=== PATIENT | male | born 1940 | race Caucasian/White ===

== ENCOUNTER 2016-04-13 15:59 | Inpatient (IN) | payer BC, OTHER ==
[~2016-04-13] VITALS: Ht 185.4 cm; Wt 97.6 kg
[2016-04-13] VITALS (15 sets, daily range): BP systolic 121–147; BP diastolic 73–86; PULSE 60–74; TEMP 36.5–36.6; O2SAT 92–97; BMI 29.7
[~2016-04-13 15:59] MED LIST: AMLO-110 PO; AMT50 PO; ASPEC81 PO; ATOR-24 PO; ATV2 PO; CHOL100010 PO; INSDGI SC; LISI40TA PO; METF1TAB85 PO; MULT-618; NAPR1TAB9 PO; NVLGI SC; VITAMIN B12 500 MCG PO
[2016-04-13] MEDS ORDERED: AMIODARONE 360MG / 200ML D5W ONE (16:09)
[2016-04-13] MEDS ORDERED: AMIODARONE 150MG / 100ML D5W ONE (16:09)
[2016-04-13] MEDS ORDERED: AMIODARONE HCL INJ 50 MG/ML 3 ML VIAL ONE (16:10)
[2016-04-13] MEDS ORDERED: AMIODARONE / D5W 100 ML IV STA (16:11)
[2016-04-13] MEDS ORDERED: MAGNESIUM SULFATE 1GM / D5W 1 GM BAG ONE (16:11)
[2016-04-13] MEDS ORDERED: SODIUM CHLORIDE 0.9% 1000ML 1,000 ML IV STA (16:17)
[2016-04-13] MEDS ORDERED: ONDANSETRON INJ 2 MG/ML 2 ML VIAL ONE (16:20)
[2016-04-13] MEDS ORDERED: ONDANSETRON INJ 2 MG/ML 2 ML VIAL IV STA (16:22)
[2016-04-13] MEDS ORDERED: AMIODARONE / D5W 200 ML IV SCH (16:25)
[2016-04-13 16:30] LABS: BASO % 0.5 %; BASO ABS # 0.05 K/uL (0-0.2); COMPLETE YES; EOS % 4.9 %; HEMATOCRIT 44.8 % (42-52); IG% 0.5 %; LYMPH % 38.6 %; LYMPH ABS # 3.94 K/uL (1.2-3.4); MEAN CELL VOLUME 91.2 fL (80-100); MEAN CORPUSCULAR HEMOGLOBIN 31.2 pg (25-34); MEAN CORPUSCULAR HGB CONC 34.2 g/dl (32-36); MEAN PLATELET VOLUME 9.6 fL (7.4-10.4); MONO % 9.9 %; NEUT % 45.6 %; PLATELET COUNT 259 K/uL (130-400); RED BLOOD COUNT 4.91 M/uL (4.7-6.1); WHITE BLOOD COUNT 10.21 K/uL (4.8-10.8)
[2016-04-13] MEDS: MAGNESIUM SULFATE 1GM / D5W 1 GM in PREMIXED IN D5W 100 ML IV SCH ×2 (16:30→17:18)
[2016-04-13 16:38] LABS: ISTAT CREATININE 1.3 mg/dl (0.6-1.3); ISTAT HEMOGLOBIN 15.3 g/dl (14.0-18.0); ISTAT IONIZED CALCIUM 1.04 mmol/l (1.12-1.32)
--- NOTE | 2016-04-13 16:43 | DIAGNOSTIC IMAGING REPORT ---
CHEST ONE VIEW PORTABLE CLINICAL HISTORY: Chest Pain dyspnea COMPARISON STUDY: None FINDINGS: Heart top limits normal terms of size. Diaphragms smooth. Minimal atelectasis left base. Several scattered calcified granulomas. No focal infiltrative process. IMPRESSION: Chronic granulomatous change. Minimal atelectasis left base. Otherwise negative study Electronically signed by: Joseph Kim M.D. 04/13/2016 4:41 PM
[2016-04-13] MEDS ORDERED: HEPARIN SOD (PORCINE) 1000 UNIT/ML 10 ML VIAL ONE (16:47)
[2016-04-13] MEDS ORDERED: NiCARDipine HCL INJ 2.5 MG/ML 10 ML AMP ONE (16:47)
[2016-04-13] MEDS ORDERED: MIDAZOLAM HCL 1 MG/ML 2ML VIAL ONE (16:48)
[2016-04-13] MEDS ORDERED: FENTANYL CITRATE INJ 50 MCG/1 ML 2 ML VIAL ONE (16:48)
[2016-04-13] MEDS ORDERED: NITROGLYCERIN/D5W 100MCG/ML 20ML SYR ONE (16:48)
[2016-04-13 16:52] LABS: BLOOD UREA NITROGEN 12 mg/dl (7-18); CALCIUM 8.7 mg/dl (8.5-10.1); CARBON DIOXIDE 20 mmol/L (21-32); CHLORIDE 98 mmol/L (98-107); GLUCOSE 376 mg/dl (70-99); SODIUM 133 mmol/L (136-145)
[2016-04-13] MEDS ORDERED: ASPEC325 PO (16:53)
[2016-04-13] MEDS ORDERED: FAMO40TA6 PO (16:53)
[2016-04-13] MEDS ORDERED: FLM4 PO (16:53)
[2016-04-13] MEDS ORDERED: INSDGI SQ (16:53)
[2016-04-13] MEDS ORDERED: CYAN500T PO (16:53)
[2016-04-13] MEDS ORDERED: CHOL1TAB42 PO (16:53)
--- NOTE | 2016-04-13 16:58 | History and Physical ---
History & Physical Date & Time of Service: Apr 13, 2016 at 16:52 Chief Complaint: Thinks He's Having A Heart Attack Primary Care Physician: Miguel Mares M.D. History of Present Illness Source: patient This is a 75 yo m that presented to the ED for evaluation. Upon arrival he was sitting in the chair for triage. He stated he has a sense of dizziness/feeling like he would pass out. An EKG was done and he was found to be in VT. Soon after this he had a syncopal episode and a code blue was called. He received 2 shocks and once he started to return to NSR Amiodarone bolus was given and a drip was continued. He was also given 2 G of Mg. He is currently in NSR with tachy. Denies any pain at this time. A heart Code was called and patient was evaluated by Dr Barragan. Plan is for the patient to go to the landscape laborer. The Social Work Specialist is also aware of the patient. After a short discussion after revival he denied ever having any chest pain and was actually coming in because of fast heart rate and general malaise. He has a h/o VT according to the patient's allscripts notes however I am unable to find the original EKG. He also has a h/o Barretts' Esophagus/ GERD, hyperchol, insulin dependent DM, HTN and anxiety which is treated with daily benzo. It was difficult to complete a full ROS during this initial evaluation Past Medical/Surgical History Cardiac arrest Barretts esophagus GERD Hyperchol HTN DM Family History Unable to obtain at this time Social History Smoking Status: Former Smoker Marital Status: Occupational Status: retired Multi-Drug Resistant Organisms History of MDRO: No Allergies Coded Allergies: No Known Allergies (Unverified , 04/13/16) Home Medications Scheduled Amitriptyline Hcl (Elavil), 50 MG PO HS Amlodipine (Norvasc), 5 MG PO HS Aspirin (Aspirin), 650 MG PO DAILY Atorvastatin (Lipitor), 40 MG PO HS Cholecalciferol (Vitamin D), 5,000 UNIT PO DAILY Cyanocobalamin (Vitamin B-12), 500 MCG PO DAILY Famotidine (Pepcid), 40 MG PO DAILY Insulin Aspart (Novolog), UNIT SC UD Insulin Glargine (Lantus), 50 UNITS SQ HS Lisinopril (Zestril), 40 MG PO HS Lorazepam (Ativan *), 2 MG PO UD Metformin Hcl (Metformin Hcl Er), 500 MG PO QPM Tamsulosin HCl (Tamsulosin HCl), 0.4 MG PO HS Miscellaneous Medications Multiple Vitamins W/ Minerals (Centrum Silver Ultra Mens) Physical Exam Vital Signs Date Time Temp Pulse Resp B/P Pulse Ox O2 Delivery O2 Flow Rate FiO2 04/13/16 16:20 104 04/13/16 16:13 108 04/13/16 16:00 Room Air General Appearance: no apparent distress Head: normocephalic, atraumatic Eyes: normal inspection ENT: normal ENT inspection Neck: supple Respiratory/Chest: lungs clear, normal breath sounds, no respiratory distress, no accessory muscle use Cardiovascular: no murmur, + tachycardia Abdomen/GI: normal bowel sounds, non tender Genitourinary - Male: normal male genitalia Back: normal inspection Extremities/Musculoskelatal: normal inspection, no pedal edema Neurologic/Psych: + pertinent finding (responding to questions however requiring some coaxing) Skin: normal color, warm/dry, no rash Lymphatic: no adenopathy Diagnostics Laboratory Results Results Past 24 Hours Test 04/13/16 16:13 04/13/16 16:16 04/13/16 16:18 04/13/16 16:21 Range/Units White Blood Count 10.21 4.8-10.8 K/uL Red Blood Count 4.91 4.7-6.1 M/uL Hemoglobin 15.3 14.0-18.0 g/dL Hematocrit 44.8 42-52 % Mean Corpuscular Volume 91.2 80-100 fL Mean Corpuscular Hemoglobin 31.2 25-34 pg Mean Corpuscular Hemoglobin Concent 34.2 32-36 g/dl Platelet Count 259 130-400 K/uL Mean Platelet Volume 9.6 7.4-10.4 fL Neutrophils (%) (Auto) 45.6 % Lymphocytes (%) (Auto) 38.6 % Monocytes (%) (Auto) 9.9 % Eosinophils (%) (Auto) 4.9 % Basophils (%) (Auto) 0.5 % Neutrophils # (Auto) 4.66 1.4-6.5 K/uL Lymphocytes # (Auto) 3.94 1.2-3.4 K/uL Monocytes # (Auto) 1.01 0.11-0.59 K/uL Eosinophils # (Auto) 0.50 0-0.5 K/uL Basophils # (Auto) 0.05 0-0.2 K/uL RDW Standard Deviation 41.3 36.4-46.3 fL RDW Coefficient of Variation 12.4 11.5-14.5 % Immature Granulocyte % (Auto) 0.5 % Immature Granulocyte # (Auto) 0.05 0.00-0.02 K/uL Sodium Level 133 136-145 mmol/L Potassium Level 3.5-5.1 mmol/L Chloride Level 98 98-107 mmol/L Carbon Dioxide Level 20 21-32 mmol/L Anion Gap 15.0 20.0 16-25 mmol/L Blood Urea Nitrogen 12 7-18 mg/dl Creatinine 1.50 0.60-1.40 mg/dl Estimated GFR () 52.4 Estimated GFR (Non- 45.2 BUN/Creatinine Ratio 8.0 10-20 Random Glucose 376 70-99 mg/dl Calcium Level 8.7 8.5-10.1 mg/dl Total Creatine Kinase 39-308 U/L Creatine Kinase MB Ratio 0-3.0 Bedside Glucose 415 70-99 mg/dl Bedside Hemoglobin 15.3 14.0-18.0 g/dl Bedside Hematocrit 45 42-52 % Bedside Sodium 132 135-144 mEq/L Bedside Potassium 5.5 3.3-5.0 mEq/L Bedside Chloride 97 101-112 mEq/L Bedside Total CO2 21 24-31 mEq/l Bedside Blood Urea Nitrogen 16 7-18 mg/dl Bedside Creatinine 1.3 0.6-1.3 mg/dl Bedside Glucose (other) 393 70-99 mg/dl Bedside Ionized Calcium (Domitila) 1.04 1.12-1.32 mmol/l Diagnostic Radiology CHEST ONE VIEW PORTABLE CLINICAL HISTORY: Chest Pain dyspnea COMPARISON STUDY: None FINDINGS: Heart top limits normal terms of size. Diaphragms smooth. Minimal atelectasis left base. Several scattered calcified granulomas. No focal infiltrative process. IMPRESSION: Chronic granulomatous change. Minimal atelectasis left base. Otherwise negative study EKG Ventricular tachycardia on admission repeat ekg revealed sinus tachy with PVC Impression Assessment and Plan this is a 75 yo m post cardiac arrest r/t ventricular tachycardia of unknown cause- plan is for cardiac cath and transfer to ICU Post cardiac arrest/ VT - ICU admission and consult electrician outside - consult CS- cardiac cath pending - continue amiodarone drip - previous notes from [facility] and previous EKG has been requested through [facility] DM insulin dep - defer DM control until recheck after cardiac cath - anticipate insulin drip Hyperkalemia - recheck in am, most likely secondary to arrest Anxiety - Ativan 0.5 mg prn considering chronic use of his anxiety medication GERD - IV protonix bid - hold famotidine HTN - hold until after cardiac cath - was on ASA, amlodipine, lisinopril Hyperchol - hold lipitor 40 until after cath - most likely will increase to 80 mg DVT Prophylaxis - hold until reevaluation after cath FULL CODE Level of Care Critical Care Resuscitation Status FULL RESUSCITATION VTE Prophylaxis VTE Risk Assessment Done? Y/N: Yes Risk Level: Moderate Social Service Consult None Apply Note Total Time: Critical Care 30 - 74 minutes I evaluated this patient and performed a physical exam. I reviewed the orders and read this note by Dr. Maru Aparicio M.D. I agree with the orders and the entire contents of this note. Additional Copies To ,Miguel Acuna M.D.
--- NOTE | 2016-04-13 17:56 | Procedure Note ---
Pre-Mod Sedation Assessment General Date of Moderate Sedation: Apr 13, 2016. Vital Signs: Vital Signs Past 12 Hours Date Time Temp Pulse Resp B/P Pulse Ox O2 Delivery O2 Flow Rate FiO2 04/13/16 17:40 79 18 124/77 95 Nasal Cannula 6 04/13/16 16:55 89 20 157/93 99 04/13/16 16:45 92 147/98 99 Non-Rebreather 15.0 04/13/16 16:40 92 145/104 100 Non-Rebreather 15.0 04/13/16 16:35 94 156/115 100 04/13/16 16:30 95 172/106 100 Non-Rebreather 15.0 04/13/16 16:25 102 99 Non-Rebreather 15.0 04/13/16 16:20 107 203/115 100 Non-Rebreather 15.0 04/13/16 16:20 104 04/13/16 16:13 108 04/13/16 16:05 104 172/116 100 Non-Rebreather 15.0 04/13/16 16:00 Room Air Review Cardiovascular: regular rate, rhythm, no edema, no gallop, + irregularly irregular Abdomen: normal bowel sounds, non tender, soft Lungs: chest non-tender, lungs clear, normal breath sounds Airway Class: II Pre-Sedation Airway Assessment Oral Cavity: WNL Able to Visualize Vocal Cords: No Short Thick Neck: No Hx of Sleep Apnea: No Smoking Status: Former Smoker Mallampati Classification: Class II ASA Classification: Class III Procedure Planning Contraindications-for Mod Sed: None Yes Notes The planned sedation has been discussed with the patient and consent obtained. I have identified the patient, determined the appropriateness of sedation and have assessed the patient immediately prior to the procedure. All medicine(s) and interventions are by my order.
--- NOTE | 2016-04-13 17:57 | Procedure Note ---
Post-Mod Sedation Assessment General Date of Moderate Sedation Apr 13, 2016. Vital Signs: Vital Signs Past 12 Hours Date Time Temp Pulse Resp B/P Pulse Ox O2 Delivery O2 Flow Rate FiO2 04/13/16 17:40 79 18 124/77 95 Nasal Cannula 6 04/13/16 16:55 89 20 157/93 99 04/13/16 16:45 92 147/98 99 Non-Rebreather 15.0 04/13/16 16:40 92 145/104 100 Non-Rebreather 15.0 04/13/16 16:35 94 156/115 100 04/13/16 16:30 95 172/106 100 Non-Rebreather 15.0 04/13/16 16:25 102 99 Non-Rebreather 15.0 04/13/16 16:20 107 203/115 100 Non-Rebreather 15.0 04/13/16 16:20 104 04/13/16 16:13 108 04/13/16 16:05 104 172/116 100 Non-Rebreather 15.0 04/13/16 16:00 Room Air Review - Discharge Criteria Vital Signs Stable: Yes Alert/Oriented/Conversant: Yes Returned to Baseline Mental St: Yes Nausea Absent/Minimal: Yes Pain/Discomfort/Absent/Minimal: Yes Normal/Baseline Respirations: Yes Active Bleeding?: No Pt Received D/C Instructions: N/A Prescriptions Given: Transmitted Specific Proced. D/C Criteria Distal Pulses Present (Cardiac: Yes Groin site assessed-Card Cath: N/A Voided Prior To Discharge: N/A Discharged Patients Adult Escort/Transportation: Yes
[2016-04-13] MEDS ORDERED: SODIUM CHLORIDE 0.9% 1000ML 1,000 ML IV SCH (18:30)
--- NOTE | 2016-04-13 18:43 | Cardiac Catheterization ---
Procedure Note Procedure Date Apr 13, 2016. Pre-Procedure Diagnosis Arrhythmia AUC Score 9 Post-Procedure Diagnosis Severe CAD, Decreased LV Systolic Function, Normal Intracardiac Pressures Procedure(s) Performed Coronary Angiography, Left Heart Cath, LV Angiography Systems Test Engineer Dr. Barragan Asbestos Abatement Technician(s) Charli Estimated Blood Loss 20 Medication(s) Fentanyl, Heparin, Nitroglycerin, Versed, Lidocaine 1% Summary of Findings Indication: Sustained VT Access: 6Fr Right Radial artery Catheters: [place], JL 3.5, Pigtail Findings: LM - Mild disease, 20% distal disease LAD - Luminal irregularities. Gives off left to right collaterals to PDA via septals. Circumflex - Luminal irregularities. Gives off let to right epicardial collaterals to R-PLB RCA - Dominant, mild proximal disease, mid segment calcified, 100% occluded after take-off of large acute marginal. Distal RCA fills retrograde via brisk right to right collaterals arising from the conus/sinoatrial gordo branches. No significant PDA/PLB disease LVEDP - 9 LV Angiography: EF ~45-50%. Inferior hypokinesis Summary: 1. Severe chronic single vessel coronary artery disease - Occluded mid RCA. Distal vessel fills via brisk right to right and left to right collaterals 2. Mild LV dysfunction with Inferior hypokinesis 3. Normal LV filling pressures Recommendations: No acute coronary disease to explain presentation with sustained monomorphic VT Will admit to ICU for further monitoring Correct electrolytes Continue amiodarone overnight Start beta-liz Continue ASA and statin Repeat TTE in AM EP Consult tomorrow Hemodynamics Rest Ao: 80/54/64 Final Ao: 104/57/77 LV: 93/9 Recommendations Medical therapy and/or Counseling Specimens None Radiation Exposure (mGy) 1848 Contrast (mls) 110 Fluids (cc crystalloids) 100 Drains None Anesthesia Moderate Procedural Complication(s) None Disposition ICU ACC Data Cardiac Status Clinical evaluation leading to the procedure CAD Presntation: Non STEMI Anginal Classification: CCS IV Heart Failure: No, NYHA Class: CCS I Cardiogenic Shock w/in 24Hrs: No Cardiac Arrest w/in 24Hrs: Yes Imaging studies past 6 months: No Stress studies past 6 months: No Standard Exercise Stress Test: No Stress Echocardiogram: No Stress Testing w/SPECT MPI: No Cardiac CTA: No Coronary Anatomy Dominant: Right Left Main (% Stenosis): Distal (20) LAD (% Stenosis): Normal Circumflex (% Stenosis): Normal RCA (% Stenosis): Mid (100) Left Ventricular Angiography EF (%): 45 Wall Motion: Inferior (Hypokinetic) Mitral Regurgitation: None Diagnostic Physician's Name: Robel Barragan MD Status: Urgent Closure Device Closure Device: Radial Band Recommendations: Medical therapy and/or Counseling Intraprocedure Events Significant Dissection: No Perforation: No
--- NOTE | 2016-04-13 19:06 | EMERGENCY ROOM VISIT NOTE ---
History Report prepared by Kim: Hemalatha Novak Under the Supervision of: Dr. Deacon Bishop D.O. First contact with patient: 16:13 Chief Complaint: CHEST PAIN Stated Complaint: THINKS HE'S HAVING A HEART ATTACK History of Present Illness The patient is a 75 year old male who presents to the Emergency Room with complaints of sudden unresponsiveness that occurred in triage. The patient was brought back to room B1 on a stretcher and a code blue was called. CPR was initiated on the patient and he was shocked twice. A sinus rhythm seemed to be restored and the patient became responsive. He then started to experience some nausea and dry heaving. Prior to coming into the ED, the patient was at home watching TV when he became lightheaded and felt like he was going to experience syncope. He states that he was lightheaded and felt like he was going to experience syncope when he came into the ED also. He adds that he could feel his heart "racing." He denies any chest pain but states that he was experiencing shortness of breath. The patient states that he was weak and had trouble ambulating beforehand also. The patient's states that the patient has been experiencing the flu for one week. The patient's also states that he has been experiencing a cough for the past week. He has been taking NyQuil to relieve his symptoms. Per the patient's , earlier today the patient was experiencing some chest pain along with diaphoresis. Originally, they thought the pain was due to him coughing so much recently. She states that the patient checked his blood sugar and saw that it was high so he took some of his insulin. Per the patient's , the patient then measured his blood pressure with their at home blood pressure cuff and noticed that his blood pressure was low. He then took lisinopril. The patient states that he has a history of atrial fibrillation, hypertension, and hyperlipidemia. The patient and his both deny any cardiac history for the patient. The patient denies any history of blood clots. Source of History: patient, nursing staff Onset: in triage Quality: other (unresponsiveness) Timing: other (sudden) Associated Symptoms: + SOB, + nausea, + weakness, No chest pain Note: lightheadedness like near-syncope, palpitations ("heart racing"), trouble ambulating Review of Systems See HPI for pertinent positives & negatives. A total of 10 systems reviewed and were otherwise negative. Past Medical & Surgical Medical Problems: (1) Cardiac arrest (2) Hyperlipidemia (3) Hypertension (4) Ventricular tachyarrhythmia Family History Diabetes mellitus FH: cancer Hypertension Social History Smoking Status: Former Smoker Marital Status: Occupation Status: retired Current/Historical Medications Scheduled Amitriptyline Hcl (Elavil), 50 MG PO HS Amlodipine (Norvasc), 5 MG PO HS Aspirin (Aspirin), 650 MG PO DAILY Atorvastatin (Lipitor), 40 MG PO HS Cholecalciferol (Vitamin D), 5,000 UNIT PO DAILY Cyanocobalamin (Vitamin B-12), 500 MCG PO DAILY Famotidine (Pepcid), 40 MG PO DAILY Insulin Aspart (Novolog), UNIT SC UD Insulin Glargine (Lantus), 50 UNITS SQ HS Lisinopril (Zestril), 40 MG PO HS Lorazepam (Ativan *), 2 MG PO UD Metformin Hcl (Metformin Hcl Er), 500 MG PO QPM Tamsulosin HCl (Tamsulosin HCl), 0.4 MG PO HS Miscellaneous Medications Multiple Vitamins W/ Minerals (Centrum Silver Ultra Mens) Allergies Coded Allergies: No Known Allergies (Unverified , 04/13/16) Physical Exam Vital Signs Date Time Temp Pulse Resp B/P Pulse Ox O2 Delivery O2 Flow Rate FiO2 04/13/16 16:45 92 147/98 99 Non-Rebreather 15.0 04/13/16 16:40 92 145/104 100 Non-Rebreather 15.0 04/13/16 16:35 94 156/115 100 04/13/16 16:30 95 172/106 100 Non-Rebreather 15.0 04/13/16 16:25 102 99 Non-Rebreather 15.0 04/13/16 16:20 107 203/115 100 Non-Rebreather 15.0 04/13/16 16:20 104 04/13/16 16:13 108 04/13/16 16:05 104 172/116 100 Non-Rebreather 15.0 04/13/16 16:00 Room Air Physical Exam First Exam GENERAL: Ill appearing, unresponsive, laying on bed, agonal respirations. EYE EXAM: eyes close, normal conjunctiva OROPHARYNX: no exudate, no erythema, lips, buccal mucosa, and tongue normal and mucous membranes are moist NECK: supple, no nuchal rigidity, no adenopathy, non-tender LUNGS: Coarse bilaterally. Normal chest wall mechanics HEART: distant ABDOMEN: abdomen soft, non-tender, normo-active bowel sounds, no masses, no rebound or guarding. BACK: Back is symmetrical on inspection and there is no deformity, no midline tenderness, no CVA tenderness. SKIN: no rashes and no bruising UPPER EXTREMITIES: upper extremities are grossly normal. LOWER EXTREMITIES: No pitting edema. NEURO EXAM: Unresponsive, won't follow commands, agonal respirations Second Exam 10 minutes later GENERAL: alert, sitting up, conversing, no focal deficit. EYE EXAM: normal conjunctiva LUNGS: Clear to auscultation. Normal chest wall mechanics HEART: tachycardic rate, no murmurs, S1 normal and S2 normal ABDOMEN: abdomen soft, non-tender, normo-active bowel sounds, no masses, no rebound or guarding. BACK: Back is symmetrical on inspection and there is no deformity, no midline tenderness, no CVA tenderness. SKIN: no rashes and no bruising UPPER EXTREMITIES: upper extremities are grossly normal. LOWER EXTREMITIES: No pitting edema. NEURO EXAM: Alert, following commands, moving all extremities. Medical Decision & Procedures ER Provider Diagnostic Interpretation: Xray results per the radiologist and my interpretation. CHEST ONE VIEW PORTABLE CLINICAL HISTORY: Chest Pain dyspnea COMPARISON STUDY: None FINDINGS: Heart top limits normal terms of size. Diaphragms smooth. Minimal atelectasis left base. Several scattered calcified granulomas. No focal infiltrative process. IMPRESSION: Chronic granulomatous change. Minimal atelectasis left base. Otherwise negative study Electronically signed by: Joseph Kim M.D. 04/13/2016 4:41 PM Laboratory Results 04/13/16 16:13 Red Blood Count 4.91, Mean Corpuscular Volume 91.2, Mean Corpuscular Hemoglobin 31.2, Mean Corpuscular Hemoglobin Concent 34.2, Mean Platelet Volume 9.6, Neutrophils (%) (Auto) 45.6, Lymphocytes (%) (Auto) 38.6, Monocytes (%) (Auto) 9.9, Eosinophils (%) (Auto) 4.9, Basophils (%) (Auto) 0.5, Neutrophils # (Auto) 4.66, Lymphocytes # (Auto) 3.94, Monocytes # (Auto) 1.01, Eosinophils # (Auto) 0.50, Basophils # (Auto) 0.05 04/13/16 16:13 Test 04/13/16 16:13 04/13/16 16:18 04/13/16 16:21 04/13/16 16:48 White Blood Count 10.21 K/uL (4.8-10.8) Red Blood Count 4.91 M/uL (4.7-6.1) Hemoglobin 15.3 g/dL (14.0-18.0) Hematocrit 44.8 % (42-52) Mean Corpuscular Volume 91.2 fL (80-100) Mean Corpuscular Hemoglobin 31.2 pg (25-34) Mean Corpuscular Hemoglobin Concent 34.2 g/dl (32-36) Platelet Count 259 K/uL (130-400) Mean Platelet Volume 9.6 fL (7.4-10.4) Neutrophils (%) (Auto) 45.6 % Lymphocytes (%) (Auto) 38.6 % Monocytes (%) (Auto) 9.9 % Eosinophils (%) (Auto) 4.9 % Basophils (%) (Auto) 0.5 % Neutrophils # (Auto) 4.66 K/uL (1.4-6.5) Lymphocytes # (Auto) 3.94 K/uL (1.2-3.4) Monocytes # (Auto) 1.01 K/uL (0.11-0.59) Eosinophils # (Auto) 0.50 K/uL (0-0.5) Basophils # (Auto) 0.05 K/uL (0-0.2) RDW Standard Deviation 41.3 fL (36.4-46.3) RDW Coefficient of Variation 12.4 % (11.5-14.5) Immature Granulocyte % (Auto) 0.5 % Immature Granulocyte # (Auto) 0.05 K/uL (0.00-0.02) Estimated GFR () 52.4 Estimated GFR (Non- 45.2 BUN/Creatinine Ratio 8.0 (10-20) Calcium Level 8.7 mg/dl (8.5-10.1) Total Creatine Kinase U/L (39-308) Creatine Kinase MB 2.7 ng/ml (0.5-3.6) Creatine Kinase MB Ratio (0-3.0) Troponin I 0.035 ng/ml (0-0.045) Bedside Glucose 415 mg/dl (70-99) Bedside Hemoglobin 15.3 g/dl (14.0-18.0) Bedside Hematocrit 45 % (42-52) Bedside Sodium 132 mEq/L (135-144) Bedside Potassium 5.5 mEq/L (3.3-5.0) Bedside Chloride 97 mEq/L (101-112) Bedside Total CO2 21 mEq/l (24-31) Anion Gap 20.0 mmol/L (16-25) Bedside Blood Urea Nitrogen 16 mg/dl (7-18) Bedside Creatinine 1.3 mg/dl (0.6-1.3) Bedside Glucose (other) 393 mg/dl (70-99) Bedside Ionized Calcium (Domiitla) 1.04 mmol/l (1.12-1.32) Bedside Troponin I 0.500 ng/ml (0-0.045) Laboratory results per my review. Medications Administered Medications (Trade) Dose Ordered Sig/Ralph Route Start Time Stop Time Status Last Admin Dose Admin Amiodarone HCL/ Dextrose (Nexterone / D5w) 100 ml @ 600 mls/hr NOW STAT IV 04/13/16 16:11 04/13/16 16:20 DC 04/13/16 16:20 600 MLS/HR Amiodarone HCL/ Dextrose 150 mg 150 mg STK-MED ONCE .ROUTE 04/13/16 16:09 04/13/16 16:11 DC 04/13/16 16:09 150 MG Amiodarone HCL/ Dextrose (Nexterone / D5w) 200 ml @ 33.3 mls/hr Q6H1M IV 04/13/16 16:25 04/13/16 22:25 04/13/16 16:25 33.3 MLS/HR Magnesium Sulfate 2 gm 2 gm STK-MED ONCE .ROUTE 04/13/16 16:11 04/13/16 16:13 DC 04/13/16 16:20 2 GM Sodium Chloride 1,000 ml @ 999 mls/hr Q1H1M STAT IV 04/13/16 16:17 04/13/16 17:17 DC 04/13/16 16:17 999 MLS/HR Magnesium Sulfate/ Prmx (Magnesium Sulfate/Premixed D5W) 100 ml @ 100 mls/hr Q1H IV 04/13/16 16:30 04/13/16 18:29 DC 04/13/16 17:18 100 MLS/HR Ondansetron HCl (Zofran Inj) 4 mg NOW STAT IV 04/13/16 16:22 04/13/16 16:23 DC 04/13/16 16:22 4 MG Heparin Sodium (Porcine) (Heparin Iv Bolus) 10,000 unit STK-MED ONCE .ROUTE 04/13/16 16:47 04/13/16 16:49 DC 04/13/16 17:15 5,000 UNIT Midazolam HCl (Versed Inj) 2 mg STK-MED ONCE .ROUTE 04/13/16 16:48 04/13/16 16:49 DC 04/13/16 16:48 1 MG Fentanyl Citrate (Fentanyl Inj) 100 mcg STK-MED ONCE .ROUTE 04/13/16 16:48 04/13/16 16:49 DC 04/13/16 16:48 25 MCG Procedure CPR was performed and my direction for 5 minutes. ECG Indication: syncope Rate (beats per minute): 103 Rhythm: sinus tachycardia Findings: 1st degree AV block, PAC, PVC, Q waves (Septal), other (right axis deviation) Change: First EKG revealed ventricular tachycardia. ED Course ED COURSE: Vital signs were reviewed and showed hypoxia and pulseless. The patients medical record was reviewed The above diagnostic studies were performed and reviewed. ED treatments and interventions as stated above. 1601: The patient was evaluated in room B1. CPR was initiated. 1608: After CPR and two shocks, the patient is awake, alert, and responsive. A heart alert was called. 1609: Ordered Amiodarone HCl/Dextrose 360 mg IV 1611: I updated the patient's . She informed me that the patient is a full code. Ordered Magnesium Sulfate 2 gm IV 1617: Ordered Sodium Chloride 1000 ml @ 999 mls/hr IV 1618: I reviewed the patient's case with Dr. Barragan - Cardiology. He will be down to evaluate the patient. 1621: Dr. Barragan is now at bedside. 1622: Ordered Zofran 4 mg IV 1625: Ordered Amiodarone HCl/Dextrose 200 ml @ 33.3 mls/hr IV 1630: Ordered Magnesium Sulfate 1 gm/Prmx 100 ml @ 100 mls/hr IV 1635: I reviewed the patient's case with Yi - ICU. He is going to come evaluate the patient. 1637: Dr. Richmond is now at bedside. 1643: I discussed the patient's case with Dr. Barragan and Dr. Richmond. The patient is going to receive a heart catheterization. 1644: Upon reevaluation, the patient is resting comfortably.I discussed my findings with the patient and he understands and agrees with the treatment plan. Based on the patients age, coexisting illnesses, exam and lab findings the decision to treat as an inpatient was made. The patient remained stable while under my care. The patient will go to the heart catheterization lab for further management. 1647: Ordered Heparin Sodium (Porcine) 73161 units IV 1648: Ordered Fentanyl Citrate 100 mcg IV, Versed Inj 2 mg IV Medical Decision Differential diagnoses includes but is not limited to acute coronary syndrome, myocardial infarction, pericarditis, pulmonary embolus, aortic dissection, pneumonia, pneumothorax, musculoskeletal, shingles, esophageal. Patient is a 75-year-old male with a past medical history hypertension, hyperlipidemia, diabetes and presents the ER in triage with palpitations. He became unresponsive. EKG was obtained and showed that he was in V. tach. He was immediately rushed into the B1. At this point we called a code. We started CPR immediately. He was hooked up to the monitor and was eventually shocked twice while he was in V tach. He is completely unresponsive without a personal pulse. He was bagged during this time. Following the second shock CPR continued and eventually woke up. He is able to answer questions completely. A bolus of amiodarone drip was ordered. Chest x-ray was obtained. He is completely neurologically intact. At this time I discussed case with interventional cardiology who evaluated him at bedside. Also discussed that case with ICU attending who evaluated him at bedside. Patient was given 2 g magnesium as well. CBC along with BMP was fairly unremarkable. With his risk factors cardiology did elected taken to [facility] to see if this is ischemic. Patient rested comfortably in the ER on a nonrebreather following being shocked twice for VT eventually returned to a sinus tach with a first-degree AV block and ST changes in the EKG. Patient is monitored closely on the ER. Consults Time Called: 1608 Consulting Physician: Dr. Barragan - Cardiology Returned Call: 1621 I reviewed the patient's case with Dr. Barragan - Cardiology. He will be down to evaluate the patient. Additional Consults: Time Called: 1633 Consulted Physician: Dr. Richmond - ICU Returned Call: 1635 Additional Comments: I reviewed the patient's case with [facility] ICU. He is going to come evaluate the patient. Impression Primary Impression: Cardiac arrest Additional Impression: Ventricular tachycardia Critical Care I have personally spent 80 minutes of critical care time in the direct management of this patient. This includes bedside care, interpretation of diagnostic studies, and testing, discussion with consultants, patient, and family members, and other required patient management activities. This 80 minutes is in excess of all separately billable procedures. Scribe Attestation The scribe's documentation has been prepared under my direction and personally reviewed by me in its entirety. I confirm that the note above accurately reflects all work, treatment, procedures, and medical decision making performed by me. Departure Information Dispostion Other (Taken to [facility] with [facility] and ICU aware) Referrals Pro,Miguel Acuna M.D. (PCP) Patient Instructions A Signature Page, My [facility]
[2016-04-13 20:04] LABS: BETA-HYDROXYBUTYRATE 2.63 mg/dL (0.2-2.81)
[2016-04-13] MEDS: PANTOprazole INJ 40 MG in SYRINGE 0 ML IV SCH (21:53)
[2016-04-13] MEDS: AMIODARONE / D5W 200 ML IV SCH (21:54)
[2016-04-13] MEDS ORDERED: DEXTROSE 50% 50 ML SYR IV PRN (22:15)
[2016-04-13] MEDS ORDERED: GLUCOSE 40% GEL 15 GM TUBE PO PRN (22:15)
[2016-04-13] MEDS ORDERED: GLUCOSE 10 TABS/TUBE PO PRN (22:15)
[2016-04-13] MEDS ORDERED: GLUCAGON FOR INJ 1 MG VIAL SQ PRN (22:15)
[2016-04-13] MEDS ORDERED: LORAZEPAM INJ 0.5 MG in SYRINGE 0.75 ML IV PRN (22:15)
[2016-04-13] MEDS: LORAZEPAM 2 MG/ML 1 ML VIAL IV PRN (22:25)
[2016-04-13] MEDS: INSULIN ASPART 100 UNITS/ML 3 ML PEN SC SCH (22:28)
--- NOTE | 2016-04-13 22:58 | CARDIOLOGY CONSULTATION ---
DATE OF CONSULTATION: 04/13/2016 CONSULTATION REQUESTED BY: Dr. Bishop. REASON FOR CONSULTATION: Ventricular tachycardia. HISTORY OF PRESENT ILLNESS: Mr. Hess is a 75-year-old male with a history of insulin-dependent diabetes, hypertension, hyperlipidemia, GERD and prior PVCs who presented to the Emergency Department today with complaints of dizziness and not feeling well. While in triage, was noted to go into ventricular tachycardia with hemodynamic instability requiring defibrillation x2. Cardiology was consulted for further management. The patient states that he had been feeling flu-like symptoms for several days. Today, he was just not feeling well and had noticed that his sugars have been extremely labile earlier in the day. He reports intermittent periods of dizziness with feelings of his heart racing and due to the symptoms felt that he needed to come into the Emergency Department. Following development of VT, the patient was shocked twice. He was loaded with amiodarone and started on an amiodarone drip; he regained consciousness quickly and did not have to be intubated. The patient denies any severe chest pain preceding this event. He did endorse some mild chest tightness earlier in the day, but that was also in the setting of coughing. He denies ever having similar symptoms in the past. Of note, the patient does have a history of PVCs and did have a prior Holter monitor back in 2009 which showed frequent PVCs and brief runs of non-sustained VT and at most 7 beats. At that time the patient had preserved LV function on echo with no regional wall motion abnormalities. The patient's EKG at the time of presenting event, showed monomorphic VT with heart rates into the 230s with a left bundle branch type morphology. Post-EKG showed again frequent PVCs with right bundle branch block and questionable inferolateral ST changes. At the time of interview, patient was diaphoretic and appeared acutely ill and due to questionable dynamic EKG changes and sustained VT with cardiac risk factors: The decision was made to take the patient urgently to cardiac catheterization lab. Coronary angiography revealed an occluded mid RCA. Distal RCA, PLBs and PDA filled via brisk [id number] and [id number] collaterals suggesting that the lesion was chronic. Left coronary artery system showed no significant disease. LV angiography showed mildly reduced LV dysfunction with an EF of 45% and some inferior wall hypokinesis. The patient was given fluids during intra-procedure and post-procedure was feeling improved without any chest pain. As the lesion was thought to be chronic, no intervention was undertaken. PAST MEDICAL HISTORY: 1. Diabetes. 2. Hypertension. 3. Hyperlipidemia. 4. GERD. 5. Question of Hummel's esophagus. 6. PVCs. FAMILY HISTORY: Was unable to obtain at presentation. SOCIAL HISTORY: He was a former smoker. He is and is retired. He denies any heavy alcohol or illicit drugs. ALLERGIES: No known drug allergies. HOME MEDICATIONS: 1. Amitriptyline. 2. Amlodipine 5. 3. Aspirin 325. 4. Atorvastatin 40. 5. Cholecalciferol. 6. Vitamin B12. 7. Famotidine. 8. Insulin aspart. 9. Insulin glargine. 10. Lisinopril 40 q.h.s. 11. Lorazepam. 12. Metformin. 13. Flomax. REVIEW OF SYSTEMS: Unable to be obtained at the time of interview. PHYSICAL EXAMINATION: VITAL SIGNS: Temperature, the patient was afebrile; his pulse is 94; blood pressure was 156/115; he was satting 91% on 15 liter non-rebreather. GENERAL: The patient appeared ill, diaphoretic and comfortable. HEENT: His sclerae are anicteric. His oropharynx were clear. Mucous membrane were moist. NECK: Supple with no lymphadenopathy and no jugular venous distention. LUNGS: Clear to auscultation bilaterally. CARDIAC: He had a regular rate and rhythm with frequent premature beats. He had no appreciable murmurs, rubs or gallops. ABDOMEN: Soft, obese but nontender, positive bowel sounds, no hepatosplenomegaly. EXTREMITIES: Warm. He had intact distal pulses. SKIN: Showed no rashes or lesions. NEUROLOGIC: Cranial nerves II-XII are grossly intact. Remainder of exam was nonfocal. DATA: Sodium 133, potassium 5.5, BUN 12, creatinine 1.5, glucose of 393, calcium 8.7. CK-MB of 2.7. Initial troponin 0.035, hemoglobin 15.3, white blood cell count 10.2 and platelets 259. IMAGING: Chest x-ray showed chronic granulomatous changes, minimal atelectasis left base, otherwise negative study. IMPRESSION AND PLAN: 1. 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 2. Chronically occluded right coronary artery. 3. Mild ischemic cardiomyopathy. 4. Hypertension. 5. Poorly controlled diabetes. 6. Hyperlipidemia. 7. Hyperkalemia. Post cardia catheterization patient is hemodynamically and electrically stable, and remains chest pain free. Unclear etiology monomorphic ventricular tachycardia. Question secondary to myocardial scar versus idiopathic VT. No evidence of acute thrombotic lesion on coronary angiography. For now, I recommend to continue on an amiodarone drip overnight. Would work on correcting electrolytes and hyperkalemia. Would start patient on beta liz as blood pressure allows. Otherwise, continue to trend troponins. Plan to obtain a transthoracic echocardiogram in the a.m. We will discuss with electrophysiology service tomorrow. Thank you for allowing us to participate in the care of this patient. Please contact with any questions. SERGIO
[2016-04-14] VITALS (11 sets, daily range): BP systolic 135–168; BP diastolic 75–97; PULSE 63–79; TEMP 36.6–36.9; O2SAT 90–97; Ht 185.4 cm; Wt 97.6 kg
[2016-04-14] MEDS: LORAZEPAM 2 MG/ML 1 ML VIAL IV PRN ×2 (02:32→22:27)
[2016-04-14] MEDS ORDERED: MODERATE STRESS LEVEL ONE (05:15)
[2016-04-14] MEDS ORDERED: INSULIN PROTOCOL GOAL RANGE ONE (05:15)
[2016-04-14] MEDS ORDERED: INSULIN IV INFUSION PROTOCOL SCH (05:33)
[2016-04-14 05:35] LABS: BASO % 0.2 %; BASO ABS # 0.01 K/uL (0-0.2); COMPLETE YES; EOS % 1.7 %; HEMATOCRIT 39.8 % (42-52); IG% 0.3 %; LYMPH % 23.9 %; LYMPH ABS # 1.56 K/uL (1.2-3.4); MEAN CELL VOLUME 87.9 fL (80-100); MEAN CORPUSCULAR HEMOGLOBIN 30.9 pg (25-34); MEAN CORPUSCULAR HGB CONC 35.2 g/dl (32-36); MEAN PLATELET VOLUME 8.9 fL (7.4-10.4); MONO % 8.9 %; PLATELET COUNT 215 K/uL (130-400); RED BLOOD COUNT 4.53 M/uL (4.7-6.1); WHITE BLOOD COUNT 6.53 K/uL (4.8-10.8)
[2016-04-14] MEDS ORDERED: PHARMACY GLYCEMIC MGMT CONSULT PRN ×2 (05:35→12:00)
--- NOTE | 2016-04-14 05:35 | Critical Care Consultation ---
Critical Care Consultation Date of Consultation: Apr 13, 2016. Attending Physician: Buzz Cervantes DO Reason for Consultation: Ventricular tachycardia requiring emergent cardioversion History of Present Illness Patient is a 75-year-old male who is a poor historian with the exact nature of his previous medical history, he reports that he has a irregular heartbeat, however is unable to tell us what type of irregular heartbeat. Also states he is on lisinopril for this irregular heartbeat. Patient was initially seen in the emergency room for profound generalized malaise and exertional dyspnea, he was found to be in ventricular tachycardia he received 2 emergent cardioversions as well as approximately 45 minutes of CPR , there was return of spontaneous circulation. Patient was emergently seen in the emergency department by cardiology, patient was taken to cardiac catheterization for further evaluation for possible ACS. When I saw the patient in the emergency room he was not complaining of any chest pain at that period and he did not have any recall of the hypotension associated with the ventricular tachycardia and subsequent CPR. Cardiac catheterization have been reviewed, and I discussed this patient with Dr. Barragan of cardiology. Briefly the patient had a occluded mid RCA with brisk collateral flow, LV angiography revealed a EF of 45% and some inferior wall hypokinesis. No stenting was completed. Patient had been initially bolused amiodarone in the ED and infusion continued. Past Medical/Surgical History #1 diabetes #2 hypertension #3 hyperlipidemia #4 GERD #5 PVCs Family History Diabetes mellitus FH: cancer Hypertension Social History Smoking Status: Former Smoker (20 pack year smoking history quit 35 years ago) Marital Status: Occupation Status: retired Allergies Coded Allergies: No Known Allergies (Unverified , 04/13/16) Home Medications Scheduled Amitriptyline Hcl (Elavil), 50 MG PO HS Amlodipine (Norvasc), 5 MG PO HS Aspirin (Aspirin), 650 MG PO DAILY Atorvastatin (Lipitor), 40 MG PO HS Cholecalciferol (Vitamin D), 5,000 UNIT PO DAILY Cyanocobalamin (Vitamin B-12), 500 MCG PO DAILY Famotidine (Pepcid), 40 MG PO DAILY Insulin Aspart (Novolog), UNIT SC UD Insulin Glargine (Lantus), 50 UNITS SQ HS Lisinopril (Zestril), 40 MG PO HS Lorazepam (Ativan *), 2 MG PO UD Metformin Hcl (Metformin Hcl Er), 500 MG PO QPM Tamsulosin HCl (Tamsulosin HCl), 0.4 MG PO HS Miscellaneous Medications Multiple Vitamins W/ Minerals (Centrum Silver Ultra Mens) Current Inpatient Medications Current Inpatient Medications Medications (Trade) Dose Ordered Sig/Ralph Route Start Time Stop Time Status Last Admin Dose Admin Amiodarone HCL/ Dextrose 200 ml @ 33.3 mls/hr Q6H1M IV 04/13/16 16:25 04/13/16 22:25 04/13/16 16:25 33.3 MLS/HR Amiodarone HCL/ Dextrose (Nexterone / D5w) 200 ml @ 16.7 mls/hr [id number] IV 04/13/16 22:25 05/13/16 22:24 Lorazepam 0.5 mg 0.5 mg Q4 PRN IV 04/14/16 17:30 05/14/16 17:29 Pantoprazole Sodium 40 mg/ Syringe 10 ml @ 5 mls/min DAILY@09,21 IV 04/13/16 21:00 05/13/16 20:59 Sodium Chloride (Nss 1000ml) 1,000 ml @ 150 mls/hr Q6H40M IV 04/13/16 18:30 04/13/16 23:29 04/13/16 18:39 150 MLS/HR Insulin Aspart (novoLOG ASPART) SLIDING SCALE G... Q6H SC 04/13/16 21:00 05/13/16 20:59 UNV Review of Systems Patient denied chest pain, shortness of breath, abdominal pain, nausea, vomiting. A 10 point review of systems is otherwise obtained and is reviewed and negative Physical Exam Date Time Temp Pulse Resp B/P Pulse Ox O2 Delivery O2 Flow Rate FiO2 04/13/16 20:45 60 18 140/80 Nasal Cannula 3.0 04/13/16 19:45 36.5 61 20 127/73 97 Nasal Cannula 3.0 04/13/16 19:14 63 16 132/78 97 Nasal Cannula 6.0 04/13/16 18:45 36.6 65 18 123/73 93 Nasal Cannula 6.0 04/13/16 18:30 68 18 121/77 92 Nasal Cannula 6.0 04/13/16 18:19 36.5 70 19 135/78 92 Nasal Cannula 6.0 04/13/16 18:00 36.5 74 24 125/77 93 Nasal Cannula 6.0 04/13/16 17:40 79 18 124/77 95 Nasal Cannula 6 04/13/16 16:55 89 20 157/93 99 04/13/16 16:45 92 147/98 99 Non-Rebreather 15.0 04/13/16 16:40 92 145/104 100 Non-Rebreather 15.0 04/13/16 16:35 94 156/115 100 04/13/16 16:30 95 172/106 100 Non-Rebreather 15.0 04/13/16 16:30 36.6 65 18 123/73 93 Nasal Cannula 6.0 04/13/16 16:25 102 99 Non-Rebreather 15.0 04/13/16 16:20 107 203/115 100 Non-Rebreather 15.0 04/13/16 16:20 104 04/13/16 16:13 108 04/13/16 16:05 104 172/116 100 Non-Rebreather 15.0 04/13/16 16:00 Room Air General: Patient was resting in a hospital [facility], well-nourished, he had pacer pads on his chest. HEENT: Normocephalic atraumatic Neck: Supple without lymphadenopathy no JVD Lungs: Clear to auscultation bilaterally CVS: Regular rate and rhythm frequent PVCs, no murmurs rubs gallops Abdomen: Soft nontender nondistended no hepatosplenomegaly Extremities: 2+ pulses 4, no evidence of clubbing cyanosis or edema Neurologic: Cranial nerves II through XII are grossly intact, no focal deficit. Laboratory Results Last 24 Hours Test 04/13/16 16:13 04/13/16 16:18 04/13/16 16:21 04/13/16 16:48 White Blood Count 10.21 K/uL Red Blood Count 4.91 M/uL Hemoglobin 15.3 g/dL Hematocrit 44.8 % Mean Corpuscular Volume 91.2 fL Mean Corpuscular Hemoglobin 31.2 pg Mean Corpuscular Hemoglobin Concent 34.2 g/dl Platelet Count 259 K/uL Mean Platelet Volume 9.6 fL Neutrophils (%) (Auto) 45.6 % Lymphocytes (%) (Auto) 38.6 % Monocytes (%) (Auto) 9.9 % Eosinophils (%) (Auto) 4.9 % Basophils (%) (Auto) 0.5 % Neutrophils # (Auto) 4.66 K/uL Lymphocytes # (Auto) 3.94 K/uL Monocytes # (Auto) 1.01 K/uL Eosinophils # (Auto) 0.50 K/uL Basophils # (Auto) 0.05 K/uL RDW Standard Deviation 41.3 fL RDW Coefficient of Variation 12.4 % Immature Granulocyte % (Auto) 0.5 % Immature Granulocyte # (Auto) 0.05 K/uL Sodium Level 133 mmol/L Potassium Level mmol/L Chloride Level 98 mmol/L Carbon Dioxide Level 20 mmol/L Anion Gap 15.0 mmol/L 20.0 mmol/L Blood Urea Nitrogen 12 mg/dl Creatinine 1.50 mg/dl Estimated GFR () 52.4 Estimated GFR (Non- 45.2 BUN/Creatinine Ratio 8.0 Random Glucose 376 mg/dl Calcium Level 8.7 mg/dl Total Creatine Kinase U/L Creatine Kinase MB 2.7 ng/ml Creatine Kinase MB Ratio Troponin I 0.035 ng/ml Beta-Hydroxybutyric Acid 2.63 mg/dL Bedside Glucose 415 mg/dl Bedside Hemoglobin 15.3 g/dl Bedside Hematocrit 45 % Bedside Sodium 132 mEq/L Bedside Potassium 5.5 mEq/L Bedside Chloride 97 mEq/L Bedside Total CO2 21 mEq/l Bedside Blood Urea Nitrogen 16 mg/dl Bedside Creatinine 1.3 mg/dl Bedside Glucose (other) 393 mg/dl Bedside Ionized Calcium (Domitila) 1.04 mmol/l Bedside Troponin I 0.500 ng/ml Test 04/13/16 20:41 Bedside Glucose 220 mg/dl Diagnostic Results Cardiac cath report dated 04/13/2016 has been reviewed Serial EKGs all obtained generally have been independently reviewed by me as well as the report. Chest x-ray dated 04/13/2016 has been independently reviewed as well as the report. Assessment & Plan Reason Critically Ill: Patient's critically ill due to hemodynamically unstable ventricular tachycardia. PLAN: Neuro: No chest pain no shortness of breath, no indication for cooling given brief CPR, return of spontaneous circulation, and neurologically intact at this point Resp: History of [id number] smoking history quit 35 years ago CV: #1 ventricular tachycardia: Continue amiodarone infusion TTE in the morning Electrophysiology consult regarding possible AICD #2 coronary artery disease Continue atorvastatin #3 hyperlipidemia #4 hypertension Continue antihypertensives Fluids/Renal: Mild hyponatremia Elevated creatinine, unclear baseline ID: Afebrile GI/Nutrition: ADA diet Heme: Heparin prophylaxis given renal insufficiency Endocrine: Poorly controlled diabetes mellitus type 2 Send A1c I have personally spent 80 minutes of critical care time in the direct management of this patient. This is a life/limb threatening event. This includes time spent evaluating patient, direct bedside care, chart review, placing orders, interpretation of diagnostic studies, discussion with consultants, patient, and family members, as well as other required patient management activities. This time is exclusive of all separately billable procedures, and teaching time and separate from and in addition to any other critical care service time.
[2016-04-14 06:05] LABS: BUN/CREATININE RATIO 13.4 (10-20); MAGNESIUM 2.4 mg/dl (1.8-2.4)
[2016-04-14 06:23] LABS: CREATININE 0.79 mg/dl (0.60-1.40)
[2016-04-14] MEDS: INSULIN ASPART 100 UNITS/ML 3 ML PEN SC SCH ×4 (06:54→21:00)
[2016-04-14 07:20] LABS: PROTHROMBIN TIME (PATIENT) 10.7 SECONDS (9.0-12.0)
[2016-04-14] MEDS ORDERED: POLYETHYLENE (MIRALAX) 17 GM PACK ONE (07:35)
--- NOTE | 2016-04-14 07:56 | Clinical Documentation Query ---
CYNTHIA ZhaoITH : CLINICAL DOCUMENTATION QUERY Patient is a 75 year old male admitted with a VT associated cardiac arrest. Admission BUN and creatinine were 12 and 1.50 mg/dl. After fluid repletion intravenously, repeat values this a.m. (04/14) are 11 mg/dl and 0.79 mg/dl. There is no documented history of CKD. In your clinical opinion is this patient being managed for: ( ) Acute kidney failure, POA, resolved ( ) Other explanation of clinical findings (Please Explain) ( ) Unable to determine (Please Define) ( ) Need to Discuss ( ) Not Agree The medical record reflects the following clinical findings, treatment, and risk factors. Clinical Indicators: Creatinine of 1.5 mg/dl on admission, improved to 0.79 mg/dl with IVF Treatment: IVF, serial chemistries Risk Factors: Age, "flu-like symptoms" for one week prior to arrival, likely poor po intake. Please clarify and document your clinical opinion in the progress notes and discharge summary. Terms such as "probable", "suspected", "likely", "questionable", "possible", or "still to be ruled out" are acceptable. IF IN AGREEMENT, YOU MUST DOCUMENT ABOVE DIAGNOSTIC STATEMENT IN DAILY PROGRESS NOTES AND DISCHARGE SUMMARY. This document is not part of the patient's record. Thank You, Zack Bowman RN [phone]
[2016-04-14] MEDS ORDERED: INSULIN ASPART 100 UNITS/ML 3 ML PEN SC SCH (08:00)
--- NOTE | 2016-04-14 08:00 | Critical Care Progress Note ---
Critical Care Progress Note Date of Service Apr 14, 2016. Attending Dr. Richmond Subjective Patient without complaint this morning, mild chest soreness after CPR, no dizziness no abdominal pain. Patient was unable to move his bowels morning Objective Gen.: Resting comfortably in bed CVS: S1-S2 regular rate and rhythm Pulmonary: Lungs clear to auscultation bilaterally Abdomen: Soft nontender nondistended Extremities: Good pulses throughout, dressing in place in right wrist. Neuro: No focal deficits. Assessment & Plan PLAN: Resp: #1 Hx of tobaaco abuse CV: #1 ventricular tachycardia: Continue amiodarone infusion TTE in the morning Electrophysiology consult regarding possible AICD #2 coronary artery disease Continue atorvastatin #3 hyperlipidemia #4 hypertension Continue antihypertensives Fluids/Renal: #1 Mild hyponatremia: Resolved #2 Elevated creatinine, improved today GI/Nutrition: ADA diet Heme: Heparin prophylaxis given renal insufficiency Endocrine: #1 poorly controlled diabetes mellitus: Blood sugars now within optimal range less than 180 A1c pending: Patient has remained hemodynamically stable, without significant arrhythmia, downgraded to telemetry status Data Medications: Current Inpatient Medications Medications (Trade) Dose Ordered Sig/Ralph Route Start Time Stop Time Status Last Admin Dose Admin Amiodarone HCL/ Dextrose 200 ml @ 16.7 mls/hr [id number] IV 04/13/16 22:25 05/13/16 22:24 04/13/16 21:54 16.7 MLS/HR Pantoprazole Sodium/Syringe (Protonix Inj/ Syringe) 10 ml @ 5 mls/min DAILY@09,21 IV 04/13/16 21:00 05/13/16 20:59 04/13/16 21:53 5 MLS/MIN Insulin Aspart (novoLOG ASPART) SLIDING SCALE G... Q6 SC 04/14/16 00:00 05/14/16 00:00 04/13/16 22:28 2 UNITS Lorazepam 0.5 mg 0.5 mg Q4H PRN IV 04/13/16 22:15 05/13/16 22:14 04/14/16 02:32 0.5 MG Lorazepam/Syringe (Ativan Inj/ Syringe) 1 ml @ 1 mls/min Q4H PRN IV 04/13/16 22:15 05/13/16 22:14 Glucose (Glucose 40% Gel) 15-30 GRAMS 15 GRAMS... UD PRN PO 04/13/16 22:15 05/13/16 22:14 Glucose (Glucose Chew Tab) 4-8 Tablets 4 Tabl... UD PRN PO 04/13/16 22:15 05/13/16 22:14 Dextrose (Dextrose 50% 50ML Syringe) 25-50ML OF 50% DW IV FOR... UD PRN IV 04/13/16 22:15 05/13/16 22:14 Glucagon (Glucagon Inj) 1 mg UD PRN SQ 04/13/16 22:15 05/13/16 22:14 Heparin Sodium (Porcine) (Heparin Sq 5000 Unit/0.5ml) 5,000 unit Q8 SQ 04/14/16 08:00 05/14/16 07:59 Atorvastatin Calcium (Lipitor Tab) 40 mg QAM PO 04/14/16 09:00 05/14/16 08:59 Tamsulosin HCl (Flomax Cap) 0.4 mg HS PO 04/14/16 21:00 05/14/16 20:59 Amlodipine Besylate (Norvasc Tab) 5 mg QAM PO 04/14/16 09:00 05/14/16 08:59 Amitriptyline HCl (Elavil Tab) 50 mg HS PO 04/14/16 21:00 05/14/16 20:59 Aspirin (Ecotrin Tab) 325 mg QAM PO 04/14/16 09:00 05/14/16 08:59 Cholecalciferol (Vitamin D Tab) 1,000 inter.unit QAM PO 04/14/16 09:00 05/14/16 08:59 Multivitamins (Multivitamin Tab) 1 tab QAM PO 04/14/16 09:00 05/14/16 08:59 I & O: 24-Hour Column 04/14/16 08:00 Intake Total 2200 ml Output Total 2350 ml Balance -150 ml Vital Signs: Date Time Temp Pulse Resp B/P Pulse Ox O2 Delivery O2 Flow Rate FiO2 04/14/16 06:00 65 20 146/75 97 2.0 04/14/16 04:00 95 Nasal Cannula 2.0 04/14/16 03:59 36.9 66 16 139/87 95 2.0 04/14/16 02:00 64 16 137/79 94 2.0 04/14/16 00:00 36.9 63 16 135/80 95 2.0 04/13/16 23:59 94 Nasal Cannula 2.0 04/13/16 22:58 67 17 143/86 92 04/13/16 22:28 64 28 145/77 95 04/13/16 22:14 146/76 04/13/16 22:00 65 20 146/76 95 2.0 04/13/16 21:45 66 18 147/83 96 04/13/16 20:45 60 18 140/80 Nasal Cannula 3.0 04/13/16 20:00 97 Nasal Cannula 3.0 04/13/16 19:45 36.5 61 20 127/73 97 Nasal Cannula 3.0 04/13/16 19:14 63 16 132/78 97 Nasal Cannula 6.0 04/13/16 18:45 36.6 65 18 123/73 93 Nasal Cannula 6.0 04/13/16 18:30 68 18 121/77 92 Nasal Cannula 6.0 04/13/16 18:19 36.5 70 19 135/78 92 Nasal Cannula 6.0 04/13/16 18:00 36.5 74 24 125/77 93 Nasal Cannula 6.0 04/13/16 17:40 79 18 124/77 95 Nasal Cannula 6 04/13/16 16:55 89 20 157/93 99 04/13/16 16:45 92 147/98 99 Non-Rebreather 15.0 04/13/16 16:40 92 145/104 100 Non-Rebreather 15.0 04/13/16 16:35 94 156/115 100 04/13/16 16:30 95 172/106 100 Non-Rebreather 15.0 04/13/16 16:30 36.6 65 18 123/73 93 Nasal Cannula 6.0 04/13/16 16:25 102 99 Non-Rebreather 15.0 04/13/16 16:20 107 203/115 100 Non-Rebreather 15.0 04/13/16 16:20 104 04/13/16 16:13 108 04/13/16 16:05 104 172/116 100 Non-Rebreather 15.0 04/13/16 16:00 Room Air Laboratory Results: Last 24 Hours Test 04/13/16 16:13 04/13/16 16:18 04/13/16 16:21 04/13/16 16:48 White Blood Count 10.21 K/uL Red Blood Count 4.91 M/uL Hemoglobin 15.3 g/dL Hematocrit 44.8 % Mean Corpuscular Volume 91.2 fL Mean Corpuscular Hemoglobin 31.2 pg Mean Corpuscular Hemoglobin Concent 34.2 g/dl Platelet Count 259 K/uL Mean Platelet Volume 9.6 fL Neutrophils (%) (Auto) 45.6 % Lymphocytes (%) (Auto) 38.6 % Monocytes (%) (Auto) 9.9 % Eosinophils (%) (Auto) 4.9 % Basophils (%) (Auto) 0.5 % Neutrophils # (Auto) 4.66 K/uL Lymphocytes # (Auto) 3.94 K/uL Monocytes # (Auto) 1.01 K/uL Eosinophils # (Auto) 0.50 K/uL Basophils # (Auto) 0.05 K/uL RDW Standard Deviation 41.3 fL RDW Coefficient of Variation 12.4 % Immature Granulocyte % (Auto) 0.5 % Immature Granulocyte # (Auto) 0.05 K/uL Sodium Level 133 mmol/L Potassium Level mmol/L Chloride Level 98 mmol/L Carbon Dioxide Level 20 mmol/L Anion Gap 15.0 mmol/L 20.0 mmol/L Blood Urea Nitrogen 12 mg/dl Creatinine 1.50 mg/dl Estimated GFR () 52.4 Estimated GFR (Non- 45.2 BUN/Creatinine Ratio 8.0 Random Glucose 376 mg/dl Calcium Level 8.7 mg/dl Total Creatine Kinase U/L Creatine Kinase MB 2.7 ng/ml Creatine Kinase MB Ratio Troponin I 0.035 ng/ml Beta-Hydroxybutyric Acid 2.63 mg/dL Bedside Glucose 415 mg/dl Bedside Hemoglobin 15.3 g/dl Bedside Hematocrit 45 % Bedside Sodium 132 mEq/L Bedside Potassium 5.5 mEq/L Bedside Chloride 97 mEq/L Bedside Total CO2 21 mEq/l Bedside Blood Urea Nitrogen 16 mg/dl Bedside Creatinine 1.3 mg/dl Bedside Glucose (other) 393 mg/dl Bedside Ionized Calcium (Domitila) 1.04 mmol/l Bedside Troponin I 0.500 ng/ml Test 04/13/16 20:41 04/13/16 23:09 04/14/16 04:56 04/14/16 06:45 Bedside Glucose 220 mg/dl 182 mg/dl White Blood Count 6.53 K/uL Red Blood Count 4.53 M/uL Hemoglobin 14.0 g/dL Hematocrit 39.8 % Mean Corpuscular Volume 87.9 fL Mean Corpuscular Hemoglobin 30.9 pg Mean Corpuscular Hemoglobin Concent 35.2 g/dl Platelet Count 215 K/uL Mean Platelet Volume 8.9 fL Neutrophils (%) (Auto) 65.0 % Lymphocytes (%) (Auto) 23.9 % Monocytes (%) (Auto) 8.9 % Eosinophils (%) (Auto) 1.7 % Basophils (%) (Auto) 0.2 % Neutrophils # (Auto) 4.25 K/uL Lymphocytes # (Auto) 1.56 K/uL Monocytes # (Auto) 0.58 K/uL Eosinophils # (Auto) 0.11 K/uL Basophils # (Auto) 0.01 K/uL RDW Standard Deviation 39.0 fL RDW Coefficient of Variation 12.2 % Immature Granulocyte % (Auto) 0.3 % Immature Granulocyte # (Auto) 0.02 K/uL Sodium Level 138 mmol/L Potassium Level 4.0 mmol/L Chloride Level 103 mmol/L Carbon Dioxide Level 26 mmol/L Anion Gap 9.0 mmol/L Blood Urea Nitrogen 11 mg/dl Creatinine 0.79 mg/dl Est Creatinine Clear Calc Drug Dose 103.0 ml/min Estimated GFR () 102.5 Estimated GFR (Non- 88.5 BUN/Creatinine Ratio 13.4 Random Glucose 144 mg/dl Calcium Level 8.0 mg/dl Magnesium Level 2.4 mg/dl Total Bilirubin 0.4 mg/dl Aspartate Amino Transf (AST/SGOT) 91 U/L Alanine Aminotransferase (ALT/SGPT) 64 U/L Alkaline Phosphatase 95 U/L Total Protein 6.8 gm/dl Albumin 3.4 gm/dl Globulin 3.4 gm/dl Albumin/Globulin Ratio 1.0 Prothrombin Time 10.7 SECONDS Prothromb Time International Ratio 1.0
--- NOTE | 2016-04-14 09:06 | ECHOCARDIOGRAM REPORT ---
*NOTICE TO RECEIVING REPUBLICAN AGENCY This information is strictly Confidential and protected under [place] law. [place] law prohibits you from making any further disclosure of this information unless further disclosure is expressly permitted by the written consent of the person to whom it pertains or is authorized by law. A general authorization for the release of medical or other information is not sufficient for this purpose. Hospital accepts no responsibility if the information is made available to any other person, INCLUDING THE PATIENT. Interpretation Summary * Name: AKANKSHA MALDONADO Study Date: 04/14/2016 07:59 AM BP: 146/75 mmHg * [facility] HR: 70 * : 1940 (M/d/yyyy) Gender: Male Height: 73 in * Age: 75 yrs Ethnicity: CA Weight: 224 lb * Ordering Physician: Zack Richmond * Referring Physician: Self, Referred * Performed By: Skye Milligan, [facility] * * Reason For Study: V-TACH * BSA: 2.3 m2 * -- Conclusions -- * 1. Moderately dilated left ventricle with severely reduced systolic function. Estimated EF 25-30%. Global hypokinesis. Mild concentric left ventricular hypertrophy. Type 1 diastolic dysfunction. * 2. Aortic valve sclerosis mild, without significant aortic valvular stenosis. * 3. Tissue Doppler suggests elevated left atrial pressure. * 4. No prior study available for comparison. Procedure Details * A complete two-dimensional transthoracic echocardiogram was performed (2D, M-mode, Doppler and color flow Doppler). Left Ventricle * Moderately dilated left ventricle with severely reduced systolic function. Estimated EF 25-30%. Global hypokinesis. Mild concentric left ventricular hypertrophy. Type 1 diastolic dysfunction. Right Ventricle * The right ventricle is normal in size and function. * The right ventricular systolic function is normal as assessed by tricuspid annular plane systolic excursion (TAPSE) (normal >1.5 cm). Atria * The left atrial size is normal. * Right atrial size is normal. * There is no evidence of atrial septal defect, but resolution does not allow assessment for a patent foramen ovale. Mitral Valve * The mitral valve is grossly normal. * There is no mitral valve stenosis. * There is trace mitral regurgitation. Tricuspid Valve * The tricuspid valve is not well visualized, but is grossly normal. * There is no tricuspid stenosis. * Significant tricuspid regurgitation is absent. Aortic Valve * Aortic valve sclerosis mild, without significant aortic valvular stenosis. * The aortic valve is trileaflet. * No hemodynamically significant valvular aortic stenosis. * No aortic regurgitation is present. Pulmonic Valve * The pulmonary valve is inadequately visualized, but the Doppler data is adequate for interpretation. * There is no pulmonic valvular stenosis. * Trace pulmonic valvular regurgitation. Great Vessels * The aortic root is normal size. Pericardium/Pleural * There is no pericardial effusion. Great Vessels * Normal inferior vena cava size and collapsability with sniff indicates a normal right atrial pressure of 3 mmHg MMode 2D Measurements and Calculations IVSd 1.3 cm IVSs 1.4 cm LVIDd 6.3 cm LVIDs 6.0 cm LVPWd 1.2 cm LVPWs 1.3 cm IVS/LVPW 1.0 FS 4.7 % EDV(Teich) 203.1 ml ESV(Teich) 181.8 ml EF(Teich) 10.5 % EDV(cubed) 253.2 ml ESV(cubed) 218.9 ml EF(cubed) 13.6 % % IVS thick 13.9 % % LVPW thick 1.2 % LV mass(C)d 362.1 grams LV mass(C)dI 160.4 grams/m\S\2 LV mass(C)s 369.2 grams LV mass(C)sI 163.5 grams/m\S\2 SV(Teich) 21.3 ml SI(Teich) 9.4 ml/m\S\2 SV(cubed) 34.3 ml SI(cubed) 15.2 ml/m\S\2 Ao root diam 3.8 cm Ao root area 11.1 cm\S\2 ACS 2.1 cm LA dimension 3.5 cm asc Aorta Diam 3.0 cm LA/Ao 0.92 LVOT diam 2.5 cm LVOT area 4.8 cm\S\2 LVAd ap4 39.3 cm\S\2 LVLd ap4 8.8 cm EDV(MOD-sp4) 157.4 ml EDV(sp4-el) 149.6 ml LVAs ap4 31.3 cm\S\2 LVLs ap4 7.8 cm ESV(MOD-sp4) 106.3 ml ESV(sp4-el) 105.9 ml EF(MOD-sp4) 32.5 % EF(sp4-el) 29.2 % LVAd ap2 39.6 cm\S\2 LVLd ap2 8.7 cm EDV(MOD-sp2) 153.0 ml EDV(sp2-el) 153.9 ml LVAs ap2 32.2 cm\S\2 LVLs ap2 8.2 cm ESV(MOD-sp2) 108.8 ml ESV(sp2-el) 107.1 ml EF(MOD-sp2) 28.9 % EF(sp2-el) 30.4 % LVLd %diff -3.29 % EDV(MOD-bp) 158.1 ml LVLs %diff 2.0 % ESV(MOD-bp) 107.6 ml EF(MOD-bp) 32.0 % SV(MOD-sp4) 51.1 ml SI(MOD-sp4) 22.6 ml/m\S\2 SV(MOD-sp2) 44.2 ml SI(MOD-sp2) 19.6 ml/m\S\2 SV(MOD-bp) 50.5 ml SI(MOD-bp) 22.4 ml/m\S\2 SV(sp4-el) 43.7 ml SI(sp4-el) 19.4 ml/m\S\2 SV(sp2-el) 46.8 ml SI(sp2-el) 20.7 ml/m\S\2 Doppler Measurements and Calculations MV E max bertha 65.8 cm/sec MV A max bertha 125.6 cm/sec MV E/A 0.52 MV P1/2t max bertha 92.2 cm/sec MV P1/2t 58.9 msec MVA(P1/2t) 3.7 cm\S\2 MV dec slope 458.3 cm/sec\S\2 MV dec time 0.19 sec Ao V2 max 107.1 cm/sec Ao max PG 4.6 mmHg Ao max PG (full) 2.6 mmHg JIMBO(V,A) 3.2 cm\S\2 JIMBO(V,D) 3.2 cm\S\2 LV V1 max PG 2.0 mmHg LV V1 max 70.3 cm/sec PA V2 max 84.7 cm/sec PA max PG 2.9 mmHg PI max bertha 157.7 cm/sec PI max PG 10.0 mmHg PI dec slope 106.1 cm/sec\S\2 PI P1/2t 435.4 msec RAP systole 3.0 mmHg
[2016-04-14] MEDS: HEPARIN SOD 5000 UNIT/0.5 ML CARP SQ SCH ×3 (09:26→20:44)
[2016-04-14] MEDS: ATORVASTATIN 40 MG TAB PO SCH (09:32)
[2016-04-14] MEDS: ASPIRIN 325 MG ECTAB PO SCH (09:32)
[2016-04-14] MEDS: CHOLECALCIFEROL 1000 INTER.UNIT TAB PO SCH (09:32)
[2016-04-14] MEDS: AMLODIPINE BESYLATE 5 MG TAB PO SCH (09:32)
[2016-04-14] MEDS: MULTIVITAMIN TAB PO SCH (09:32)
[2016-04-14] MEDS: PANTOprazole INJ 40 MG in SYRINGE 0 ML IV SCH ×2 (09:32→20:43)
[2016-04-14] MEDS: AMIODARONE / D5W 200 ML IV SCH (09:48)
[2016-04-14] MEDS ORDERED: ACETAMINOPHEN 650 MG SUPP PR PRN (10:15)
[2016-04-14] MEDS ORDERED: MoRPHine SULFATE 4 MG/ML 1 ML CARP\\VIAL IV PRN (10:15)
[2016-04-14] MEDS ORDERED: NURSING VERBAL MED ORDER ONE ×2 (10:30→11:45)
[2016-04-14] MEDS: OXYCODONE/ACETAMINOPHEN 5-325 TAB PO PRN (11:15)
[2016-04-14] MEDS ORDERED: PHARMACY GLYCEMIC MGMT CONSULT STA (11:50)
[2016-04-14] MEDS ORDERED: INSULIN GLARGINE SOLOSTAR 100 UNITS/ML 3 ML PEN SC ONE (12:30)
--- NOTE | 2016-04-14 12:38 | Pharmacy Progress Note ---
Glycemic Control Intl Consult Date of Service Apr 14, 2016. Scope Glycemic Pharmacist consulted by Dr El Cervantes on 04/14/16 for glycemic control and to write orders per [facility] inpatient glycemic control protocol Objective Weight (Kilograms): 99.300 Accuchecks BSG (last 24hrs): Test 04/13/16 16:13 04/13/16 16:18 04/13/16 20:41 04/13/16 23:09 Random Glucose 376 mg/dl (70-99) Bedside Glucose 415 mg/dl (70-99) 220 mg/dl (70-99) 182 mg/dl (70-99) Test 04/14/16 04:56 04/14/16 11:16 Random Glucose 144 mg/dl (70-99) Bedside Glucose 299 mg/dl (70-99) Laboratory Data (last 24hrs) Test 04/13/16 16:13 04/13/16 16:21 04/14/16 04:56 Anion Gap 15.0 mmol/L 20.0 mmol/L 9.0 mmol/L BUN/Creatinine Ratio 8.0 13.4 Blood Urea Nitrogen 12 mg/dl 11 mg/dl Creatinine 1.50 mg/dl 0.79 mg/dl Potassium Level mmol/L 4.0 mmol/L Sodium Level 133 mmol/L 138 mmol/L White Blood Count 10.21 K/uL 6.53 K/uL Red Blood Count 4.91 M/uL 4.53 M/uL Hemoglobin 15.3 g/dL 14.0 g/dL Hematocrit 44.8 % 39.8 % Mean Corpuscular Volume 91.2 fL 87.9 fL Mean Corpuscular Hemoglobin 31.2 pg 30.9 pg Mean Corpuscular Hemoglobin Concent 34.2 g/dl 35.2 g/dl Platelet Count 259 K/uL 215 K/uL Mean Platelet Volume 9.6 fL 8.9 fL Neutrophils (%) (Auto) 45.6 % 65.0 % Lymphocytes (%) (Auto) 38.6 % 23.9 % Monocytes (%) (Auto) 9.9 % 8.9 % Eosinophils (%) (Auto) 4.9 % 1.7 % Basophils (%) (Auto) 0.5 % 0.2 % Neutrophils # (Auto) 4.66 K/uL 4.25 K/uL Lymphocytes # (Auto) 3.94 K/uL 1.56 K/uL Monocytes # (Auto) 1.01 K/uL 0.58 K/uL Eosinophils # (Auto) 0.50 K/uL 0.11 K/uL Basophils # (Auto) 0.05 K/uL 0.01 K/uL HbA1c 8.5% 04/01/16 Recent Pertinent Medications Outpatient Anti-diabetic Regimen (patient interviewed at bedside, he states these doses have been the same for weeks): * Lantus 50 units Q HS * Novolog 15 units w/ breakfast + 15 units w/ lunch + 20 units w/ dinner * A1c = 8.5 % 04/01/16 The patient is currently receiving: * Basal insulin: none * Correctional Insulin: Novolog Correction per scale ACHS Goal Range: Low 120 mg/dL - High 160 mg/dL Correction Factor: 40 mg/dL/unit * Prandial insulin: none * Oral Agents: none Risk Factors for Insulin Resistance: * Recent Surgery: POD # 1 s/p cardiac cath, without PCI * Diet: currently ordered T2DM / AHA diet Assessment & Plan ASSESSMENT: 04/14/16 * Patient admitted yesterday with malaise, KEITA - and subsequently developed symptomatic VT leading to code with CPR and defibrillation * He has been on insulin to control his DM since ~1999 * He f/u with Marlyn Truongor for his diabetic management. * Most recent A1c = 8.5%, there is some room for in control if hypoglycemia can be avoided * Currently there are no basal insulin or prandial insulin orders. Will base these doses on his outpt regimen. Lantus dose will be reduced ~ 20% and split BID to allow for easier titration. * Note: this patient told me he received his Lantus dose last evening? Lantus was not ordered for this patient and there is no nursing documentation that this was given. Thus an empiric reduction in Lantus was used today as fasting BSG 143 this AM, possibly with no basal on board. PLAN FOR INPATIENT GLYCEMIC CONTROL: * Lantus 10 units SQ STAT then being 20 units BID; give 1/2 dose if BSG less than 120 * Changing correction factor to 15 mg/dl/unit * Adding carb ratio of 1 unit per 5 grams CHO consumed * Continuing goal range of Low 120 mg/dL - High 160 mg/dL for now; this patient is Tele status * Check BSG at 0200 tonight and cover Novolog SQ if elevated. * Please note that the plan above was derived based on current level of insulin resistance and hospital stress. These recommendations are appropriate for inpatient admission only. Plan of care upon discharge will need to be reassessed to avoid potential outpatient hypo/hyperglycemia. Thank you.
--- NOTE | 2016-04-14 15:24 | Hospitalist Progress Note ---
Hospitalist Progress Note Date of Service Apr 14, 2016. Subjective Pt evaluation today including: conversation w/ patient, physical exam, chart review, lab review, review of studies, review of inpatient medication list Patient is feeling well other than having some chest pain that is felt to be due to CPR/cardioversion. He is talking with family members and is without complaint currently. He had cardiac cath yesterday and is planned for defibrillator in the next 1-2 days. He remains on an Amiodarone gtt. No bm reported per patient. Additional Comments: A 10 system review was performed and all were negative. Positives were placed in the subjective section. Objective Vital Signs Date Time Temp Pulse Resp B/P Pulse Ox O2 Delivery O2 Flow Rate FiO2 04/14/16 12:00 36.6 67 26 143/75 90 Room Air 04/14/16 12:00 92 Room Air 04/14/16 10:00 36.6 76 25 168/97 92 Room Air 04/14/16 08:00 36.6 70 25 158/87 92 2.0 04/14/16 08:00 95 Nasal Cannula 2.0 04/14/16 06:00 65 20 146/75 97 2.0 04/14/16 04:00 95 Nasal Cannula 2.0 04/14/16 03:59 36.9 66 16 139/87 95 2.0 04/14/16 02:00 64 16 137/79 94 2.0 04/14/16 00:00 36.9 63 16 135/80 95 2.0 04/13/16 23:59 94 Nasal Cannula 2.0 04/13/16 22:58 67 17 143/86 92 04/13/16 22:28 64 28 145/77 95 04/13/16 22:14 146/76 04/13/16 22:00 65 20 146/76 95 2.0 04/13/16 21:45 66 18 147/83 96 04/13/16 20:45 60 18 140/80 Nasal Cannula 3.0 04/13/16 20:00 97 Nasal Cannula 3.0 04/13/16 19:45 36.5 61 20 127/73 97 Nasal Cannula 3.0 04/13/16 19:14 63 16 132/78 97 Nasal Cannula 6.0 04/13/16 18:45 36.6 65 18 123/73 93 Nasal Cannula 6.0 04/13/16 18:30 68 18 121/77 92 Nasal Cannula 6.0 04/13/16 18:19 36.5 70 19 135/78 92 Nasal Cannula 6.0 04/13/16 18:00 36.5 74 24 125/77 93 Nasal Cannula 6.0 04/13/16 17:40 79 18 124/77 95 Nasal Cannula 6 04/13/16 16:55 89 20 157/93 99 04/13/16 16:45 92 147/98 99 Non-Rebreather 15.0 04/13/16 16:40 92 145/104 100 Non-Rebreather 15.0 04/13/16 16:35 94 156/115 100 04/13/16 16:30 95 172/106 100 Non-Rebreather 15.0 04/13/16 16:30 36.6 65 18 123/73 93 Nasal Cannula 6.0 04/13/16 16:25 102 99 Non-Rebreather 15.0 04/13/16 16:20 107 203/115 100 Non-Rebreather 15.0 04/13/16 16:20 104 04/13/16 16:13 108 04/13/16 16:05 104 172/116 100 Non-Rebreather 15.0 04/13/16 16:00 Room Air Physical Exam Notes: GEN: Awake, alert, and oriented x 3. Not in acute distress HEENT: Tm's intact, no inflammation, EOMI, PERRLA, MMM Neck: Soft, supple Lungs: CTA b/l, no r/r/w Heart: REG, nrl S1S2 without murmurs, rubs or gallops Abdomen: Soft, NT, ND, + BS EXT: No C/C/E NEURO: CN's II-XII grossly intact, non-focal Skin: warm, dry, no rashes PSYCH: pleasant, cooperative, no signs of significant anxiety or depression. Laboratory Results Last 24 Hours Test 04/13/16 16:13 04/13/16 16:18 04/13/16 16:21 04/13/16 16:48 White Blood Count 10.21 K/uL Red Blood Count 4.91 M/uL Hemoglobin 15.3 g/dL Hematocrit 44.8 % Mean Corpuscular Volume 91.2 fL Mean Corpuscular Hemoglobin 31.2 pg Mean Corpuscular Hemoglobin Concent 34.2 g/dl Platelet Count 259 K/uL Mean Platelet Volume 9.6 fL Neutrophils (%) (Auto) 45.6 % Lymphocytes (%) (Auto) 38.6 % Monocytes (%) (Auto) 9.9 % Eosinophils (%) (Auto) 4.9 % Basophils (%) (Auto) 0.5 % Neutrophils # (Auto) 4.66 K/uL Lymphocytes # (Auto) 3.94 K/uL Monocytes # (Auto) 1.01 K/uL Eosinophils # (Auto) 0.50 K/uL Basophils # (Auto) 0.05 K/uL RDW Standard Deviation 41.3 fL RDW Coefficient of Variation 12.4 % Immature Granulocyte % (Auto) 0.5 % Immature Granulocyte # (Auto) 0.05 K/uL Sodium Level 133 mmol/L Potassium Level mmol/L Chloride Level 98 mmol/L Carbon Dioxide Level 20 mmol/L Anion Gap 15.0 mmol/L 20.0 mmol/L Blood Urea Nitrogen 12 mg/dl Creatinine 1.50 mg/dl Estimated GFR () 52.4 Estimated GFR (Non- 45.2 BUN/Creatinine Ratio 8.0 Random Glucose 376 mg/dl Calcium Level 8.7 mg/dl Total Creatine Kinase U/L Creatine Kinase MB 2.7 ng/ml Creatine Kinase MB Ratio Troponin I 0.035 ng/ml Beta-Hydroxybutyric Acid 2.63 mg/dL Bedside Glucose 415 mg/dl Bedside Hemoglobin 15.3 g/dl Bedside Hematocrit 45 % Bedside Sodium 132 mEq/L Bedside Potassium 5.5 mEq/L Bedside Chloride 97 mEq/L Bedside Total CO2 21 mEq/l Bedside Blood Urea Nitrogen 16 mg/dl Bedside Creatinine 1.3 mg/dl Bedside Glucose (other) 393 mg/dl Bedside Ionized Calcium (Domitila) 1.04 mmol/l Bedside Troponin I 0.500 ng/ml Test 04/13/16 20:41 04/13/16 23:09 04/14/16 04:56 04/14/16 06:45 Bedside Glucose 220 mg/dl 182 mg/dl White Blood Count 6.53 K/uL Red Blood Count 4.53 M/uL Hemoglobin 14.0 g/dL Hematocrit 39.8 % Mean Corpuscular Volume 87.9 fL Mean Corpuscular Hemoglobin 30.9 pg Mean Corpuscular Hemoglobin Concent 35.2 g/dl Platelet Count 215 K/uL Mean Platelet Volume 8.9 fL Neutrophils (%) (Auto) 65.0 % Lymphocytes (%) (Auto) 23.9 % Monocytes (%) (Auto) 8.9 % Eosinophils (%) (Auto) 1.7 % Basophils (%) (Auto) 0.2 % Neutrophils # (Auto) 4.25 K/uL Lymphocytes # (Auto) 1.56 K/uL Monocytes # (Auto) 0.58 K/uL Eosinophils # (Auto) 0.11 K/uL Basophils # (Auto) 0.01 K/uL RDW Standard Deviation 39.0 fL RDW Coefficient of Variation 12.2 % Immature Granulocyte % (Auto) 0.3 % Immature Granulocyte # (Auto) 0.02 K/uL Sodium Level 138 mmol/L Potassium Level 4.0 mmol/L Chloride Level 103 mmol/L Carbon Dioxide Level 26 mmol/L Anion Gap 9.0 mmol/L Blood Urea Nitrogen 11 mg/dl Creatinine 0.79 mg/dl Est Creatinine Clear Calc Drug Dose 103.0 ml/min Estimated GFR () 102.5 Estimated GFR (Non- 88.5 BUN/Creatinine Ratio 13.4 Random Glucose 144 mg/dl Calcium Level 8.0 mg/dl Magnesium Level 2.4 mg/dl Total Bilirubin 0.4 mg/dl Aspartate Amino Transf (AST/SGOT) 91 U/L Alanine Aminotransferase (ALT/SGPT) 64 U/L Alkaline Phosphatase 95 U/L Total Protein 6.8 gm/dl Albumin 3.4 gm/dl Globulin 3.4 gm/dl Albumin/Globulin Ratio 1.0 Prothrombin Time 10.7 SECONDS Prothromb Time International Ratio 1.0 Test 04/14/16 11:16 Bedside Glucose 299 mg/dl Assessment and Plan 1) Cardiac arrest 04/13/16 - S/P defibrillation x2. Regained respirations did not require intubation. 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 He remains on Amiodarone gtt. 3)CAD - Cath was performed yesterday - has chronically occluded right coronary artery 4) HTN - currently stable (143/75). Add beta liz per cardiology recommendation, when pulse rebounds once off Amiodarone gtt (rate is in the 60s- low 70's). Has Norvas ordered received dose this am. 5) Type II DM - uses Lantus and Metformin. will acquire pharmacist glycemic consult as patient is expected to be npo intermittently for studies and/or procedures. 6) Hyperlipidemia - taking statin (Atorvastatin) 7) BPH - continue Flomax 8) GERD/Hummel's - continue Protonix. 9) Insomnia - chronic, uses Elavil at bedtime 10) Anxiety - has been attempting to wean Ativan at night but when he completely D/C'd, he could not sleep. DVT prophylaxis - sub-q heparin Q 8 hr. and SCD's. Continued [facility] stay due to: multiple IV medications needed
[2016-04-14] MEDS ORDERED: LORAZEPAM 2 MG/ML 1 ML VIAL IV PRN (17:30)
[2016-04-14] MEDS: TAMSULOSIN HCL 0.4 MG CAP PO SCH (20:42)
[2016-04-14] MEDS ORDERED: AMITRIPTYLINE HCL 50 MG TAB PO SCH (21:00)
--- NOTE | 2016-04-14 22:06 | Cardiology Follow-Up ---
Subjective Date of Service: Apr 14, 2016. Pt evaluation today including: conversation w/ patient, conversation w/ family , physical exam, lab review, review of studies, conversation w/ nursing education consultant, review of inpatient medication list History of Present Illness Feels well today except some chest discomfort from CPR, no other complaints. No SOB or palpitations. Social History Smoking Status: Former Smoker (20 pack year smoking history quit 35 years ago) History of Alcohol Use: Yes (beer 1-2/day) Review of Systems Respiratory: No shortness of breath Cardiac: + chest pain (from CPR) Medications Cardiovascular: Item Value Date Time Atorvastatin 40 mg 04/14/16 0900 Calcium QAM/PO 04/14/16 0932 (Lipitor Tab) Amlodipine 5 mg 04/14/16 0900 Besylate QAM/PO 04/14/16 0932 (Norvasc Tab) Aspirin 325 mg 04/14/16 0900 (Ecotrin Tab) QAM/PO 04/14/16 0932 Heparin Sodium 5,000 unit 04/14/16 0800 (Porcine) Q8/SQ 04/14/16 2044 (Heparin Sq 5000 Unit/0.5ml) Objective Vital Signs Past 12 Hours Date Time Temp Pulse Resp B/P Pulse Ox O2 Delivery O2 Flow Rate FiO2 04/14/16 20:00 36.6 79 18 153/86 92 Room Air 04/14/16 16:00 36.6 78 19 94 Room Air 04/14/16 16:00 94 Room Air 04/14/16 12:00 36.6 67 26 143/75 90 Room Air 04/14/16 12:00 92 Room Air 04/14/16 10:00 36.6 76 25 168/97 92 Room Air Last Recorded Weight-Kilograms: 99.300 Intake & Output 8-Hour Column 04/13/16 04/14/16 04/14/16 16:00 00:00 08:00 Intake Total 875 ml 1325 ml Output Total 1100 ml 1250 ml Balance -225 ml 75 ml 24-Hour Column 04/14/16 08:00 Intake Total 2200 ml Output Total 2350 ml Balance -150 ml Physical Exam Constitutional: Level of Distress: NAD Lungs: Auscultation: breath sounds normal Cardiovascular: Heart Auscultation: RRR Extremities: no edema Data Laboratory Results: Last 24 Hours Test 04/13/16 23:09 04/14/16 04:56 04/14/16 06:45 04/14/16 11:16 Bedside Glucose 182 mg/dl 299 mg/dl White Blood Count 6.53 K/uL Red Blood Count 4.53 M/uL Hemoglobin 14.0 g/dL Hematocrit 39.8 % Mean Corpuscular Volume 87.9 fL Mean Corpuscular Hemoglobin 30.9 pg Mean Corpuscular Hemoglobin Concent 35.2 g/dl Platelet Count 215 K/uL Mean Platelet Volume 8.9 fL Neutrophils (%) (Auto) 65.0 % Lymphocytes (%) (Auto) 23.9 % Monocytes (%) (Auto) 8.9 % Eosinophils (%) (Auto) 1.7 % Basophils (%) (Auto) 0.2 % Neutrophils # (Auto) 4.25 K/uL Lymphocytes # (Auto) 1.56 K/uL Monocytes # (Auto) 0.58 K/uL Eosinophils # (Auto) 0.11 K/uL Basophils # (Auto) 0.01 K/uL RDW Standard Deviation 39.0 fL RDW Coefficient of Variation 12.2 % Immature Granulocyte % (Auto) 0.3 % Immature Granulocyte # (Auto) 0.02 K/uL Sodium Level 138 mmol/L Potassium Level 4.0 mmol/L Chloride Level 103 mmol/L Carbon Dioxide Level 26 mmol/L Anion Gap 9.0 mmol/L Blood Urea Nitrogen 11 mg/dl Creatinine 0.79 mg/dl Est Creatinine Clear Calc Drug Dose 103.0 ml/min Estimated GFR () 102.5 Estimated GFR (Non- 88.5 BUN/Creatinine Ratio 13.4 Random Glucose 144 mg/dl Calcium Level 8.0 mg/dl Magnesium Level 2.4 mg/dl Total Bilirubin 0.4 mg/dl Aspartate Amino Transf (AST/SGOT) 91 U/L Alanine Aminotransferase (ALT/SGPT) 64 U/L Alkaline Phosphatase 95 U/L Total Protein 6.8 gm/dl Albumin 3.4 gm/dl Globulin 3.4 gm/dl Albumin/Globulin Ratio 1.0 Prothrombin Time 10.7 SECONDS Prothromb Time International Ratio 1.0 Test 04/14/16 20:47 Bedside Glucose 142 mg/dl Telemetry reviewed: SR, PVCs Assessment and Plan 1. VT: He presented with symptoms of lightheadedness and pre-syncope but shortly after arriving he had sustained VT at rate 237 with syncope and required cardioversion. After cardioversion he had AF with RVR. It seems unlikely his VT produced his initial symptoms at home, but is clearly documented on arrival. It may have been induced by his atrial fibrillation or perhaps was catecholamine driven. With his cardiomyopathy and no evidence of acute TN despite CAD he should have an ICD for secondary prevention of SCD. I discussed this with him and his and he is agreeable. Tentatively for tomorrow. 2. Cardiomyopathy: No evidence for acute TN but an occluded RCA, his cardiomyopathy appears out of proportion to his CAD. May have a superimposed non -ischemic cardiomyopathy. Will need treatment with beta blockade and SP inhibition. 3. CAD: CAD at cath with an occluded RCA, but no acute ischemic event. Will need treatment of his CAD with risk factor modification and ASA. 4. AF: He had AF with rapid VR after cardioversion, this is a more likely explanation for his pre-hospital symptoms than VT but no documentation. Spontaneous conversion back to SR. We will need to [facility] for recurrence. For now would not use anticoagulation. Will need rate control with beta blockade. Thank You
[2016-04-14] MEDS: INSULIN GLARGINE SOLOSTAR 100 UNITS/ML 3 ML PEN SC SCH (22:25)
[2016-04-15] VITALS (11 sets, daily range): BP systolic 129–162; BP diastolic 63–97; PULSE 72–87; TEMP 36.4–37; O2SAT 92–96
[2016-04-15] MEDS ORDERED: INSULIN ASPART 100 UNITS/ML 3 ML PEN SC ONE (02:00)
[2016-04-15] MEDS: CEFAZOLIN IV 2,000 MG in DEXTROSE 5% 50ML 50 ML IV SCH ×3 (05:48→21:59)
[2016-04-15] MEDS ORDERED: CEFAZOLIN SOD 1000MG/55 ML D5W IV SCH (06:00)
[2016-04-15 06:07] LABS: BASO % 0.2 %; BASO ABS # 0.01 K/uL (0-0.2); COMPLETE YES; EOS % 4.2 %; HEMATOCRIT 41.3 % (42-52); IG% 0.3 %; LYMPH % 33.4 %; LYMPH ABS # 1.98 K/uL (1.2-3.4); MEAN CORPUSCULAR HEMOGLOBIN 30.8 pg (25-34); MEAN CORPUSCULAR HGB CONC 34.6 g/dl (32-36); MEAN PLATELET VOLUME 9.2 fL (7.4-10.4); MONO % 8.8 %; NEUT % 53.1 %; PLATELET COUNT 228 K/uL (130-400); RED BLOOD COUNT 4.64 M/uL (4.7-6.1); WHITE BLOOD COUNT 5.92 K/uL (4.8-10.8)
[2016-04-15 06:42] LABS: BUN/CREATININE RATIO 18.4 (10-20); CALCIUM 8.6 mg/dl (8.5-10.1); CREATININE 0.85 mg/dl (0.60-1.40); POTASSIUM 4.3 mmol/L (3.5-5.1)
[2016-04-15] MEDS: MULTIVITAMIN TAB PO SCH (09:16)
[2016-04-15] MEDS: ASPIRIN 325 MG ECTAB PO SCH (09:16)
[2016-04-15] MEDS: AMLODIPINE BESYLATE 5 MG TAB PO SCH (09:16)
[2016-04-15] MEDS: CHOLECALCIFEROL 1000 INTER.UNIT TAB PO SCH (09:16)
[2016-04-15] MEDS: ATORVASTATIN 40 MG TAB PO SCH (09:16)
[2016-04-15] MEDS: PANTOprazole INJ 40 MG in SYRINGE 0 ML IV SCH (09:17)
[2016-04-15] MEDS: INSULIN ASPART 100 UNITS/ML 3 ML PEN SC SCH ×4 (09:19→21:00)
[2016-04-15] MEDS: INSULIN GLARGINE SOLOSTAR 100 UNITS/ML 3 ML PEN SC SCH ×2 (09:19→21:38)
[2016-04-15] MEDS ORDERED: NURSING VERBAL MED ORDER ONE (09:30)
[2016-04-15] MEDS ORDERED: LACTATED RINGER'S 1000ML 1,000 ML IV ONE (12:00)
--- NOTE | 2016-04-15 13:54 | Pharmacy Progress Note ---
Glycemic Control: Progress Nt Date of Service Apr 15, 2016. Scope Glycemic Pharmacist consulted by Dr Cervantes on 04/14/16 for glycemic control and to write orders per [facility] inpatient glycemic control protocol. Objective Accuchecks BSG (last 24hrs): Test 04/14/16 16:11 04/14/16 20:47 04/15/16 01:54 04/15/16 05:19 Bedside Glucose 181 mg/dl (70-99) 142 mg/dl (70-99) 168 mg/dl (70-99) Random Glucose 172 mg/dl (70-99) Test 04/15/16 06:38 Bedside Glucose 199 mg/dl (70-99) Laboratory Data (last 24hrs) Test 04/15/16 05:19 Anion Gap 9.0 mmol/L BUN/Creatinine Ratio 18.4 Blood Urea Nitrogen 16 mg/dl Creatinine 0.85 mg/dl Potassium Level 4.3 mmol/L Sodium Level 138 mmol/L White Blood Count 5.92 K/uL Red Blood Count 4.64 M/uL Hemoglobin 14.3 g/dL Hematocrit 41.3 % Mean Corpuscular Volume 89.0 fL Mean Corpuscular Hemoglobin 30.8 pg Mean Corpuscular Hemoglobin Concent 34.6 g/dl Platelet Count 228 K/uL Mean Platelet Volume 9.2 fL Neutrophils (%) (Auto) 53.1 % Lymphocytes (%) (Auto) 33.4 % Monocytes (%) (Auto) 8.8 % Eosinophils (%) (Auto) 4.2 % Basophils (%) (Auto) 0.2 % Neutrophils # (Auto) 3.14 K/uL Lymphocytes # (Auto) 1.98 K/uL Monocytes # (Auto) 0.52 K/uL Eosinophils # (Auto) 0.25 K/uL Basophils # (Auto) 0.01 K/uL HbA1c: 8.5% 04/01/16 Recent Pertinent Medications Outpatient Anti-diabetic Regimen (patient interviewed at bedside, he states these doses have been the same for weeks): * Lantus 50 units Q HS * Novolog 15 units w/ breakfast + 15 units w/ lunch + 20 units w/ dinner * A1c = 8.5 % 04/01/16 The patient is currently receiving: * Basal insulin: Lantus 20 units SQ BID * Correctional Insulin: Novolog Correction per scale ACHS Goal Range: Low 120 mg/dL - High 160 mg/dL Correction Factor: 15 mg/dL/unit * Prandial insulin: 1 unit for every 5 grams CHO consumed * Oral Agents: none currently Risk Factors for Insulin Resistance: * Recent Surgery: POD # 1 s/p cardiac cath, without PCI; patient to go to OR for ICD today * Diet: currently NPO for OR Assessment & Plan ASSESSMENT: 04/14/16 * Patient admitted yesterday with malaise, KEITA - and subsequently developed symptomatic VT leading to code with CPR and defibrillation * He has been on insulin to control his DM since ~1999 * He f/u with Marlyn Truongor for his diabetic management. * Most recent A1c = 8.5%, there is some room for in control if hypoglycemia can be avoided * Currently there are no basal insulin or prandial insulin orders. Will base these doses on his outpt regimen. Lantus dose will be reduced ~ 20% and split BID to allow for easier titration. * Note: this patient told me he received his Lantus dose last evening? Lantus was not ordered for this patient and there is no nursing documentation that this was given. Thus an empiric reduction in Lantus was used today as fasting BSG 143 this AM, possibly with no basal on board. 04/15/16 * Glycemic control improved since insulin changes made yesterday: BSGs ranging 142-199 * Fasting BSG 199 this AM with 30 units of Lantus on board. His home dose is 50 units daily. The dose that is currently ordered will provide 40 units per day. He is NPO for procedure today. Will continue with the current dose for now and f/u on fasting BSG tomorrow. * Post-prandial BSGs well controlled yesterday with addition of CR PLAN FOR INPATIENT GLYCEMIC CONTROL: * Continue Lantus 20 units SQ BID; give 1/2 dose if BSG less than 120 * Continue correction factor 15 mg/dl/unit * Continue carb ratio of 1 unit per 5 grams CHO consumed * Continuing goal range of Low 120 mg/dL - High 160 mg/dL for now; this patient is Tele status * Please note that the plan above was derived based on current level of insulin resistance and hospital stress. These recommendations are appropriate for inpatient admission only. Plan of care upon discharge will need to be reassessed to avoid potential outpatient hypo/hyperglycemia. Thank you.
--- NOTE | 2016-04-15 13:57 | Cardiology Follow-Up ---
Subjective Date of Service: Apr 15, 2016. Pt evaluation today including: conversation w/ patient, conversation w/ family , physical exam, lab review, review of studies, review of inpatient medication list History of Present Illness This is a 75-year-old male who has a history of palpitations and a single episode of lightheadedness perhaps 5 years ago, and a normal echocardiogram around that time. He has no other history of heart disease but does have diabetes. He presented after a prodrome of intermittent lightheadedness, postural in nature, that lasted perhaps 20 minutes before his presentation. He describes feeling a sudden onset of these symptoms, not being sure what it was and therefore he took an Ativan, checked his blood sugar and got something to drink thinking he might need food. When the symptoms did not resolve he came into the emergency room. Prior to arrival in the emergency room (which he estimates was 20 minutes after he started feeling these symptoms) he was presyncopal but did not have syncope. He was somewhat aware of a feeling in his chest but not chest pain. He remembers getting on the gurney after being seen in the triage area the hospital, and then doesn't recall anything else. He became unconscious, and electrocardiogram demonstrated a wide complex tachycardia at 237 bpm, CPR was initiated and he received cardioversion. Following cardioversion he was in atrial fibrillation with periods of what look like aberrancy or possibly nonsustained ventricular tachycardia, the overall rate was quite fast. He then went to the [employer] evidence of culprit lesion. Following the catheterization he has been in sinus rhythm. Cardiac enzymes have not been elevated significantly. He feels well today except minor chest discomfort from CPR, no other complaints. No SOB or palpitations. Social History Smoking Status: Former Smoker (20 pack year smoking history quit 35 years ago) History of Alcohol Use: Yes (beer 1-2/day) Review of Systems Respiratory: No shortness of breath Cardiac: + chest pain (from CPR) Medications Cardiovascular: Item Value Date Time Atorvastatin 40 mg 04/14/16 0900 Calcium QAM/PO 04/15/16915 (Lipitor Tab) Aspirin 325 mg 04/14/16899 (Ecotrin Tab) QAM/PO 04/15/1616 Amlodipine 5 mg 04/14/1600 Besylate QAM/PO 04/15/16915 (Norvasc Tab) Objective Vital Signs Past 12 Hours Date Time Temp Pulse Resp B/P Pulse Ox O2 Delivery O2 Flow Rate FiO2 04/15/16 12:00 96 Nasal Cannula 2.0 04/15/16 12:00 36.8 82 15 162/97 93 Nasal Cannula 2.0 04/15/16 08:00 96 Nasal Cannula 2.0 04/15/16 08:00 36.8 87 24 154/86 94 Nasal Cannula 2.0 04/15/16 04:05 36.9 79 16 129/86 95 Nasal Cannula 2.0 04/15/16 04:00 93 Room Air 2.0 Nasal Cannula Last Recorded Weight-Kilograms: 99.300 Intake & Output 8-Hour Column 04/14/16 04/15/16 04/15/16 16:00 00:00 08:00 Intake Total 1248 ml 550 ml Output Total 1225 ml 950 ml 600 ml Balance 23 ml -400 ml -600 ml 24-Hour Column 04/15/16 08:00 Intake Total 1798 ml Output Total 2775 ml Balance -977 ml Physical Exam Constitutional: Level of Distress: NAD Lungs: Auscultation: breath sounds normal Cardiovascular: Heart Auscultation: RRR Extremities: no edema Data Laboratory Results: Last 24 Hours Test 04/14/16 16:11 04/14/16 20:47 04/15/16 01:54 04/15/16 05:19 Bedside Glucose 181 mg/dl 142 mg/dl 168 mg/dl White Blood Count 5.92 K/uL Red Blood Count 4.64 M/uL Hemoglobin 14.3 g/dL Hematocrit 41.3 % Mean Corpuscular Volume 89.0 fL Mean Corpuscular Hemoglobin 30.8 pg Mean Corpuscular Hemoglobin Concent 34.6 g/dl Platelet Count 228 K/uL Mean Platelet Volume 9.2 fL Neutrophils (%) (Auto) 53.1 % Lymphocytes (%) (Auto) 33.4 % Monocytes (%) (Auto) 8.8 % Eosinophils (%) (Auto) 4.2 % Basophils (%) (Auto) 0.2 % Neutrophils # (Auto) 3.14 K/uL Lymphocytes # (Auto) 1.98 K/uL Monocytes # (Auto) 0.52 K/uL Eosinophils # (Auto) 0.25 K/uL Basophils # (Auto) 0.01 K/uL RDW Standard Deviation 39.5 fL RDW Coefficient of Variation 12.3 % Immature Granulocyte % (Auto) 0.3 % Immature Granulocyte # (Auto) 0.02 K/uL Sodium Level 138 mmol/L Potassium Level 4.3 mmol/L Chloride Level 103 mmol/L Carbon Dioxide Level 26 mmol/L Anion Gap 9.0 mmol/L Blood Urea Nitrogen 16 mg/dl Creatinine 0.85 mg/dl Est Creatinine Clear Calc Drug Dose 94.5 ml/min Estimated GFR () 99.5 Estimated GFR (Non- 85.8 BUN/Creatinine Ratio 18.4 Random Glucose 172 mg/dl Calcium Level 8.6 mg/dl Total Bilirubin 0.5 mg/dl Aspartate Amino Transf (AST/SGOT) 74 U/L Alanine Aminotransferase (ALT/SGPT) 66 U/L Alkaline Phosphatase 94 U/L Total Protein 6.8 gm/dl Albumin 3.4 gm/dl Globulin 3.4 gm/dl Albumin/Globulin Ratio 1.0 Test 04/15/16 06:38 Bedside Glucose 199 mg/dl Telemetry reviewed: Sinus rhythm with premature ventricular beats Assessment and Plan 1. VT: He presented with symptoms of lightheadedness and pre-syncope but shortly after arriving he had sustained VT at rate 237 with syncope and required cardioversion. After cardioversion he had AF with RVR. It seems unlikely his VT produced his initial symptoms at home, but is clearly documented on arrival. It may have been induced by his atrial fibrillation or perhaps was catecholamine driven. With his cardiomyopathy and no evidence of acute ND despite CAD he should have an ICD for secondary prevention of SCD. I discussed this with him and his and he is agreeable. His son was also present for the discussion this morning. I discussed the indications, procedure , risks and alternatives with them. Consent obtained. 2. Cardiomyopathy: No evidence for acute ND but an occluded RCA, his cardiomyopathy appears out of proportion to his CAD. May have a superimposed non -ischemic cardiomyopathy. Will need treatment with beta blockade and SP inhibition. 3. CAD: CAD at cath with an occluded RCA, but no acute ischemic event. Will need treatment of his CAD with risk factor modification and ASA. 4. AF: He had AF with rapid VR after cardioversion, this is a more likely explanation for his pre-hospital symptoms than VT but no documentation. Spontaneous conversion back to SR. We will need to watch for recurrence. For now would not use anticoagulation. Will need rate control with beta blockade. Thank You
[2016-04-15] MEDS ORDERED: BACITRACIN 50000 UNIT VIAL ONE (14:27)
[2016-04-15] MEDS ORDERED: LIDOCAINE HCL 1% 20 ML VIAL ONE (14:27)
[2016-04-15] MEDS ORDERED: BACITRACIN OINT 0.9 GM PKT ONE (14:27)
[2016-04-15] MEDS: MIDAZOLAM HCL 5 MG/ML 1 ML VIAL ONE (14:51)
[2016-04-15] MEDS ORDERED: FENTANYL CITRATE INJ 50 MCG/1 ML 2 ML VIAL ONE ×2 (14:52→15:38)
[2016-04-15] MEDS ORDERED: MIDAZOLAM HCL 1 MG/ML 2ML VIAL ONE (15:42)
--- NOTE | 2016-04-15 15:51 | Procedure Note ---
Pre-Mod Sedation Assessment General Date of Moderate Sedation: Apr 15, 2016. Vital Signs: Vital Signs Past 12 Hours Date Time Temp Pulse Resp B/P Pulse Ox O2 Delivery O2 Flow Rate FiO2 04/15/16 12:00 96 Nasal Cannula 2.0 04/15/16 12:00 36.8 82 15 162/97 93 Nasal Cannula 2.0 04/15/16 08:00 96 Nasal Cannula 2.0 04/15/16 08:00 36.8 87 24 154/86 94 Nasal Cannula 2.0 04/15/16 04:05 36.9 79 16 129/86 95 Nasal Cannula 2.0 04/15/16 04:00 93 Room Air 2.0 Nasal Cannula Review Cardiovascular: regular rate, rhythm Abdomen: normal bowel sounds Lungs: lungs clear Airway Class: II Pre-Sedation Airway Assessment Oral Cavity: WNL Able to Visualize Vocal Cords: No Short Thick Neck: No Hx of Sleep Apnea: No Smoking Status: Former Smoker (20 pack year smoking history quit 35 years ago) Procedure Planning Contraindications-for Mod Sed: None Yes Notes The planned sedation has been discussed with the patient and consent obtained. I have identified the patient, determined the appropriateness of sedation and have assessed the patient immediately prior to the procedure. All medicine(s) and interventions are by my order.
--- NOTE | 2016-04-15 16:05 | Cardiology Procedure Brief Nt ---
Preliminary Cardiology Note Procedure Date Apr 15, 2016. Pre-Procedure Diagnosis sustained ventricular tachycardia Post-Procedure Diagnosis same Procedure(s) Performed Single-chamber ICD implantation Defibrillator threshold testing Safe Dep[employer] Clerk Dr. Raza [employer] History Professor(s) none Estimated Blood Loss 50 cc Preliminary Findings Good lead position, good measurements DFT less than 20 J Recommendations Monitor overnight Specimens None Anesthesia local with sedation Complication(s) None Disposition PCU
--- NOTE | 2016-04-15 16:12 | Procedure Note ---
Post-Mod Sedation Assessment General Date of Moderate Sedation Apr 15, 2016. Vital Signs: Vital Signs Past 12 Hours Date Time Temp Pulse Resp B/P Pulse Ox O2 Delivery O2 Flow Rate FiO2 04/15/16 12:00 96 Nasal Cannula 2.0 04/15/16 12:00 36.8 82 15 162/97 93 Nasal Cannula 2.0 04/15/16 08:00 96 Nasal Cannula 2.0 04/15/16 08:00 36.8 87 24 154/86 94 Nasal Cannula 2.0 Review - Discharge Criteria Vital Signs Stable: Yes Alert/Oriented/Conversant: Yes Returned to Baseline Mental St: Yes Nausea Absent/Minimal: Yes Pain/Discomfort/Absent/Minimal: Yes Normal/Baseline Respirations: Yes Active Bleeding?: No Pt Received D/C Instructions: N/A Specific Proced. D/C Criteria Groin site assessed-Card Cath: N/A Voided Prior To Discharge: N/A
[2016-04-15] MEDS ORDERED: ACETAMINOPHEN 325 MG TAB PO PRN (16:15)
[2016-04-15] MEDS ORDERED: KETOROLAC TROMETHAMINE 10 MG TAB PO PRN (16:15)
[2016-04-15] MEDS ORDERED: POLYETHYLENE (MIRALAX) 17 GM PACK PO ONE (16:18)
--- NOTE | 2016-04-15 17:05 | OPERATIVE REPORT ---
DATE OF OPERATION: 04/15/2016 INPATIENT OPERATIVE REPORT PREOPERATIVE DIAGNOSIS: Sustained ventricular tachycardia. POSTOPERATIVE DIAGNOSIS: Same. PROCEDURE: Single chamber ICD implantation. HISTORY: This is a 75-year-old male without a known prior cardiac history, who presented with presyncope and then became unresponsive in the Emergency Room, electrocardiography at that time demonstrated a wide-complex regular tachycardia at 237 beats per minute. This appeared to be ventricular tachycardia and he had CPR performed followed by a cardioversion. He recovered from that and was taken to the catheterization laboratory, where he was found to have an occluded right coronary artery, but this was chronic and therefore, no intervention was done. He did not have significantly abnormal cardiac enzymes. Therefore, it appeared to be a primary arrhythmia. He was also identified as having a cardiomyopathy with an ejection fraction of 20%-25% on echocardiography. He therefore requires ICD implantation, he does not have bradycardia; therefore, he is brought to the laboratory for single chamber ICD implantation. DESCRIPTION OF PROCEDURE: After obtaining informed consent for the procedure, he was brought to the laboratory on the afternoon of 04/15/2016 being n.p.o. after midnight. He was identified in the laboratory, prepped and draped in standard sterile manner for a left-sided ICD implantation. The left prepectoral region was anesthetized with 1% lidocaine local anesthetic and left subclavian venipuncture was performed by percutaneous technique and a guidewire placed through the left subclavian vein into the superior vena cava. The area was further infiltrated with 1% lidocaine local anesthetic and a 5-cm incision was made parallel to the left clavicle and 3 cm below it and carried down to the anterior pectoralis fascia. An ICD pocket was formed by blunt dissection anterior to the pectoralis fascia and a bacitracin-soaked sponge (50,000 units in 50 mL normal saline solution) was placed in the pocket. A 10-1/2-Filipino Medtronic lead introducer was placed over the guidewire into the left subclavian vein, the dilator and guidewire were removed and a bipolar active fixation steroid-tipped dual coil defibrillator lead was advanced through the introducer into the superior vena cava. The guidewire was placed back through introducer and introducer stripped away from lead and guidewire. Using a curved stylette, the ventricular lead was advanced through the right ventricular outflow tract into the pulmonary artery and then using a straight stylette, it was positioned in the right ventricular apex. Once in position, the pacing threshold was evaluated in bipolar configuration at a pulse width of 0.5 milliseconds. Final pacing threshold was 0.4 volts with a current of 0.5 milliamp, 5-volt lead impedance was 614 ohms and R-waves were sensed at 9.2 millivolts. Diaphragmatic pacing was not present with a 10-volt bipolar output. The ventricular lead was attached to the anterior pectoralis fascia using 2 sutures of 2-0 silk around the lead collar. The bacitracin-soaked sponge was removed from the pocket, the guidewire was removed from the left subclavian vein and hemostasis was obtained. The ICD (Medtronic Visia AF) was attached to the leads and found to be functioning normally. It was placed in the pocket with the leads coiled beneath it and the incision was closed with a running double subcutaneous closure of 3-0 Vicryl followed by running subcuticular skin closure of 4-0 Vicryl. Bacitracin ointment was placed on incision and a pressure dressing applied. During closure of the incision, defibrillator threshold testing was performed using 50 Hz burst pacing to induce ventricular fibrillation. One episode of ventricular fibrillation was converted with a single 20-joule shock. This is an acceptable threshold. The patient tolerated the procedure well, there were no complications and estimated blood loss was 50 mL. The patient was transferred back to the telemetry unit for monitoring. The defibrillator lead is a Medtronic, model #6947M, serial #[id number] and is a bipolar active fixation steroid-tipped dual coil MRI compatible lead. The ICD is a Medtronic Visia AF MRI VR SureScan, serial #[id number]. The ICD was reprogrammed in the laboratory to final settings. TORD
--- NOTE | 2016-04-15 18:54 | Progress Note ---
Subjective Date of Service: Apr 15, 2016. Subjective Pt evaluation today including: conversation w/ patient, physical exam, chart review, lab review Pain: denies any cp, abd pain PO Intake: npo for ICD placement Voiding: no voiding problems tele stable overnight and w/o dysrhythmia he complains of constipation denies cp, sob, dyspnea with exertion, palpitations, orthopnea Problem List Medical Problems: (1) Hyperlipidemia Status: Chronic (2) Hypertension Status: Chronic (3) Ventricular tachycardia Status: Acute Review of Systems Respiratory: No cough, No dyspnea on exertion, No shortness of breath Cardiac: No chest pain Abdomen: No pain Objective Vital Signs Date Time Temp Pulse Resp B/P Pulse Ox O2 Delivery O2 Flow Rate FiO2 04/15/16 16:02 85 16 130/78 94 Room Air 04/15/16 16:00 36.8 75 18 136/72 95 Nasal Cannula 2.0 04/15/16 16:00 96 Nasal Cannula 2.0 04/15/16 15:47 82 11 109/83 90 Non-Rebreather 15 04/15/16 12:00 96 Nasal Cannula 2.0 04/15/16 12:00 36.8 82 15 162/97 93 Nasal Cannula 2.0 04/15/16 08:00 96 Nasal Cannula 2.0 04/15/16 08:00 36.8 87 24 154/86 94 Nasal Cannula 2.0 04/15/16 04:05 36.9 79 16 129/86 95 Nasal Cannula 2.0 04/15/16 04:00 93 Room Air 2.0 Nasal Cannula 04/15/16 00:00 92 Room Air 04/14/16 23:30 36.7 79 18 148/84 94 Room Air 04/14/16 20:00 36.6 79 18 153/86 92 Room Air 04/14/16 20:00 93 Room Air Physical Exam General Appearance: no apparent distress ENT: pharynx normal Neck: no JVD Respiratory/Chest: lungs clear, no respiratory distress, no accessory muscle use Cardiovascular: regular rate, rhythm, no gallop, no murmur Abdomen: normal bowel sounds, non tender, soft, no organomegaly Extremities: no pedal edema Neurologic/Psychiatric: alert, oriented x 3 Laboratory Results Last 24 Hours Test 04/14/16 20:47 04/15/16 01:54 04/15/16 05:19 04/15/16 06:38 Bedside Glucose 142 mg/dl 168 mg/dl 199 mg/dl White Blood Count 5.92 K/uL Red Blood Count 4.64 M/uL Hemoglobin 14.3 g/dL Hematocrit 41.3 % Mean Corpuscular Volume 89.0 fL Mean Corpuscular Hemoglobin 30.8 pg Mean Corpuscular Hemoglobin Concent 34.6 g/dl Platelet Count 228 K/uL Mean Platelet Volume 9.2 fL Neutrophils (%) (Auto) 53.1 % Lymphocytes (%) (Auto) 33.4 % Monocytes (%) (Auto) 8.8 % Eosinophils (%) (Auto) 4.2 % Basophils (%) (Auto) 0.2 % Neutrophils # (Auto) 3.14 K/uL Lymphocytes # (Auto) 1.98 K/uL Monocytes # (Auto) 0.52 K/uL Eosinophils # (Auto) 0.25 K/uL Basophils # (Auto) 0.01 K/uL RDW Standard Deviation 39.5 fL RDW Coefficient of Variation 12.3 % Immature Granulocyte % (Auto) 0.3 % Immature Granulocyte # (Auto) 0.02 K/uL Sodium Level 138 mmol/L Potassium Level 4.3 mmol/L Chloride Level 103 mmol/L Carbon Dioxide Level 26 mmol/L Anion Gap 9.0 mmol/L Blood Urea Nitrogen 16 mg/dl Creatinine 0.85 mg/dl Est Creatinine Clear Calc Drug Dose 94.5 ml/min Estimated GFR () 99.5 Estimated GFR (Non- 85.8 BUN/Creatinine Ratio 18.4 Random Glucose 172 mg/dl Calcium Level 8.6 mg/dl Total Bilirubin 0.5 mg/dl Aspartate Amino Transf (AST/SGOT) 74 U/L Alanine Aminotransferase (ALT/SGPT) 66 U/L Alkaline Phosphatase 94 U/L Total Protein 6.8 gm/dl Albumin 3.4 gm/dl Globulin 3.4 gm/dl Albumin/Globulin Ratio 1.0 Test 04/15/16 16:23 Bedside Glucose 154 mg/dl Assessment and Plan 75yo male with: 1. recent V-tach s/p cardioversion - primary arrhythmia - ie not secondary to ischemia. To blood bank laboratory professional today for ICD placement. 2. systolic CHF, severe - uncertain of chronicity - fortunately he remains compensated. Will need BB, SP, +/- lasix. 3. HTN - controlled; consider d/c of amlodipine as this is relatively contraindicated in setting of #2. 4. T2DM - control adequate; continue novolog supplemental scale. 5. GERD - PPI. 6. Hummel's esophagus - PPI. 7. insomnia - elavil is not a great choice due to its propensity for QT prolongation. In light of #1 above best choice is to d/c it. 8. CAD - cont asa, statin. Needs BB, SP. 9. DVT proph - start heparin following ICD placement. 10. constipation - add miralax. Following ICD placement he will need observation for at least 24 hours. Continued [facility] stay due to: multiple IV medications needed Discharge planning: home
[2016-04-15] MEDS: OXYCODONE/ACETAMINOPHEN 5-325 TAB PO PRN (19:40)
[2016-04-15] MEDS: PANTOprazole SOD 40 MG TAB PO SCH (21:34)
[2016-04-15] MEDS: TAMSULOSIN HCL 0.4 MG CAP PO SCH (21:34)
[2016-04-15] MEDS: LORAZEPAM 2 MG/ML 1 ML VIAL IV PRN (23:00)
[2016-04-16] VITALS (9 sets, daily range): BP systolic 136–153; BP diastolic 70–85; PULSE 80–109; TEMP 36.5–37.2; O2SAT 91–94
[2016-04-16] MEDS: OXYCODONE/ACETAMINOPHEN 5-325 TAB PO PRN ×2 (02:21→06:20)
[2016-04-16] MEDS: CEFAZOLIN IV 2,000 MG in DEXTROSE 5% 50ML 50 ML IV SCH ×2 (06:21→14:09)
[2016-04-16 06:43] LABS: BUN/CREATININE RATIO 19.1 (10-20); CALCIUM 8.9 mg/dl (8.5-10.1); CREATININE 0.9 mg/dl (0.60-1.40); POTASSIUM 4.2 mmol/L (3.5-5.1)
--- NOTE | 2016-04-16 08:10 | DIAGNOSTIC IMAGING REPORT ---
TWO VIEW CHEST CLINICAL HISTORY: Pacemaker implantation. FINDINGS: PA and lateral chest radiographs are compared to study dated 04/13/2016. A single lead cardiac AICD has been placed. This partially obscures the left upper chest. The lead projects over the right ventricle. The heart is enlarged and there is atherosclerotic calcification of the thoracic aorta. The pulmonary vasculature is noncongested. Emphysema and chronic interstitial thickening are similar to previous. No airspace consolidation or pleural effusion is identified. Linear atelectasis versus scarring is noted at the left lung base. Calcified granulomas are similar to previous. There is no pneumothorax. The skeletal structures are osteopenic. There are healed left-sided rib fractures. IMPRESSION: 1. Cardiomegaly and single lead AICD has above. There is no radiographic evidence of congestive failure. 2. No pneumothorax is identified post procedure. 3. Emphysema. Electronically signed by: Chaitanya Galloway M.D. 04/16/2016 8:08 AM Dictated Date/Time: 04/16/2016 8:06 AM
[2016-04-16] MEDS: INSULIN ASPART 100 UNITS/ML 3 ML PEN SC SCH ×2 (08:23→12:18)
[2016-04-16] MEDS: AMLODIPINE BESYLATE 5 MG TAB PO SCH (08:24)
[2016-04-16] MEDS: ASPIRIN 325 MG ECTAB PO SCH (08:24)
[2016-04-16] MEDS: ATORVASTATIN 40 MG TAB PO SCH (08:25)
[2016-04-16] MEDS: MULTIVITAMIN TAB PO SCH (08:25)
[2016-04-16] MEDS: CHOLECALCIFEROL 1000 INTER.UNIT TAB PO SCH (08:25)
[2016-04-16] MEDS: INSULIN GLARGINE SOLOSTAR 100 UNITS/ML 3 ML PEN SC SCH (08:28)
[2016-04-16] MEDS ORDERED: POLYETHYLENE (MIRALAX) 17 GM PACK PO SCH (09:00)
[2016-04-16] MEDS: PANTOprazole SOD 40 MG TAB PO SCH (09:34)
[2016-04-16] MEDS ORDERED: BISACODYL 10 MG SUPP PR STA (12:58)
--- NOTE | 2016-04-16 14:27 | Cardiology Follow-Up ---
Subjective Date of Service: Apr 16, 2016. Pt evaluation today including: conversation w/ patient, physical exam History of Present Illness This is a 75-year-old male who has a history of palpitations and a single episode of lightheadedness perhaps 5 years ago, and a normal echocardiogram around that time. He has no other history of heart disease but does have diabetes. He presented after a prodrome of intermittent lightheadedness, postural in nature, that lasted perhaps 20 minutes before his presentation. He describes feeling a sudden onset of these symptoms, not being sure what it was and therefore he took an Ativan, checked his blood sugar and got something to drink thinking he might need food. When the symptoms did not resolve he came into the emergency room. Prior to arrival in the emergency room (which he estimates was 20 minutes after he started feeling these symptoms) he was presyncopal but did not have syncope. He was somewhat aware of a feeling in his chest but not chest pain. He remembers getting on the gurney after being seen in the triage area the hospital, and then doesn't recall anything else. He became unconscious, and electrocardiogram demonstrated a wide complex tachycardia at 237 bpm, CPR was initiated and he received cardioversion. Following cardioversion he was in atrial fibrillation with periods of what look like aberrancy or possibly nonsustained ventricular tachycardia, the overall rate was quite fast. He then went to the [facility] [employer] evidence of culprit lesion. Following the catheterization he has been in sinus rhythm. Cardiac enzymes have not been elevated significantly. We implanted a single chamber ICD yesterday. He feels well today except minor chest discomfort from CPR and his incision, no other complaints. No SOB or palpitations. Social History Smoking Status: Former Smoker (20 pack year smoking history quit 35 years ago) History of Alcohol Use: Yes (beer 1-2/day) Review of Systems Respiratory: No cough, No dyspnea on exertion, No shortness of breath Cardiac: No chest pain Objective Vital Signs Past 12 Hours Date Time Temp Pulse Resp B/P Pulse Ox O2 Delivery O2 Flow Rate FiO2 04/16/16 12:01 36.5 80 16 136/85 94 Room Air 04/16/16 08:30 36.9 109 20 137/85 94 Nasal Cannula 3.0 04/16/16 08:27 37.2 80 16 138/70 91 Room Air 04/16/16 04:00 91 Room Air 04/16/16 03:56 36.7 86 18 153/81 91 Room Air Last Recorded Weight-Kilograms: 97.600 Intake & Output 8-Hour Column 04/15/16 04/16/16 04/16/16 16:00 00:00 08:00 Intake Total 178 ml 480 ml 100 ml Output Total 875 ml 250 ml Balance -697 ml 230 ml 100 ml 24-Hour Column 04/16/16 08:00 Intake Total 758 ml Output Total 1125 ml Balance -367 ml Physical Exam Constitutional: Level of Distress: NAD Lungs: Auscultation: breath sounds normal Cardiovascular: Heart Auscultation: RRR Extremities: no edema Site is clean and dry Data Laboratory Results: Last 24 Hours Test 04/15/16 16:23 04/15/16 21:20 04/16/16 05:46 04/16/16 06:39 Bedside Glucose 154 mg/dl 153 mg/dl 183 mg/dl Sodium Level 135 mmol/L Potassium Level 4.2 mmol/L Chloride Level 100 mmol/L Carbon Dioxide Level 24 mmol/L Anion Gap 11.0 mmol/L Blood Urea Nitrogen 17 mg/dl Creatinine 0.90 mg/dl Est Creatinine Clear Calc Drug Dose 89.3 ml/min Estimated GFR () 97.2 Estimated GFR (Non- 83.8 BUN/Creatinine Ratio 19.1 Random Glucose 182 mg/dl Calcium Level 8.9 mg/dl Test 04/16/16 11:28 Bedside Glucose 194 mg/dl Imaging: CXR: Good lead position, no pneumothorax EKG: SR, Bi-fascicular block Telemetry reviewed: SR, PVCs ICD evaluation: Good measurements Assessment and Plan 1. VT: He presented with symptoms of lightheadedness and pre-syncope but shortly after arriving he had sustained VT at rate 237 with syncope and required cardioversion. After cardioversion he had AF with RVR. It seems unlikely his VT produced his initial symptoms at home, but is clearly documented on arrival. It may have been induced by his atrial fibrillation or perhaps was catecholamine driven. With his cardiomyopathy and no evidence of acute DC despite CAD he should have an ICD for secondary prevention of SCD. A single chamber pacer was implanted yesterday. 2. Cardiomyopathy: No evidence for acute DC but an occluded RCA, his cardiomyopathy appears out of proportion to his CAD. May have a superimposed non -ischemic cardiomyopathy. Will need treatment with beta blockade and SP inhibition for the long run. 3. CAD: CAD at cath with an occluded RCA, but no acute ischemic event. Will need treatment of his CAD with risk factor modification and ASA. 4. AF: He had AF with rapid VR after cardioversion, this is a more likely explanation for his pre-hospital symptoms than VT but no documentation. Spontaneous conversion back to SR. We will need to watch for recurrence, we can see this with the ICD most likely (his ICD is designed to look for AF even though it is a single chamber unit). For now would not use anticoagulation. Will need rate control with beta blockade. 5. Post-OP: Doing well, stable for discharge from my standpoint. I will arrange followup for Tuesday. Thank You
--- NOTE | 2016-04-16 14:30 | Discharge Instructions ---
Discharge Instructions Admission Reason for Admission: Cardiac Arrest, Ventricular Tachyarrhythmia Discharge Discharge Diagnosis / Problem: ICD implant Discharge Goals Goal(s): Improve disease control Activity Recommendations Activity Limitations: resume your previous activity . Instructions / Follow-Up Instructions / Follow-Up ACTIVITY RECOMMENDATIONS: * Do not raise affected arm over head for 2 weeks. SPECIAL CARE INSTRUCTIONS: * If bleeding occurs, apply direct pressure to area for 5 minutes. * Call your doctor if you have severe pain, fever, drainage or bleeding at site. * Keep dressing on and dry for 48 hours then remove. * Keep any scheduled doctor's appointment. * Implant Card - hand held device with website information given. SKIN IRRITATION: * You may experience some redness and/or swelling in the area where radiation was administered. If any skin irritation occurs, please contact your family physician. FOLLOW UP VISIT: Dr. Raza, Tuesday04/19/2015 1:00 PM Current Hospital Diet Patient's current hospital diet: AHA Diet (Heart Healthy), Diabetes Type 2 Diet Discharge Diet Recommended Diet: AHA Diet (Heart Healthy) Pending Studies Studies pending at discharge: no Laboratory Results Hemoglobin A1c Test 04/01/16 09:40 Range/Units Estimated Average Glucose 197 mg/dl Hemoglobin A1c 8.5 H 4.5-5.6 % Medical Emergencies . Who to Call and When: Medical Emergencies: If at any time you feel your situation is an emergency, please call 911 immediately. . Non-Emergent Contact Non-Emergency issues call your: Primary Care Provider . . "Provider Documentation" section prepared by London Raza. VTE Core Measure Inpt VTE Proph given/why not?: Enoxaparin (Lovenox)SQ
[2016-04-16] MEDS ORDERED: ASPEC325 PO (15:03)
[2016-04-16] MEDS ORDERED: HYDR-5688 PO (15:03)
--- NOTE | 2016-04-16 15:13 | Discharge Instructions ---
Discharge Instructions Admission Reason for Admission: Cardiac Arrest, Ventricular Tachycardia, Syncope ( passing out spell) Discharge Discharge Diagnosis / Problem: Ventricular tachycardia with implantation of ICD in your chest Discharge Goals Goal(s): Improve disease control, Learn about illness, Diagnostic testing, Therapeutic intervention Activity Recommendations Activity Limitations: as noted below Driving or Machine Use: NO DRIVING until Dr. Raza tells you it is safe to drive; this includes heavy machinery (tractors, etc) Please see Dr. Raza's instructions regarding activities that should NOT be done with your left arm. . Instructions / Follow-Up Instructions / Follow-Up From Dr. Vazquez - 1. You have new onset congestive heart failure. Fortunately it is controlled right now. The most important things you can do to treat this condition are - * follow a low salt diet (no more than 2000mg/day) * restrict your total fluid intake (no more than 1500cc/day) * check your weight EVERY DAY; do this first thing in the AM upon awakening; write your weights down on a pad of paper and keep track of them * take all of your medications as directed * keep all appointments with Dr. Raza Call 911 and go to the Emergency Room if: * You have tightness or pain in your chest that does not go away with rest or Nitroglycerin * You are very short of breath even with rest Call your doctor if any of the following symptoms or problems start or get worse: * Shortness of breath or difficulty breathing * Wake up at night short of breath * Chest pain * Cough * Swelling of your hands, fee, or legs * More fatigued or tired with your normal activity * Palpitations - sudden fast heart beats WEIGHT * Weigh yourself every morning after using the bathroom. * Use the same scale. * Wear the same amount of clothing. * Write your weight down on your chart. * Call your doctor/load checker if you gain more than 2-3 pounds in 1-2 days or more than 5 pounds in 5 days* This is a sign you are taking on fluid weight from your heart failure. Most times when you are gaining fluid weight you will have difficulty breathing at rest or with activity, and sometimes there is fluid in your legs. MEDICATIONS * Use this discharge instruction sheet for instructions. * Take your medications at the time your doctor ordered. * Do not skip a dose of your medicines. * If you miss a dose of medicine, take as soon as possible, but DO NOT DOUBLE A DOSE. * Read your medicine information when you get home. * Know all of the side effects of your medicine. * Call your doctor's office if you have any side effects. * Be sure all of your doctors know what medicine and herbs you take (including cold, flu, and herbal medicine). * Pain Medicine: If you do not get relief from your pain, please call your doctor for help. Take the following with you to your follow-up doctor appointments: * Weight Chart * Medication List * List of questions Do not drink excessive alcohol, beer or wine. 2. Please stop your amitriptyline (elavil). This medication can make you more susceptible to abnormal heart rhythms. 3. Please stop your lisinopril. It may be restarted in the future, however. 4. Please lower your aspirin dose to 325mg once daily. It is just as effective as the 650mg dose but with less risk of bleeding. 5. If your shocking device ever shocks you report immediately to the emergency room at [facility] or any other hospital. Current Hospital Diet Patient's current hospital diet: AHA Diet (Heart Healthy), Diabetes Type 2 Diet Discharge Diet Recommended Diet: AHA Diet (Heart Healthy) Fluid Restriction: 1500 ml (6 cups) Procedures Procedures Performed: ICD placement (shocking device placed in your chest) Pending Studies Studies pending at discharge: no Laboratory Results Hemoglobin A1c Test 04/01/16 09:40 Range/Units Estimated Average Glucose 197 mg/dl Hemoglobin A1c 8.5 H 4.5-5.6 % Medical Emergencies . Who to Call and When: Medical Emergencies: If at any time you feel your situation is an emergency, please call 911 immediately. . Non-Emergent Contact Non-Emergency issues call your: Music Worker Call Non-Emergent contact if: temperature is above 100.5, your pain is not controlled, your pain is worsening, your pain is unusual for you, your pain is concerning you, wound has increased drainage, wound has increased redness, wound has increased pain, you have any medication questions . . "Provider Documentation" section prepared by Jonas Vazquez. VTE Core Measure Inpt VTE Proph given/why not?: Enoxaparin (Lovenox)SQ
[2016-04-16] MEDS ORDERED: INSULIN GLARGINE SOLOSTAR 100 UNITS/ML 3 ML PEN SC SCH (21:00)
--- NOTE | 2016-04-21 09:12 | Discharge Summary ---
Discharge Summary Admission Date: Apr 13, 2016 at 16:51 Discharge Date: Apr 16, 2016 Discharge Disposition: Home Principal Diagnosis: ventricular tachycardia s/p ICD implantation Problems/Secondary Diagnoses: 1. paroxysmal a. fib 2. systolic CHF, chronicity unknown 3. HTN 4. hyperlipidemia 5. BPH 6. syncope 2nd to ventricular tachycardia 7. CAD 8. T2DM 9. GERD 10. Hummel's esophagus 11. acute kidney injury - resolved Procedures: 1. echocardiogram: * 1. Moderately dilated left ventricle with severely reduced systolic function. Estimated EF 25-30%. Global hypokinesis. Mild concentric left ventricular hypertrophy. Type 1 diastolic dysfunction. * 2. Aortic valve sclerosis mild, without significant aortic valvular stenosis. * 3. Tissue Doppler suggests elevated left atrial pressure. * 4. No prior study available for comparison. 2. defibrillation due to ventricular tachycardia 3. ICD implantation - London Raza MD The defibrillator lead is a Medtronic, model #6947M, serial #[id number] and is a bipolar active fixation steroid-tipped dual coil MRI compatible lead. The ICD is a Medtronic Visia AF MRI VR SureScan, serial #[id number]. 4. cardiac catheterization - Robel Barragan MD Findings: LM - Mild disease, 20% distal disease LAD - Luminal irregularities. Gives off left to right collaterals to PDA via septals. Circumflex - Luminal irregularities. Gives off let to right epicardial collaterals to R-PLB RCA - Dominant, mild proximal disease, mid segment calcified, 100% occluded after take-off of large acute marginal. Distal RCA fills retrograde via brisk right to right collaterals arising from the conus/sinoatrial gordo branches. No significant PDA/PLB disease Consultations: 1. cardiology - Robel Barragan MD / London Raza MD 2. critical care - Zack Richmond, Medication Reconciliation New Medications: Hydrocodone/Acetaminophen 5MG/325MG (Grimes 5MG/325MG) Tab 1 TABLET PO Q6H PRN for Pain, #15 TAB 0 Refills Changed Medications: Aspirin (Aspirin) 325 Mg Ectab 325 MG PO DAILY, #1 0 Refills (Changed from: 650 MG; Refills: ) Continued Medications: Amlodipine (Norvasc) 5 Mg Tab 5 MG PO HS, 0 Refills Atorvastatin (Lipitor) 40 Mg Tab 40 MG PO HS, TAB Cholecalciferol (Vitamin D) 5,000 Unit Tab 5000 UNIT PO DAILY Cyanocobalamin (Vitamin B-12) 500 Mcg Tab 500 MCG PO DAILY, TAB Famotidine (Pepcid) 40 Mg Tab 40 MG PO DAILY, #30 DIRECTED Insulin Aspart (Novolog) Inj UNIT SC UD, BTL USE PER SLIDING SCALE UP TO 60 UNITS DAILY VIA PUMP Insulin Glargine (Lantus) 100 Unit/Ml Inj 50 UNITS SQ HS, #50 Lorazepam (Ativan *) 2 Mg Tab 2 MG PO UD TAKE 1/2 TABLET TO 1 TABLET AT BEDTIME Metformin Hcl (Metformin Hcl Er) 500 Mg Tab 500 MG PO QPM Multiple Vitamins W/ Minerals (Centrum Silver Ultra Mens) 1 Tab Tab Tamsulosin HCl (Tamsulosin HCl) 0.4 Mg Cap 0.4 MG PO HS, #30 Discontinued Medications: Amitriptyline Hcl (Elavil) 50 Mg Tab 50 MG PO HS Lisinopril (Zestril) 40 Mg Tab 40 MG PO HS Referrals At Discharge Follow up Referrals: Commissioning Engineer Referral - 04/19/16 with London Raza M.D. Discharge Exam Physical Exam: General Appearance: WD/WN, no apparent distress ENT: pharynx normal Neck: no JVD Respiratory/Chest: lungs clear, no respiratory distress, no accessory muscle use Cardiovascular: regular rate, rhythm, no gallop, no murmur, normal peripheral pulses Abdomen / GI: normal bowel sounds, non tender, soft, no organomegaly Extremities: no pedal edema Neurologic/Psychiatric: alert, oriented x 3 Skin: + pertinent finding (incision left chest (ICD site) clean, no cellulitis, no drainage, no hematoma ) Hospital Course HISTORY OF PRESENT ILLNESS: This is a 75yo male that presented to the ED for evaluation for palpitations and malaise. Upon arrival he was sitting in the chair for triage. He stated he has a sense of dizziness/feeling like he would pass out. An EKG was done and he was found to be in ventricular tachycardia. Soon after this he had a syncopal episode and a code blue was called. He received 2 shocks and converted over to a. fib with RVR. Amiodarone bolus was given and a drip was continued. He was also given 2 grams of magnesium. He ultimately converted from a. fib to NSR. A heart Code was called and patient was evaluated by Dr. Barragan who brought him to the cardiac catheterization lab. Cath showed CAD but was felt NOT to be the primary cause of his ventricular tachycardia. HOSPITAL COURSE: Following his heart catheterization (see full cath report above) the patient was admitted to the ICU where he remained hemodynamically stable for the remainder of his hospitalization. He did not have any recurrent ventricular tachycardia, a. fib, or other dysrhythmia. He had no further near-syncope or syncope. Acute kidney injury resolved with supportive care measures. Echocardiogram was done which confirmed the EF seen on heart cath -- that his EF was 25-30%. The chronicity of the depressed EF was unknown as his previous echocardiogram was 5+ years ago. Dr. London Raza saw the patient in consult and felt that the ventricular tachycardia was primary in origin (as opposed to being secondary to CAD, electrolyte issue, etc) and recommended ICD placement. The patient underwent an uncomplicated ICD implantation by Dr. Raza later on during his stay. The ICD was interrogated prior to discharge and was functioning well. With respect to the systolic CHF the patient had NO CHF symptoms/signs while here. He received CHF instructions prior to discharge (importance of daily weights, salt restriction, etc). Of note - he has NOT been started on beta liz; this will need to be started in the outpatient setting. This will be deferred to cardiology. His SP inhibitor was held at discharge but anticipate that this can be restarted at time of hospital follow-up with cardiology. All other medical problems remained stable while here. The only other recommendation for Mr. Hess was to stop the amitriptyline in light of its propensity for increasing the QTc interval. Total Time Spent: Greater than 30 minutes This includes examination of the patient, discharge planning, medication reconciliation, and communication with other providers. Discharge Instructions Please refer to the electronic Patient Visit Report (Discharge Instructions) for additional information. Follow-Up see Dr. London Raza on 04/19/16 as scheduled Additional Copies To Robel Barragan MD; London Raza M.D.; Miguel Mares M.D.
== END 2016-04-16 16:30 | disposition home or self-care (01) | DRG 225 ==
LOC: C.EDB 16:00 → C.MSICU 16:51 → C.2E 04-15 20:52
PROVIDERS: ADMIT Hospitalist; ATTEND Internal Medicine
PROC: B2111ZZ Fluoroscopy of Multiple Coronary Arteries using Low Osmolar Contrast (ICD-10-PCS; 2016-04-13)
PROC: B2151ZZ Fluoroscopy of Left Heart using Low Osmolar Contrast (ICD-10-PCS; 2016-04-13)
PROC: 4A023N7 Measurement of Cardiac Sampling and Pressure, Left Heart, Percutaneous Approach (ICD-10-PCS; principal; 2016-04-13 17:14)
PROC: 0JH608Z Insertion of Defibrillator Generator into Chest Subcutaneous Tissue and Fascia, Open Approach (ICD-10-PCS; 2016-04-15)
PROC: 02HK3KZ Insertion of Defibrillator Lead into Right Ventricle, Percutaneous Approach (ICD-10-PCS; 2016-04-15)
DX: I46.9 Cardiac arrest, cause unspecified (principal); I50.22 Chronic systolic (congestive) heart failure; E87.1 Hypo-osmolality and hyponatremia; I47.2 Ventricular tachycardia; K21.9 Gastro-esophageal reflux disease without esophagitis; K22.70 Barrett's esophagus without dysplasia; E78.00 Pure hypercholesterolemia, unspecified; I10 Essential (primary) hypertension; F41.9 Anxiety disorder, unspecified; Z87.891 Personal history of nicotine dependence; E87.5 Hyperkalemia; E78.5 Hyperlipidemia, unspecified; I25.5 Ischemic cardiomyopathy; E11.65 Type 2 diabetes mellitus with hyperglycemia; I25.10 Atherosclerotic heart disease of native coronary artery without angina pectoris; N28.9 Disorder of kidney and ureter, unspecified; I45.10 Unspecified right bundle-branch block; I49.3 Ventricular premature depolarization; Z79.82 Long term (current) use of aspirin; Z79.899 Other long term (current) drug therapy; Z79.4 Long term (current) use of insulin; N40.0 Benign prostatic hyperplasia without lower urinary tract symptoms; G47.00 Insomnia, unspecified; K59.00 Constipation, unspecified; I48.91 Unspecified atrial fibrillation

== ENCOUNTER → 2016-05-04 | Outpatient (CLI) | payer BC ==
[~2016-05-04] MED LIST changes: -AMT50 PO; +ASPEC325 PO; -ASPEC81 PO; -CHOL100010 PO; +CHOL1TAB42 PO; +CYAN500T PO; +FAMO40TA6 PO; +FLM4 PO; +HYDR-5688 PO; -INSDGI SC; +INSDGI SQ; -LISI40TA PO; -NAPR1TAB9 PO; -VITAMIN B12 500 MCG PO
[2016-05-04 14:39] LABS: BLOOD UREA NITROGEN 15 mg/dl (7-18); BUN/CREATININE RATIO 16.1 (10-20); CALCIUM 8.9 mg/dl (8.5-10.1); CARBON DIOXIDE 25 mmol/L (21-32); CHLORIDE 105 mmol/L (98-107); CREATININE 0.93 mg/dl (0.60-1.40); GLUCOSE 133 mg/dl (70-99); POTASSIUM 4.4 mmol/L (3.5-5.1); SODIUM 140 mmol/L (136-145)
== END | disposition home or self-care (01) ==
LOC: C.LABBC 12:01
PROVIDERS: ATTEND Internal Medicine
DX: I10 Essential (primary) hypertension (principal)

== ENCOUNTER → 2016-11-15 | Outpatient (CLI) | payer BC ==
[2016-11-15 14:07] LABS: BASO ABS # 0.05 K/uL (0-0.2); COMPLETE YES; EOS % 3.9 %; HEMATOCRIT 43.4 % (42-52); IG% 0.4 %; LYMPH % 29.1 %; LYMPH ABS # 1.43 K/uL (1.2-3.4); MEAN CORPUSCULAR HEMOGLOBIN 31.7 pg (25-34); MEAN CORPUSCULAR HGB CONC 34.8 g/dl (32-36); MEAN PLATELET VOLUME 9.3 fL (7.4-10.4); MONO % 8.9 %; NEUT % 56.7 %; PLATELET COUNT 240 K/uL (130-400); RED BLOOD COUNT 4.77 M/uL (4.7-6.1); WHITE BLOOD COUNT 4.92 K/uL (4.8-10.8)
[2016-11-15 14:28] LABS: ESTIMATED AVERAGE GLUCOSE 194 mg/dl; HA1C FLAG Normal (Normal)
[2016-11-15 14:32] LABS: ALT/SGPT 57 U/L (12-78); BLOOD UREA NITROGEN 12 mg/dl (7-18); BUN/CREATININE RATIO 12.4 (10-20); CALCIUM 9.1 mg/dl (8.5-10.1); CARBON DIOXIDE 26 mmol/L (21-32); CHLORIDE 104 mmol/L (98-107); CHOLESTEROL 134 mg/dl (0-200); CREATININE 0.97 mg/dl (0.60-1.40); GLUCOSE 211 mg/dl (70-99); POTASSIUM 4.4 mmol/L (3.5-5.1); SODIUM 138 mmol/L (136-145); TRIGLYCERIDES 70 mg/dl (0-150); VERY LOW DENSITY LIPOPROT CALC 14 mg/dl
[2016-11-15 14:41] LABS: ALB/GLOB RATIO 1.2 (0.9-2); ALKALINE PHOSPHATASE 120 U/L (45-117); AST/SGOT 29 U/L (15-37); CHOLESTEROL/HDL RATIO 2.3; HDL CHOLESTEROL 59 mg/dl; LDL CHOLESTEROL CALCULATED 61 mg/dl
== END | disposition home or self-care (01) ==
LOC: C.LABBC 10:08
PROVIDERS: ATTEND Nurse Practitioner Adult Health
DX: E11.9 Type 2 diabetes mellitus without complications (principal); R53.83 Other fatigue; G47.9 Sleep disorder, unspecified; I42.9 Cardiomyopathy, unspecified; F52.8 Other sexual dysfunction not due to a substance or known physiological condition; E78.00 Pure hypercholesterolemia, unspecified

== ENCOUNTER → 2016-12-27 | Outpatient (CLI) | payer BC ==
--- NOTE | 2016-12-27 11:39 | DIAGNOSTIC IMAGING REPORT ---
ART DOP LOWER EXT BILAT CLINICAL HISTORY: TYPE II DIABETES, R/O GANGRENE vascular insufficiency COMPARISON STUDY: None FINDINGS: Real-time as well as Doppler evaluation of the arterial structures of the lower legs was performed. Waveforms are triphasic throughout. Velocity characteristics are unremarkable. Waveforms are primarily triphasic The following blood pressure indices were obtained. On the right, posterior tibial is 1.17 and dorsalis pedis is 1.11. On the left, posterior tibial is 1.27 and dorsalis pedis is 1.26. IMPRESSION: No significant stenotic process The above report was generated using voice recognition software. It may contain grammatical, syntax or spelling errors. Electronically signed by: Joseph Kim M.D. 12/27/2016 11:38 AM Dictated Date/Time: 12/27/2016 11:36 AM
== END | disposition home or self-care (01) ==
LOC: C.ULTR 09:31
PROVIDERS: ATTEND Podiatrist
DX: E11.51 Type 2 diabetes mellitus with diabetic peripheral angiopathy without gangrene (principal)

== ENCOUNTER → 2017-04-05 | Outpatient (CLI) | payer BC ==
[~2017-04-05] MED LIST changes: -AMLO-110 PO; +AMLO5TAB3 PO; +ASCA500 PO; +ASPECOTC PO; +ATOR-22 PO; +ATV/2 PO; +CHOLPOW PO; +CYAN10004 PO; +DICY10CA55 PO; +INSDGI SC; -INSDGI SQ; +LISI20TA3 PO; +MAGN1TAB41 PO; +METO100T44 PO; -MULT-618; +MULT-618 PO; +NVLG SC; +VITA10004 PO
[2017-04-05 13:26] LABS: HEMOGLOBIN A1C 8.6 % (4.5-5.6)
[2017-04-05 13:29] LABS: BLOOD UREA NITROGEN 16 mg/dl (7-18); CALCIUM 8.5 mg/dl (8.5-10.1); CARBON DIOXIDE 27 mmol/L (21-32); CREATININE 0.92 mg/dl (0.60-1.40); GLUCOSE 210 mg/dl (70-99); POTASSIUM 4.3 mmol/L (3.5-5.1); SODIUM 134 mmol/L (136-145)
[2017-04-05 13:30] LABS: CHOLESTEROL 127 mg/dl (0-200); LDL CHOLESTEROL CALCULATED 58 mg/dl
== END | disposition home or self-care (01) ==
LOC: C.LABBC 09:37
PROVIDERS: ATTEND Nurse Practitioner Adult Health
DX: E11.49 Type 2 diabetes mellitus with other diabetic neurological complication (principal); Z79.4 Long term (current) use of insulin; E78.00 Pure hypercholesterolemia, unspecified

== ENCOUNTER → 2017-07-06 | Day surgery (SDC) | payer BC ==
[2017-06-20 14:20] VITALS: Ht 185.4 cm; Wt 102.3 kg
[~2017-07-06] VITALS: Ht 185.4 cm; Wt 102.3 kg
[~2017-07-06] MED LIST changes: +AMLO-110 PO; -AMLO5TAB3 PO; -ASPEC325 PO; -ASPECOTC PO; +ASPI325T45 PO; -ATOR-22 PO; -ATV2 PO; -CHOLPOW PO; -CYAN500T PO; -DICY10CA55 PO; -HYDR-5688 PO; +LIDOCAINE HCL 2% 2 ML VIAL (20MG/ML) ONE; -NVLGI SC; +PROPOFOL IV EMULSION 10 MG/ML 20 ML VIAL IV ONE; +SODIUM CHLORIDE 0.9% 500ML 500 ML IV ONE
--- NOTE | 2017-07-06 13:05 | Endo History and Physical ---
History & Physical Date of Service: Jul 06, 2017. Chief Complaint: Hummel's Esophagus Referring Physician: Dr. Mares History of Present Illness 77 yo CM who presents for EGD secondary to Hummel's Esophagus. Past Medical History Atrial Fibrillation, Diabetes, Arthritis, Gastrointestinal Disorder, Reflux, Cancer, High Cholesterol, Hypertension, Depression Past Surgical History Hx Cardiac Surgery: Yes (HEART CATH, NO STENTS) Hx Internal Defibrillator: Yes (ICD 1-5-17) Hx Pacemaker: Yes (ICD 1-5-17) Hx Abdominal Surgery: No Hx of Implantable Prosthesis: No Hx Post-Op Nausea and Vomiting: No Hx Cancer Surgery: Yes (SCC EXCISION) Hx Thoracic Surgery: No Hx Orthopedic: No Hx Urinary Tract Surgery: No Family History None Social History Smoking Status: Former Smoker Hx Substance Use: No Hx Alcohol Use: Yes (OCCASIONAL ~1 CASE BEER/MONTH) Allergies Coded Allergies: No Known Allergies (Unverified , 07/06/17) Current Medications Reported Home Medications Medications Dose Route/Sig Max Daily Dose Days Date Category Dose Instructions Magnesium (Magnesium Oxide) 400 Mg Tab 1 Tab PO DAILY 06/20/17 Reported Novolog (Insulin Aspart) 100 Units/Ml Inj 20 Units SC QPM 06/20/17 Reported +SLIDING SCALE Novolog (Insulin Aspart) 100 Units/Ml Inj 15 Units SC BID 06/20/17 Reported QAM AND LUNCH +SLIDING SCALE Aspirin 325 Mg Tab 325 Mg PO BID 06/20/17 Reported Vitamin E 1,000 Unit Cap 1 Cap PO HS 06/20/17 Reported Vitamin C (Ascorbic Acid) 500 Mg Tab 1 Tab PO HS 06/20/17 Reported Prinivil (Lisinopril) 20 Mg Tab 20 Mg PO HS 06/20/17 Reported Toprol-Xl (Metoprolol Succinate) 100 Mg Tabcr 1.5 Tab PO QPM 06/20/17 Reported Ativan (Lorazepam) 2 Mg Tab 0.25 Tab PO BID 06/20/17 Reported Ativan (Lorazepam) 2 Mg Tab 1 Tab PO HS 06/20/17 Reported Vitamin B-12 1000 Mcg (Cyanocobalamin) 1,000 Mcg Tab 1,000 Mcg PO HS 06/20/17 Reported Lantus (Insulin Glargine) 100 Unit/Ml Inj 50 Units SC HS 04/13/16 Reported Tamsulosin HCl 0.4 Mg Cap 0.4 Mg PO HS 04/13/16 Reported Vitamin D (Cholecalciferol) 5,000 Unit Tab 5,000 Unit PO HS 04/13/16 Reported Pepcid (Famotidine) 40 Mg Tab 40 Mg PO HS 04/13/16 Reported Centrum Silver Ultra Mens (Multiple Vitamins W/ Minerals) 1 Tab Tab 1 Tab PO HS 08/07/14 Reported Metformin Hcl Er (Metformin Hcl) 500 Mg Tab 500 Mg PO QPM 04/08/14 Reported Lipitor (Atorvastatin Calcium) 40 Mg Tab 40 Mg PO HS 04/08/14 Reported Norvasc (Amlodipine Besylate) 5 Mg Tab 5 Mg PO HS 12/10/09 Reported Vital Signs Weight (Kilograms): 102.27 Height (Feet): 6 Height (Inches): 1 Physical Exam General Appearance: WD/WN, no apparent distress Respiratory/Chest: Auscultation: breath sounds normal Cardiovascular: Heart Auscultation: RRR Abdomen: Bowel Sounds: normal Inspection & Palpation: soft, non-distended, no tenderness, guarding & rebound Assessment and Plan Assessment: 77 yo CM who presents for EGD secondary to Hummel's Esophagus. Plan: Proceed with EGD.
--- NOTE | 2017-07-06 13:51 | Discharge Instructions ---
Endoscopy Patient Instructions Date / Procedure(s) Performed Jul 06, 2017. EGD Allergy Information Coded Allergies: No Known Allergies (Unverified , 07/06/17) Discharge Date / Findings Jul 06, 2017. Gastritis Hiatal hernia Hummel's Esophagus s/p biopsies Medication Instructions Stopped Medication(s): 1/2 DOSE OF INSULIN ONLY ATIVAN AND ASA TODAY OK to resume all medications today as prescribed Reported Home Medications Medications Dose Route/Sig Max Daily Dose Days Date Category Dose Instructions Magnesium (Magnesium Oxide) 400 Mg Tab 1 Tab PO DAILY 06/20/17 Reported Novolog (Insulin Aspart) 100 Units/Ml Inj 20 Units SC QPM 06/20/17 Reported +SLIDING SCALE Novolog (Insulin Aspart) 100 Units/Ml Inj 15 Units SC BID 06/20/17 Reported QAM AND LUNCH +SLIDING SCALE Aspirin 325 Mg Tab 325 Mg PO BID 06/20/17 Reported Vitamin E 1,000 Unit Cap 1 Cap PO HS 06/20/17 Reported Vitamin C (Ascorbic Acid) 500 Mg Tab 1 Tab PO HS 06/20/17 Reported Prinivil (Lisinopril) 20 Mg Tab 20 Mg PO HS 06/20/17 Reported Toprol-Xl (Metoprolol Succinate) 100 Mg Tabcr 1.5 Tab PO QPM 06/20/17 Reported Ativan (Lorazepam) 2 Mg Tab 0.25 Tab PO BID 06/20/17 Reported Ativan (Lorazepam) 2 Mg Tab 1 Tab PO HS 06/20/17 Reported Vitamin B-12 1000 Mcg (Cyanocobalamin) 1,000 Mcg Tab 1,000 Mcg PO HS 06/20/17 Reported Lantus (Insulin Glargine) 100 Unit/Ml Inj 50 Units SC HS 04/13/16 Reported Tamsulosin HCl 0.4 Mg Cap 0.4 Mg PO HS 04/13/16 Reported Vitamin D (Cholecalciferol) 5,000 Unit Tab 5,000 Unit PO HS 04/13/16 Reported Pepcid (Famotidine) 40 Mg Tab 40 Mg PO HS 04/13/16 Reported Centrum Silver Ultra Mens (Multiple Vitamins W/ Minerals) 1 Tab Tab 1 Tab PO HS 08/07/14 Reported Metformin Hcl Er (Metformin Hcl) 500 Mg Tab 500 Mg PO QPM 04/08/14 Reported Lipitor (Atorvastatin Calcium) 40 Mg Tab 40 Mg PO HS 04/08/14 Reported Norvasc (Amlodipine Besylate) 5 Mg Tab 5 Mg PO HS 12/10/09 Reported Provider Instructions Activity Restrictions - No exercising or heavy lifting for 24 hours. - Do not drink alcohol the day of the procedure. - Do not drive a car or operate machinery until the day after the procedure. - Do not make any important decisions or sign important papers in 24 hours after the procedure. Following Day: - Return to full activity which may include returning to work/school. Diet Start your diet with liquids and light foods (jello, soup, juice, toast). Then eat your usual diet if not nauseated. Treatment For Common After Affects For mild abdominal pain, bloating, or excessive gas: - Rest - Eat lightly - Lie on right side Follow-Up Information Follow-up with DR MASSEY as scheduled Anesthesia Information What You Should Know You have had a procedure that required some medicine to reduce anxiety and discomfort. This treatment is called moderate sedation. After receiving the treatment, you may be sleepy, but you will be able to breathe on your own. The effects of the treatment may last for several hours. Follow these instructions along with Activity/Diet recommendations noted above: * Do NOT do anything where dizziness or clumsiness would be dangerous. * Rest quietly at home today, then you can be up and about tomorrow. * Have a responsible person stay with you the rest of today. * You may have had an I.V. today. If so, you may take the dressing off later today. Recommendations Call your doctor if: * Trouble breathing * Continuous vomiting for more than 24 hours * Temperature above 101 degrees * Severe abdominal pain or bloating * Pain not relieved by pain medicine ordered * There is increased drainage or redness from any incision * A large amount of rectal bleeding greater than 2-3 tablespoons. (If you had a polyp/s removed or have hemorrhoids, a small amount of blood - from the rectum is to be expected.) * You have any unanswered questions or concerns. IN THE EVENT OF A SERIOUS EMERGENCY, GO TO THE NEAREST EMERGENCY ROOM Your discharge instructions were prepared by provider Gautam Young. Patient Instructions Signature Page Jose Roberto Hess Patient (or Guardian) Signature/Date: I have read and understand the instructions given to me by my caregivers. Caregiver/RN/Doctor Signature/Date: The above-named patient and/or guardian has received patient instructions on this date. + Original Patient Signature Page (only) stays with chart. Please make copy for patient.
--- NOTE | 2017-07-06 14:03 | GI REPORT ---
Procedure Date: 07/06/2017 1:35 PM Procedure: Upper GI endoscopy Indications: Follow-up of Hummel's esophagus Medicines: Monitored Anesthesia Care Complications: No immediate complications. Estimated Blood Loss: Estimated blood loss: none. Procedure: Pre-Anesthesia Assessment: - Prior to the procedure, a History and Physical was performed, and patient medications and allergies were reviewed. The patient's tolerance of previous anesthesia was also reviewed. The risks and benefits of the procedure and the sedation options and risks were discussed with the patient. All questions were answered, and informed consent was obtained. Prior Anticoagulants: The patient has taken aspirin, last dose was 1 day prior to procedure. ASA Grade Assessment: IV - A patient with severe systemic disease that is a constant threat to life. After reviewing the risks and benefits, the patient was deemed in satisfactory condition to undergo the procedure. After obtaining informed consent, the endoscope was passed under direct vision. Throughout the procedure, the patient's blood pressure, pulse, and oxygen saturations were monitored continuously. The Scope was introduced through the mouth, and advanced to the second part of duodenum. The upper GI endoscopy was accomplished without difficulty. The patient tolerated the procedure well. Findings: There were esophageal mucosal changes suspicious for short-segment Hummel's esophagus present at the gastroesophageal junction. The maximum longitudinal extent of these mucosal changes was 1 cm in length. Biopsies were taken with a cold forceps for histology. A small hiatal hernia was present. Localized mild inflammation characterized by erythema was found in the gastric antrum. The examined duodenum was normal. Impression: - Esophageal mucosal changes suspicious for short-segment Hummel's esophagus. Biopsied. - Small hiatal hernia. - Gastritis. - Normal examined duodenum. Recommendation: - Resume previous diet. - Continue present medications. - Await pathology results. - Return to GI office as previously scheduled. Gautam Young, 07/06/2017 2:02:42 PM This report has been signed electronically. Note Initiated On: 07/06/2017 1:35 PM I attest to the content of the Intraoperative Record and orders documented therein, exceptions below
--- NOTE | 2017-07-06 14:09 | Anesthesiology Progress Note ---
Anesthesia Post Op Note Date & Time Jul 06, 2017 at 14:09 Vital Signs Pain Intensity: 0 Vital Signs Past 12 Hours Date Time Temp Pulse Resp B/P (MAP) Pulse Ox O2 Delivery O2 Flow Rate FiO2 07/06/17 14:06 60 18 141/81 (101) 93 Room Air 07/06/17 13:51 51 18 137/82 (100) 91 Room Air 07/06/17 13:13 36.4 67 18 170/82 (111) 96 Room Air Notes Mental Status: alert / awake / arousable, participated in evaluation Pt Amnestic to Procedure: Yes Nausea / Vomiting: adequately controlled Pain: adequately controlled Airway Patency, RR, SpO2: stable & adequate BP & HR: stable & adequate Hydration State: stable & adequate Anesthetic Complications: no major complications apparent
[2017-07-06 14:20] VITALS: BP 122/85; PULSE 53; O2SAT 95
== END | disposition home or self-care (01) ==
LOC: C.GI 12:52
PROVIDERS: ATTEND Internal Medicine
DX: K22.70 Barrett's esophagus without dysplasia (principal); E11.9 Type 2 diabetes mellitus without complications; K29.70 Gastritis, unspecified, without bleeding; K44.9 Diaphragmatic hernia without obstruction or gangrene; I48.91 Unspecified atrial fibrillation; E78.00 Pure hypercholesterolemia, unspecified; F32.9 Major depressive disorder, single episode, unspecified; Z95.0 Presence of cardiac pacemaker; Z87.891 Personal history of nicotine dependence; Z79.4 Long term (current) use of insulin; Z79.82 Long term (current) use of aspirin

== ENCOUNTER → 2017-08-11 | Outpatient (CLI) | payer BC ==
[~2017-08-11] MED LIST changes: +ASPECOTC PO; -ASPI325T45 PO; -LIDOCAINE HCL 2% 2 ML VIAL (20MG/ML) ONE; -PROPOFOL IV EMULSION 10 MG/ML 20 ML VIAL IV ONE; -SODIUM CHLORIDE 0.9% 500ML 500 ML IV ONE
[2017-08-11 11:15] LABS: ALT/SGPT 49 U/L (12-78); AST/SGOT 27 U/L (15-37); BLOOD UREA NITROGEN 17 mg/dl (7-18); CALCIUM 8.9 mg/dl (8.5-10.1); CARBON DIOXIDE 24 mmol/L (21-32); CHOLESTEROL 115 mg/dl (0-200); CREATININE 0.93 mg/dl (0.60-1.40); GLUCOSE 140 mg/dl (70-99); POTASSIUM 4.3 mmol/L (3.5-5.1); SODIUM 137 mmol/L (136-145)
[2017-08-11 11:19] LABS: LDL CHOLESTEROL CALCULATED 47 mg/dl
== END | disposition home or self-care (01) ==
LOC: C.LABBC 08:55
PROVIDERS: ATTEND Internal Medicine
DX: E78.00 Pure hypercholesterolemia, unspecified (principal); E11.49 Type 2 diabetes mellitus with other diabetic neurological complication

== ENCOUNTER → 2017-11-01 | Outpatient (CLI) | payer BC ==
[~2017-11-01] MED LIST changes: -AMLO-110 PO; +AMLO5TAB3 PO; +ATOR-22 PO; +CHOLPOW PO; +DICY10CA55 PO
[2017-11-01 10:55] LABS: HEMOGLOBIN A1C 8.8 % (4.5-5.6)
== END | disposition home or self-care (01) ==
LOC: C.LABBC 07:47
PROVIDERS: ATTEND Internal Medicine
DX: R19.7 Diarrhea, unspecified (principal); E11.49 Type 2 diabetes mellitus with other diabetic neurological complication; Z79.4 Long term (current) use of insulin; R53.83 Other fatigue

== ENCOUNTER 2017-11-07 13:02 | Emergency (ER) | payer BC ==
[~2017-11-07] VITALS: Ht 185.4 cm; Wt 100.0 kg
[~2017-11-07 13:02] MED LIST changes: -ATOR-22 PO; -CHOLPOW PO; -DICY10CA55 PO
[2017-11-07 13:04] VITALS: Ht 185.4 cm; Wt 100.0 kg
--- NOTE | 2017-11-07 13:56 | EMERGENCY ROOM VISIT NOTE ---
History Report prepared by Kim: Shanita Urbina Under the Supervision of: Dr. Riccardo Corcoran M.D. First contact with patient: 13:08 Chief Complaint: ABNORMAL DIAGNOSTIC TESTING Stated Complaint: ABNORMAL DIAGNOSTIC TESTING History of Present Illness The patient is a 77 year old white male with a past medical history of cardiac arrest, HTN, HLD, enlarged prostate, and diverticulosis who presents to the ED with a cc of persistent diarrhea beginning a couple weeks ago. He notes he was referred to the ED by CT, where he had a CT performed today, ordered by his PCP . The patient reports his diarrhea is either loose or watery, and he has not had a solid bowel movement since his symptoms began. He notes some lower abdominal pain. The patient denies blood in his stool, vomiting, or fevers. He reports nothing seems to worsen or relieve his symptoms, and he has tried probiotics and Pepto Bismol to no effect. The patient states he experienced similar symptoms a few years ago, which was resolved by probiotics. He states he has recently brushed off a few ticks, but does not believe he was bitten. The patient recent travel or antibiotic use, urinary symptoms. He notes his threw up 1x the week when his symptoms began. Source of History: patient Onset: a couple weeks ago Position: other (GI) Quality: other (diarrhea) Timing: other (persistent) Modifying Factors (Relieving): other (not relieved by probiotics or Pepto Bismol ) Associated Symptoms: + abdominal pain (lower), No fevers, No vomiting, No melena, No urinary symptoms Review of Systems See HPI for pertinent positives and negatives. A total of ten systems were reviewed and were otherwise negative. Past Medical & Surgical Medical Problems: (1) Cardiac arrest (2) Hyperlipidemia (3) Hypertension (4) Ventricular tachyarrhythmia Family History Diabetes mellitus FH: cancer Hypertension Social History Smoking Status: Former Smoker Marital Status: Occupation Status: retired Current/Historical Medications Scheduled Amlodipine (Norvasc), 5 MG PO HS Aspirin (Aspirin), 325 MG PO BID Atorvastatin (Lipitor), 20 MG PO HS Cholecalciferol (Vitamin D), 5,000 UNIT PO HS Cholestyramine (Bulk) (Cholestyramine), 1 PKT PO QD Cyanocobalamin (Vitamin B-12 1000 Mcg), 1,000 MCG PO HS Dicyclomine Hcl (Bentyl), 10 MG PO TID Famotidine (Pepcid), 40 MG PO HS Insulin Aspart (Novolog), 15 UNITS SC BID Insulin Aspart (Novolog), 40-50 UNITS SC QPM Insulin Glargine (Lantus), 50 UNITS SC HS Lisinopril (Prinivil), 20 MG PO HS Lorazepam (Ativan), 2 MG PO HS Lorazepam (Ativan), 0.5 MG PO BID Magnesium Oxide (Magnesium), 400 MG PO DAILY Metformin Hcl (Metformin Hcl Er), 500 MG PO QPM Metoprolol Succ (Toprol Xl) (Toprol-Xl ), 150 MG PO QPM Multiple Vitamins W/ Minerals (Centrum Silver Ultra Mens), 1 TAB PO HS Tamsulosin HCl (Tamsulosin HCl), 0.4 MG PO HS Allergies Coded Allergies: No Known Allergies (Unverified , 11/07/17) Physical Exam Vital Signs Date Time Temp Pulse Resp B/P (MAP) Pulse Ox O2 Delivery O2 Flow Rate FiO2 11/07/17 15:23 36.7 68 18 152/88 95 11/07/17 13:04 36.7 61 18 156/93 97 Room Air Physical Exam GENERAL: Awake, alert, well-appearing, NAD, wearing glasses. HENT: Normocephalic, atraumatic. EYES: Normal conjunctiva. Sclera non-icteric. PERRL. No anisocoria. NECK: Supple. No nuchal rigidity. FROM. RESPIRATORY: CTAB, no rhonchi, wheezing, crackles CARDIAC: RRR, no MRG ABDOMEN: Soft, NTND, BS+. Negative obturator, negative psoas. MSK: No chest wall TTP, no LE edema NEURO: GCS 15, CN 2-12 intact, moves all 4s on command SKIN: No rash or jaundice noted. Medical Decision & Procedures ER Provider Diagnostic Interpretation: Radiology results as stated below per my review and radiologist interpretation: ABDOMEN AND PELVIS CT WITHOUT CONTRAST CT DOSE: 1262.62 mGy.cm HISTORY: Acute left lower quadrant abdominal pain with diarrhea R10.32 Abdominal pain, acute, left lower [id number] TECHNIQUE: Multiaxial CT images of the abdomen and pelvis were performed without contrast. A dose lowering technique was utilized adhering to the principles of ALARA. COMPARISON STUDY: None. FINDINGS: Mild dependent subsegmental bibasilar atelectasis. Calcified granulomata about the lung bases. No pneumatosis or pneumoperitoneum. Imaged inferior cardiac chambers are moderately enlarged. Pacer leads are noted overlying the right heart. Coronary arterial calcifications are present. There are a few subcentimeter hypodense lesions of the liver measuring up to 5 mm which are too small to characterize however suggest hepatic cysts. Liver otherwise appears unremarkable. No intrahepatic biliary ductal dilation. The gallbladder, spleen and right adrenal gland are unremarkable. Mild thickening of the left adrenal gland. Moderate generalized pancreatic atrophy. Nonspecific bilateral perinephric stranding. Exophytic 1.3 cm cyst of the interpolar left kidney. No urolith or obstructive uropathy. Prostamegaly. Mild wall thickening of the bladder. Moderate calcification of the aorta without aneurysm. There are no pathologically enlarged lymph nodes identified. Mildly prominent periportal lymph nodes are likely on a physiologic basis. There is no bowel obstruction. Extensive colonic diverticulosis. There is mild wall thickening of the colon extending from the mid descending colon through the sigmoid and rectum. Mild pericolonic inflammatory changes noted, most prominently seen about the mid sigmoid. No evidence of acute appendicitis. No drainable fluid collection. The soft tissues are unremarkable. The bones appear intact. Mild subcutaneous stranding about the left anterior abdominal wall possibly from medicinal injection. IMPRESSION: 1. Mild circumferential wall thickening of the colon extending from the mid descending colon through the sigmoid and rectum. Additionally, there is mild pericolonic inflammation with findings suggestive of proctocolitis possibly from infectious, inflammatory or ischemic etiology. 2. Extensive colonic diverticulosis. 3. No bowel obstruction. 4. Prior granulomatous disease. 5. Normal appendix. 6. Additional findings as above. Electronically signed by: Brandan Allen M.D. 11/07/2017 12:46 PM Dictated Date/Time: 11/07/2017 12:36 PM Laboratory Results 11/07/17 13:42 Red Blood Count 4.97, Mean Corpuscular Volume 89.5, Mean Corpuscular Hemoglobin 31.0, Mean Corpuscular Hemoglobin Concent 34.6, Mean Platelet Volume 9.0, Neutrophils (%) (Auto) 47.6, Lymphocytes (%) (Auto) 33.0, Monocytes (%) (Auto) 14.3, Eosinophils (%) (Auto) 4.3, Basophils (%) (Auto) 0.4, Neutrophils # (Auto ) 2.42, Lymphocytes # (Auto) 1.68, Monocytes # (Auto) 0.73, Eosinophils # (Auto ) 0.22, Basophils # (Auto) 0.02 11/07/17 13:42 Test 11/07/17 13:42 11/07/17 14:31 11/07/17 15:20 White Blood Count 5.09 K/uL (4.8-10.8) Red Blood Count 4.97 M/uL (4.7-6.1) Hemoglobin 15.4 g/dL (14.0-18.0) Hematocrit 44.5 % (42-52) Mean Corpuscular Volume 89.5 fL (80-100) Mean Corpuscular Hemoglobin 31.0 pg (25-34) Mean Corpuscular Hemoglobin Concent 34.6 g/dl (32-36) Platelet Count 216 K/uL (130-400) Mean Platelet Volume 9.0 fL (7.4-10.4) Neutrophils (%) (Auto) 47.6 % Lymphocytes (%) (Auto) 33.0 % Monocytes (%) (Auto) 14.3 % Eosinophils (%) (Auto) 4.3 % Basophils (%) (Auto) 0.4 % Neutrophils # (Auto) 2.42 K/uL (1.4-6.5) Lymphocytes # (Auto) 1.68 K/uL (1.2-3.4) Monocytes # (Auto) 0.73 K/uL (0.11-0.59) Eosinophils # (Auto) 0.22 K/uL (0-0.5) Basophils # (Auto) 0.02 K/uL (0-0.2) RDW Standard Deviation 39.2 fL (36.4-46.3) RDW Coefficient of Variation 12.1 % (11.5-14.5) Immature Granulocyte % (Auto) 0.4 % Immature Granulocyte # (Auto) 0.02 K/uL (0.00-0.02) Anion Gap 6.0 mmol/L (3-11) Est Creatinine Clear Calc Drug Dose 94.2 ml/min Estimated GFR () 99.1 Estimated GFR (Non- 85.5 BUN/Creatinine Ratio 11.9 (10-20) Lactic Acid Level 1.3 mmol/L (0.4-2.0) Calcium Level 9.4 mg/dl (8.5-10.1) Total Bilirubin 0.6 mg/dl (0.2-1) Direct Bilirubin 0.2 mg/dl (0-0.2) Aspartate Amino Transf (AST/SGOT) 36 U/L (15-37) Alanine Aminotransferase (ALT/SGPT) 67 U/L (12-78) Alkaline Phosphatase 98 U/L (45-117) Total Protein 7.6 gm/dl (6.4-8.2) Albumin 4.0 gm/dl (3.4-5.0) Lipase 72 U/L (73-393) Venous Blood pH 7.41 (7.36-7.41) Venous Blood Partial Pressure CO2 47 mmHg (38.0-50.0) Venous Blood Partial Pressure O2 29 mmHg Venous Blood HCO3 29 mmol/L Venous Blood Oxygen Saturation < 60.0 % Venous Blood Base Excess 3.7 mEq/L Bedside Glucose 94 mg/dl (70-99) Laboratory results reviewed by me ECG Per My Interpretation Indication: abdominal pain Rate (beats per minute): 72 Rhythm: normal sinus Findings: PVC, RBBB, other (wide QRS.) Comparison ECG Date: April 2016 Change: PVCs are new ED Course 1308: The patient was evaluated in room B6. A complete history and physical exam was performed. 1515: I reevaluated the patient. Discussed results and discharge instructions: he verbalized understanding and agreement. The patient is ready for discharge. Medical Decision Nursing notes reviewed. Ancillary studies and prior records reviewed. The patient is a 77 year old white male with a past medical history of cardiac arrest, HTN, HLD, enlarged prostate, and diverticulosis who presents to the ED with a cc of persistent diarrhea beginning a couple weeks ago. Etiologies such as appendicitis, diverticulitis, PUD, biliary pathology, UTI, pancreatitis, obstruction, mesenteric ischemia, aortic pathology, infections, inflammatory bowel disease, renal colic, as well as others were entertained. Patient was seen and evaluated the bedside. Patient was sent over here from CT scan in order to obtain his results. The patient's CT scan results were reviewed. The patient does have infectious, versus inflammatory, versus ischemic findings of some pericolonic inflammation. The patient has no evidence of diverticulitis. Patient has been having diarrheal type symptoms 3 weeks. Most likely infectious in etiology. In order to help rule out possible ischemia the patient did have blood work completed along with an EKG. The patient has stable vital signs and is not febrile. Patient has had bowel movements without any blood. Less likely ischemia. No prior history of IBS or IBD. Patient had a normal white cell count. The patient does have normal VBG and lactate. Given the patient's chronicity of symptoms lack of abdominal pain on exam and reassuring blurred blood work less likely ischemia. EKG sinus with PVCs. I did discuss this with the patient. Patient was given some cholestyramine and some Bentyl. Patient was told he does not need to take the Bentyl regularly but may take it on occasion to see if that helps his symptoms. Patient was told to follow-up with his primary care physician and discuss possible referral with gastroenterology. Patient was deemed suitable for outpatient follow-up and treatment at this time. Patient was given strict follow-up, discharge, and return precautions. All questions were answered. Patient was deemed suitable for outpatient follow-up at this time. Patient agreed with the plan of care and was safely discharged home. Medication Reconcilliation Current Medication List: was personally reviewed by me Blood Pressure Screening Patient's blood pressure: Elevated blood pressure Blood pressure disposition: Referred to PCP Impression Primary Impression: Proctocolitis Additional Impression: Diarrhea Scribe Attestation The scribe's documentation has been prepared under my direction and personally reviewed by me in its entirety. I confirm that the note above accurately reflects all work, treatment, procedures, and medical decision making performed by me. Departure Information Dispostion Home / Self-Care Prescriptions Dicyclomine Hcl (BENTYL) 10 Mg Cap 10 MG PO TID, #12 CAP Prov: Riccardo Corcoran M.D. 11/07/17 Cholestyramine (Bulk) (CHOLESTYRAMINE) 1 Pow Pow 1 PKT PO QD for 7 Days, #7 PKT Prov: Riccardo Corcoran M.D. 11/07/17 Referrals Miguel Mares M.D. (PCP) Patient Instructions Diarrhea, My [facility] Additional Instructions Please return to the emergency department if you have worsening or recurrent symptoms not amenable to at-home treatment. Please call for a follow-up appointment with her primary care physician. Please take your medications as prescribed. If you have other concerns and/or complaints please feel free to also call your primary care physician's office or return the ED for further evaluation, management, and treatment. You were found to have an elevated blood pressure today (>120 sytolic or >90 diastolic). Per medicare guidelines, you need to follow up with this blood pressure screening with your Primary Care Physician (PCP). For a new PCP call [phone]. You received narcotic or benzodiazepene medication while in the emergency room today. This is an addictive medication that may cause drowziness as well as constipation. Do not drive, operate heavy machinery, or drink alcohol under the influence of this medication. Take your medications as prescribed. You have been examined and treated today on an emergency basis only. This is not a substitute for, or an effort to provide, complete comprehensive medical care. It is impossible to recognize and treat all injuries or illnesses in a single emergency department visit. It is therefore important that you follow up closely with [facility], your PCP, and/or your specialist(s). Call as soon as possible for an appointment. Thank you for your time and consideration. I look forward to speaking with you again soon. Please don't hesitate to call us if you have any questions. Problem Qualifiers Additional Impression: Diarrhea Diarrhea type: unspecified type Qualified Codes: R19.7 - Diarrhea, unspecified
[2017-11-07] MEDS ORDERED: ATOR-22 PO (14:05)
[2017-11-07 14:34] LABS: BASO % 0.4 %; BASO ABS # 0.02 K/uL (0-0.2); EOS % 4.3 %; EOS ABS # 0.22 K/uL (0-0.5); HEMATOCRIT 44.5 % (42-52); HEMOGLOBIN 15.4 g/dL (14.0-18.0); IG# 0.02 K/uL (0.00-0.02); LYMPH ABS # 1.68 K/uL (1.2-3.4); MEAN CELL VOLUME 89.5 fL (80-100); MEAN CORPUSCULAR HGB CONC 34.6 g/dl (32-36); MONO % 14.3 %; MONO ABS # 0.73 K/uL (0.11-0.59); NEUT % 47.6 %; NEUT ABS # 2.42 K/uL (1.4-6.5); PLATELET COUNT 216 K/uL (130-400); RED CELL DISTRIBUTION WIDTH CV 12.1 % (11.5-14.5); RED CELL DISTRIBUTION WIDTH SD 39.2 fL (36.4-46.3); WHITE BLOOD COUNT 5.09 K/uL (4.8-10.8)
[2017-11-07 15:04] LABS: CALCIUM 9.4 mg/dl (8.5-10.1); CREATININE 0.83 mg/dl (0.60-1.40); POTASSIUM 3.8 mmol/L (3.5-5.1); TOTAL PROTEIN 7.6 gm/dl (6.4-8.2)
[2017-11-07] MEDS ORDERED: CHOLPOW PO (15:10)
[2017-11-07] MEDS ORDERED: DICY10CA55 PO (15:12)
[2017-11-07 15:23] VITALS: BP 152/88; PULSE 68; TEMP 36.7; O2SAT 95
== END 2017-11-07 15:24 | disposition home or self-care (01) ==
LOC: C.EDB 13:03
DX: K52.89 Other specified noninfective gastroenteritis and colitis (principal); R19.7 Diarrhea, unspecified; K57.30 Diverticulosis of large intestine without perforation or abscess without bleeding; R94.8 Abnormal results of function studies of other organs and systems; Z87.891 Personal history of nicotine dependence; I10 Essential (primary) hypertension; E78.5 Hyperlipidemia, unspecified; Z79.899 Other long term (current) drug therapy; Z83.3 Family history of diabetes mellitus; Z82.49 Family history of ischemic heart disease and other diseases of the circulatory system; Z80.9 Family history of malignant neoplasm, unspecified

== ENCOUNTER → 2017-11-07 | Outpatient (CLI) | payer BC ==
--- NOTE | 2017-11-07 12:47 | DIAGNOSTIC IMAGING REPORT ---
ABDOMEN AND PELVIS CT WITHOUT CONTRAST CT DOSE: 1262.62 mGy.cm HISTORY: Acute left lower quadrant abdominal pain with diarrhea R10.32 Abdominal pain, acute, left lower [id number] TECHNIQUE: Multiaxial CT images of the abdomen and pelvis were performed without contrast. A dose lowering technique was utilized adhering to the principles of ALARA. COMPARISON STUDY: None. FINDINGS: Mild dependent subsegmental bibasilar atelectasis. Calcified granulomata about the lung bases. No pneumatosis or pneumoperitoneum. Imaged inferior cardiac chambers are moderately enlarged. Pacer leads are noted overlying the right heart. Coronary arterial calcifications are present. There are a few subcentimeter hypodense lesions of the liver measuring up to 5 mm which are too small to characterize however suggest hepatic cysts. Liver otherwise appears unremarkable. No intrahepatic biliary ductal dilation. The gallbladder, spleen and right adrenal gland are unremarkable. Mild thickening of the left adrenal gland. Moderate generalized pancreatic atrophy. Nonspecific bilateral perinephric stranding. Exophytic 1.3 cm cyst of the interpolar left kidney. No urolith or obstructive uropathy. Prostamegaly. Mild wall thickening of the bladder. Moderate calcification of the aorta without aneurysm. There are no pathologically enlarged lymph nodes identified. Mildly prominent periportal lymph nodes are likely on a physiologic basis. There is no bowel obstruction. Extensive colonic diverticulosis. There is mild wall thickening of the colon extending from the mid descending colon through the sigmoid and rectum. Mild pericolonic inflammatory changes noted, most prominently seen about the mid sigmoid. No evidence of acute appendicitis. No drainable fluid collection. The soft tissues are unremarkable. The bones appear intact. Mild subcutaneous stranding about the left anterior abdominal wall possibly from medicinal injection. IMPRESSION: 1. Mild circumferential wall thickening of the colon extending from the mid descending colon through the sigmoid and rectum. Additionally, there is mild pericolonic inflammation with findings suggestive of proctocolitis possibly from infectious, inflammatory or ischemic etiology. 2. Extensive colonic diverticulosis. 3. No bowel obstruction. 4. Prior granulomatous disease. 5. Normal appendix. 6. Additional findings as above. Electronically signed by: Brandan Allen M.D. 11/07/2017 12:46 PM Dictated Date/Time: 11/07/2017 12:36 PM
== END | disposition home or self-care (01) ==
LOC: C.CTS 12:17
PROVIDERS: ATTEND Physician Assistant
DX: R10.32 Left lower quadrant pain (principal); R19.7 Diarrhea, unspecified

== ENCOUNTER 2022-03-01 05:25 | Observation (INO) ==
--- NOTE | 2022-02-25 10:17 | Anesthesiology Consultation ---
Date of Service February 25, 2022 Assessment & Plan (1) Encounter for pre-operative examination: - awaiting cardiology pre-op evaluation. - Case discussed in detail with Dr. Juarez who advised pt to have cardiology pre-op evaluation/clearance. Surgeon's office made aware, message left for pt to return call. - check BSG am DOS. - ICD: Medtronic. EF 38%. - cardiology [place] 09/11/21: "...CAD (chronic occlusion of RCA), Ischemic Cardi omyopathy, Ventricular Tachycardia s/p Single-chamber AICD, Hypertension, Dyslipidemia, and Type 2 Diabetes Mellitus who presents today for follow-up of his SOBOE and his recent Lexiscan Cardiolite...08/25/2019 he described getting shortness of breath with walking...was concerned about progression of coronary disease. I started the patient on Imdur ER 30 mg daily in an effort to get rid of his symptoms. Unfortunately patient developed dizziness and low blood pressure with his long-acting nitrate, so he had to stop taking it. I ordered a Lexiscan Cardiolite which showed RCA territory infarct with minimal reversibility. LVEF 38% which is an improvement over his past cardiac imaging...At this point, the patient does not want to take any more medications that he is already taking, and his evening blood pressures may limit our ability to titrate his cardiac regimen. We discussed possibly doing a trial of Ranexa which typically has no impact on heart rate or blood pressure -- but again, he does not want to take more medications and he is on already..." - COVID screening: Per maintenance and engineering manager on 02/25/2022: Travel screen negative, no known COVID-19 positive contacts or current COVID-19 related symptoms in past 2 weeks. To surgeon's discretion if preop COVID testing is needed. Chart Review Chart Review: Pending: Refer to Additional Notes / Consult section and Patient NOT seen in Pre Admission Testing History Surgery Operation Date: 03/01/22 08:10 Proposed Procedures p Transurethral Resection Prostate - David Curiel DO Height/Weight Height: 6 ft 1 in Weight: 100.698 kg Allergies Allergy/AdvReac Type Severity Reaction Status Date / Time No Known Drug Allergies Allergy Verified 02/25/22 08:58 Medications Home Medications Medication Instructions Recorded Confirmed Last Taken cyanocobalamin (vitamin B-12) 500 500 mcg PO QPM 11/21/18 02/25/22 Unknown mcg tablet (Vitamin B-12) sxeuhuod-wno-xaaqi acid 300 1 tab PO QPM 11/21/18 02/25/22 Unknown mcg-lycopene 600 mcg-lutein 300 mcg tablet (Centrum Silver Men) lancets 33 gauge (OneTouch Delica #100 ea 07/02/20 02/23/22 Unknown Lancets) aspirin 325 mg tablet 325 mg PO QPM 08/28/20 02/25/22 Unknown cholecalciferol (vitamin D3) 50 2,000 unit PO QPM 08/28/20 02/25/22 Unknown mcg (2,000 unit) capsule amlodipine 5 mg tablet (Norvasc) 5 mg PO DAILY PRN hypertension 12/31/20 02/25/22 Unknown blood sugar diagnostic (OneTouch #300 ea 01/19/21 02/23/22 Unknown Ultra Test strips) insulin aspart U-100 100 unit/mL See Rx Instructions subcut 03/18/21 02/25/22 Unknown subcutaneous solution (Novolog .COMPLEX #20 mL U-100 Insulin aspart) carvedilol 25 mg tablet 25 mg PO BID #60 tabs 05/19/21 02/25/22 Unknown ciclopirox 0.77 % topical cream 1 applic topical BID PRN other #90 06/08/21 02/25/22 Unknown grams famotidine 40 mg tablet 40 mg PO HS #90 tabs 11/24/21 02/25/22 Unknown metformin 500 mg tablet,extended 500 mg PO DAILY #90 tabs 12/07/21 02/25/22 Unknown release 24 hr insulin glargine 100 unit/mL 45 unit (0.45 mL) subcut HS #50 mL 12/11/21 02/25/22 Unknown subcutaneous solution (Lantus U-100 Insulin) blood-glucose sensor (Dexcom G6 01/04/22 02/23/22 Unknown Sensor device) sacubitril 49 mg-valsartan 51 mg 1 tab PO BID #180 tabs 01/21/22 02/25/22 Unknown tablet (Entresto) tamsulosin 0.4 mg capsule 0.4 mg PO DAILY #90 caps 01/21/22 02/25/22 Unknown finasteride 5 mg tablet 5 mg PO DAILY #30 tabs 02/03/22 02/25/22 Unknown lidocaine HCl 2 % mucosal jelly 1 applic topical BID PRN pain #30 02/12/22 02/25/22 Unknown mL phenazopyridine 200 mg tablet 200 mg PO TID PRN pain #9 tabs 02/12/22 02/25/22 Unknown (Pyridium) lorazepam 1 mg tablet 1 mg PO BID #60 tabs 02/16/22 02/25/22 Unknown atorvastatin 40 mg tablet 40 mg PO QPM #90 tabs 02/22/22 02/25/22 Unknown Past Medical History Medical History (Updated 02/25/22 @ 10:06 by Rebeca Bill PA-C) Adenomatous polyp of colon Anxiety and depression BPH (benign prostatic hyperplasia) CAD (coronary artery disease) chronic occlusion of RCA per OR Cardio records Chronic kidney disease with active medical management without dialysis, stage 2 (mild) Diabetes mellitus, type 2 IDDM Hed[address] catheter in place GERD (gastroesophageal reflux disease) Hearing loss Hiatal hernia History of Helicobacter infection Hyperlipidemia Hypertension ICD (implantable cardioverter-defibrillator) in place 04/[address] REMY *MEDTRONIC Ischemic cardiomyopathy EF 20-25%, improved to 38% 09/2021 per cardio records Migraine Myocardial Infarction 04/13/2016 "cardiac arrest"---follows w Dr. Raza Paroxysmal ventricular tachycardia Premature ventricular contractions Skin cancer of forehead squamous cell Past Family History Family History Father Family history of diabetes mellitus Coronary heart disease Myocardial infarction Grandmother Family history of diabetes mellitus paternal Mother Alcohol abuse Anxiety Breast cancer Grandfather Anxiety Daughter Bipolar disorder Other No family history of adverse response to anesthesia Denies family history of Ovarian cancer Prostate cancer Colorectal cancer Past Surgical History Surgical History History of cardiac cath 04/2016, no stent @ [facility] History of colonoscopy History of esophagogastroduodenoscopy (EGD) History of tonsillectomy History of tooth extraction all teeth Hx of Moh's micrographic surgery for skin cancer squamous cell cancer removed from forehead Social History Smoking Status: Former smoker tobacco type: cigarettes Do You Dip or Chew Tobacco: No Smoking End Date: 1982 Hx Alcohol Use: Yes Alcohol type: beer alcohol intake frequency: 0-2 drinks per day Hx Substance Use: No substance use type: does not use Lab Results Anesthesia Preop Results Results Anesthesia Widget: WBC 9.03 K/ul (4.8-10.8) 02/23/22 Hgb 14.4 g/dl (14.0-18.0) 02/23/22 Hct 42.9 % (40.1-51.0) 02/23/22 Plt 266 K/uL (130-400) 02/23/22 Na 138 mmol/L (136-145) 02/23/22 K 4.2 mmol/L (3.5-5.1) 02/23/22 Cl 103 mmol/L (98-107) 02/23/22 CO2 28 mmol/L (21-32) 02/23/22 BUN 14 mg/dl (6-23) 02/23/22 Creat 0.78 mg/dl (0.6-1.4) 02/23/22 Glucose Level 179 mg/dl (70-99(Fasting)) H 02/23/22 Urine Color Yellow 02/23/22 Urine Appearance Cloudy (Clear) A 02/23/22 Urine pH 7.0 (4.5-7.5) 02/23/22 Urine Specific [place] 1.023 (1.000-1.030) 02/23/22 Urine Protein 2+ (Negative) H 02/23/22 Urine Glucose (UA) 2+ (Negative) H 02/23/22 Urine Ketones Trace (Negative) H 02/23/22 Urine Blood 3+ (Negative) H 02/23/22 Urine Nitrite Positive (Negative) A 02/23/22 Urine Bilirubin Negative (Negative) 02/23/22 Urine Urobilinogen Negative (Negative) 02/23/22 Urine Leukocyte Esterase 2+ (Negative) H 02/23/22 Urine WBC (Auto) >30 /hpf (0-5) H 02/23/22 Urine RBC (Auto) >30 /hpf (0-4) H 02/23/22 Urine Hyaline Casts (Auto) 1-5 /lpf (0-5) 02/23/22 Urine Epithelial Cells (Auto) 0-5 /lpf (0-5) 02/23/22 Urine Bacteria (Auto) 4+ (Negative) H 02/23/22 Testing Electrocardiogram Date: 02/23/22 Sinus rhythm with 1st degree AV block, rate 62 bpm Left atrial enlargement RBBB Left posterior fascicular block Chest X-Ray Date: 10/05/21 Left subclavian pacer/AICD is in place. Moderate cardiomegaly is noted. There is no evidence for pulmonary edema. There is no consolidation to suggest pneumonia. No pneumothorax or pleural effusion is noted. Several calcified right lung nodules are benign. IMPRESSION: No acute cardiopulmonary findings. Stable cardiomegaly. Stress Test Date: 09/10/21 Pharmacologic Rotating raw images were reviewed in detail. Potential sources of attenuation include diaphragmatic attenuation, vertical motion worse on rest than stress images, and minimal gut uptake impacting the inferior imaging border of the heart. No significant extracardiac pathologic uptake. 1. Negative myocardial perfusion study for significant Lexiscan induced ischemia. 2. Fixed, severe inferior perfusion defect with minimal reversibility consistent with RCA infarct. 3. Dilated LV. LVEF 38% with inferior severe hypokinesis and paradoxical sep marcella motion. Other Testing ICD report 01/30/22 Medtronic [employer] 1.4% 2 ventricular events, VT longest 25 sec
[2022-03-01] MEDS ORDERED: LR 15ML/HR IV SCH (06:00)
[2022-03-01] MEDS ORDERED: PROPOFOL IV EMULSION 10 MG/ML 20 ML VIAL IV ONE (06:42)
[2022-03-01] MEDS ORDERED: fentaNYL citrate 100 MCG/2 ML VIAL ONE ×2 (06:42→08:13)
[2022-03-01] MEDS ORDERED: ONDANSETRON INJ 2 MG/ML 2 ML VIAL ONE (06:42)
[2022-03-01] MEDS ORDERED: LIDOCAINE 2% MPF LOCAL 5 ML VIAL INFIL ONE (06:42)
--- NOTE | 2022-03-01 06:50 | History & Physical Bridge Note ---
Date of Service March 01, 2022 History & Physical Bridge Note I have examined the patient, reviewed the History & Physical and in the interval since the performance of the History & Physical I have noted the following changes of clinical significance: no changes noted
[2022-03-01] MEDS ORDERED: ONDANSETRON INJ 2 MG/ML 2 ML VIAL IV PRN ×2 (06:56→09:52)
[2022-03-01] MEDS ORDERED: PROMETHAZINE HCL 12.5 MG in SODIUM CHLORIDE 0.9% 50 ML IV PRN (06:56)
[2022-03-01] MEDS ORDERED: ePHEDrine sulfate 50 MG/ML AMP IV PRN (06:56)
[2022-03-01] MEDS ORDERED: ATROPINE SULFATE 0.1 MG/ML 10ML SYR IV PRN (06:56)
[2022-03-01] MEDS ORDERED: fentaNYL citrate 100 MCG/2 ML VIAL IV PRN (06:56)
[2022-03-01] MEDS ORDERED: HYDROmorphone INJ 2 MG/ML SYR/VIAL IV PRN (06:56)
[2022-03-01] MEDS ORDERED: DEXAMETHASONE SOD INJ 4 MG/ML VIAL IV PRN (06:56)
[2022-03-01] MEDS ORDERED: BELLADONNA/OPIUM SUPP 60 MG SUPP PR ONE ×2 (08:12→09:52)
--- NOTE | 2022-03-01 08:40 | Operative Report ---
PG Post Operative Report Pre & Post Diagnosis Operation Date: 03/01/22 07:00 Pre-Op Diagnosis: Acute Retention with BPH. Chronic Kidney Disease with Active Medical Managem Post-Op Diagnosis: Same I identified the patient and participated in the time-out.: Yes Procedure Operation Date: 03/01/22 07:00 Actual Procedures p Transurethral Resection Prostate(Not Applicable) - David Curiel DO Surgeon David Curiel, II, DO Health Social Work Professor None Estimated Blood Loss 10 Findings Consistent with Post-Op Diagnosis Large Prostate with obstruction. Large prostatic varicosities. Specimens Prostate adenoma. Drains [address] 24Fr Catheter Anesthesia Type General Complications none Disposition Disposition: Recovery Room Indications Patient with obstruction due to prostate enlargement. Risks and benefits discussed at length. Description of Procedure Patient was consented and brought back to the operating room. Patient was placed under anesthesia in the supine position and moved to the dorsal lithotomy position. Patient was prepped and draped in the regular sterile fashion. A time out was completed. A 30degree Cystoscope was placed into the bladder and the entire bladder was examined. The UO's were identified as well as the bladder neck, trigone, dome, and the other important landmarks. The prostatic urethra and large lobes/adenoma was assessed and the veru and bladder neck identified and area/size was assessed. The resection scope was placed and the fine bipolar loop was selected. Starting at the 5 and 7 o'clock positions, a channel was created from bladder neck to the veru. With the channel formed, attention was taken to the lateral lobes, The 1 and 11 o'clock positions were resected down to the channel. The left lateral lobe was resected down to capsule fibers. The resection then completed and a adequate channel was formed. The Specimen was removed and sent for analysis. The resection bed and any bleeding areas were fulgurated/cauterized and the entire area inspected. All bleeding was controlled. The bladder was inspected a final time. The bladder was emptied and irrigated. All specimen and debris was removed. The scope was removed with the bladder partially full. A catheter was placed and balloon elevated. This was easily irrigated. Continuous irrigation was initated. The patient was cleaned, aroused from anesthesia, and transferred to the pacu in stable condition having tolerated the procedure well with no complications. I was present and participated in all aspects of the procedure. The patient will be monitored in the PACU until transferred. Plan to observe overnight. Will have CBI in place with plan for flow to be titrated down. Plan to titrate to clear. Will likely discharge tomorrow with catheter for 10-14 days. Followup for catheter removal and plan for pathology review by phone in 2-3 weeks. I attest to the content of the Intraoperative Record and any orders documented therein. Any exceptions are noted below.
--- NOTE | 2022-03-01 09:19 | Anesthesiology Progress Note ---
Date of Service March 01, 2022 Anesthesia Post Procedure Vital Signs Vital Signs: Temp Pulse Resp BP Pulse Ox O2 Del Method O2 Flow Rate 03/01/22 09:10 56 L 17 137/77 97 Oxymask 4 03/01/22 09:00 54 L 18 149/86 H 98 Oxymask 9 03/01/22 08:50 62 16 147/90 H 94 Oxymask 9 03/01/22 08:43 36.4 C L 56 L 14 128/72 93 Oxymask 5 03/01/22 05:58 36.5 C 76 20 174/96 H 96 Room Air 03/01/22 05:58 Room Air Pain Intensity Penis: Pain Intensity: 4 Transfer of Care Handoff Completed per policy Notes Mental Status: alert / awake / arousable and participated in evaluation Patient Amnestic to Procedure: Yes Nausea / Vomiting: adequately controlled Pain: adequately controlled Airway Patency, RR, SpO2: stable & adequate BP & HR: stable & adequate Hydration State: stable & adequate Anesthetic Complications: no major complications apparent
[2022-03-01] MEDS ORDERED: SODIUM CHLORIDE 0.9% 1000ML 1,000 ML IV SCH (09:52)
[2022-03-01] MEDS ORDERED: amLODIPine BESYLATE 5 MG TAB PO PRN (09:52)
[2022-03-01] MEDS ORDERED: PHENAZOPYRIDINE HCL 200 MG TAB PO PRN (09:52)
[2022-03-01] MEDS ORDERED: MoRPHine SULFATE 2 MG/ML CARP IV PRN (09:52)
[2022-03-01] MEDS: LORazepam 1 MG TAB PO SCH ×2 (10:23→20:22)
[2022-03-01 10:28] LABS: Basophils # (auto) 0.05 K/uL (0-0.2); Basophils % (auto) 0.7 %; Eosinophils # (auto) 0.39 K/uL (0-0.50); Eosinophils % (auto) 5.8 %; Hematocrit (blood only) 38.6 % (40.1-51.0); Hemoglobin 13.2 g/dl (14.0-18.0); Immature Granulocytes # (auto) 0.02 K/uL (0.00-0.02); Immature Granulocytes % (auto) 0.3 %; Lymphocytes # (auto) 1.38 K/uL (1.2-3.4); Lymphocytes % (auto) 20.7 %; Mean Corpuscular Hemoglobin 31.1 pg (25.0-34.0); Mean Corpuscular Hgb Conc 34.2 g/dL (32.0-36.0); Mean Corpuscular Volume 90.8 fL (80.0-100.0); Mean Platelet Volume 9.2 fL (9.4-12.4); Monocytes # (auto) 0.61 K/uL (0.24-0.82); Monocytes % (auto) 9.1 %; Neutrophils # (auto) 4.22 K/uL (1.4-6.5); Neutrophils % (auto) 63.4 %; Platelet Count 227 K/uL (130-400); RDW Coefficient of Variation 12.2 % (11.5-14.5); RDW Standard Deviation 40.4 fL (36.4-46.3); Red Blood Count 4.25 M/uL (4.63-6.08); White Blood Count 6.67 K/ul (4.8-10.8)
[2022-03-01] MEDS: oxyCODONE/ACETAMINOPHEN 5mg/325mg TAB PO PRN (10:40)
[2022-03-01] MEDS ORDERED: GLUCOSE 40% GEL 15 GM TUBE PO PRN (10:45)
[2022-03-01] MEDS ORDERED: GLUCOSE 10 TAB/TUBE PO PRN (10:45)
[2022-03-01] MEDS ORDERED: DEXTROSE 50% 50 ML SYRINGE IV PRN (10:45)
[2022-03-01] MEDS ORDERED: CARBOHYDRATES FOR HYPOGLYCEMIA PO PRN (10:45)
[2022-03-01] MEDS ORDERED: GLUCAGON FOR INJ 1 MG VIAL IM PRN (10:45)
[2022-03-01 10:54] LABS: Albumin Globulin Ratio 1.6 (0.9-2); Albumin Level 3.7 gm/dl (3.4-5.0); Bilirubin,Total 0.6 mg/dl (0.2-1.0); Calcium 8.8 mg/dl (8.5-10.1); Creatinine Clr Calc Pharmacy 91.2 ml/min; Est GFR (African American) 97.3 ml/min; Est GFR (Non-African American) 83.9 ml/min; Globulin 2.3 gm/dl (2.5-4.0); Potassium 4.5 mmol/L (3.5-5.1)
[2022-03-01] MEDS: DOCUSATE SODIUM 100 MG CAP PO SCH ×2 (11:23→20:15)
[2022-03-01] MEDS: carvediloL 25 MG TAB PO SCH ×2 (11:23→20:14)
[2022-03-01] MEDS: TAMSULOSIN HCL 0.4 MG CAP PO SCH (11:23)
--- NOTE | 2022-03-01 11:29 | Hospitalist Consultation ---
Date of Consultation March 01, 2022 Assessment & Plan (1) S/P TURP (status post transurethral resection of prostate): -Patient is currently afebrile, hemodynamically stable and stable On RA -Perioperative antibiotics and pain control per the primary team -Would be very cautious with IV fluids with the patient's history of HFrEF; will speak with primary team regarding stopping his NSS at this time as he is hemodynamically stable -Labs from today are stable, adding CBC and BMP for tomorrow morning to continue to monitor -Monitor closely for signs of infection as patient is high risk with this procedure -Will continue his home famotidine for stress ulcer prophylaxis -Continue BL SCDs for DVT prophylaxis (2) CAD (coronary artery disease): -Aspirin has been held since 02/24 in preparation for procedure -Recommend restarting whenever Urology is comfortable, likely tomorrow? (3) Ischemic cardiomyopathy: -S/P Pacemaker/ICD placement -LVEF of 38% as of 09/2021 -Normally on Sacubitril-Valsartan, last dose appears to be on 02/28/22 -Currently examines Euvolemic -Monitor closely for volume overload, can restart Sacubitril-Valsartan on 03/02/22 if his renal function is stable -Will hold additional IV fluids for now if primary team is comfortable to avoid volume overload (4) Hypertension: -Currently hemodynamically stable -Can continue Carevedilol as long as he remains hemodynamically stable -Agree with holding amlodipine for now to avoid post-op hypotension (5) Type 2 diabetes mellitus with neurologic complication, with long-term current use of insulin: -Normally on metformin, Lantus 45 units HS, and Sliding scale -Hold metformin while admitted -Agree with continuing HS lantus -Added ACHS BSG checks -Added correction factor of 45 and carb ratio of 14 -Agree with consistent carb diet (6) Hyperlipidemia: -Continue statin (7) Anxiety: -Agree with continuing ativan -Would recommend PCP try and wean off with is age Plan The patient was discussed with Dr. Talbert at the time of the consult Supervising Physician Co-Signing Physician Notes Patient seen and examined, chart reviewed, case discussed with López Persaud PA-C and I agree with the assessment and plan as above except as otherwise noted Labs and images reviewed 9-year-old male s/p scheduled TURP. We are consulted for medical management of comorbidities. Patient is with a history of CAD, ischemic cardiomyopathy, CKD, type 2 diabetes mellitus, hypertension, diabetic neuropathy, hyperlipidemia, paroxysmal VT. seen the bedside. Doing well postop, had some mild penile pain improved after oxycodone. No chest pain, chest pressure, fever, chills, lightheadedness, dizziness. Feels well overall. No concerns. Skin is warm and well-perfused, lungs are clear, breathing is unlabored, heart is regular TURP: Doing well, stable postop, postop/pain/DVT management per primary team. Cautious fluids as noted given history of reduced ejection fraction. CAD/EF 38% HFrEF: Resume Entresto tomorrow if creatinine at baseline and blood pressure is normal/high. Continue carvedilol. Cautious use of fluids. No significant volume overload. DM: Insulin management and glucose checks as noted, goal [id number] Paroxysmal VT: Continue beta-liz as noted. S/p ICD placement. History of Present Illness Reason for Consultation: Post-Procedure medical management Requesting Physician: David Curiel, II, DO Attending Physician: Dr. Steven Talbert History of Present Illness Jose Roberto is an 81 year old male with a PMH significant for DM II, Hyperlipidemia, HTN, CAD (chronic occlusion of RCA), ventricular tachycardia, cardiac arrest, ischemic cardiomyopathy S/P Pacemaker/ICD placement, and Anxiety who presented to the [facility] OR on 03/01/22 for Transurethral Resection Prostate with Dr. David Curiel. Per the post-op report, there were no reported intraoperative complications, EBL was listed as 10 mL, and anesthesia was listed as General. labs were remarkable for a WBC WNL, stable Hgb of 13.2 (was 14.4 as of 02/23/22), stable renal function and electrolytes, stable liver function, and covid negative. Per the post-op note, the patient will have a catheter and will undergo CBI overnight until his urine run clean. At the time of the exam the patient was resting comfortably in bed in no acute distress with his sitting bedside. At the start of the exam the patient was noted to be on 1L NC, I turned his O2 off at the start of my exam and he remained stable on RA. Overall, he is feeling well after his procedure. His only complaint at this time is some burning of his urethra. He denies any other complaints at this time. Please refer to Dr. Talbert's attestation for any changes to the treatment plan Allergies Allergy/AdvReac Type Severity Reaction Status Date / Time No Known Drug Allergies Allergy Verified 03/01/22 05:50 Home Medications Medication Instructions Recorded Confirmed Type cyanocobalamin (vitamin B-12) 500 500 mcg PO QPM 11/21/18 03/01/22 History mcg tablet (Vitamin B-12) usijwusw-cqt-qazgn acid 300 1 tab PO QPM 11/21/18 03/01/22 History mcg-lycopene 600 mcg-lutein 300 mcg tablet (Centrum Silver Men) lancets 33 gauge (OneTouch Delica #100 ea 07/02/20 02/23/22 History Lancets) aspirin 325 mg tablet 325 mg PO QPM 08/28/20 03/01/22 History cholecalciferol (vitamin D3) 50 2,000 unit PO QPM 08/28/20 03/01/22 History mcg (2,000 unit) capsule amlodipine 5 mg tablet (Norvasc) 5 mg PO DAILY PRN hypertension 12/31/20 03/01/22 History blood sugar diagnostic (OneTouch #300 ea 01/19/21 02/23/22 Rx Ultra Test strips) insulin aspart U-100 100 unit/mL See Rx Instructions subcut 03/18/21 03/01/22 Rx subcutaneous solution (Novolog .COMPLEX #20 mL U-100 Insulin aspart) carvedilol 25 mg tablet 25 mg PO BID #60 tabs 05/19/21 03/01/22 Rx ciclopirox 0.77 % topical cream 1 applic topical BID PRN other #90 06/08/21 03/01/22 Rx grams famotidine 40 mg tablet 40 mg PO HS #90 tabs 11/24/21 03/01/22 Rx metformin 500 mg tablet,extended 500 mg PO DAILY #90 tabs 12/07/21 03/01/22 Rx release 24 hr insulin glargine 100 unit/mL 45 unit (0.45 mL) subcut HS #50 mL 12/11/21 03/01/22 Rx subcutaneous solution (Lantus U-100 Insulin) blood-glucose sensor (Dexcom G6 01/04/22 02/23/22 History Sensor device) sacubitril 49 mg-valsartan 51 mg 1 tab PO BID #180 tabs 01/21/22 03/01/22 Rx tablet (Entresto) tamsulosin 0.4 mg capsule 0.4 mg PO DAILY #90 caps 01/21/22 03/01/22 Rx finasteride 5 mg tablet 5 mg PO DAILY #30 tabs 02/03/22 03/01/22 Rx lidocaine HCl 2 % mucosal jelly 1 applic topical BID PRN pain #30 02/12/22 03/01/22 Rx mL phenazopyridine 200 mg tablet 200 mg PO TID PRN pain #9 tabs 02/12/22 03/01/22 Rx (Pyridium) lorazepam 1 mg tablet 1 mg PO BID #60 tabs 02/16/22 03/01/22 Rx atorvastatin 40 mg tablet 40 mg PO QPM #90 tabs 02/22/22 03/01/22 Rx doxycycline hyclate 100 mg tablet 100 mg PO BID 7 days #14 tabs 02/25/22 03/01/22 Rx Patient History Medical History Adenomatous polyp of colon Anxiety and depression BPH (benign prostatic hyperplasia) CAD (coronary artery disease) chronic occlusion of RCA per [place] [facility] records Chronic kidney disease with active medical management without dialysis, stage 2 (mild) Diabetes mellitus, type 2 IDDM [address] catheter in place GERD (gastroesophageal reflux disease) Hearing loss Hiatal hernia History of Helicobacter infection Hyperlipidemia Hypertension ICD (implantable cardioverter-defibrillator) in place 04/[address] REMY *[employer] Ischemic cardiomyopathy EF 20-25%, improved to 38% 09/2021 per cardio records Migraine Myocardial Infarction 04/13/2016 "cardiac arrest"---follows w Dr. 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 Family History Father Family history of diabetes mellitus Coronary heart disease Myocardial infarction Grandmother Family history of diabetes mellitus paternal Mother Alcohol abuse Anxiety Breast cancer Grandfather Anxiety Daughter Bipolar disorder Other No family history of adverse response to anesthesia Denies family history of Ovarian cancer Prostate cancer Colorectal cancer Social History Smoking Status: Former smoker Smoking End Date: 1982; Second Hand Exposure: Yes ( A CHILD); Do You Dip or Chew Tobacco: No; Hx Alcohol Use: Yes Alcohol type: beer Hx Substance Use: No Preferred Language: Icelandic Communication Ability: Effective Visual Impairment: No Limitations 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 Beliefs That Will Affect Care: Scientologist Scientologist Beliefs: ADVENTISM marital status: Current Living Situation: Spouse current occupational status: retired Feels Safe at Home: Yes Safety Concerns: Feels Safe At This Time Childhood Exposure to Second-Hand Smoke: Yes Dental Care, Regularly: Yes Physical Activity Frequency: 3-4 Times per Week Seatbelt Use: always Sunscreen Use: No Assistive Devices: Denture - Upper, Denture - Lower and Glasses Review of Systems Review of Systems: Denies current fever, chills, headache, changes in vision, hearing, taste, and smell, chest pain, SOB, cough, abdominal pain, nausea, vomiting, diarrhea, hematemesis, melena, and recent falls. All systems have been reviewed and are otherwise negative. Physical Exam Physical Exam: Physical Exam: General: In no acute distress, stated age, well-nourished, good hygiene HEENT: Normocephalic, atraumatic, no scleral icterus, pupils around round, symmetrical, and reactive to light, moist mucus membranes, trachea midline, no thyromegaly Chest/Pulm: No respiratory distress, symmetrical chest expansion, clear breath sounds throughout Cardiac: RRR, no murmurs noted Abdomen: Negative for ascites and bruising, normoactive bowel sounds, soft, non-tender to palpation throughout : Patient currently with morales catheter in place and without signs of bleeding or draining around the insertion site, morales is currently draining clear, yellow urine Musculoskeletal: Symmetrical and without signs of acute trauma, upper and lower extremities with full ROM, no atrophy, spasticity, or flaccidity, patient currently with BL SCDs in place Extremities: Radial, dorsalis pedis, and posterior tibial pulses are intact and symmetrical, no edema noted in the BL LE's Skin: Warm, dry, no rashes , lesions, or scars noted Neuro: Alert and oriented to person, place, month, year, and president, no focal defects, CN II-XII tested and intact Psych: No acute distress, calm and cooperative during the exam Results & Data Results & Data ([facility]) Vital Signs (Past 12 Hours) Vital Signs Temp Pulse Resp BP Pulse Ox O2 Del Method O2 Flow Rate 03/01/22 10:44 35.6 C L 60 16 154/85 H 96 Nasal Cannula 1 03/01/22 10:28 36.4 C L 59 L 15 162/84 H 96 Nasal Cannula 1 03/01/22 09:45 36.4 C L 63 20 148/79 H 96 Nasal Cannula 2 03/01/22 09:30 57 L 17 144/74 H 94 Nasal Cannula 2 03/01/22 09:20 36.4 C L 52 L 15 137/84 95 Oxymask 2 03/01/22 09:10 56 L 17 137/77 97 Oxymask 4 03/01/22 09:00 54 L 18 149/86 H 98 Oxymask 9 03/01/22 08:50 62 16 147/90 H 94 Oxymask 9 03/01/22 08:43 36.4 C L 56 L 14 128/72 93 Oxymask 5 03/01/22 05:58 36.5 C 76 20 174/96 H 96 Room Air 03/01/22 05:58 Room Air Laboratory Results Abnormal lab results 03/01/22 03/01/22 03/01/22 Range/Units 05:47 09:35 10:00 RBC 4.25 L (4.63-6.08) M/uL Hgb 13.2 L (14.0-18.0) g/dl Hct 38.6 L (40.1-51.0) % MPV 9.2 L (9.4-12.4) fL Glucose (70-99(Fasting)) mg/dl POC Glucose 190 H 184 H (70-99) mg/dl Globulin (2.5-4.0) gm/dl 03/01/22 Range/Units 10:00 RBC (4.63-6.08) M/uL Hgb (14.0-18.0) g/dl Hct (40.1-51.0) % MPV (9.4-12.4) fL Glucose 187 H (70-99(Fasting)) mg/dl POC Glucose (70-99) mg/dl Globulin 2.3 L (2.5-4.0) gm/dl ECG Additional Comments: No ECG available at the time of the consult PG Care Time/CCT Total # of Minutes Spent Total Time Spent with Patient: Total time spent is greater than 50% in coordination of care (as documented) at patient's floor/unit and/or counseling patient: [place] [address] Office/OBS Consult Lvl 5 Patient Type Established Medical Decision Making High Complexity Diagnoses S/P TURP (status post transurethral resection of prostate) Z90.79 CAD (coronary artery disease) I25.10 Ischemic cardiomyopathy I25.5 Hypertension I10 Type 2 diabetes mellitus with neurologic complication, with long-term current use of insulin E11.49; Z79.4 Hyperlipidemia E78.5 Anxiety F41.9
[2022-03-01] MEDS: INSULIN ASPART PER UNIT SQ SCH ×3 (12:51→20:58)
[2022-03-01] MEDS: ceFAZolin 2000MG 2,000 MG/15 ML SYR IV SCH ×2 (13:38→22:59)
[2022-03-01] MEDS ORDERED: LORazepam 1 MG TAB PO PRN (18:25)
[2022-03-01] MEDS: DOXYCYCLINE HYCLATE 100 MG CAP PO SCH (20:14)
[2022-03-01] MEDS ORDERED: ATORVASTATIN 40 MG TAB PO SCH (21:00)
[2022-03-01] MEDS ORDERED: FAMOTIDINE 40 MG TABLET PO SCH (21:00)
[2022-03-01] MEDS ORDERED: CHOLECALCIFEROL 1,000 UNITS 25 MCG TAB PO SCH (21:00)
[2022-03-01] MEDS ORDERED: LANTUS PER UNIT CHARGE SQ SCH (21:00)
[2022-03-02] MEDS: ceFAZolin 2000MG 2,000 MG/15 ML SYR IV SCH ×2 (05:54→12:45)
[2022-03-02 07:04] LABS: Hematocrit (blood only) 37.7 % (40.1-51.0); Hemoglobin 12.7 g/dl (14.0-18.0); Mean Corpuscular Hemoglobin 31.1 pg (25.0-34.0); Mean Corpuscular Hgb Conc 33.7 g/dL (32.0-36.0); Mean Corpuscular Volume 92.4 fL (80.0-100.0); Mean Platelet Volume 9.1 fL (9.4-12.4); Platelet Count 214 K/uL (130-400); RDW Coefficient of Variation 11.9 % (11.5-14.5); RDW Standard Deviation 40.3 fL (36.4-46.3); Red Blood Count 4.08 M/uL (4.63-6.08); White Blood Count 7.35 K/ul (4.8-10.8)
[2022-03-02 07:28] LABS: BUN Creatinine Ratio 15.7 (10-20); Calcium 8.6 mg/dl (8.5-10.1); Est GFR (African American) 96.3 ml/min; Est GFR (Non-African American) 83.1 ml/min; Potassium 4.3 mmol/L (3.5-5.1)
[2022-03-02] MEDS: DOXYCYCLINE HYCLATE 100 MG CAP PO SCH (07:40)
[2022-03-02] MEDS: TAMSULOSIN HCL 0.4 MG CAP PO SCH (07:40)
[2022-03-02] MEDS: LORazepam 1 MG TAB PO SCH (07:40)
[2022-03-02] MEDS: DOCUSATE SODIUM 100 MG CAP PO SCH (07:40)
[2022-03-02] MEDS: oxyCODONE/ACETAMINOPHEN 5mg/325mg TAB PO PRN (07:44)
--- NOTE | 2022-03-02 08:21 | Hospitalist Progress Note ---
Date of Service March 02, 2022 Assessment & Plan (1) S/P TURP (status post transurethral resection of prostate): Plan: -Patient is currently afebrile, hemodynamically stable and stable On RA, BP slightly elevated 156/90 and Entresto was restarted and then repeat BP 136/64 -Perioperative antibiotics and pain control per the primary team -Labs from today are stable, renal function normal with a Cr 0.83 -Monitor closely for signs of infection as patient is high risk with this procedure, afebrile with a normal WBC -Will continue his home famotidine for stress ulcer prophylaxis -Continue BL SCDs for DVT prophylaxis (2) CAD (coronary artery disease): Plan: -Aspirin has been held since 02/24 in preparation for procedure -Recommend restarting whenever Urology is comfortable (3) Ischemic cardiomyopathy: Plan: -S/P Pacemaker/ICD placement -LVEF of 38% as of 09/2021 -Normally on Sacubitril-Valsartan, last dose appears to be on 02/28/22 - will restart today -Currently examines Euvolemic -Continue to monitor closely for volume overload (4) Hypertension: Plan: -Currently hemodynamically stable -Continue Carevedilol as long as he remains hemodynamically stable -Continue holding amlodipine for now to avoid post-op hypotension (restarted Entresto 03/02) -Patient to follow up with PCP for hospital follow up and BP check (5) Type 2 diabetes mellitus with neurologic complication, with long-term current use of insulin: Plan: -Normally on metformin, Lantus 45 units HS, and Sliding scale -Hold metformin while admitted -Agree with continuing HS lantus -Added ACHS BSG checks -Added correction factor of 45 and carb ratio of 14 -Continue with consistent carb diet -Last HgbA1C in December 8.1 (6) Hyperlipidemia: Plan: -Continue statin (7) Anxiety: Plan: -Agree with continuing ativan -Would recommend PCP try and wean off due to age Plan discussed for patient to follow up with his PCP in 1-2 weeks will need to restart the ASA per urology Discussed adequate po fluid and fiber intake and also could consider miralax as needed The patient was discussed with Dr. De Santiago Admission and Anticipated Discharge Date Admission Date: March 01, 2022 Subjective Patient seen in rounds today he is awake sitting up in bed. He denies any chest pain, dyspnea or SOB. He is passing flatus but has not had a BM yet today. He denies any abdominal pain, nausea or vomiting. Patient has no complaints and states he is going to be discharged later today. Patient states he did not feel like eating dinner last night but ate 100% of his breakfast this AM. Review of Systems Review of Systems: Denies current fever, chills, headache, changes in vision, hearing, taste, and smell, chest pain, SOB, cough, abdominal pain, nausea, vomiting, diarrhea, hematemesis, melena, and recent falls. All systems have been reviewed and are otherwise negative. Physical Exam Constitutional: WD/WN, vitals as above ENMT: external ear and nose normal, oropharynx normal Neck: trachea midline, no thyromegaly Respiratory: normal respiratory effort, lungs clear to auscultation Cardiovascular: RRR, no murmur, no edema Gastrointestinal (Abdomen): normal bowel sounds, soft, nontender, no hepatosplenomegaly Results & Data Results & Data ([facility]) Vital Signs (Past 12 Hours) Vital Signs Temp Pulse Resp BP BP Pulse Ox O2 Del Method 03/02/22 08:07 36.6 C 71 16 156/90 H 94 Room Air 03/01/22 23:54 36.8 C 66 18 125/57 L 92 Room Air Laboratory Results Abnormal lab results 03/01/22 03/01/22 03/01/22 Range/Units 12:12 17:03 20:19 RBC (4.63-6.08) M/uL Hgb (14.0-18.0) g/dl Hct (40.1-51.0) % MPV (9.4-12.4) fL Glucose (70-99(Fasting)) mg/dl POC Glucose 173 H 188 H 155 H (70-99) mg/dl 03/02/22 03/02/22 03/02/22 Range/Units 06:25 06:25 08:18 RBC 4.08 L (4.63-6.08) M/uL Hgb 12.7 L (14.0-18.0) g/dl Hct 37.7 L (40.1-51.0) % MPV 9.1 L (9.4-12.4) fL Glucose 159 H (70-99(Fasting)) mg/dl POC Glucose 203 H (70-99) mg/dl 03/02/22 Range/Units 12:11 RBC (4.63-6.08) M/uL Hgb (14.0-18.0) g/dl Hct (40.1-51.0) % MPV (9.4-12.4) fL Glucose (70-99(Fasting)) mg/dl POC Glucose 220 H (70-99) mg/dl PG Care Time/CCT Total # of Minutes Spent Total Time Spent with Patient: Total time spent is greater than 50% in coordination of care (as documented) at patient's floor/unit and/or counseling patient: Coding [place] [address] Subseq Hosp Care Lvl 3 Patient Type Established History Detailed Exam Detailed Medical Decision Making Moderate Complexity Diagnoses S/P TURP (status post transurethral resection of prostate) Z90.79 CAD (coronary artery disease) I25.10 Ischemic cardiomyopathy I25.5 Hypertension I10 Type 2 diabetes mellitus with neurologic complication, with long-term current use of insulin E11.49; Z79.4 Hyperlipidemia E78.5 Anxiety F41.9 Time Spent (min) 25
--- NOTE | 2022-03-02 08:28 | Urology Progress Note ---
Date of Service March 02, 2022 Assessment & Plan (1) BPH w urinary obs/LUTS: (2) S/P TURP (status post transurethral resection of prostate): Plan - POD #1 s/p TURP - Afebrile and hemodynamically stable - Labs reviewed - Wbc 7.35, Hemoglobin 12.7, Creatinine 0.83. - CBI clamped @ 0805, nursing aware - will reassess later this AM - Maintain Hedrick catheter - Continue supportive care and antibiotic therapy - Appreciate hospital team assistance - Anticipate discharge home later today or tomorrow pending patient status. -Patient reassessed this afternoon. -Hedrick catheter intact, draining clear yellow urine off CBI. -No reported pain. -Tolerating diet. -Discussed with hospital team, okay for discharge from their standpoint. -Patient is stable for discharge today with Hedrick catheter. -Discharge instructions reviewed and orders placed. -Will arrange postoperative follow-up appointments. Admission and Anticipated Discharge Date Admission Date: March 01, 2022 Subjective Patient examined at bedside this AM. Awake, resting bed on arrival. No acute distress. Denies any pain or discomfort at present. Notes some anxiety this morning, but taking prn Ativan. Hedrick catheter intact, draining clear yellow urine with CBI on slow. No fevers or chills. Some mild nausea, no vomiting. No BM, requesting MiraLAX. Review of Systems Constitutional: as per Subjective / HPI Gastrointestinal: as per Subjective / HPI Genitourinary: + as per Subjective / HPI Physical Exam Constitutional: no acute distress Respiratory: no respiratory distress and no labored breathing Neurologic: awake Psychiatric: Orientation: alert, oriented x 3 and cooperative Genitourinary: Hedrick catheter intact, draining clear yellow urine with CBI on slow Results & Data ([facility]) Vital Signs (Past 12 Hours) Vital Signs Temp Pulse Resp BP BP Pulse Ox O2 Del Method 03/02/22 08:07 36.6 C 71 16 156/90 H 94 Room Air 03/01/22 23:54 36.8 C 66 18 125/57 L 92 Room Air PG Care Time/CCT Total # of Minutes Spent Total Time Spent with Patient: Total time spent is greater than 50% in coordination of care (as documented) at patient's floor/unit and/or counseling patient: Coding Level of Care Code None Diagnoses BPH w urinary obs/LUTS N40.1; N13.8 S/P TURP (status post transurethral resection of prostate) Z90.79
[2022-03-02] MEDS ORDERED: VALSARTAN/SACUBITRIL 51/49 MG TAB PO SCH (09:00)
[2022-03-02] MEDS: INSULIN ASPART PER UNIT SQ SCH ×2 (09:00→12:45)
[2022-03-02] MEDS: carvediloL 25 MG TAB PO SCH (09:01)
--- NOTE | 2022-03-03 23:14 | Discharge Summary ---
Date of Service March 02, 2022 Admission HPI Per Admitting Provider 81-year-old male with hx of urinary retention who presents for TURP procedure Admission Exam Per Admitting Provider General: Alert in no acute distress. HEENT: Inspection normal Psychologic: Normal affect. Respiratory: Nonlabored. No use of accessory muscles. Skin: Rosine and Dry. No rashes or visible lesions. Principal Diagnosis Acute urinary retention with BPH Discharge Exam Constitutional no acute distress Respiratory no respiratory distress and no labored breathing Gastrointestinal (Abdomen) Inspection/Auscultation: abdomen normal to inspection Neurologic moves all extremities and awake Psychiatric A+Ox3, euthymic affect Genitourinary Ocampo catheter intact, draining clear yellow urine Discharge Data Allergies Allergy/AdvReac Type Severity Reaction Status Date / Time No Known Drug Allergies Allergy Verified 03/01/22 05:50 Consultations 03/01/22 09:52 Consult Hospitalist Routine Procedures Performed Operation Date: 03/01/22 07:00 Actual Procedures p Transurethral Resection Prostate(Not Applicable) - David Curiel, DO Hospital Course (1) BPH w urinary obs/LUTS: (2) Urinary retention: Plan 81yo M admitted s/p TURP. Patient tolerated procedure well. No acute issues postoperatively. Remained afebrile and hemodynamically stable. Labs appropriate. Hospital team consulted for medical management. CBI clamped the m orning of postop day #1. Urine remained clear yellow off CBI. No reported pain. Tolerated diet. Ambulated without issue. Patient was subsequently discharged home on postop day #1 with Ocampo catheter. He was in stable condition at time of discharge. Discharge instructions were reviewed and postoperative follow-up appointments were in place. All questions were answered. - POD #1 s/p TURP - Afebrile and hemodynamically stable - Labs reviewed - Wbc 7.35, Hemoglobin 12.7, Creatinine 0.83. - CBI clamped @ 0805, nursing aware - will reassess later this AM - Maintain Ocampo catheter - Continue supportive care and antibiotic therapy - Appreciate hospital team assistance - Anticipate discharge home later today or tomorrow pending patient status. -Patient reassessed this afternoon. -Ocampo catheter intact, draining clear yellow urine off CBI. -No reported pain. -Tolerating diet. -Discussed with hospital team, okay for discharge from their standpoint. -Patient is stable for discharge today with Ocampo catheter. -Discharge instructions reviewed and orders placed. -Will arrange postoperative follow-up appointments. Total Time Total Time Spent Total Time Spent (In Minutes): 15 Discharge Plan Discharge Items Patient Disposition: Home - Self-Care Reason For Visit: Chronic Kidney Disease with Active Medical Managem Discharge Diagnosis: Acute retention with BPH, CKD with active medical management Activity: Per Instructions section Lifting: No more than 25 pounds Bathing Comment: OK to shower. No tub baths or soaks. Sexual Activity: Wait until after follow-up appointment Exercise/Sports: Wait until after follow-up appointment Driving/Machine Use: Do not drive if taking prescription pain medication. Non-emergency contact: Surgeon and Urologist Call non-emergency contact if: you have any medication questions, your pain is not controlled, your pain is worsening, your wound has increased redness, your wound has increased drainage and your wound pain has increased Follow-up/Referrals: Miguel Mares MD [Primary Care Provider] - 03/11/22 10:30 am (APPOINTMENT WITH FINESSE FULLER) David Curiel DO [Physician] - Eric Masters DO [Resident] - [facility],Nurse [FAKE FOR SCHEDULES] - 03/15/22 10:00 am Diet: Carb Consistent or DM2 Addtl Attending Provider Instructions: Please take all medications as prescribed and keep all follow-ups as scheduled. Please call our office at [phone] with any questions, concerns or need to reschedule appointments for any reason. We are happy to assist you. Please continue the antibiotic doxycycline twice daily for a total of 10 days. We have sent in an additional 3 days of antibiotics to your pharmacy. You may resume your aspirin in the next 1 to 2 days as long as your urine remains clear to light pink. Please contact the urology office with any questions or concerns. Tips for your recovery at home: Dont be alarmed by brownish or reddish blood or clots in your urine. This is a result of the procedure. This may occur off and on for weeks to months after the procedure but should continue to improve. Drink plenty of fluids during the day (enough to keep your urine very light colored). This will help keep a healthy flow of urine. Do not lift >25 lbs until your followup Avoid constipation. Please use a stool softener (Colace) for the first two weeks after your procedure Be sure to finish the antibiotics as prescribed. If you go home with a catheter, please wash tubing where it enters your body twice daily with mild soap (Dove or Dial). Once your catheter is removed, expect some blood in your urine and some burning when you urinate. You should have an appointment to have this removed, if you do not please call our office to arrange. When to call [facility] at [phone]: Your urine contains heavy blood clots or your catheter is not draining You are constantly leaking urine Fever of 101F or higher, chills, nausea, or vomiting Your pain is not relieved with medication Addtl Labor Operator Provider Instructions: Please follow up with your primary care physician in 1 week. Will need to have blood pressure rechecked. Entresto and amlodipine were held for surgery. Entresto was restarted today. encouraged adequate fluid intake and also to continue home use of metamucil and can add miralax if needed for constipation Pending Studies at Discharge: Yes (pathology) Stand-Alone Forms: My [facility] [employer], Smoking Cessation Medications and DC Order Prescriptions: Continued (DME) OneTouch Ultra Test Strip See Rx Instructions .Route Qty: 300 3RF Rx Instructions: Test 3 times daily Novolog U-100 Insulin aspart 100 unit/mL solution See Rx Instructions SUBCUT .COMPLEX Qty: 20 5RF Rx Instructions: subcut inject per sliding scale up to 50 units daily carvedilol 25 mg tablet 25 mg PO BID Qty: 60 11RF ciclopirox 0.77 % cream 1 applic topical BID PRN (Reason: other) Qty: 90 3RF famotidine 40 mg tablet 40 mg PO HS Qty: 90 1RF metformin 500 mg tablet extended release 24 hr 500 mg PO DAILY Qty: 90 3RF Label Comments: QPM insulin glargine [Lantus U-100 Insulin] 100 unit/mL solution 45 unit SUBCUT HS Qty: 50 3RF Entresto 49-51 mg tablet 1 tab PO BID Qty: 180 3RF tamsulosin 0.4 mg capsule 0.4 mg PO DAILY Qty: 90 1RF Label Comments: TAKES PM phenazopyridine [Pyridium] 200 mg tablet 200 mg PO TID PRN (Reason: pain) Qty: 9 0RF lidocaine HCl 2 % jelly 1 applic topical BID PRN (Reason: pain) Qty: 30 0RF Label Comments: DID NOT GET YET/PHARMACY DID NOT HAVE *WAS TO USE FOR INSERTION OF OCAMPO lorazepam 1 mg tablet 1 mg PO BID Qty: 60 0RF Rx Instructions: continuing rx atorvastatin 40 mg tablet 40 mg PO QPM Qty: 90 3RF doxycycline hyclate 100 mg tablet 100 mg PO BID 3 Days Qty: 6 0RF amlodipine [Norvasc] 5 mg tablet 5 mg PO DAILY PRN (Reason: hypertension) Hold Instructions: Not taking because not need low BP in evening. (DME) lancets [OneTouch Delica Lancets] 33 gauge misc See Rx Instructions .ROUTE .MEDSUPPLY Qty: 100 Rx Instructions: testing 2 X daily finasteride 5 mg tablet 5 mg PO DAILY Qty: 30 11RF Label Comments: PT STATES NOT TAKING CURRENTLY cholecalciferol (vitamin D3) 50 mcg (2,000 unit) capsule 2,000 unit PO QPM (DME) Dexcom G6 Sensor Device See Rx Instructions .Route Rx Instructions: As directed cyanocobalamin (vitamin B-12) [Vitamin B-12] 500 mcg tablet 500 mcg PO QPM Centrum Silver Men 300-600-300 mcg tablet 1 tab PO QPM aspirin 325 mg tablet 325 mg PO QPM Discharge Orders: Discharge Order (Routine); Ordered 03/02/22 Ordered By: Lorena Zhou/Other Patient Handouts: Leg Bag Care Dc Admission Data Admit Date/Time: 03/01/22 06:58 Attending Provider: David Curiel Admit Provider: David Curiel Primary Care Provider: Miguel Mares Other Providers: Justo Mendoza ; Lorena Cervantes ; Jonas Vazquez ; Jose Roberto Antoine ; Elliott Brown ; Deacon Box ; Chaitanya Montoya ; Luanne Bowers ; Candelaria Patricia ; Deng Flower ; Jacquelyn Morales ; Anthony Alejo ; Cristino Roy ; Jessica Oliva ; Joy Burch ; Harriet Cowan ; López Persaud ; Arnav Bowie ; Negra Kaplan ; Lorena Rodriguez ; Zay Orozco ; Gurmeet Billingsley ; Jonas Gaona ; Katty Downs ; Nikolas Arias ; Rayray Pearson ; Katlyn Maria ; Baljinder De Santiago ; Sarah Hughes ; Steven Talbert ; Mary Jane Vidales ; Abhijit Reardon ; Moe Izaguirre ; Johnnie Cota ; Brannon Yusuf Other Interventions: Discharge Summary Assessment (RN) Last Done: 03/02/22 13:17 Coding Level of Care Code D/C DAY MANAGEMENT <30 MINS Diagnoses BPH w urinary obs/LUTS N40.1; N13.8 Urinary retention R33.9
== END 2022-03-02 13:38 | disposition home or self-care (01) ==
LOC: ASU 05:25 → 3W 05:25

== ENCOUNTER 2022-10-02 15:18 | Inpatient (IN) ==
--- NOTE | 2022-10-02 15:34 | Emergency Department Note ---
Impression & Plan Acute hyponatremia ADMIT ED Provider Note HPI: The patient is an 82-year-old gentleman with history of hypertension, type 2 diabetes, coronary artery disease, presents emergency department with chief complaint of anxiety. Patient states that over the past several weeks he has been feeling very anxious and very nervous. He is not sure why. He states that he has been taking his benzodiazepine medications as prescribed they have not been helping. Patient denies any chest pain or shortness of breath, states some concern for possible hypoglycemic events at times as his pump/glucometer has been showing some lower readings down to 60 at times. He denies any episodes of syncope or presyncope, denies any diaphoresis. Overall on arrival the patient appears well, he is hemodynamically stable, he is in no acute distress on my initial assessment. ROS: - Per HPI Differential Diagnosis: Anxiety attack, acute coronary syndrome, hypoglycemic events, anxiety/depression, acute/critical electrolyte abnormalities, amongst other potential pathologies. *Outpatient medications and allergy history reviewed. *Pertinent external medical records reviewed. PE: General: Alert HEENT: Normocephalic, trachea midline Eyes: Extraocular eye movement is intact, no scleral erythema Pulmonary: Clear to auscultation bilaterally, no wheezing Cardio: Regular rate and rhythm GI: Abdomen is soft to palpation : No suprapubic tenderness MSK: No evidence of trauma or malformation of the extremities, no edema Skin: No evidence of rash Neuro: Alert, no focal deficits Psychiatric: Cooperative gambling monitor: (As interpreted by myself): - An order was placed for continuous cardiac monitoring - Patient was noted to be in sinus rhythm with a rate of 80 EKG: (As interpreted by myself): Rate: 68 Rhythm: Sinus rhythm Intervals: PA interval prolonged at 210 ms, QRS 194 ms, QTc prolonged at [address] changes: No ST elevation Time: 1542 Interventions provided in ED: -Ativan Medical Decision Making: Patient presents emergency department stating he was having multiple panic attacks each week over the past several weeks. On arrival here the ED he appears to be in no acute distress. IV was established lab work obtained, patient was maintained on gambling monitor. Lab work shows no leukocytosis, hemoglobin stable at 13.8, platelet count is within normal limits, CMP does not show any evidence of acute kidney injury, troponin is negative, EKG reviewed by myself shows no evidence of any arrhythmia or acute ischemic changes. Sodium did return critically low at 120, upon further evaluation once this was noted on the patient's lab work he tells me he has had diarrhea for the past 7 days. States he has about 2 episodes per day and they are very watery and nonbloody in nature. Stool PCR was therefore added in addition to urinalysis and urine sodium, urine osm, serum osm. Patient was also ordered oral potassium repletion for potassium that is mildly low at 3.4. I discussed all the above findings with the patient, he was given a dose of Ativan for his anxiety here in the ED, I believe this is likely a separate issue, he may require inpatient psychiatric consult on a routine basis for further management of this however I do feel he needs to be admitted for his critical electrolyte abnormality with sodium of 120. This is likely secondary to fluid losses from his diarrhea. His abdomen is soft and nontender on my exam, he has no complaint of abdominal pain, therefore CT imaging was not ordered. Patient is in agreement to plan for admission, case was discussed with the on-call hospitalist, Dr. Talbert, and the patient was placed for admission in stable condition. Consultants: Hospitalist, Dr. Talbert Disposition discussion held by myself with: Patient Diagnosis: 1. Hyponatremia, acute 2. Diarrhea, acute 3. Hypokalemia, acute 4. Hypochloremia, acute 5. Anxiety, acute on chronic Disposition: Admission Joseph Hoff DO Emergency Medicine Past Med/Surg History Medical History Adenomatous polyp of colon Anxiety and depression BPH (benign prostatic hyperplasia) CAD (coronary artery disease) chronic occlusion of RCA per [place] [facility] records Cardiac arrest Chronic kidney disease with active medical management without dialysis, stage 2 (mild) Diabetes mellitus, type 2 IDDM GERD (gastroesophageal reflux disease) Hearing loss Hiatal hernia History of Helicobacter infection Hyperlipidemia Hypertension ICD (implantable cardioverter-defibrillator) in place 04/[address] REMY *[employer] Ischemic cardiomyopathy EF 20-25%, improved to 38% 09/2021 per cardio records Migraine Myocardial Infarction 04/13/2016 "cardiac arrest"---follows w Dr. Raza Paroxysmal ventricular tachycardia Skin cancer of forehead squamous cell Surgical History History of cardiac cath 04/2016, no stent @ [facility] History of colonoscopy History of esophagogastroduodenoscopy (EGD) History of tonsillectomy History of tooth extraction all teeth Hx of Moh's micrographic surgery for skin cancer squamous cell cancer removed from forehead S/P TURP (status post transurethral resection of prostate) Family History Father Family history of diabetes mellitus Coronary heart disease Myocardial infarction Grandmother Family history of diabetes mellitus paternal Mother Alcohol abuse Anxiety Breast cancer Grandfather Anxiety Daughter Bipolar disorder Other No family history of adverse response to anesthesia Denies family history of Ovarian cancer Prostate cancer Colorectal cancer Social History Smoking Status: Former smoker Second Hand Exposure: Yes (as a child); Do You Dip or Chew Tobacco: No; Hx Alcohol Use: No Hx Substance Use: No Preferred Language: Gabonese Communication Ability: Effective Visual Impairment: No Limitations Hearing Ability: Normal Dope Maintenance Worker Required: No Beliefs That Will Affect Care: Baptism Baptism Beliefs: DRUZE marital status: Current Living Situation: Spouse current occupational status: retired Feels Safe at Home: Yes Childhood Exposure to Second-Hand Smoke: Yes Dental Care, Regularly: Yes Physical Activity Frequency: 3-4 Times per Week Seatbelt Use: always Sunscreen Use: No Assistive Devices: Denture - Upper, Denture - Lower and Glasses Allergies Allergies Allergy/AdvReac Type Severity Reaction Status Date / Time No Known Drug Allergies Allergy Verified 09/24/22 15:15 Home Meds Home Medications Medication Instructions Recorded Confirmed cyanocobalamin (vitamin B-12) 500 500 mcg PO QPM 11/21/18 10/02/22 mcg tablet (Vitamin B-12) oegjrzib-lxm-zvzdt acid 300 1 tab PO QPM 11/21/18 10/02/22 mcg-lycopene 600 mcg-lutein 300 mcg tablet (Centrum Silver Men) lancets 33 gauge (OneTouch Delica #100 ea 07/02/20 10/02/22 Lancets) aspirin 325 mg tablet 325 mg PO QPM 08/28/20 10/02/22 cholecalciferol (vitamin D3) 50 2,000 unit PO QPM 08/28/20 10/02/22 mcg (2,000 unit) capsule blood-glucose sensor (Dexcom G6 01/04/22 10/02/22 Sensor device) diphenhydramine HCl 50 mg/30 mL 50 mg PO HS PRN Sleep 04/14/22 10/02/22 oral liquid (ZzzQuil) insulin glargine 100 unit/mL 45 unit subcut HS 04/14/22 10/02/22 subcutaneous solution (Lantus U-100 Insulin) metformin 500 mg tablet,extended 500 mg PO QPM 04/14/22 10/02/22 release 24 hr Previous Rx's Medication Instructions Recorded sacubitril 49 mg-valsartan 51 mg 1 tab PO BID #180 tabs 01/21/22 tablet (Entresto) atorvastatin 40 mg tablet 40 mg PO QPM #90 tabs 02/22/22 insulin aspart U-100 100 unit/mL See Rx Instructions subcut 04/14/22 subcutaneous solution (Novolog .COMPLEX #20 mL U-100 Insulin aspart) blood sugar diagnostic (Codex GeneticsTouch #100 ea 05/04/22 Ultra Test strips) amlodipine 5 mg tablet (Norvasc) 5 mg PO DAILY PRN hypertension #90 05/14/22 tabs carvedilol 25 mg tablet (Coreg) 25 mg PO BID #180 tabs 05/17/22 ciclopirox 0.77 % topical cream 1 applic topical BID PRN other #90 06/15/22 grams naproxen 250 mg tablet 250 mg PO BID PRN pain #60 tabs 08/26/22 lorazepam 1 mg tablet 1 mg PO BID #60 tabs 09/07/22 pantoprazole 40 mg tablet,delayed 40 mg PO DAILY #90 tabs 09/22/22 release buspirone 5 mg tablet 5 mg PO TID PRN anxiety #60 tabs 09/24/22 Results & Data (ED) Vital Signs Vital Signs - 24 hr 10/02/22 15:24 10/02/22 15:53 10/02/22 16:12 Temperature 36.4 C L Temperature Source Temporal Artery Scan Pulse Rate 49 L 75 Pulse Rate [Apical] 70 Respiratory Rate 18 21 Respiratory Effort / Characteristics Non-Labored Respiratory Depth Normal Blood Pressure 150/57 H Blood Pressure [Right Arm] 143/64 H Blood Pressure Mean 88 Blood Pressure Mean [Right Arm] 90 Blood Pressure Position Sitting Blood Pressure Position [Right Arm] Semi-fowlers Pulse Oximetry 97 94 Oxygen Delivery Method Room Air Room Air Sepsis Recent Fever Within 48 Hours No Sepsis New/Unexplained Change in Mental Status No Sepsis Action Taken by Nursing No Action Required Laboratory Data 10/02/22 15:49 10/02/22 15:49 Lab Results 10/02/22 10/02/22 Range/Units 15:49 15:49 WBC 6.78 (4.8-10.8) K/ul RBC 4.41 L (4.70-6.10) M/uL Hgb 13.8 L (14.0-18.0) g/dl Hct 37.2 L (42.0-52.0) % MCV 84.4 (80.0-100.0) fL MCH 31.3 (25.0-34.0) pg MCHC 37.1 H (32.0-36.0) g/dL RDW Std Deviation 37.2 (36.4-46.3) fL RDW Coeff of Jefry 12.1 (11.5-14.5) % Plt Count 227 (130-400) K/uL MPV 8.7 L (9.4-12.4) fL Immature Gran % (Auto) 0.6 % Neut % (Auto) 73.5 % Lymph % (Auto) 13.4 % Gilmer % (Auto) 10.6 % Eos % (Auto) 1.5 % Baso % (Auto) 0.4 % Neut # (Auto) 4.98 (1.40-6.50) K/uL Lymph # (Auto) 0.91 L (1.2-3.4) K/uL Gilmer # (Auto) 0.72 H (0.11-0.59) K/uL Eos # (Auto) 0.10 (0-0.50) K/uL Baso # (Auto) 0.03 (0-0.2) K/uL Immature Gran # (Auto) 0.04 (0.01-0.20) K/uL Sodium 120 L (136-145) mmol/L Potassium 3.4 L (3.5-5.1) mmol/L Chloride 89 L (98-107) mmol/L Carbon Dioxide 23 (21-32) mmol/L Anion Gap 8 (3-11) BUN 11 (6-23) mg/dl Creatinine 0.71 (0.6-1.4) mg/dl Est Cr Clr Drug Dosing 99.6 ml/min Est GFR ( Amer) 102.0 ml/min Est GFR (Non-Af Amer) 88.0 ml/min BUN/Creatinine Ratio 15.5 (10-20) Glucose 94 (70-99(Fasting)) mg/dl Calcium 9.0 (8.6-10.3) mg/dl Total Bilirubin 1.0 (0.2-1.0) mg/dl AST 27 (13-39) U/L ALT 33 (7-52) U/L Alkaline Phosphatase 56 (34-104) U/L Troponin I High Sens 18.5 (0-20) pg/ml Total Protein 6.5 (6.0-8.3) gm/dl Albumin 4.1 (3.4-5.0) gm/dl Globulin 2.4 L (2.5-4.0) gm/dl Albumin/Globulin Ratio 1.7 (0.9-2) Administered Medications Discontinued Medications Lorazepam (Lorazepam 0.5 Mg Tab) 0.5 mg PO NOW STA Stop: 10/02/22 16:21 Last Admin: 10/02/22 16:25 Dose: 0.5 mg Documented By: Discharge Plan Visit Data Chief Complaint: Anxiety Stated Complaint: MAJOR PANIC ATTACK,LOW BLOOD SUGAR ED Provider: Joseph Hoff Discharge Problem: Acute hyponatremia Forms Stand Alone Forms: [facility], Suicide Prevention Resources Prescriptions Prescriptions: No Action Entresto 49-51 mg tablet 1 tab PO BID Qty: 180 3RF atorvastatin 40 mg tablet 40 mg PO QPM Qty: 90 3RF Novolog U-100 Insulin aspart 100 unit/mL solution See Rx Instructions SUBCUT .COMPLEX Qty: 20 5RF Rx Instructions: subcut inject per sliding scale up to 50 units daily carvedilol [Coreg] 25 mg tablet 25 mg PO BID Qty: 180 3RF ciclopirox 0.77 % cream 1 applic topical BID PRN (Reason: other) Qty: 90 3RF naproxen 250 mg tablet 250 mg PO BID PRN (Reason: pain) Qty: 60 0RF lorazepam 1 mg tablet 1 mg PO BID Qty: 60 0RF pantoprazole 40 mg tablet,delayed release (DR/EC) 40 mg PO DAILY Qty: 90 2RF (DME) OneTouch Ultra Test Strip See Rx Instructions .Route Qty: 100 3RF Rx Instructions: Test 1 times daily for calibration (DME) lancets [OneTouch Delica Lancets] 33 gauge misc See Rx Instructions .ROUTE .MEDSUPPLY Qty: 100 Rx Instructions: testing 2 X daily amlodipine [Norvasc] 5 mg tablet 5 mg PO DAILY PRN (Reason: hypertension) Qty: 90 3RF Hold Instructions: Not taking because not need low BP in evening. cholecalciferol (vitamin D3) 50 mcg (2,000 unit) capsule 2,000 unit PO QPM (DME) Dexcom G6 Sensor Device See Rx Instructions .Route Rx Instructions: As directed buspirone 5 mg tablet 5 mg PO TID PRN (Reason: anxiety) Qty: 60 5RF cyanocobalamin (vitamin B-12) [Vitamin B-12] 500 mcg tablet 500 mcg PO QPM Centrum Silver Men 300-600-300 mcg tablet 1 tab PO QPM aspirin 325 mg tablet 325 mg PO QPM insulin glargine [Lantus U-100 Insulin] 100 unit/mL solution 45 unit SUBCUT HS metformin 500 mg tablet extended release 24 hr 500 mg PO QPM Patient Comments: QPM ZzzQuil 50 mg/30 mL Liquid 50 mg PO HS PRN (Reason: Sleep) Referrals Referrals: Pro,Miguel Acuna MD [Primary Care Provider] -
[2022-10-02 16:08] LABS: Basophils # (auto) 0.03 K/uL (0-0.2); Basophils % (auto) 0.4 %; Eosinophils % (auto) 1.5 %; Hematocrit (blood only) 37.2 % (42.0-52.0); Hemoglobin 13.8 g/dl (14.0-18.0); Immature Granulocytes # (auto) 0.04 K/uL (0.01-0.20); Immature Granulocytes % (auto) 0.6 %; Lymphocytes # (auto) 0.91 K/uL (1.2-3.4); Lymphocytes % (auto) 13.4 %; Mean Corpuscular Hemoglobin 31.3 pg (25.0-34.0); Mean Corpuscular Hgb Conc 37.1 g/dL (32.0-36.0); Mean Corpuscular Volume 84.4 fL (80.0-100.0); Mean Platelet Volume 8.7 fL (9.4-12.4); Monocytes # (auto) 0.72 K/uL (0.11-0.59); Monocytes % (auto) 10.6 %; Neutrophils # (auto) 4.98 K/uL (1.40-6.50); Neutrophils % (auto) 73.5 %; Platelet Count 227 K/uL (130-400); RDW Coefficient of Variation 12.1 % (11.5-14.5); RDW Standard Deviation 37.2 fL (36.4-46.3); Red Blood Count 4.41 M/uL (4.70-6.10); White Blood Count 6.78 K/ul (4.8-10.8)
[2022-10-02] MEDS ORDERED: LORazepam 0.5 MG TAB PO STA (16:20)
[2022-10-02 16:26] LABS: Albumin Globulin Ratio 1.7 (0.9-2); Albumin Level 4.1 gm/dl (3.4-5.0); BUN Creatinine Ratio 15.5 (10-20); Creatinine Clr Calc Pharmacy 99.6 ml/min; Globulin 2.4 gm/dl (2.5-4.0); Potassium 3.4 mmol/L (3.5-5.1); Total Protein 6.5 gm/dl (6.0-8.3)
[2022-10-02 16:31] LABS: Troponin I High Sensitivity 18.5 pg/ml (0-20)
[2022-10-02] MEDS ORDERED: POTASSIUM CHLORIDE CRTAB 20 MEQ TABCR PO STA (16:54)
--- NOTE | 2022-10-02 16:57 | History & Physical Report ---
Date of Service October 02, 2022 Assessment & Plan (1) Hyponatremia: Plan: Acute and unstable - Possibly secondary to diarrhea x 2 weeks - Await stool studies - Serum and urine osmolality pending - Urine random sodium pending - TSH pending (2.7 in ) - Repleted K+ with 20meq KCL (2) Diarrhea: Plan: Acute unstable Await stool studies and C Diff Electrolyte and fluid repletion If diarrhea continues and stool studies are negative to consider adding Bentyl (3) Anxiety: Plan: Chronic and unstable - Continue Lorazepam 1mg BID - To follow up with PCP possible SSRI treatment as discussed at last OV Also suffers from insomnia with his anxiety and takes Zzzquil every night Discussed with patient to stop this. Discussed this can increase his heart rate and add to his paroxysmal vtach and PVCs Try Melatonin 3mg qhs (4) Premature ventricular contractions: Plan: Chronic and stable follows with cardiology (5) Type 2 diabetes mellitus with neurologic complication, with long-term current use of insulin: Plan: Chronic and stable Last HgbA1C 8 in Apr while admitted Hold metformin (6) GERD (gastroesophageal reflux disease): Plan: chronic and stable contineu PPI (7) Hyperlipidemia: Plan: Chronic and stable Continue atorvastatin (8) Hypertension: Plan: Chronic and stable Continue Amlodipine, Carvedilol, Sacubitril/valsartan (9) Vitamin D deficiency: Plan: Chronic and stable continue replacement History of Present Illness Chief Complaint: anxiety Primary Care Provider: Miguel Mares MD Jose Roberto Hess is a 82 year old male with a past medical history of chronic anxiety disorder, HTN, HLD, DM, paroxysmal V Tach, PVCs, CAD, ischemic cardiomyopathy, and who previously had undergone a single-chamber ICD who presented today to the ER with complaints of increasing anxiety. Patient was recently seen at his PCP on 09/24/22 and was rx Buspar 5mg one TID (6 hours apart from his lorazepam 1mg BID) He tells me that he only took 2 doses of the Buspar and this only made him nauseated. He also states he has had diarrhea 2-3 times daily for the past 2 weeks. He deneis any abdominal pain, nausea, vomiting, hematochezia, melena, or BRB CO. He has been taking Imodium and PeptoBismol with some relief in the diarrhea. He denies any ill contacts, any congestion, cough, weight loss, chest pain or SOB. He states [facility] [place] but he had the diarrhea prior to the trip. He admits to a + family history of anxiety in his children and his mother. He denies any suicidal ideations and states his is supportive and he has done counseling in the past. Patient exercises 3 ties per week and remains active. He was just evaluated at the cardiology office 09/23/22 and was stated that he was stable from a cardiovascular standpoint. Patient has no anginal symptoms and stable exercise tolerance. Per his visit with cardiology they stated his recent remote device transmissions were reviewed from August 28, and there has been no recorded arrhythmia. He does continue to have PVCs, and he was provided reassurance in this regard. Will continue current cardiovascular medications, including aspiri n, high intensity statin, beta liz, ARNI, and calcium channel liz. Patient was evaluated in the ER and found to have a sodium of 120, K+ 3.4, CBC was stable with no leukocytosis or anemia. Ca normal at 9, LFTs normla. PTH in August was 52, TSH in Apr was 2.7 Stool studies are ordered, urine and serum osmolality are pending. EKG revealed sinus rhythm with 1st degree A-V block frequent PVCs. ventricular rate of 68 Patient tells me that a few years ago he had chronic diarrhea and had a colonoscopy 2017 and revealed IH and diverticular disease. Allergies Allergy/AdvReac Type Severity Reaction Status Date / Time No Known Drug Allergies Allergy Verified 09/24/22 15:15 Home Medications Medication Instructions Recorded Confirmed Type cyanocobalamin (vitamin B-12) 500 500 mcg PO QPM 11/21/18 10/02/22 History mcg tablet (Vitamin B-12) yhewyhzo-mwx-ugahk acid 300 1 tab PO QPM 11/21/18 10/02/22 History mcg-lycopene 600 mcg-lutein 300 mcg tablet (Centrum Silver Men) lancets 33 gauge (OneTouch Delica #100 ea 07/02/20 10/02/22 History Lancets) aspirin 325 mg tablet 325 mg PO QPM 08/28/20 10/02/22 History cholecalciferol (vitamin D3) 50 2,000 unit PO QPM 08/28/20 10/02/22 History mcg (2,000 unit) capsule blood-glucose sensor (Dexcom G6 01/04/22 10/02/22 History Sensor device) sacubitril 49 mg-valsartan 51 mg 1 tab PO BID #180 tabs 01/21/22 10/02/22 Rx tablet (Entresto) atorvastatin 40 mg tablet 40 mg PO QPM #90 tabs 02/22/22 10/02/22 Rx diphenhydramine HCl 50 mg/30 mL 50 mg PO HS PRN Sleep 04/14/22 10/02/22 History oral liquid (ZzzQuil) insulin aspart U-100 100 unit/mL See Rx Instructions subcut 04/14/22 10/02/22 Rx subcutaneous solution (Novolog .COMPLEX #20 mL U-100 Insulin aspart) insulin glargine 100 unit/mL 45 unit subcut HS 04/14/22 10/02/22 History subcutaneous solution (Lantus U-100 Insulin) metformin 500 mg tablet,extended 500 mg PO QPM 04/14/22 10/02/22 History release 24 hr blood sugar diagnostic (OneTouch #100 ea 05/04/22 10/02/22 Rx Ultra Test strips) amlodipine 5 mg tablet (Norvasc) 5 mg PO DAILY PRN hypertension #90 05/14/22 10/02/22 Rx tabs carvedilol 25 mg tablet (Coreg) 25 mg PO BID #180 tabs 05/17/22 10/02/22 Rx ciclopirox 0.77 % topical cream 1 applic topical BID PRN other #90 06/15/22 10/02/22 Rx grams naproxen 250 mg tablet 250 mg PO BID PRN pain #60 tabs 08/26/22 10/02/22 Rx lorazepam 1 mg tablet 1 mg PO BID #60 tabs 09/07/22 10/02/22 Rx pantoprazole 40 mg tablet,delayed 40 mg PO DAILY #90 tabs 09/22/22 10/02/22 Rx release buspirone 5 mg tablet 5 mg PO TID PRN anxiety #60 tabs 09/24/22 10/02/22 Rx Past Med/Surg History Medical History Adenomatous polyp of colon Anxiety and depression BPH (benign prostatic hyperplasia) CAD (coronary artery disease) chronic occlusion of RCA per [facility] records Cardiac arrest Chronic kidney disease with active medical management without dialysis, stage 2 (mild) Diabetes mellitus, type 2 IDDM GERD (gastroesophageal reflux disease) Hearing loss Hiatal hernia History of Helicobacter infection Hyperlipidemia Hypertension ICD (implantable cardioverter-defibrillator) in place 04/[address] REMY *[employer] Ischemic cardiomyopathy EF 20-25%, improved to 38% 09/2021 per cardio records Migraine Myocardial Infarction 04/13/2016 "cardiac arrest"---follows w Dr. Raza Paroxysmal ventricular tachycardia Skin cancer of forehead squamous cell Surgical History History of cardiac cath 04/2016, no stent @ [facility] History of colonoscopy History of esophagogastroduodenoscopy (EGD) History of tonsillectomy History of tooth extraction all teeth Hx of Moh's micrographic surgery for skin cancer squamous cell cancer removed from forehead S/P TURP (status post transurethral resection of prostate) Family History Father Family history of diabetes mellitus Coronary heart disease Myocardial infarction Grandmother Family history of diabetes mellitus paternal Mother Alcohol abuse Anxiety Breast cancer Grandfather Anxiety Daughter Bipolar disorder Other No family history of adverse response to anesthesia Denies family history of Ovarian cancer Prostate cancer Colorectal cancer Social History Smoking Status: Former smoker Second Hand Exposure: Yes (as a child); Do You Dip or Chew Tobacco: No; Hx Alcohol Use: No Hx Substance Use: No Preferred Language: Italian Communication Ability: Effective Visual Impairment: No Limitations Hearing Ability: Normal Medical Insurance Coding Specialist Required: No Beliefs That Will Affect Care: Congregational Congregational Beliefs: HOLINESS marital status: Current Living Situation: Spouse current occupational status: retired Feels Safe at Home: Yes Childhood Exposure to Second-Hand Smoke: Yes Dental Care, Regularly: Yes Physical Activity Frequency: 3-4 Times per Week Seatbelt Use: always Sunscreen Use: No Assistive Devices: Denture - Upper, Denture - Lower and Glasses Review of Systems Constitutional: + fatigue; no fever, no chills, no sweats, no anorexia and no increased appetite Ear, Nose, Mouth, Throat: no nasal congestion, no post nasal drip, no sinus pain/pressure, no sore throat and no dysphagia Respiratory: no cough, no chest congestion, no dyspnea and no hemoptysis Cardiovascular: no chest pain, no dyspnea on exertion, no palpitations, no lightheadedness, no edema, no calf pain and no problem reported Gastrointestinal: + nausea and + diarrhea/loose stools; no abdominal pain, no vomiting, no dysphagia, no fecal incontinence, no blood in stools and no melena Genitourinary: no dysuria, no urinary frequency or no urinary hesitancy Integumentary: no rash, no lesions and no new lesions Psychiatric: + abnormal sleep pattern, + anxiety and + panic attacks; no hopelessness, no suicidal ideation, no confusion and no auditory hallucinations Endocrine: no polydipsia, no polyphagia and no polyuria Physical Exam Constitutional: WD/WN, vitals as above Neck: trachea midline, no thyromegaly Respiratory: normal respiratory effort, lungs clear to auscultation Cardiovascular: Rate/Rhythm: regular rate and regular rhythm Heart Sounds: normal S1 and normal S2; no murmur occasional ectopy Gastrointestinal (Abdomen): normal bowel sounds, soft, nontender, no hepatosplenomegaly Skin: no rashes, warm and dry Psychiatric: Orientation: alert and oriented x 3 Apperance: appropriately dressed and appropriately groomed Eye Contact: good eye contact Affect: + anxious affect Results & Data Results & Data Vital Signs (Past 12 Hours) Vital Signs Temp Pulse Pulse Resp BP BP Pulse Ox 10/02/22 16:12 75 10/02/22 15:53 70 21 143/64 H 94 10/02/22 15:24 36.4 C L 49 L 18 150/57 H 97 O2 Del Method 10/02/22 16:12 10/02/22 15:53 Room Air 10/02/22 15:24 Room Air Laboratory Results Abnormal lab results 10/02/22 10/02/22 Range/Units 15:49 15:49 RBC 4.41 L (4.70-6.10) M/uL Hgb 13.8 L (14.0-18.0) g/dl Hct 37.2 L (42.0-52.0) % MCHC 37.1 H (32.0-36.0) g/dL MPV 8.7 L (9.4-12.4) fL Lymph # (Auto) 0.91 L (1.2-3.4) K/uL Glenn # (Auto) 0.72 H (0.11-0.59) K/uL Sodium 120 L (136-145) mmol/L Potassium 3.4 L (3.5-5.1) mmol/L Chloride 89 L (98-107) mmol/L Globulin 2.4 L (2.5-4.0) gm/dl Supervising Physician Co-Signing Physician Notes Patient seen and examined, chart reviewed, case discussed with Nicole Kaplan PA-C and I agree with the assessment and plan as above except as otherwise noted Labs and images reviewed Presented with anxiety and diarrhea. Diarrhea x2 weeks, hx of chronic diarrhea intermittently. reportedly normal colo several years ago. Current diarrhea no blood, no sick contacts. Minimal improvement with loperamide. Has been seen for IBS-D, had trialed some medicines in the past but does not remember what. As diarrhea is intermittent had not aggressively pursued tx, notes he has been under increased stress lately. Minimal abdominal pain/cramping with BMs, otherwise no pain. no diarrhea/melena. Agree with management of chronic issues as above. Suspected diarrhea suspect prominent anxiety component, unclear what patient has tried before but reasonable to trial Bentyl if symptoms not improving. Prior to this we will complete stool PCR studies and PCR. Hyponatremia suspect most likely due to solute depletion with continued diarrhea, urine studies to evaluate for SIDH are pending. Agree with fluid repletion, electrolyte repletion and trending. Appears stable from a cardiac perspective, multiple PVCs patient does use ZzzQuil and benzodiazepine every night for sleep. PG Care Time/CCT Total # of Minutes Spent Total Time Spent with Patient: Total time spent is greater than 50% in coordination of care (as documented) at patient's floor/unit and/or counseling patient: Coding Level of Care Code 90014 INT INP/OBS CARE 2/MIN Diagnoses Hyponatremia E87.1 Diarrhea R19.7 Anxiety F41.9 Premature ventricular contractions I49.3 Type 2 diabetes mellitus with neurologic complication, with long-term current use of insulin E11.49; Z79.4 GERD (gastroesophageal reflux disease) K21.9 Hyperlipidemia E78.5 Hypertension I10 Vitamin D deficiency E55.9
[2022-10-02 16:58] LABS: Appearance Urine Clear (Clear); Bilirubin Urine Negative (Negative); Blood Urine Negative (Negative); Color Urine Yellow; Glucose Urine UA Negative (Negative); Ketones Urine Negative (Negative); Leukocyte Esterase Urine Negative (Negative); Nitrite Urine Negative (Negative); Protein Urine Negative (Negative); Specific Gravity Urine 1.004 (1.000-1.030); Urobilinogen Urine Negative (Negative)
--- NOTE | 2022-10-02 18:28 | Electrocardiogram Report ---
Test Reason : Blood Pressure : / mmHG Vent. Rate : 068 BPM Atrial Rate : 068 BPM P-R Int : 210 ms QRS Dur : 194 ms QT Int : 486 ms P-R-T Axes : 029 103 -17 degrees QTc Int : 516 ms Sinus rhythm with 1st degree A-V block with frequent Premature ventricular complexes Possible Left atrial enlargement Rightward axis Non-specific intra-ventricular conduction block Abnormal ECG When compared with ECG of 23-FEB-2022 15:51, Premature ventricular complexes are now Present Non-specific intra-ventricular conduction block has replaced Right bundle branch block Confirmed by London Raza ([id number]) on 10/02/2022 6:28:31 PM Referred By: Confirmed By:London Raza
[2022-10-02] MEDS ORDERED: ONDANSETRON INJ 2 MG/ML 2 ML VIAL IV PRN (20:44)
[2022-10-02] MEDS ORDERED: amLODIPine BESYLATE 5 MG TAB PO PRN (20:44)
[2022-10-02] MEDS ORDERED: DEXTROSE 50% 50 ML SYRINGE IV PRN (20:44)
[2022-10-02] MEDS ORDERED: GLUCAGON FOR INJ 1 MG VIAL SQ PRN (20:44)
[2022-10-02] MEDS ORDERED: GLUCOSE 10 TAB/TUBE PO PRN (20:44)
[2022-10-02] MEDS ORDERED: CARBOHYDRATES FOR HYPOGLYCEMIA PO PRN (20:44)
[2022-10-02] MEDS ORDERED: ACETAMINOPHEN 325 MG TAB PO PRN (20:44)
[2022-10-02] MEDS ORDERED: GLUCOSE 40% GEL 15 GM TUBE PO PRN (20:44)
[2022-10-02] MEDS: D5W AND NSS 1,000 ML IV SCH (21:10)
[2022-10-02] MEDS: LORazepam 1 MG TAB PO SCH (21:21)
[2022-10-02] MEDS: MELATONIN 3 MG TAB PO PRN (21:21)
[2022-10-02] MEDS: ATORVASTATIN 40 MG TAB PO SCH (21:22)
[2022-10-02] MEDS: ASPIRIN 325 MG ECTAB PO SCH (21:22)
[2022-10-02] MEDS: VALSARTAN/SACUBITRIL 51/49 MG TAB PO SCH (21:22)
[2022-10-02] MEDS: CHOLECALCIFEROL 1,000 UNITS 25 MCG TAB PO SCH (21:22)
[2022-10-02] MEDS: LANTUS PER UNIT CHARGE SQ SCH (21:22)
[2022-10-02] MEDS: INSULIN ASPART PER UNIT CHARGE SC SCH (21:23)
[2022-10-02] MEDS: CYANOCOBALAMIN (B-12) 500 MCG TABLET PO SCH (21:23)
[2022-10-02] MEDS: carvediloL 25 MG TAB PO SCH (21:23)
[2022-10-02] MEDS ORDERED: hydrOXYzine HCl 25 MG TAB PO STA (23:51)
[2022-10-03 06:26] LABS: Hematocrit (blood only) 39.1 % (42.0-52.0); Hemoglobin 14.2 g/dl (14.0-18.0); Mean Corpuscular Hemoglobin 31.2 pg (25.0-34.0); Mean Corpuscular Hgb Conc 36.3 g/dL (32.0-36.0); Mean Corpuscular Volume 85.9 fL (80.0-100.0); Mean Platelet Volume 8.8 fL (9.4-12.4); Platelet Count 221 K/uL (130-400); RDW Coefficient of Variation 12.4 % (11.5-14.5); RDW Standard Deviation 38.7 fL (36.4-46.3); Red Blood Count 4.55 M/uL (4.70-6.10); White Blood Count 5.71 K/ul (4.8-10.8)
[2022-10-03 06:45] LABS: BUN Creatinine Ratio 11.8 (10-20); Calcium 8.8 mg/dl (8.6-10.3); Creatinine Clr Calc Pharmacy 96.3 ml/min; Est GFR (African American) 103.8 ml/min; Est GFR (Non-African American) 89.6 ml/min; Magnesium 1.9 mg/dl (1.7-2.4); Potassium 3.8 mmol/L (3.5-5.1)
[2022-10-03] MEDS: carvediloL 25 MG TAB PO SCH ×2 (08:49→21:43)
[2022-10-03] MEDS: LORazepam 1 MG TAB PO SCH ×2 (08:49→21:53)
[2022-10-03] MEDS: PANTOprazole 40 MG TAB PO SCH (08:49)
[2022-10-03] MEDS: VALSARTAN/SACUBITRIL 51/49 MG TAB PO SCH ×2 (08:49→21:43)
[2022-10-03] MEDS: LANTUS PER UNIT CHARGE SQ SCH ×2 (08:50→21:44)
[2022-10-03] MEDS: INSULIN ASPART PER UNIT CHARGE SC SCH ×4 (08:51→20:21)
[2022-10-03] MEDS: D5W AND NSS 1,000 ML IV SCH (09:03)
[2022-10-03] MEDS ORDERED: LORazepam 1 MG TAB PO STA (16:26)
--- NOTE | 2022-10-03 17:26 | Hospitalist Progress Note ---
Date of Service October 03, 2022 Assessment & Plan (1) Hyponatremia: Plan: Sodium 120 on admission and now up to 129 on serial labs Urine sodium low at 18, urine osmolality greater than 100 at 117-consistent with hypovolemia likely secondary to recent diarrhea and poor p.o. intake due to severe anxiety -Okay to discontinue normal saline fluids He is feeling better and eating and drinking now on his own Follow BMP in the morning He is not on any medications that would lower sodium except naproxen (2) Anxiety: Plan: Chronic and unstable-having panic attacks, denies SI. For the last few months, has been perseverating on multiple deaths in the family and of friends and his dog, thinking about all the family members he had that around age 81. Wondering if he is going to . He is open to counseling and feels swimming/exercise with deep breathing is therapeutic for him as well. He is open to treatment with medications as well. He does remain hyponatremic and has a h/o cardiac issues but most likely he could trial a SSRI after sodium improves with IVF hydration -Continue Lorazepam 1mg BID and give an extra 1 mg dose midday for a panic attack -Consult Psychiatry for further input -Also suffers from insomnia with his anxiety and takes Zzzquil every night -Discussed with patient to stop this. Discussed this can increase his heart rate and add to his paroxysmal vtach and PVCs and try Melatonin 3mg qhs -Benefit from SSRI once hyponatremia is resolved (3) Diarrhea: Plan: Ongoing for 2 weeks prior to admission, most likely seems related to anxiety He has not had any further diarrhea since admission and stool studies have not yet been collected Await stool studies and C Diff if can be collected (4) Premature ventricular contractions: Plan: Chronic and stable follows with cardiology Continue telemetry monitoring Continue carvedilol (5) Type 2 diabetes mellitus with neurologic complication, with long-term current use of insulin: Plan: Chronic and stable Last HgbA1C 8 in Apr ISS while admitted Hold metformin (6) GERD (gastroesophageal reflux disease): Plan: chronic and stable continue PPI (7) Hyperlipidemia: Plan: Chronic and stable Continue atorvastatin (8) Hypertension: Plan: Chronic and stable Continue Amlodipine, Carvedilol, Sacubitril/valsartan (9) Vitamin D deficiency: Plan: Chronic and stable continue replacement Plan Disposition-continued stay for ongoing anxiety and await psychiatry evaluation. Also with hyponatremia which also seems to be improving Admission and Anticipated Discharge Date Admission Date: October 02, 2022 Subjective Patient has not had any diarrhea since admission. He is extremely anxious and continues to have intermittent bouts of heart racing and feels flushed and panicked. He did have 1 episode this morning. He does report he slept well last night for the first time in a long time. He reports multiple deaths in either friends or family over the last year and also the of his dog as being triggers for his anxiety. He is interested in seeing psychiatry and a psychologist. BuSpar prescribed as an outpatient he reports did not help his anxiety. Telemetry with normal sinus rhythm, PACs and PVCs, normal rates. Physical Exam Constitutional: WD/WN, vitals as above Eyes: PERRL, conjunctivae normal, anicteric sclerae ENMT: external ear and nose normal, oropharynx normal Neck: trachea midline, no thyromegaly Respiratory: normal respiratory effort, lungs clear to auscultation Cardiovascular: RRR, no murmur, no edema Chest (Breasts): Chest: normal inspection of chest Gastrointestinal (Abdomen): normal bowel sounds, soft, nontender, no hepatosplenomegaly Musculoskeletal: Extremities: extremities normal to inspection; no cyanosis and no clubbing Skin: no rashes, warm and dry Neurologic: moves all extremities and awake; no focal motor deficits Psychiatric: Orientation: alert, oriented x 3 and cooperative Affect: + anxious affect Mood: + anxious mood Suicidal Thoughts: denies suicidal thoughts Lymphatic: no lymphedema Results & Data Results & Data Vital Signs (Past 12 Hours) Vital Signs Temp Pulse Pulse Resp BP Pulse Ox O2 Del Method 10/03/22 15:15 63 10/03/22 11:49 36.4 C L 60 18 143/78 H 93 Room Air 10/03/22 08:16 36.7 C 70 18 148/95 H 97 Room Air 10/03/22 07:12 71 Laboratory Results CBC, BMP, TSH, magnesium, urine sodium and urine osmolality reviewed PG Care Time/CCT Total # of Minutes Spent Total Time Spent with Patient: Total time spent is greater than 50% in coordination of care (as documented) at patient's floor/unit and/or counseling patient: Coding Level of Care Code 04455 SUB INP/OBS CARE 3/50MIN Diagnoses Hyponatremia E87.1 Anxiety F41.9 Diarrhea R19.7 Premature ventricular contractions I49.3 Type 2 diabetes mellitus with neurologic complication, with long-term current use of insulin E11.49; Z79.4 GERD (gastroesophageal reflux disease) K21.9 Hyperlipidemia E78.5 Hypertension I10 Vitamin D deficiency E55.9
[2022-10-03 17:31] LABS: BUN Creatinine Ratio 10.1 (10-20); Calcium 8.9 mg/dl (8.6-10.3); Creatinine Clr Calc Pharmacy 82.9 ml/min; Est GFR (African American) 97.6 ml/min; Est GFR (Non-African American) 84.2 ml/min; Potassium 3.8 mmol/L (3.5-5.1)
[2022-10-03] MEDS: CYANOCOBALAMIN (B-12) 500 MCG TABLET PO SCH (21:43)
[2022-10-03] MEDS: CHOLECALCIFEROL 1,000 UNITS 25 MCG TAB PO SCH (21:43)
[2022-10-03] MEDS: MELATONIN 3 MG TAB PO PRN (21:43)
[2022-10-03] MEDS: ATORVASTATIN 40 MG TAB PO SCH (21:43)
[2022-10-03] MEDS: ASPIRIN 325 MG ECTAB PO SCH (21:44)
[2022-10-04 07:48] LABS: Basophils # (auto) 0.03 K/uL (0-0.2); Basophils % (auto) 0.4 %; Eosinophils % (auto) 2.5 %; Hematocrit (blood only) 38.6 % (42.0-52.0); Hemoglobin 14.1 g/dl (14.0-18.0); Immature Granulocytes # (auto) 0.05 K/uL (0.01-0.20); Immature Granulocytes % (auto) 0.6 %; Lymphocytes # (auto) 1.49 K/uL (1.2-3.4); Lymphocytes % (auto) 18.7 %; Mean Corpuscular Hemoglobin 31.5 pg (25.0-34.0); Mean Corpuscular Hgb Conc 36.5 g/dL (32.0-36.0); Mean Corpuscular Volume 86.4 fL (80.0-100.0); Mean Platelet Volume 8.7 fL (9.4-12.4); Monocytes # (auto) 0.75 K/uL (0.11-0.59); Monocytes % (auto) 9.4 %; Neutrophils # (auto) 5.44 K/uL (1.40-6.50); Neutrophils % (auto) 68.4 %; Platelet Count 223 K/uL (130-400); RDW Coefficient of Variation 12.6 % (11.5-14.5); RDW Standard Deviation 39.5 fL (36.4-46.3); Red Blood Count 4.47 M/uL (4.70-6.10); White Blood Count 7.96 K/ul (4.8-10.8)
[2022-10-04 08:01] LABS: Estimated Average Glucose 192 mg/dl; Hemoglobin A1C 8.3 % (4.5-5.6)
[2022-10-04 08:04] LABS: BUN Creatinine Ratio 16.7 (10-20); Calcium 8.8 mg/dl (8.6-10.3); Creatinine Clr Calc Pharmacy 90.9 ml/min; Est GFR (African American) 101.4 ml/min; Est GFR (Non-African American) 87.5 ml/min; Magnesium 1.9 mg/dl (1.7-2.4)
[2022-10-04] MEDS: LANTUS PER UNIT CHARGE SQ SCH ×2 (08:24→21:22)
[2022-10-04] MEDS: INSULIN ASPART PER UNIT CHARGE SC SCH ×4 (08:24→21:22)
[2022-10-04] MEDS: VALSARTAN/SACUBITRIL 51/49 MG TAB PO SCH ×2 (08:30→21:23)
[2022-10-04] MEDS: carvediloL 25 MG TAB PO SCH ×2 (08:30→21:27)
[2022-10-04] MEDS: PANTOprazole 40 MG TAB PO SCH (08:30)
[2022-10-04] MEDS ORDERED: MAGNESIUM HYDROXIDE SUSP 30 ML UDC PO PRN (08:33)
[2022-10-04] MEDS: LORazepam 1 MG TAB PO SCH ×2 (08:37→21:22)
--- NOTE | 2022-10-04 12:19 | Psychiatric Consultation ---
Date of Consultation October 04, 2022 Impression / Recommendations Impression Jose Roberto is a 82 yo man with a history of depression and anxiety admitted medically with hyponatremia. Diagnostically consistent with YOON with panic attacks versus adjustment disorder with anxiety. Acute risk of self-harm is low given denial of SI. Agree with goal of gradually reducing and trying to taper to discontinuation Ativan, especially once anxiety becomes better managed. Agree with hospitalist service that ideally he will discontinue ZQuil given anticholinergic side effect burden and cognitive risks given his age. If QTc is truly >500ms then no new psychiatric medications should be initiated until this improves. Once QTc lessens, or if automated EKG read is incorrect, then recommend starting Vistaril 25mg q8H prn for severe anxiety/panic attacks as an augmentation to his current Ativan. If 25mg is too sedating or causes other anticholinergic side effects then would reduce to 10mg q8h prn. Ideally this can then be discontinued once SSRI/mirtazapine starts to have an effect. Once sodium improves or stabilizes would start mirtazapine 15mg HS. Continue to monitor NA+ regularly to ensure no worsening. If mirtazapine does not provide enough relief after 3-6 weeks then augmentation with an SSRI (sertraline 25-50mg daily or escitalopram 5-10mg daily) is recommended. (1) Generalized anxiety disorder with panic attacks: Plan -Once QTc improves to <500ms would start Vistaril 25mg q8h prn for panic attacks to augment Ativan 1mg BID -Agree with long-term goal to slowly taper chronic Ativan use to discontinuation but would hold off until anxiety symptoms lessen -When QTc improves to <500ms and sodium improves or stabilizes to an acceptable level would start: mirtazapine 15mg HS po -If mirtazapine over time does not provide enough relief it could be slowly increased (up to 45mg HS, though it will become less sedating at higher doses) OR consider augmentation with sertraline or escitalopram while continuing to check Na+ routinely to ensure this does not worsen with psychotropic additions -psychiatric liason will attempt to establish outpatient therapy -Discussed recommendations with Dr. Antoine Psych History Identifying Data 82 yo man with history of anxiety and depression admitted medically. Psychiatry consulted for recommendations for treating anxiety. Chief Complaint "It's gotten really intense, to the point my bucket is overflowing". History of Present Illness Jose Roberto is seen at bedside accompanied by his . He reports worsening anxiety over the last few months and especially in the last few weeks due to multiple stressors including his son's new marriage, multiple recent losses (his beloved dog, two close friends), providing emotional support to a friend who is really struggling and making a huge decision with his about whether or not they should downsize and move homes (of which they have differing opinons). He describes being on ativan, and gradually lowering his dose over time with Dr. Mares, after an episode of severe depression in ~1985. He's made good progress with reducing ativan from QID to BID but recently has felt overwhelmed by anxiety. He saw a provider in his PCP's office who started Buspar but unfortunately he developed side effects to this. He also endorses chronic difficulty sleeping (had been using OTC ZZyquil) and more recently a noticeable reduction in appetite. He denies current symptoms of depression and denies SI. He engages in many positive activities including three times weekly swimming which does tend to help with mood and anxiety. His is an excellent support and he has good friends. Psychiatric medication trials of: Buspar, Ativan, Amitriptyline, Imipramine Allergies Allergy/AdvReac Type Severity Reaction Status Date / Time No Known Drug Allergies Allergy Verified 09/24/22 15:15 Home Medications Medication Instructions Recorded Confirmed Type cyanocobalamin (vitamin B-12) 500 500 mcg PO QPM 11/21/18 10/02/22 History mcg tablet (Vitamin B-12) ttxhzxfl-hdc-mqcwu acid 300 1 tab PO QPM 11/21/18 10/02/22 History mcg-lycopene 600 mcg-lutein 300 mcg tablet (Centrum Silver Men) lancets 33 gauge (OneTouch Delica #100 ea 07/02/20 10/02/22 History Lancets) aspirin 325 mg tablet 325 mg PO QPM 08/28/20 10/02/22 History cholecalciferol (vitamin D3) 50 2,000 unit PO QPM 08/28/20 10/02/22 History mcg (2,000 unit) capsule blood-glucose sensor (Dexcom G6 01/04/22 10/02/22 History Sensor device) sacubitril 49 mg-valsartan 51 mg 1 tab PO BID #180 tabs 01/21/22 10/02/22 Rx tablet (Entresto) atorvastatin 40 mg tablet 40 mg PO QPM #90 tabs 02/22/22 10/02/22 Rx diphenhydramine HCl 50 mg/30 mL 50 mg PO HS PRN Sleep 04/14/22 10/02/22 History oral liquid (ZzzQuil) insulin aspart U-100 100 unit/mL See Rx Instructions subcut 04/14/22 10/02/22 Rx subcutaneous solution (Novolog .COMPLEX #20 mL U-100 Insulin aspart) insulin glargine 100 unit/mL 45 unit subcut HS 04/14/22 10/02/22 History subcutaneous solution (Lantus U-100 Insulin) metformin 500 mg tablet,extended 500 mg PO QPM 04/14/22 10/02/22 History release 24 hr blood sugar diagnostic (OneTouch #100 ea 05/04/22 10/02/22 Rx Ultra Test strips) amlodipine 5 mg tablet (Norvasc) 5 mg PO DAILY PRN hypertension #90 05/14/22 10/02/22 Rx tabs carvedilol 25 mg tablet (Coreg) 25 mg PO BID #180 tabs 05/17/22 10/02/22 Rx ciclopirox 0.77 % topical cream 1 applic topical BID PRN other #90 06/15/22 10/02/22 Rx grams naproxen 250 mg tablet 250 mg PO BID PRN pain #60 tabs 08/26/22 10/02/22 Rx lorazepam 1 mg tablet 1 mg PO BID #60 tabs 09/07/22 10/02/22 Rx pantoprazole 40 mg tablet,delayed 40 mg PO DAILY #90 tabs 09/22/22 10/02/22 Rx release buspirone 5 mg tablet 5 mg PO TID PRN anxiety #60 tabs 09/24/22 10/02/22 Rx Patient History Medical History Adenomatous polyp of colon Anxiety and depression BPH (benign prostatic hyperplasia) CAD (coronary artery disease) chronic occlusion of RCA per [place] [facility] records Cardiac arrest Chronic kidney disease with active medical management without dialysis, stage 2 (mild) Diabetes mellitus, type 2 IDDM GERD (gastroesophageal reflux disease) Hearing loss Hiatal hernia History of Helicobacter infection Hyperlipidemia Hypertension ICD (implantable cardioverter-defibrillator) in place 04/[address] REMY *[employer] Ischemic cardiomyopathy EF 20-25%, improved to 38% 09/2021 per cardio records Migraine Myocardial Infarction 04/13/2016 "cardiac arrest"---follows w Dr. Raza Paroxysmal ventricular tachycardia Skin cancer of forehead squamous cell Surgical History History of cardiac cath 04/2016, no stent @ [facility] History of colonoscopy History of esophagogastroduodenoscopy (EGD) History of tonsillectomy History of tooth extraction all teeth Hx of Moh's micrographic surgery for skin cancer squamous cell cancer removed from forehead S/P TURP (status post transurethral resection of prostate) Family History Father Family history of diabetes mellitus Coronary heart disease Myocardial infarction Grandmother Family history of diabetes mellitus paternal Mother Alcohol abuse Anxiety Breast cancer Grandfather Anxiety Daughter Bipolar disorder Other No family history of adverse response to anesthesia Denies family history of Ovarian cancer Prostate cancer Colorectal cancer Social History Smoking Status: Former smoker Second Hand Exposure: Yes (as a child); Do You Dip or Chew Tobacco: No; Hx Alcohol Use: No Hx Substance Use: No Preferred Language: Citizen Of [place] Communication Ability: Effective Visual Impairment: No Limitations Hearing Ability: Normal Sorter Laundry Articles Required: No Beliefs That Will Affect Care: Jainism Jainism Beliefs: SAMARITAN marital status: Current Living Situation: Spouse current occupational status: retired Other Information That Helps Us Care for You: No Feels Safe at Home: Yes Safety Concerns: Feels Safe At This Time Childhood Exposure to Second-Hand Smoke: Yes Dental Care, Regularly: Yes Physical Activity Frequency: 3-4 Times per Week Seatbelt Use: always Sunscreen Use: No Assistive Devices: None Physical Exam Psychiatric: Orientation: alert and oriented x 3 Apperance: appropriately dressed and appropriately groomed Eye Contact: good eye contact Motor Behavior: no abnormal motor movements Speech: normal rate/rhythm/volume of speech Affect: + anxious affect Mood: + anxious mood Thought Process: clear/coherent thought process and + circumstantial thought process Thought Content: reality based without delusions Suicidal Thoughts: denies suicidal thoughts, denies suicidal plan and denies suicidal intent Homicidal Thoughts: denies homicidal thoughts Hallucinations: no auditory hallucinations and no visual hallucinations Cognition: recent memory grossly intact, remote memory grossly intact, attention grossly intact and language grossly intact Estimated Intelligence: consistent with education level Insight: good insight Judgment: + fair judgement Vital Signs (Past 24 Hours): Last Vital Signs Temp 36.6 C 10/04/22 11:00 Pulse 49 L 10/04/22 11:00 Resp 18 10/04/22 11:00 BP 143/67 H 10/04/22 11:00 Pulse Ox 93 10/04/22 11:00 O2 Del Method Room Air 10/04/22 11:00 Review of Systems All systems reviewed & are unremarkable except as noted in HPI & below Results & Data (PSY) Laboratory Results low Na+ Diagnostic Findings EKG automated read of prolonged QTc >500ms Medications Administered Amlodipine Besylate (Amlodipine Besylate 5 Mg Tab) 5 mg PO DAILY PRN PRN Reason: hypertension Stop: 11/01/22 20:43 Last Admin: 10/03/22 08:49 Dose: 5 mg Documented By: WILLARD Aspirin (Aspirin 325 Mg Ectab) 325 mg PO QPM CLAUDETTE Stop: 11/01/22 20:59 Last Admin: 10/03/22 21:44 Dose: 325 mg Documented By: Admin: 10/02/22 21:22 Dose: 325 mg Documented By: ROSALINO Atorvastatin Calcium (Atorvastatin 40 Mg Tab) 40 mg PO QPM CLAUDETTE Stop: 11/01/22 20:59 Last Admin: 10/03/22 21:43 Dose: 40 mg Documented By: Admin: 10/02/22 21:22 Dose: 40 mg Documented By: ROSALINO Carvedilol (Carvedilol 25 Mg Tab) 25 mg PO BID CLAUDETTE Stop: 11/01/22 20:59 Last Admin: 10/04/22 08:30 Dose: 25 mg Documented By: Admin: 10/03/22 21:43 Dose: 25 mg Documented By: Admin: 10/03/22 08:49 Dose: 25 mg Documented By: Admin: 10/02/22 21:23 Dose: 25 mg Documented By: ROSALINO Cyanocobalamin (Cyanocobalamin (B-12) 500 Mcg Tablet) 500 mcg PO QPM CLAUDETTE Stop: 11/01/22 20:59 Last Admin: 10/03/22 21:43 Dose: 500 mcg Documented By: Admin: 10/02/22 21:23 Dose: 500 mcg Documented By: ROSALINO Insulin Aspart (Insulin Aspart Per Unit Charge) 0 units SC ACHS CLAUDETTE Stop: 11/01/22 20:59 Last Admin: 10/04/22 08:24 Dose: 1 units Documented By: LORNA Co-signed By: REGINA Admin: 10/03/22 20:21 Dose: Not Given Documented By: Admin: 10/03/22 17:41 Dose: 4 units Documented By: WILLARD Co-signed By: JAMIR Admin: 10/03/22 12:44 Dose: 3 units Documented By: WILLARD Co-signed By: ANJU Admin: 10/03/22 08:51 Dose: Not Given Documented By: Admin: 10/02/22 21:23 Dose: Not Given Documented By: ROSALINO Co-signed By: MATT Lorazepam (Lorazepam 1 Mg Tab) 1 mg PO BID CLAUDETTE Stop: 11/01/22 20:59 Last Admin: 10/04/22 08:37 Dose: 1 mg Documented By: Admin: 10/03/22 21:53 Dose: 1 mg Documented By: Admin: 10/03/22 08:49 Dose: 1 mg Documented By: Admin: 10/02/22 21:21 Dose: 1 mg Documented By: ROSALINO Magnesium Hydroxide (Magnesium Hydroxide Susp 30 Ml Udc) 30 ml PO Q6H PRN PRN Reason: Constipation Stop: 11/03/22 08:32 Last Admin: 10/04/22 09:39 Dose: 30 ml Documented By: LORNA Melatonin (Melatonin 3 Mg Tab) 3 mg PO HS PRN PRN Reason: Sleep Stop: 11/01/22 20:43 Last Admin: 10/03/22 21:43 Dose: 3 mg Documented By: Admin: 10/02/22 21:21 Dose: 3 mg Documented By: ROSALINO Pantoprazole Sodium (Pantoprazole 40 Mg Tab) 40 mg PO DAILY [facility] Stop: 11/02/22 08:59 Last Admin: 10/04/22 08:30 Dose: 40 mg Documented By: Admin: 10/03/22 08:49 Dose: 40 mg Documented By: WILLARD Sacubitril/Valsartan (Valsartan/Sacubitril 51/49 Mg Tab) 1 tab PO BID CLAUDETTE Stop: 11/01/22 20:59 Last Admin: 10/04/22 08:30 Dose: 1 tab Documented By: Admin: 10/03/22 21:43 Dose: 1 tab Documented By: Admin: 10/03/22 08:49 Dose: 1 tab Documented By: Admin: 10/02/22 21:22 Dose: 1 tab Documented By: ROSALINO Vitamin D (Cholecalciferol 1,000 Units 25 Mcg Tab) 2,000 units PO QPM CLAUDETTE Stop: 11/01/22 20:59 Last Admin: 10/03/22 21:43 Dose: 2,000 units Documented By: Admin: 10/02/22 21:22 Dose: 2,000 units Documented By: ROSALINO Coding Level of Care Code 35436 IN/OBS CONSULT LVL 5,80M Diagnoses Generalized anxiety disorder with panic attacks F41.1; F41.0 Time Spent (min) 80
--- NOTE | 2022-10-04 14:18 | Cardiology Consultation ---
Date of Consultation October 04, 2022 History of Present Illness Attending Physician: Jose Roberto Antoine MD History of Present Illness This is an 82-year-old male with a history of hypertension, diabetes mellitus and an occluded right coronary artery and an ischemic cardiomyopathy as well as ventricular tachycardia. He was recently seen in the office on September 23, 2022 for anxiety, I do not believe his ICD was interrogated but remote monitoring was reviewed. He presented to the emergency room on October 02, 2022 with complaints of feeling very anxious and nervous. He was found to be very hyponatremic with a sodium of 120. Electrocardiography demonstrated sinus rhythm with a right bundle branch block and an IVCD with frequent premature ventricular beats. Allergies Allergy/AdvReac Type Severity Reaction Status Date / Time No Known Drug Allergies Allergy Verified 09/24/22 15:15 Home Medications Medication Instructions Recorded Confirmed Type cyanocobalamin (vitamin B-12) 500 500 mcg PO QPM 11/21/18 10/02/22 History mcg tablet (Vitamin B-12) gbeblftw-zeu-impml acid 300 1 tab PO QPM 11/21/18 10/02/22 History mcg-lycopene 600 mcg-lutein 300 mcg tablet (Centrum Silver Men) lancets 33 gauge (OneTouch Delica #100 ea 07/02/20 10/02/22 History Lancets) aspirin 325 mg tablet 325 mg PO QPM 08/28/20 10/02/22 History cholecalciferol (vitamin D3) 50 2,000 unit PO QPM 08/28/20 10/02/22 History mcg (2,000 unit) capsule blood-glucose sensor (Dexcom G6 01/04/22 10/02/22 History Sensor device) sacubitril 49 mg-valsartan 51 mg 1 tab PO BID #180 tabs 01/21/22 10/02/22 Rx tablet (Entresto) atorvastatin 40 mg tablet 40 mg PO QPM #90 tabs 02/22/22 10/02/22 Rx diphenhydramine HCl 50 mg/30 mL 50 mg PO HS PRN Sleep 04/14/22 10/02/22 History oral liquid (ZzzQuil) insulin aspart U-100 100 unit/mL See Rx Instructions subcut 04/14/22 10/02/22 Rx subcutaneous solution (Novolog .COMPLEX #20 mL U-100 Insulin aspart) insulin glargine 100 unit/mL 45 unit subcut HS 04/14/22 10/02/22 History subcutaneous solution (Lantus U-100 Insulin) metformin 500 mg tablet,extended 500 mg PO QPM 04/14/22 10/02/22 History release 24 hr blood sugar diagnostic (OneTouch #100 ea 05/04/22 10/02/22 Rx Ultra Test strips) amlodipine 5 mg tablet (Norvasc) 5 mg PO DAILY PRN hypertension #90 05/14/22 10/02/22 Rx tabs carvedilol 25 mg tablet (Coreg) 25 mg PO BID #180 tabs 05/17/22 10/02/22 Rx ciclopirox 0.77 % topical cream 1 applic topical BID PRN other #90 06/15/22 10/02/22 Rx grams naproxen 250 mg tablet 250 mg PO BID PRN pain #60 tabs 08/26/22 10/02/22 Rx lorazepam 1 mg tablet 1 mg PO BID #60 tabs 09/07/22 10/02/22 Rx pantoprazole 40 mg tablet,delayed 40 mg PO DAILY #90 tabs 09/22/22 10/02/22 Rx release buspirone 5 mg tablet 5 mg PO TID PRN anxiety #60 tabs 09/24/22 10/02/22 Rx Patient History Medical History Adenomatous polyp of colon Anxiety and depression BPH (benign prostatic hyperplasia) CAD (coronary artery disease) chronic occlusion of RCA per [place] [facility] records Cardiac arrest Chronic kidney disease with active medical management without dialysis, stage 2 (mild) Diabetes mellitus, type 2 IDDM GERD (gastroesophageal reflux disease) Hearing loss Hiatal hernia History of Helicobacter infection Hyperlipidemia Hypertension ICD (implantable cardioverter-defibrillator) in place 04/[address] REMY *[employer] Ischemic cardiomyopathy EF 20-25%, improved to 38% 09/2021 per cardio records Migraine Myocardial Infarction 04/13/2016 "cardiac arrest"---follows w Dr. Raza Paroxysmal ventricular tachycardia Skin cancer of forehead squamous cell Surgical History History of cardiac cath 04/2016, no stent @ [facility] History of colonoscopy History of esophagogastroduodenoscopy (EGD) History of tonsillectomy History of tooth extraction all teeth Hx of Moh's micrographic surgery for skin cancer squamous cell cancer removed from forehead S/P TURP (status post transurethral resection of prostate) Family History Father Family history of diabetes mellitus Coronary heart disease Myocardial infarction Grandmother Family history of diabetes mellitus paternal Mother Alcohol abuse Anxiety Breast cancer Grandfather Anxiety Daughter Bipolar disorder Other No family history of adverse response to anesthesia Denies family history of Ovarian cancer Prostate cancer Colorectal cancer Social History Smoking Status: Former smoker Second Hand Exposure: Yes (as a child); Do You Dip or Chew Tobacco: No; Hx Alcohol Use: No Hx Substance Use: No Preferred Language: Japanese Communication Ability: Effective Visual Impairment: No Limitations Hearing Ability: Normal [employer] Communications Administrator Required: No Beliefs That Will Affect Care: Adventism Adventism Beliefs: SABIANISM marital status: Current Living Situation: Spouse current occupational status: retired Other Information That Helps Us Care for You: No Feels Safe at Home: Yes Safety Concerns: Feels Safe At This Time Childhood Exposure to Second-Hand Smoke: Yes Dental Care, Regularly: Yes Physical Activity Frequency: 3-4 Times per Week Seatbelt Use: always Sunscreen Use: No Assistive Devices: None Results & Data Vital Signs (Past 12 Hours) Vital Signs Temp Pulse Pulse Resp BP Pulse Ox O2 Del Method 10/04/22 08:00 73 10/04/22 11:00 36.6 C 49 L 18 143/67 H 93 Room Air 10/04/22 07:34 36.5 C 52 L 16 159/94 H 95 Room Air 10/04/22 04:00 36.5 C 69 18 136/79 93 Room Air PG Care Time/CCT Total # of Minutes Spent Total Time Spent with Patient: Total time spent is greater than 50% in coordination of care (as documented) at patient's floor/unit and/or counseling patient: Coding Diagnoses
[2022-10-04 15:04] LABS: Adenovirus F 40/41 PCR Not Detected (NotDetected); Astrovirus PCR Not Detected (NotDetected); Campylobacter PCR Not Detected (NotDetected); Cryptosporidium PCR Not Detected (NotDetected); Cyclospora cayetanensis PCR Not Detected (NotDetected); Entamoeba histolytica PCR Not Detected (NotDetected); Enteroaggregative E.coli(EAEC) Not Detected (NotDetected); Enteropathogenic E.coli (EPEC) Not Detected (NotDetected); Enterotoxigenic E.coli (ETEC) Not Detected (NotDetected); Giardia lamblia PCR Not Detected (NotDetected); Norovirus GI/GII PCR Not Detected (NotDetected); Plesiomonas shigelloides PCR Not Detected (NotDetected); Rotavirus A PCR Not Detected (NotDetected); Salmonella PCR Not Detected (NotDetected); Sapovirus PCR Not Detected (NotDetected); Shiga-like Toxin E.coli (STEC) Not Detected (NotDetected); Shigella/Enteroinvasive E.coli Not Detected (NotDetected); Vibrio cholerae PCR Not Detected (NotDetected); Vibrio species PCR Not Detected (NotDetected); Yersinia enterocolitica PCR Not Detected (NotDetected)
--- NOTE | 2022-10-04 15:07 | Hospitalist Progress Note ---
Date of Service October 04, 2022 Assessment & Plan (1) Hyponatremia: Plan: Associated with a low serum osmolarity on admission. 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 He is now on fluid restriction. Serial labs. (2) Anxiety: Plan: Chronic and unstable-having panic attacks, denies SI. For the last few months, h as been perseverating on multiple deaths in the family and of friends and his dog, thinking about all the family members he had that around age 81. Wondering if he is going to . He is open to counseling and feels swimming/exercise with deep breathing is therapeutic for him as well. He is open to treatment with medications as well. He does remain hyponatremic and has a h/o cardiac issues . Appreciate psychiatry consultation and recommendations. Lorazepam as needed. Consider SSRI once hyponatremia is resolved (3) Diarrhea: Plan: Ongoing for 2 weeks prior to admission. Appears to be noninfectious. Await stool studies and C Diff if can be collected (4) Premature ventricular contractions: Plan: Chronic and stable. Telemetry. Cardiology has been consulted. (5) Type 2 diabetes mellitus with neurologic complication, with long-term current use of insulin: Plan: ADA diet. Sliding scale coverage. Metformin is on hold. Basal insulin therapy (6) GERD (gastroesophageal reflux disease): Plan: Stable. Continue PPI (7) Hyperlipidemia: Plan: Stable. Continue atorvastatin (8) Hypertension: Plan: Stable. Treated with Amlodipine, Carvedilol, Sacubitril/valsartan (9) Vitamin D deficiency: Plan: Chronic and stable continue replacement Plan Disposition-anticipate discharge back to SNF facility. Possibly tomorrowOctober 05 Admission and Anticipated Discharge Date Admission Date: October 02, 2022 Subjective Alert and oriented. No new problems. Sodium remains 129. He is now on fluid restriction. Admission serum osmolarity is low at 254. This probably is SIADH. Cardiology consulted to evaluate pacemaker and abnormal EKG. Lantus dosage uptitrated today for better glucose control. Hopefully he can go home tomorrow, October 05 Review of Systems Review of Systems: Constitutional-no fever or chills ENT-no blurred vision, no double vision, no epistaxis, no sore throat Respiratory-no cough, no wheezing, no shortness of breath Cardiac-no palpitations, no chest pain, no syncope GI-no nausea, vomiting, diarrhea, melena, hematochezia -no urinary retention, no urinary incontinence, no dysuria, no hematuria Musculoskeletal-no joint pain, no muscle tenderness Skin-no bruising, no rashes, no pruritus Neuro-no isolated weakness, no paresthesia, no weakness Psych-intermittent anxiety. Physical Exam Physical Exam: General-alert and oriented x3, no fevers, no chills HEENT-head atraumatic and normocephalic, pupils equal and reactive to light, extraocular muscles intact Neck-no lymphadenopathy or thyromegaly, trachea midline Chest-clear to auscultation percussion. No rales wheezing or rhonchi Cardiac-regular rate and rhythm, normal S1 and S2 Abdomen-normal bowel sounds, nontender, no hepatosplenomegaly Extremities-no cyanosis, clubbing, or edema Neuro-cranial nerves II through XII intact, motor and sensory function within normal limits, strength symmetrical, no focal deficits Psych-normal affect, normal mood Results & Data Results & Data Vital Signs (Past 12 Hours) Vital Signs Temp Pulse Pulse Resp BP Pulse Ox O2 Del Method 10/04/22 08:00 73 10/04/22 11:00 36.6 C 49 L 18 143/67 H 93 Room Air 10/04/22 07:34 36.5 C 52 L 16 159/94 H 95 Room Air 10/04/22 04:00 36.5 C 69 18 136/79 93 Room Air Laboratory Results 10/04/22 07:36 10/04/22 07:36 PG Care Time/CCT Total # of Minutes Spent Total Time Spent with Patient: Total time spent is greater than 50% in coordination of care (as documented) at patient's floor/unit and/or counseling patient: Coding Level of Care Code 45687 SUB INP/OBS CARE 3/50MIN Diagnoses Hyponatremia E87.1 Anxiety F41.9 Diarrhea R19.7 Premature ventricular contractions I49.3 Type 2 diabetes mellitus with neurologic complication, with long-term current use of insulin E11.49; Z79.4 GERD (gastroesophageal reflux disease) K21.9 Hyperlipidemia E78.5 Hypertension I10 Vitamin D deficiency E55.9
[2022-10-04] MEDS: MELATONIN 3 MG TAB PO PRN (21:22)
[2022-10-04] MEDS: ASPIRIN 325 MG ECTAB PO SCH (21:23)
[2022-10-04] MEDS: CYANOCOBALAMIN (B-12) 500 MCG TABLET PO SCH (21:23)
[2022-10-04] MEDS: CHOLECALCIFEROL 1,000 UNITS 25 MCG TAB PO SCH (21:23)
[2022-10-04] MEDS: ATORVASTATIN 40 MG TAB PO SCH (21:24)
[2022-10-05] MEDS ORDERED: MELATONIN 3 MG TAB PO STA (01:55)
[2022-10-05] MEDS: LORazepam 1 MG TAB PO SCH (06:21)
[2022-10-05 07:34] LABS: BUN Creatinine Ratio 18.2 (10-20); Calcium 8.9 mg/dl (8.6-10.3); Creatinine Clr Calc Pharmacy 99.2 ml/min; Est GFR (African American) 105.1 ml/min; Est GFR (Non-African American) 90.7 ml/min; Potassium 4.2 mmol/L (3.5-5.1)
[2022-10-05] MEDS ORDERED: LORazepam 1 MG TAB PO STA (08:29)
[2022-10-05] MEDS: INSULIN ASPART PER UNIT CHARGE SC SCH ×2 (08:39→12:30)
[2022-10-05] MEDS: LANTUS PER UNIT CHARGE SQ SCH (08:39)
[2022-10-05] MEDS: carvediloL 25 MG TAB PO SCH (08:42)
[2022-10-05] MEDS: VALSARTAN/SACUBITRIL 51/49 MG TAB PO SCH (08:43)
[2022-10-05] MEDS: PANTOprazole 40 MG TAB PO SCH (08:43)
--- NOTE | 2022-10-05 08:45 | Electrocardiogram Report ---
Test Reason : Blood Pressure : / mmHG Vent. Rate : 071 BPM Atrial Rate : 073 BPM P-R Int : 222 ms QRS Dur : 190 ms QT Int : 486 ms P-R-T Axes : 054 106 006 degrees QTc Int : 528 ms Sinus rhythm with frequent Premature ventricular complexes and first degree AV block Right bundle branch block Abnormal ECG When compared with ECG of 02-OCT-2022 15:42, Current undetermined rhythm precludes rhythm comparison, needs review Right bundle branch block has replaced Non-specific intra-ventricular conduction block Confirmed by London Raza ([id number]) on 10/05/2022 8:44:55 AM Referred By: REFERRED SELF Confirmed By:London Raza
--- NOTE | 2022-10-05 11:39 | Discharge Summary ---
Date of Service October 05, 2022 Admission HPI Per Admitting Provider Jose Roberto Hess is a 82 year old male with a past medical history of chronic anxiety disorder, HTN, HLD, DM, paroxysmal V Tach, PVCs, CAD, ischemic cardiomyopathy, and who previously had undergone a single-chamber ICD who p resented today to the ER with complaints of increasing anxiety. Patient was recently seen at his PCP on 09/24/22 and was rx Buspar 5mg one TID (6 hours apart from his lorazepam 1mg BID) He tells me that he only took 2 doses of the Buspar and this only made him nauseated. He also states he has had diarrhea 2-3 times daily for the past 2 weeks. He deneis any abdominal pain, nausea, vomiting, hematochezia, melena, or BRB CT. He has been taking Imodium and PeptoBismol with some relief in the diarrhea. He denies any ill contacts, any congestion, cough, weight loss, chest pain or SOB. He states he had a recent trip to [employer] [place] [place] for a family reunion but he had the diarrhea prior to the trip. He admits to a + family history of anxiety in his children and his mother. He denies any suicidal ideations and states his is supportive and he has done counseling in the past. Patient exercises 3 ties per week and remains active. He was just evaluated at the cardiology office 09/23/22 and was stated that he was stable from a cardiovascular standpoint. Patient has no anginal symptoms and stable exercise tolerance. Per his visit with cardiology they stated his recent remote device transmissions were reviewed from August 28, and there has been no recorded arrhythmia. He does continue to have PVCs, and he was provided reassurance in this regard. Will continue current cardiovascular medications, including aspirin, high intensity statin, beta liz, ARNI, and calcium channel liz. Patient was evaluated in the ER and found to have a sodium of 120, K+ 3.4, CBC was stable with no leukocytosis or anemia. Ca normal at 9, LFTs normla. PTH in August was 52, TSH in Apr was 2.7 Stool studies are ordered, urine and serum osmolality are pending. EKG revealed sinus rhythm with 1st degree A-V block frequent PVCs. ventricular rate of 68 Patient tells me that a few years ago he had chronic diarrhea and had a colonoscopy 2018 and revealed IH and diverticular disease. Principal Diagnosis SIADH, exacerbation chronic anxiety disorder Discharge Exam General-alert and oriented x3, no fevers, no chills HEENT-head atraumatic and normocephalic, pupils equal and reactive to light, extraocular muscles intact Neck-no lymphadenopathy or thyromegaly, trachea midline Chest-clear to auscultation percussion. No rales wheezing or rhonchi Cardiac-regular rate and rhythm, normal S1 and S2 Abdomen-normal bowel sounds, nontender, no hepatosplenomegaly Extremities-no cyanosis, clubbing, or edema Neuro-cranial nerves II through XII intact, motor and sensory function within normal limits, strength symmetrical, no focal deficits Psych-normal affect, normal mood Discharge Data Allergies Allergy/AdvReac Type Severity Reaction Status Date / Time No Known Drug Allergies Allergy Verified 09/24/22 15:15 Consultations 10/02/22 16:49 ED Decision to Admit Stat 10/03/22 16:29 Consult Psychiatry Routine 10/04/22 08:00 Consult Cardiology Routine Hospital Course (1) Hyponatremia: Associated with a low serum osmolarity on admission. 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 He is now on fluid restriction. Serial labs. Sodium appears stable at 129. No symptoms (2) Anxiety: Lorazepam has been increased to 2 mg twice daily. He prefers 1 mg 4 times a day which will be his discharge dose. Appreciate psychiatry consultation and recommendations. Consider SSRI once hyponatremia is resolved (3) Diarrhea: Ongoing for 2 weeks prior to admission. Appears to be noninfectious. Await stool studies and C Diff if stool can be collected (4) Premature ventricular contractions: Chronic and stable. Telemetry. Pacemaker interrogation unremarkable. (5) Type 2 diabetes mellitus with neurologic complication, with long-term current use of insulin: ADA diet. Sliding scale coverage. Metformin is on hold. Will resume at discharge. Basal insulin therapy (6) GERD (gastroesophageal reflux disease): Stable. Continue PPI (7) Hyperlipidemia: Stable. Continue atorvastatin (8) Hypertension: Stable. Treated with Amlodipine, Carvedilol, Sacubitril/valsartan (9) Vitamin D deficiency: Continue vitamin D replacement. Plan Home todayOctober 05 Total Time Total Time Spent Total Time Spent (In Minutes): 40 minutes Discharge Plan Discharge Items Patient Disposition: Home - Self-Care Reason For Visit: ANXIETY AND HYPONAYREMIA Discharge Diagnosis: Suspected SIADH with hyponatremia, acute exacerbation chronic anxiety disorder Activity: Resume your previous activity Non-emergency contact: Primary Care Provider Call non-emergency contact if: you have any medication questions and your symptoms worsen Follow-up/Referrals: Miguel Mares MD [Primary Care Provider] - Diet: Carb Consistent or DM2 and Heart Healthy Addtl Attending Provider Instructions: Take lorazepam 1 mg 4 times daily until seen by primary care provider Pending Studies at Discharge: No Stand-Alone Forms: My [facility], Smoking Cessation Medications and DC Order Prescriptions: Continued Entresto 49-51 mg tablet 1 tab PO BID Qty: 180 3RF atorvastatin 40 mg tablet 40 mg PO QPM Qty: 90 3RF Novolog U-100 Insulin aspart 100 unit/mL solution See Rx Instructions SUBCUT .COMPLEX Qty: 20 5RF Rx Instructions: subcut inject per sliding scale up to 50 units daily carvedilol [Coreg] 25 mg tablet 25 mg PO BID Qty: 180 3RF ciclopirox 0.77 % cream 1 applic topical BID PRN (Reason: other) Qty: 90 3RF naproxen 250 mg tablet 250 mg PO BID PRN (Reason: pain) Qty: 60 0RF pantoprazole 40 mg tablet,delayed release (DR/EC) 40 mg PO DAILY Qty: 90 2RF (DME) OneTouch Ultra Test Strip See Rx Instructions .Route Qty: 100 3RF Rx Instructions: Test 1 times daily for calibration (DME) lancets [OneTouch Delica Lancets] 33 gauge misc See Rx Instructions .ROUTE .MEDSUPPLY Qty: 100 Rx Instructions: testing 2 X daily amlodipine [Norvasc] 5 mg tablet 5 mg PO DAILY PRN (Reason: hypertension) Qty: 90 3RF Hold Instructions: Not taking because not need low BP in evening. cholecalciferol (vitamin D3) 50 mcg (2,000 unit) capsule 2,000 unit PO QPM (DME) Dexcom G6 Sensor Device See Rx Instructions .Route Rx Instructions: As directed buspirone 5 mg tablet 5 mg PO TID PRN (Reason: anxiety) Qty: 60 5RF cyanocobalamin (vitamin B-12) [Vitamin B-12] 500 mcg tablet 500 mcg PO QPM Centrum Silver Men 300-600-300 mcg tablet 1 tab PO QPM aspirin 325 mg tablet 325 mg PO QPM insulin glargine [Lantus U-100 Insulin] 100 unit/mL solution 45 unit SUBCUT HS metformin 500 mg tablet extended release 24 hr 500 mg PO QPM Patient Comments: QPM ZzzQuil 50 mg/30 mL Liquid 50 mg PO HS PRN (Reason: Sleep) Changed lorazepam 1 mg tablet 1 mg PO QID Qty: 60 0RF Discharge Orders: Discharge Order (Routine); Ordered 10/05/22 Ordered By: Jose Roberto Antoine Admission Data Admit Date/Time: 10/02/22 18:07 Attending Provider: Jose Roberto Antoine Admit Provider: Steven Talbert Primary Care Provider: Miguel Mares Other Providers: Steven Talbert ; Sweetie Granados ; Lori Riggins ; Joseph Hernandez ; Dwain Perez ; Anson Chisholm ; Miguel Hsieh ; Cosmo Ly ; London Raza ; Joseph Cole Jr ; Osito Michel ; Tresa Domingo ; Gail Kramer ; Gurmeet Barragan ; Robel Sung ; Jose Roberto Nowak ; Sarah Caputo ; Neena Hodge ; Andrew Leon ; Shamir Alvarez ; Cosmo Reynolds V. Coding Level of Care Code 77656 INP/OBS DISCH >30 MIN Diagnoses Hyponatremia E87.1 Anxiety F41.9 Diarrhea R19.7 Premature ventricular contractions I49.3 Type 2 diabetes mellitus with neurologic complication, with long-term current use of insulin E11.49; Z79.4 GERD (gastroesophageal reflux disease) K21.9 Hyperlipidemia E78.5 Hypertension I10 Vitamin D deficiency E55.9
--- NOTE | 2022-10-05 13:41 | Discharge Summary ---
Date of Service October 05, 2022 Admission HPI Per Admitting Provider Jose Roberto Hess is a 82 year old male with a past medical history of chronic anxiety disorder, HTN, HLD, DM, paroxysmal V Tach, PVCs, CAD, ischemic cardiomyopathy, and who previously had undergone a single-chamber ICD who p resented today to the ER with complaints of increasing anxiety. Patient was recently seen at his PCP on 09/24/22 and was rx Buspar 5mg one TID (6 hours apart from his lorazepam 1mg BID) He tells me that he only took 2 doses of the Buspar and this only made him nauseated. He also states he has had diarrhea 2-3 times daily for the past 2 weeks. He deneis any abdominal pain, nausea, vomiting, hematochezia, melena, or BRB [place]. He has been taking Imodium and PeptoBismol with some relief in the diarrhea. He denies any ill contacts, any congestion, cough, weight loss, chest pain or SOB. He states he had a recent trip to [place] for a family reunion but he had the diarrhea prior to the trip. He admits to a + family history of anxiety in his children and his mother. He denies any suicidal ideations and states his is supportive and he has done counseling in the past. Patient exercises 3 ties per week and remains active. He was just evaluated at the cardiology office 09/23/22 and was stated that he was stable from a cardiovascular standpoint. Patient has no anginal symptoms and stable exercise tolerance. Per his visit with cardiology they stated his recent remote device transmissions were reviewed from August 28, and there has been no recorded arrhythmia. He does continue to have PVCs, and he was provided reassurance in this regard. Will continue current cardiovascular medications, including aspirin, high intensity statin, beta liz, ARNI, and calcium channel liz. Patient was evaluated in the ER and found to have a sodium of 120, K+ 3.4, CBC was stable with no leukocytosis or anemia. Ca normal at 9, LFTs normla. PTH in August was 52, TSH in Apr was 2.7 Stool studies are ordered, urine and serum osmolality are pending. EKG revealed sinus rhythm with 1st degree A-V block frequent PVCs. ventricular rate of 68 Patient tells me that a few years ago he had chronic diarrhea and had a colonoscopy 2018 and revealed IH and diverticular disease. Principal Diagnosis Suspected SIADH with hyponatremia and hypoosmolarity, acute exacerbation of chronic anxiety disorder Discharge Data Allergies Allergy/AdvReac Type Severity Reaction Status Date / Time No Known Drug Allergies Allergy Verified 09/24/22 15:15 Consultations 10/02/22 16:49 ED Decision to Admit Stat 10/03/22 16:29 Consult Psychiatry Routine 10/04/22 08:00 Consult Cardiology Routine Total Time Total Time Spent Total Time Spent (In Minutes): 40 minutes Discharge Plan Discharge Items Patient Disposition: Home - Self-Care Reason For Visit: ANXIETY AND HYPONAYREMIA Discharge Diagnosis: Suspected SIADH with hyponatremia, acute exacerbation chronic anxiety disorder Activity: Resume your previous activity Non-emergency contact: Primary Care Provider Call non-emergency contact if: you have any medication questions and your symptoms worsen Follow-up/Referrals: Miguel Mares MD [Primary Care Provider] - 10/14/22 10:15 am (Follow up 10/14/22 @ 10:15 with Milana Hunter) Diet: Carb Consistent or DM2 and Heart Healthy Addtl Attending Provider Instructions: Take lorazepam 1 mg 4 times daily until seen by primary care provider Pending Studies at Discharge: No Stand-Alone Forms: My [employer], Smoking Cessation Medications and DC Order Prescriptions: New lorazepam 1 mg tablet 1 mg PO QID Qty: 40 0RF Continued Entresto 49-51 mg tablet 1 tab PO BID Qty: 180 3RF atorvastatin 40 mg tablet 40 mg PO QPM Qty: 90 3RF Novolog U-100 Insulin aspart 100 unit/mL solution See Rx Instructions SUBCUT .COMPLEX Qty: 20 5RF Rx Instructions: subcut inject per sliding scale up to 50 units daily carvedilol [Coreg] 25 mg tablet 25 mg PO BID Qty: 180 3RF ciclopirox 0.77 % cream 1 applic topical BID PRN (Reason: other) Qty: 90 3RF naproxen 250 mg tablet 250 mg PO BID PRN (Reason: pain) Qty: 60 0RF pantoprazole 40 mg tablet,delayed release (DR/EC) 40 mg PO DAILY Qty: 90 2RF (DME) OneTouch Ultra Test Strip See Rx Instructions .Route Qty: 100 3RF Rx Instructions: Test 1 times daily for calibration (DME) lancets [OneTouch Delica Lancets] 33 gauge misc See Rx Instructions .ROUTE .MEDSUPPLY Qty: 100 Rx Instructions: testing 2 X daily amlodipine [Norvasc] 5 mg tablet 5 mg PO DAILY PRN (Reason: hypertension) Qty: 90 3RF Hold Instructions: Not taking because not need low BP in evening. cholecalciferol (vitamin D3) 50 mcg (2,000 unit) capsule 2,000 unit PO QPM (DME) Dexcom G6 Sensor Device See Rx Instructions .Route Rx Instructions: As directed buspirone 5 mg tablet 5 mg PO TID PRN (Reason: anxiety) Qty: 60 5RF cyanocobalamin (vitamin B-12) [Vitamin B-12] 500 mcg tablet 500 mcg PO QPM Centrum Silver Men 300-600-300 mcg tablet 1 tab PO QPM aspirin 325 mg tablet 325 mg PO QPM insulin glargine [Lantus U-100 Insulin] 100 unit/mL solution 45 unit SUBCUT HS metformin 500 mg tablet extended release 24 hr 500 mg PO QPM Patient Comments: QPM ZzzQuil 50 mg/30 mL Liquid 50 mg PO HS PRN (Reason: Sleep) Changed lorazepam 1 mg tablet 1 mg PO QID Qty: 60 0RF Discharge Orders: Discharge Order (Routine); Ordered 10/05/22 Ordered By: Jose Roberto Antoine Admission Data Admit Date/Time: 10/02/22 18:07 Attending Provider: Jose Roberto Antoine Admit Provider: Steven Talbert Primary Care Provider: Miguel Mares Other Providers: Steven Talbert ; Sweetie Granados ; Lori Riggins ; Joseph Hernandez ; Dwain Perez ; Anson Chisholm ; Miguel Hsieh ; Cosmo Ly ; London Raza ; Joseph Cole Jr ; Osito Michel ; Tresa Domingo ; Gail Kramer ; Gurmeet Barragan ; Robel Sung ; Jose Roberto Nowak ; Sarah Caputo ; Neena Hodge ; Andrew Leon ; Shamir Alvarez ; Cosmo Reynolds V. Other Interventions: Discharge Summary Assessment (RN) Last Done: 10/05/22 12:54 Coding Level of Care Code 31169 INP/OBS DISCH >30 MIN Diagnoses
== END 2022-10-05 14:00 | disposition home or self-care (01) | DRG 644 ==
LOC: ED 15:18 → SUATTDRO 18:07 → 2N 18:07

== ENCOUNTER 2025-01-31 19:54 | Inpatient (IN) ==
[2025-01-31] MEDS: ALBUT/IPRATROP 3MG/0.5MG NEB 3 ML VIAL NEB STA (20:32)
--- NOTE | 2025-01-31 20:37 | Emergency Department Note ---
Impression & Plan Hypoxia, SOB (shortness of breath), Cough, Elevated brain natriuretic peptide (BNP) level, Elevated troponin, Hyponatremia, Rhinovirus infection ED Provider Note NAME: AKANKSHA MALDONADO AGE: 84 SEX: M : 1940 ARRIVES VIA: Walk-In INFORMANT: [Patient][family] ED PROVIDER(S): [Chaitanya Arevalo MD] CHIEF COMPLAINT: Cardiac assessment HISTORY OF PRESENT ILLNESS: The patient is an 84-year-old male who states that for the last 5 days he has had a cold that seems to be worsening every day. He cannot lay flat, he is very short of breath and, he is quite weak. He has been coughing. No fever, no vomiting or diarrhea. The patient was told that his heart rate was higher earlier. He does have a pacer defibrillator, he did not feel any shock. The patient has no diagnosed lung disease. No sick contacts. PMHx/PSHx/Social Hx: See Below PHYSICAL EXAM: GENERAL: Patient is in no acute distress. HEENT: No acute trauma, normocephalic atraumatic, mucous membranes moist, no nasal congestion. NECK: No stridor, no adenopathy, no meningismus, trachea is midline. LUNGS: Wheezing bilaterally with diminished breath sounds bilaterally. No obvious respiratory distress. HEART: Bradycardic with a regular rhythm, heart tones distant. ABDOMEN: Soft, nontender, no peritonitis. EXTREMITIES: No cyanosis, full range of motion of all the joints without pain or difficulty. Mild bilateral pedal edema. NEUROLOGIC: Oriented x 3, no acute motor or sensory deficits, no focal weakness. SKIN: No jaundice, no diaphoresis. Somewhat pale. DIFFERENTIAL DIAGNOSIS: Bronchitis or pneumonia, CHF, dysrhythmia, anemia, viral illness, among others. EMERGENCY DEPARTMENT PROCEDURES: MEDICAL DECISION MAKING: There is no leukocytosis. A very subtle anemia was seen. There was a normal platelet count. Sodium was low at 128, the patient does carry history of hyponatremia although, this is below his typical baseline. No renal failure. Lactic acid level is not elevated making severe sepsis less likely. No concerning liver enzyme elevation. The patient appeared to be in a euthyroid state. ECG showed a sinus rhythm, no obvious ST elevation. Cardiac enzyme testing x 1 is slightly elevated. This troponin elevation could be secondary to cardiac injury or mismatch from his hypoxia. BNP was elevated at 1827 consistent with some fluid overload or, his ongoing known cardiac disease. Chest x-ray shows what appears to be a bilateral pneumonia versus, some fluid overload. There was no pneumothorax. On exam, the patient was wheezing. He was hypoxic and was placed on O2 supplementation. He did well with the O2 supplementation. BioFire returned positive for rhinovirus. The patient was given IV ceftriaxone as antibiotic coverage. He was given IV Solu-Medrol and a DuoNeb. I do think the patient needs a hospital stay and further workup. He has rhinovirus with a potential pneumonia, he is hypoxic, he may be somewhat fluid overloaded. He will require further care and cardiac workup in the hospital. I spoke with the patient and case management, the on-call hospitalist was consulted. Of note, a pacemaker interrogation was done, the patient has had multiple episodes of tachycardia, some appeared to be V. tach, some SVT. The episodes last from 2 seconds to maybe 10 minutes. The patient's pacemaker has been able to intervene to break the abnormal rhythm. No defibrillation firing. Prior/Outside records/notes reviewed: None ECG per my interpretation: Indication was shortness of breath. The ECG shows a sinus rhythm with a first-degree AV block. The rate is 60. There is a right bundle branch block. There is no obvious ST elevation, no PVCs. The QTc is 538. Continuous Cardiac Monitoring per my interpretation: An order was placed for continuous cardiac monitoring. The monitor shows a rate of 57 with sinus bradycardia with a first-degree block. Imaging/x-ray results per my interpretation: Chest x-ray shows some congestion bilaterally, possibly pneumonia or fluid overload. There was no pneumothorax. Chronic Medical/Social conditions affecting care: History of pacer defibrillator. Care/Management discussed with: Case management, the on-call hospitalist. Level of care consideration(s): After review of the information above and other included data: --I believe the patient requires escalation of care to admission Critical Care Note: I have personally spent 46 minutes of critical care time in the direct management of this patient. This includes bedside care, interpretation of diagnostic studies, and testing, discussion with consultants, patient, and family members, and other required patient management activities. This 46 minutes is in excess of all separately billable procedures. DISPOSITION: Admission Past Med/Surg History Problem List Rhinovirus infection (Acute) Hyponatremia (Acute) Elevated troponin (Acute) Elevated brain natriuretic peptide (BNP) level (Acute) Cough (Acute) SOB (shortness of breath) (Acute) Hypoxia (Acute) Mitral regurgitation Diabetic nephropathy associated with type 2 diabetes mellitus Mild nonproliferative diabetic retinopathy associated with type 2 diabetes mellitus AICD (automatic cardioverter/defibrillator) present Diabetic retinopathy mild august 2023 Dyslipidemia Current use of proton pump inhibitor Type 2 diabetes mellitus with neurologic complication, with long-term current use of insulin Vitamin D deficiency Lymphocytic colitis Diarrhea (Acute) Overweight (BMI 25.0-29.9) (Acute) Insomnia (Acute) Inhibited sexual excitement (Acute) IT band syndrome (Acute) Arthralgia (Acute) Adenomatous polyp of colon (Acute) Erectile dysfunction Candidiasis Left rotator cuff tear Numbness and tingling of both feet Pain of right hip Sensorimotor neuropathy (Chronic) Anxiety Albuminuria Proteinuria Diabetic neuropathy SOBOE (shortness of breath on exertion) Low back pain BPH w urinary obs/LUTS Urinary retention History of urinary retention Esophageal dysphagia Greater trochanteric pain syndrome Hyponatremia 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), single, in situ Shortness of breath Fatigue Paroxysmal ventricular tachycardia (Acute) Hiatal hernia (Acute) Hearing loss (Acute) Ischemic cardiomyopathy (Acute) EF 20-25%, improved to 38% 09/2021 per cardio records Chronic kidney disease with active medical management without dialysis, stage 2 (mild) CAD (coronary artery disease) chronic occlusion of RCA per [place] [facility] records Medical History History of colon polyps History of panic attacks Pacemaker [employer]- checked remotely from home once per month- last checked by Dr Sung ~6 mos ago (01/27/23) ICD (implantable cardioverter-defibrillator) in place 04/[address] REMY *[employer] Anxiety and depression History of Helicobacter infection Premature ventricular contractions BPH (benign prostatic hyperplasia) GERD (gastroesophageal reflux disease) Diabetes mellitus, type 2 IDDM Skin cancer of forehead squamous cell Migraine Hyperlipidemia Hypertension Myocardial Infarction 04/13/2016 "cardiac arrest"---follows w Dr. 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 History of tooth extraction all teeth History of tonsillectomy History of cardiac cath 04/2016, no stent @ [facility] Family History Father Family history of diabetes mellitus Coronary heart disease Myocardial infarction Grandmother Family history of diabetes mellitus paternal Mother Alcohol abuse Anxiety Breast cancer Grandfather Anxiety Daughter Bipolar disorder Other No family history of adverse response to anesthesia Denies family history of Ovarian cancer Prostate cancer Colorectal cancer Social History Smoking Status: Former smoker Tobacco Type: Cigarettes Age Started Using Tobacco: 23; Age Quit Using Tobacco: 43; packs per day: 1; Second Hand Exposure: Yes ( A CHILD); Do You Dip or Chew Tobacco: No; Hx Alcohol Use: Yes Alcohol type: beer Alcohol Intake Frequency: Monthly or Less Hx Substance Use: No Preferred Language: Congolese Communication Ability: Effective Visual Impairment: No Limitations Hearing Ability: Normal [employer]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 Beliefs That Will Affect Care: None marital status: Current Living Situation: Spouse current occupational status: retired Feels Safe at Home: Yes Childhood Exposure to Second-Hand Smoke: Yes Diet: regular caffeine: Yes during the past year weight has: remained stable Dental Care, Regularly: Yes Physical Activity Frequency: 3-4 Times per Week Seatbelt Use: always Sunscreen Use: No Assistive Devices: Denture - Upper, Denture - Lower and Glasses Allergies Allergies Allergy/AdvReac Type Severity Reaction Status Date / Time amiodarone AdvReac Intermediate rash Verified 01/17/25 14:25 Home Meds Home Medications Medication Instructions Recorded Confirmed cyanocobalamin (vitamin B-12) 500 500 mcg PO QPM 11/21/18 01/17/25 mcg tablet (Vitamin B-12) [id number] 300 mcg-K 60 1 tab PO QPM 11/21/18 01/17/25 mcg-lycop 600 mcg-lutein 300 mcg tablet (Centrum Silver Men) lancets 33 gauge (OneTouch Delica #100 ea 07/02/20 01/17/25 Lancets) aspirin 325 mg tablet 325 mg PO DAILY 08/29/23 01/17/25 blood-glucose sensor (Dexcom G7 11/15/23 01/17/25 Sensor device) insulin NPH isoph U-100 human 100 45 unit subcut QPM 09/20/24 01/17/25 unit/mL (3 mL) subcutaneous pen (Novolin N FlexPen) Previous Rx's Medication Instructions Recorded cholecalciferol (vitamin D3) 125 125 mcg PO DAILY #90 caps 12/16/22 mcg (5,000 unit) capsule insulin syringe-needle U-100 0.5 #200 ea 02/23/23 mL 30 gauge x 1/2" (BD Insulin Syringe Ultra-Fine) amlodipine 5 mg tablet (Norvasc) 5 mg PO DAILY PRN hypertension #90 05/18/23 tabs atorvastatin 40 mg tablet 40 mg PO QPM #90 tabs 12/27/23 ciclopirox 0.77 % topical cream 1 applic topical BID PRN other #90 12/27/23 grams hydrocolloid dressing 2 1/2" X 2 #5 ea 01/05/24 1/2" (DuoDERM CGF Adhesive Border Dressing) carvedilol 25 mg tablet (Coreg) 25 mg PO BID #180 tabs 02/24/24 triamcinolone acetonide 0.1 % 1 applic topical BID #453.6 grams 04/23/24 topical ointment miscellaneous medical supply #50 mL 05/02/24 amiodarone 400 mg tablet 400 mg PO DAILY #90 tabs 05/22/24 mupirocin 2 % topical ointment 1 applic topical TID #22 grams 10/05/24 metformin 500 mg tablet,extended 500 mg PO QPM #90 tabs 10/23/24 release 24 hr mirtazapine 15 mg tablet 15 mg PO DAILY #90 tabs 11/21/24 blood sugar diagnostic (OneTouch #100 ea 12/11/24 Ultra Test strips) insulin aspart U-100 100 unit/mL 50 unit (0.5 mL) subcut .COMPLEX 12/11/24 subcutaneous solution (Novolog 90 days #10 mL U-100 Insulin aspart) clotrimazole 1 % topical cream 1 applic topical BID #45 grams 12/24/24 pantoprazole 40 mg tablet,delayed See Rx Instructions .Route 12/26/24 release .COMPLEX #90 tabs lorazepam 1 mg tablet 1 mg PO TID PRN anxiety #90 tabs 01/02/25 sacubitril 49 mg-valsartan 51 mg 1 tab PO BID #180 tabs 01/02/25 tablet (Entresto) Results & Data (ED) Vital Signs Vital Signs - 24 hr 01/31/25 19:59 01/31/25 20:20 01/31/25 20:20 Temperature 35.8 C L Temperature Source Temporal Artery Scan Pulse Rate 131 H Pulse Rate [Apical] Pulse Rhythm Regular Pulse Rhythm [Apical] Pulse Strength Normal Pulse Strength [Apical] Respiratory Rate 18 Respiratory Effort / Characteristics Non-Labored Spontaneous Non-Labored Spontaneous Short of Breath Respiratory Depth Normal Respiratory Pattern Regular Blood Pressure 204/161 H Blood Pressure [Right Arm] Blood Pressure Mean 175 Blood Pressure Mean [Right Arm] Blood Pressure Position Sitting Blood Pressure Position [Right Arm] Pulse Oximetry 92 84 L Oxygen Delivery Method Room Air Nasal Cannula Nasal Cannula Oxygen Flow Rate 4 0 Sepsis Recent Fever Within 48 Hours No Sepsis New/Unexplained Change in Mental Status N/A Sepsis Action Taken by Nursing Physician Notified Oxygen Flow Rate - Titration 4 Pulse Oximetry Post Tiitration 92 01/31/25 20:20 01/31/25 20:20 01/31/25 20:29 Temperature Temperature Source Pulse Rate 58 L 57 L Pulse Rate [Apical] 57 L Pulse Rhythm Regular Pulse Rhythm [Apical] Regular Pulse Strength Pulse Strength [Apical] Normal Respiratory Rate 20 20 Respiratory Effort / Characteristics Non-Labored Spontaneous Respiratory Depth Normal Respiratory Pattern Regular Blood Pressure Blood Pressure [Right Arm] 156/78 H Blood Pressure Mean Blood Pressure Mean [Right Arm] 104 Blood Pressure Position Blood Pressure Position [Right Arm] Lying Pulse Oximetry 93 93 Oxygen Delivery Method Room Air Nasal Cannula Oxygen Flow Rate 4 Sepsis Recent Fever Within 48 Hours Sepsis New/Unexplained Change in Mental Status Sepsis Action Taken by Nursing Oxygen Flow Rate - Titration Pulse Oximetry Post Tiitration 01/31/25 20:40 01/31/25 22:00 Temperature Temperature Source Pulse Rate Pulse Rate [Apical] 55 L 52 L Pulse Rhythm Pulse Rhythm [Apical] Regular Pulse Strength Pulse Strength [Apical] Normal Respiratory Rate 24 16 Respiratory Effort / Characteristics Non-Labored Spontaneous Respiratory Depth Normal Respiratory Pattern Regular Blood Pressure Blood Pressure [Right Arm] 174/89 H 164/87 H Blood Pressure Mean Blood Pressure Mean [Right Arm] 117 112 Blood Pressure Position Blood Pressure Position [Right Arm] Lying Pulse Oximetry 96 93 Oxygen Delivery Method Nebulizer Nasal Cannula Oxygen Flow Rate 4 Sepsis Recent Fever Within 48 Hours Sepsis New/Unexplained Change in Mental Status Sepsis Action Taken by Nursing Oxygen Flow Rate - Titration Pulse Oximetry Post Tiitration Home Medications Current Medication List: was personally reviewed by me Laboratory Data Attestation: I reviewed the patient's lab results. 01/31/25 20:15 01/31/25 20:15 Lab Results 01/31/25 01/31/25 01/31/25 Range/Units 20:15 20:29 20:35 WBC 5.93 (4.8-10.8) K/ul RBC 4.53 L (4.70-6.10) M/uL Hgb 13.8 L (14.0-18.0) g/dl Hct 40.0 L (42.0-52.0) % MCV 88.3 (80.0-100.0) fL MCH 30.5 (25.0-34.0) pg MCHC 34.5 (32.0-36.0) g/dL RDW Std Deviation 41.1 (36.4-46.3) fL RDW Coeff of Jefry 12.6 (11.5-14.5) % Plt Count 311 (130-400) K/uL MPV 9.4 (9.4-12.4) fL Immature Gran % (Auto) 0.5 % Neut % (Auto) 67.4 % Lymph % (Auto) 17.2 % Gillespie % (Auto) 10.3 % Eos % (Auto) 3.9 % Baso % (Auto) 0.7 % Neut # (Auto) 4.00 (1.40-6.50) K/uL Lymph # (Auto) 1.02 L (1.20-3.40) K/uL Gillespie # (Auto) 0.61 H (0.11-0.59) K/uL Eos # (Auto) 0.23 (0.00-0.50) K/uL Baso # (Auto) 0.04 (0.00-0.20) K/uL Immature Gran # (Auto) 0.03 (0.01-0.20) K/uL Sodium 128 L (136-145) mmol/L Potassium 4.1 (3.5-5.1) mmol/L Chloride 94 L (98-107) mmol/L Carbon Dioxide 26 (21-32) mmol/L Anion Gap 8 (3-11) BUN 13 (6-23) mg/dl Creatinine 0.86 (0.6-1.4) mg/dl Est Cr Clr Drug Dosing 81.8 ml/min eGFR 85.91 BUN/Creatinine Ratio 15.1 (10-20) Glucose 243 H (70-99(Fasting)) mg/dl Lactate 1.8 (0.4-2.0) mmol/L Calcium 9.1 (8.6-10.3) mg/dl Magnesium 1.8 (1.7-2.4) mg/dl Total Bilirubin 0.9 (0.2-1.0) mg/dl AST 49 H (13-39) U/L ALT 73 H (7-52) U/L Alkaline Phosphatase 98 (34-104) U/L Troponin I High Sens 22.2 H (0-20) pg/ml B-Natriuretic Peptide 1827 H (0-100) pg/ml Total Protein 7.4 (6.0-8.3) gm/dl Albumin 4.0 (3.4-5.0) gm/dl Globulin 3.4 (2.5-4.0) gm/dl Albumin/Globulin Ratio 1.2 (0.9-2) TSH 2.260 (0.300-4.500) uIu/ml Adenovirus (PCR) Not Detected (NotDetected) B. pertussis DNA (PCR) Not Detected (NotDetected) B.parapertussis DNA PCR Not Detected (NotDetected) C. pneumoniae DNA (PCR) Not Detected (NotDetected) Coronavirus OC43 (PCR) Not Detected (NotDetected) Coronavirus HKU1 (PCR) Not Detected (NotDetected) Coronavirus 229E (PCR) Not Detected (NotDetected) SARS-CoV-2 (PCR) Not Detected (NotDetected) Coronavirus NL63 (PCR) Not Detected (NotDetected) Human Metapneumovir PCR Not Detected (NotDetected) Influenza Type A (PCR) Not Detected (NotDetected) Influenza Type B (PCR) Not Detected (NotDetected) M. pneumoniae (PCR) Not Detected (NotDetected) Parainfluenza 1 (PCR) Not Detected (NotDetected) Parainfluenza 2 (PCR) Not Detected (NotDetected) Parainfluenza 3 (PCR) Not Detected (NotDetected) Parainfluenza 4 (PCR) Not Detected (NotDetected) RSV (PCR) Not Detected (NotDetected) Entero/Rhino (PCR) DETECTED A (NotDetected) 01/31/25 Range/Units 22:23 WBC (4.8-10.8) K/ul RBC (4.70-6.10) M/uL Hgb (14.0-18.0) g/dl Hct (42.0-52.0) % MCV (80.0-100.0) fL MCH (25.0-34.0) pg MCHC (32.0-36.0) g/dL RDW Std Deviation (36.4-46.3) fL RDW Coeff of Jefry (11.5-14.5) % Plt Count (130-400) K/uL MPV (9.4-12.4) fL Immature Gran % (Auto) % Neut % (Auto) % Lymph % (Auto) % Gillespie % (Auto) % Eos % (Auto) % Baso % (Auto) % Neut # (Auto) (1.40-6.50) K/uL Lymph # (Auto) (1.20-3.40) K/uL Gillespie # (Auto) (0.11-0.59) K/uL Eos # (Auto) (0.00-0.50) K/uL Baso # (Auto) (0.00-0.20) K/uL Immature Gran # (Auto) (0.01-0.20) K/uL Sodium (136-145) mmol/L Potassium (3.5-5.1) mmol/L Chloride (98-107) mmol/L Carbon Dioxide (21-32) mmol/L Anion Gap (3-11) BUN (6-23) mg/dl Creatinine (0.6-1.4) mg/dl Est Cr Clr Drug Dosing ml/min eGFR BUN/Creatinine Ratio (10-20) Glucose (70-99(Fasting)) mg/dl Lactate (0.4-2.0) mmol/L Calcium (8.6-10.3) mg/dl Magnesium (1.7-2.4) mg/dl Total Bilirubin (0.2-1.0) mg/dl AST (13-39) U/L ALT (7-52) U/L Alkaline Phosphatase (34-104) U/L Troponin I High Sens 25.3 H (0-20) pg/ml B-Natriuretic Peptide (0-100) pg/ml Total Protein (6.0-8.3) gm/dl Albumin (3.4-5.0) gm/dl Globulin (2.5-4.0) gm/dl Albumin/Globulin Ratio (0.9-2) TSH (0.300-4.500) uIu/ml Adenovirus (PCR) (NotDetected) B. pertussis DNA (PCR) (NotDetected) B.parapertussis DNA PCR (NotDetected) C. pneumoniae DNA (PCR) (NotDetected) Coronavirus OC43 (PCR) (NotDetected) Coronavirus HKU1 (PCR) (NotDetected) Coronavirus 229E (PCR) (NotDetected) SARS-CoV-2 (PCR) (NotDetected) Coronavirus NL63 (PCR) (NotDetected) Human Metapneumovir PCR (NotDetected) Influenza Type A (PCR) (NotDetected) Influenza Type B (PCR) (NotDetected) M. pneumoniae (PCR) (NotDetected) Parainfluenza 1 (PCR) (NotDetected) Parainfluenza 2 (PCR) (NotDetected) Parainfluenza 3 (PCR) (NotDetected) Parainfluenza 4 (PCR) (NotDetected) RSV (PCR) (NotDetected) Entero/Rhino (PCR) (NotDetected) Administered Medications Discontinued Medications Albuterol (Albut/Ipratrop 3mg/0.5mg Neb 3 Ml Vial) 3 ml NEB NOW STA; Protocol Stop: 01/31/25 20:27 Last Admin: 01/31/25 20:32 Dose: 3 ml Documented By: ASW Ceftriaxone Sodium (Rocephin) 2,000 mg in 50 mls @ 100 mls/hr IV NOW STA Stop: 01/31/25 20:55 Last Infusion: 01/31/25 22:47 Dose: Infused Documented By: Admin: 01/31/25 20:40 Dose: 100 mls/hr Documented By: ASW Methylprednisolone (Methylprednisolone 125 Mg/2 Ml Vial) 60 mg IV NOW STA Stop: 01/31/25 20:27 Last Admin: 01/31/25 20:32 Dose: 60 mg Documented By: ASW Imaging Data Radiologist's Impression: Chest X-Ray 01/31/25 20:12 Exam(s): XR CXR 1 VIEW EXAM: XR Chest, 1 View CLINICAL HISTORY: Reason for exam: weakness. TECHNIQUE: Frontal view of the chest. COMPARISON: 10/05/2021 FINDINGS: Lungs: Hazy and streaky increased densities in the perihilar regions and lung bases bilaterally, new since previous. No consolidation. Pleural space: Unremarkable. No pneumothorax. Heart: Unremarkable. No cardiomegaly. Mediastinum: Unremarkable. Normal mediastinal contour. Bones/joints: Mild osteophytosis in the lower thoracic spine. No acute fracture. Tubes, lines and devices: There is a pacing/defibrillating device on the left with the bipolar lead running through the right side of the heart. IMPRESSION: 1. Hazy and streaky increased densities in the perihilar regions and lung bases bilaterally, new since previous. Consider pulmonary edema versus pneumonia. 2. There is a pacing/defibrillating device on the left with the bipolar lead running through the right side of the heart. Electronically signed by: Heber Morales MD 01/31/25 20:50 PM Discharge Plan Visit Data Chief Complaint: Cardiac Assessment Stated Complaint: WEAK AND HEART HAS PACE MAKER ED Provider: Cahitanya Arevalo Discharge Problem: Hypoxia, SOB (shortness of breath), Cough, Elevated brain natriuretic peptide (BNP) level, Elevated troponin, Hyponatremia, Rhinovirus infection Patient Disposition: Admitted As Inpatient Condition: Serious Forms Stand Alone Forms: My [facility] [employer] Prescriptions Prescriptions: No Action amlodipine [Norvasc] 5 mg tablet 5 mg PO DAILY PRN (Reason: hypertension) Qty: 90 3RF Hold Instructions: Not taking because not need low BP in evening. atorvastatin 40 mg tablet 40 mg PO QPM Qty: 90 3RF ciclopirox 0.77 % cream 1 applic topical BID PRN (Reason: other) Qty: 90 3RF carvedilol [Coreg] 25 mg tablet 25 mg PO BID Qty: 180 3RF metformin 500 mg tablet extended release 24 hr 500 mg PO QPM Qty: 90 3RF mirtazapine 15 mg tablet 15 mg PO DAILY Qty: 90 1RF clotrimazole 1 % cream 1 applic topical BID Qty: 45 0RF Rx Instructions: Apply to rash of buttocks twice daily as directed. pantoprazole 40 mg tablet,delayed release (DR/EC) See Rx Instructions .ROUTE .COMPLEX Qty: 90 2RF Dose Instruction: TAKE 1 TABLET BY MOUTH EVERY DAY Rx Instructions: TAKE 1 TABLET BY MOUTH EVERY DAY Entresto 49-51 mg tablet 1 tab PO BID Qty: 180 3RF lorazepam 1 mg tablet 1 mg PO TID PRN (Reason: anxiety) Qty: 90 0RF (DME) insulin syringe-needle U-100 [BD Insulin Syringe Ultra-Fine] 0.5 mL 30 gauge x 1/2" syringe See Rx Instructions .Route Qty: 200 11RF Rx Instructions: use at breakfast, lunch, supper, and bedtime (DME) lancets [[employer] Lancets] 33 gauge misc See Rx Instructions .ROUTE .MEDSUPPLY Qty: 100 Rx Instructions: testing 2 X daily cholecalciferol (vitamin D3) 125 mcg (5,000 unit) capsule 125 mcg PO DAILY Qty: 90 1RF (DME) miscellaneous medical supply Liquid See Rx Instructions .MEDSUPPLY Qty: 50 6RF Rx Instructions: amiodarone 20 mg/ml, 5 ml daily (DME) Dexcom G7 Sensor Device See Rx Instructions .Route Rx Instructions: As directed triamcinolone acetonide 0.1 % ointment 1 applic topical BID Qty: 453.6 1RF aspirin 325 mg tablet 325 mg PO DAILY Novolin N FlexPen 100 unit/mL (3 mL) insulin pen 45 unit subcut QPM insulin aspart U-100 [Novolog U-100 Insulin aspart] 100 unit/mL solution 50 unit SUBCUT .COMPLEX 90 Days Qty: 10 3RF Rx Instructions: 50 units subcutaneously inject per sliding scale up to 50 units daily; (DME) OneTouch Ultra Test Strip See Rx Instructions .Route Qty: 100 11RF Rx Instructions: Test three times a day (DME) DuoDERM CGF Border Dressing 2 1/2 X 2 1/2 " bandage See Rx Instructions .Route Qty: 5 3RF Rx Instructions: As directed amiodarone 400 mg tablet 400 mg PO DAILY Qty: 90 3RF mupirocin 2 % ointment 1 applic topical TID Qty: 22 2RF cyanocobalamin (vitamin B-12) [Vitamin B-12] 500 mcg tablet 500 mcg PO QPM Centrum Silver Men 300-600-300 mcg tablet 1 tab PO QPM Referrals Referrals: Miguel Mares MD [Primary Care Provider] - Discharge Problem: Cough Qualifiers: Cough type: acute Qualified Code(s): R05.1 - Acute cough
[2025-01-31] MEDS: cefTRIAXone SODIUM 2,000 MG/50 ML BAG IV STA (20:40)
[2025-01-31 20:43] LABS: Alanine Aminotransferase 73.0 U/L (7-52); Albumin Globulin Ratio 1.2 (0.9-2); Albumin Level 4.0 gm/dl (3.4-5.0); Alkaline Phosphatase 98.0 U/L (34-104); Anion Gap 8.0 (3-11); Bilirubin,Total 0.9 mg/dl (0.2-1.0); Blood Urea Nitrogen 13.0 mg/dl (6-23); Calcium 9.1 mg/dl (8.6-10.3); Carbon Dioxide 26.0 mmol/L (21-32); Chloride 94.0 mmol/L (98-107); Creatinine Clr Calc Pharmacy 81.8 ml/min; Globulin 3.4 gm/dl (2.5-4.0); Glucose 243.0 mg/dl (70-99(Fasting)); Magnesium 1.8 mg/dl (1.7-2.4); Potassium 4.1 mmol/L (3.5-5.1); Sodium 128.0 mmol/L (136-145); Total Protein 7.4 gm/dl (6.0-8.3)
[2025-01-31 20:49] LABS: Hematocrit (blood only) 40.0 % (42.0-52.0); Hemoglobin 13.8 g/dl (14.0-18.0); Immature Granulocytes # (auto) 0.03 K/uL (0.01-0.20); Immature Granulocytes % (auto) 0.5 %; Mean Corpuscular Hemoglobin 30.5 pg (25.0-34.0); Mean Corpuscular Volume 88.3 fL (80.0-100.0); Platelet Count 311 K/uL (130-400); RDW Standard Deviation 41.1 fL (36.4-46.3); Red Blood Count 4.53 M/uL (4.70-6.10); White Blood Count 5.93 K/ul (4.8-10.8)
--- NOTE | 2025-01-31 20:51 | XRay Report ---
Exam(s): XR CXR 1 VIEW EXAM: XR Chest, 1 View CLINICAL HISTORY: Reason for exam: weakness. TECHNIQUE: Frontal view of the chest. COMPARISON: 10/05/2021 FINDINGS: Lungs: Hazy and streaky increased densities in the perihilar regions and lung bases bilaterally, new since previous. No consolidation. Pleural space: Unremarkable. No pneumothorax. Heart: Unremarkable. No cardiomegaly. Mediastinum: Unremarkable. Normal mediastinal contour. Bones/joints: Mild osteophytosis in the lower thoracic spine. No acute fracture. Tubes, lines and devices: There is a pacing/defibrillating device on the left with the bipolar lead running through the right side of the heart. IMPRESSION: 1. Hazy and streaky increased densities in the perihilar regions and lung bases bilaterally, new since previous. Consider pulmonary edema versus pneumonia. 2. There is a pacing/defibrillating device on the left with the bipolar lead running through the right side of the heart. Electronically signed by: Heber Morales MD 01/31/25 20:50 PM
[2025-01-31 20:59] LABS: Thyroid Stimulating Hormone 2.26 uIu/ml (0.300-4.500)
[2025-01-31 21:11] LABS: Chlamydia pneumoniae PCR Not Detected (NotDetected); Coronavirus 229E PCR Not Detected (NotDetected); Coronavirus CoV-2 (COVID19)PCR Not Detected (NotDetected); Coronavirus HKU1 PCR Not Detected (NotDetected); Coronavirus NL63 PCR Not Detected (NotDetected); Coronavirus OC43PCR Not Detected (NotDetected); Human Metapneumovirus PCR Not Detected (NotDetected); Parainfluenza Virus 1 PCR Not Detected (NotDetected); Parainfluenza Virus 2 PCR Not Detected (NotDetected); Parainfluenza Virus 3 PCR Not Detected (NotDetected); Parainfluenza Virus 4 PCR Not Detected (NotDetected); Respiratory Syncytial VirusPCR Not Detected (NotDetected); Rhinovirus/Enterovirus PCR DETECTED (NotDetected)
[2025-01-31] MEDS: LORazepam 1 MG TAB PO STA (23:45)
--- NOTE | 2025-01-31 23:51 | History & Physical Report ---
Date of Service January 31, 2025 Assessment & Plan (1) Acute respiratory failure with hypoxia: (2) Rhinovirus infection: (3) Secondary bacterial pneumonia: (4) Multifocal pneumonia: Plan The patient is an 84-year-old male with past medical history including mitral regurgitation, diabetic nephropathy, diabetes mellitus type 2, mild nonproliferative diabetic retinopathy, presence of AICD, dyslipidemia, GERD, lymphocytic colitis, IT band syndrome, anxiety, BPH with LUTS, esophageal dysphagia, ischemic cardiomyopathy, CKD stage II, and CAD.The patient is a 21-year-old male with a past medical history significant for alcohol abuse. Workup in the emergency department included laboratories with abnormalities of sodium 128, glucose 243, AST 49, ALT 73, and BNP 1827.. Respiratory BioFire testing was positive for enterovirus/rhinovirus. Chest x-ray suggestive infiltrates in the bilateral lower lobes, right greater than left, suggestive of multifocal pneumonia. Patient with given ceftriaxone 2 g IV, methylprednisolone 60 mg IV, and a DuoNeb treatment by the ED, and was then referred for evaluation for admission. Acute respiratory failure with hypoxia/enterovirus-rhinovirus/secondary bacterial multifocal pneumonia- Pulse ox initially 84% room air, improved to mid 90s following administration of oxygen and titrated to 6 L mask. From the ED received Solu-Medrol 60 mg IV, ceftriaxone 2 g IV, and DuoNeb treatment. Cefepime 2 g IV every 12 hours Azithromycin 500 mg IV every 24 hours DuoNebs every 2 hours as needed Pulmicort Respules 0.5 mg inhaled twice daily Solu-Medrol 40 mg IV every 12 hours Respiratory BioFire testing positive for enterovirus/rhinovirus Droplet precautions MRSA swab ordered and pending The patient symptoms are suggestive of initial viral process such as the enterovirus rhinovirus positivity, which improved for about 24 hours or so, and then acutely worsened, indicating secondary bacterial infection. Diabetes mellitus- Reduce NPH from 45 to 30 units subcu daily Placed on Accu-Cheks with NovoLog SSI Check a hemoglobin A1c CAD/hypertension/ischemic cardiomyopathy/presence of ICD/paroxysmal ventricular tachycardia- Continue amiodarone 400 mg daily, amlodipine 5 mg daily, aspirin 325 mg daily, carvedilol 25 mg p.o. twice daily Last echocardiogram on 12/31/2024 with ejection fraction 25-30% Hyperlipidemia- Continue atorvastatin Check a fasting lipid panel Anxiety- Takes lorazepam 1 mg p.o. 3 times daily on a fairly regular basis Continue mirtazapine Due to a dragon transposition error after initial signing the H&P was subsequently returned to draft and modified to correct erroneous transposition at 7:50 AM 02/01/2025* History of Present Illness Chief Complaint: The patient presents to the emergency department with complaint of feeling generally fatigued, achy, shortness of breath and dyspnea on exertion that began 4 days ago on Tuesday. He reports that the following day Tuesday he was feeling better. Then the next day on Tuesday, he started to feel worse again, worsened when he initially became sick on Tuesday. His symptoms continue to worsen through Tuesday, and presents to the emergency department today with his worse symptoms yet. He denies any recent travels or known sick exposures. His pulse ox was initially 84% on room air, and after titration up to 4 L nasal cannula, and then later 6 L oxy mask, oxygen saturation was in the low 90s. Primary Care Provider: Miguel Mares MD The patient is an 84-year-old male with past medical history including mitral regurgitation, diabetic nephropathy, diabetes mellitus type 2, mild nonproliferative diabetic retinopathy, presence of AICD, dyslipidemia, GERD, lymphocytic colitis, IT band syndrome, anxiety, BPH with LUTS, esophageal dysphagia, ischemic cardiomyopathy, CKD stage II, and CAD. Workup in the emergency department included laboratories with abnormalities of sodium 128, glucose 243, AST 49, ALT 73, and BNP 1827.. Respiratory BioFire testing was positive for enterovirus/rhinovirus. Chest x-ray suggestive infiltrates in the bilateral lower lobes, right greater than left, suggestive of multifocal pneumonia. Patient with given ceftriaxone 2 g IV, methylprednisolone 60 mg IV, and a DuoNeb treatment by the ED, and was then referred for evaluation for admission. Allergies Allergy/AdvReac Type Severity Reaction Status Date / Time amiodarone AdvReac Intermediate rash Verified 02/01/25 01:03 Home Medications Medication Instructions Recorded Confirmed Type cyanocobalamin (vitamin B-12) 500 500 mcg PO QPM 11/21/18 02/01/25 History mcg tablet (Vitamin B-12) [id number] 300 mcg-K 60 1 tab PO QPM 11/21/18 02/01/25 History mcg-lycop 600 mcg-lutein 300 mcg tablet (Centrum Silver Men) lancets 33 gauge (OneTouch Delica #100 ea 07/02/20 01/17/25 History Lancets) cholecalciferol (vitamin D3) 125 125 mcg PO DAILY #90 caps 12/16/22 02/01/25 Rx mcg (5,000 unit) capsule insulin syringe-needle U-100 0.5 #200 ea 02/23/23 01/17/25 Rx mL 30 gauge x 1/2" (BD Insulin Syringe Ultra-Fine) amlodipine 5 mg tablet (Norvasc) 5 mg PO DAILY PRN hypertension #90 05/18/23 02/01/25 Rx tabs aspirin 325 mg tablet 325 mg PO DAILY 08/29/23 02/01/25 History blood-glucose sensor (Dexcom G7 11/15/23 01/17/25 History Sensor device) atorvastatin 40 mg tablet 40 mg PO QPM #90 tabs 12/27/23 02/01/25 Rx ciclopirox 0.77 % topical cream 1 applic topical BID PRN other #90 12/27/23 02/01/25 Rx grams hydrocolloid dressing 2 1/2" X 2 #5 ea 01/05/24 01/17/25 Rx 1/2" (DuoDERM CGF Adhesive Border Dressing) carvedilol 25 mg tablet (Coreg) 25 mg PO BID #180 tabs 02/24/24 02/01/25 Rx miscellaneous medical supply #50 mL 05/02/24 01/17/25 Rx metformin 500 mg tablet,extended 500 mg PO QPM #90 tabs 10/23/24 02/01/25 Rx release 24 hr mirtazapine 15 mg tablet 15 mg PO DAILY #90 tabs 11/21/24 02/01/25 Rx blood sugar diagnostic (OneTouch #100 ea 12/11/24 01/17/25 Rx Ultra Test strips) insulin aspart U-100 100 unit/mL 50 unit (0.5 mL) subcut .COMPLEX 12/11/24 02/01/25 Rx subcutaneous solution (Novolog 90 days #10 mL U-100 Insulin aspart) clotrimazole 1 % topical cream 1 applic topical BID #45 grams 12/24/24 02/01/25 Rx lorazepam 1 mg tablet 1 mg PO TID PRN anxiety #90 tabs 01/02/25 02/01/25 Rx sacubitril 49 mg-valsartan 51 mg 1 tab PO BID #180 tabs 01/02/25 02/01/25 Rx tablet (Entresto) amiodarone 400 mg tablet 400 mg PO QAM 02/01/25 02/01/25 History insulin glargine 100 unit/mL 145 unit subcut HS 02/01/25 02/01/25 History subcutaneous solution (Lantus U-100 Insulin) mupirocin 2 % topical ointment 1 applic topical TID PRN Skin 02/01/25 02/01/25 History Irritation pantoprazole 40 mg tablet,delayed 40 mg PO DAILY 02/01/25 02/01/25 History release triamcinolone acetonide 0.1 % 1 applic topical BID PRN Skin 02/01/25 02/01/25 History topical ointment Irritation Past Med/Surg History Problem List (Updated 02/01/25 @ 03:30 by Justo Mendoza MD) Multifocal pneumonia Acute respiratory failure with hypoxia Secondary bacterial pneumonia Rhinovirus infection (Acute) Hyponatremia (Acute) Elevated troponin (Acute) Elevated brain natriuretic peptide (BNP) level (Acute) Cough (Acute) SOB (shortness of breath) (Acute) Hypoxia (Acute) Mitral regurgitation Diabetic nephropathy associated with type 2 diabetes mellitus Mild nonproliferative diabetic retinopathy associated with type 2 diabetes mellitus AICD (automatic cardioverter/defibrillator) present Diabetic retinopathy mild august 2023 Dyslipidemia Current use of proton pump inhibitor Type 2 diabetes mellitus with neurologic complication, with long-term current use of insulin Vitamin D deficiency Lymphocytic colitis Diarrhea (Acute) Overweight (BMI 25.0-29.9) (Acute) Insomnia (Acute) Inhibited sexual excitement (Acute) IT band syndrome (Acute) Arthralgia (Acute) Adenomatous polyp of colon (Acute) Erectile dysfunction Candidiasis Left rotator cuff tear Numbness and tingling of both feet Pain of right hip Sensorimotor neuropathy (Chronic) Anxiety Albuminuria Proteinuria Diabetic neuropathy SOBOE (shortness of breath on exertion) Low back pain BPH w urinary obs/LUTS Urinary retention History of urinary retention Esophageal dysphagia Greater trochanteric pain syndrome Hyponatremia 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), single, in situ Shortness of breath Fatigue Paroxysmal ventricular tachycardia (Acute) Hiatal hernia (Acute) Hearing loss (Acute) Ischemic cardiomyopathy (Acute) EF 20-25%, improved to 38% 09/2021 per cardio records Chronic kidney disease with active medical management without dialysis, stage 2 (mild) CAD (coronary artery disease) chronic occlusion of RCA per [facility] Medical History History of colon polyps History of panic attacks Pacemaker [employer]- checked remotely from home once per month- last checked by Dr Sung ~6 mos ago (01/27/23) ICD (implantable cardioverter-defibrillator) in place 04/[address] REMY *[employer] Anxiety and depression History of Helicobacter infection Premature ventricular contractions BPH (benign prostatic hyperplasia) GERD (gastroesophageal reflux disease) Diabetes mellitus, type 2 IDDM Skin cancer of forehead squamous cell Migraine Hyperlipidemia Hypertension Myocardial Infarction 04/13/2016 "cardiac arrest"---follows w Dr. 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 History of tooth extraction all teeth History of tonsillectomy History of cardiac cath 04/2016, no stent @ [facility] Family History Father Family history of diabetes mellitus Coronary heart disease Myocardial infarction Grandmother Family history of diabetes mellitus paternal Mother Alcohol abuse Anxiety Breast cancer Grandfather Anxiety Daughter Bipolar disorder Other No family history of adverse response to anesthesia Denies family history of Ovarian cancer Prostate cancer Colorectal cancer Social History Smoking Status: Former smoker Tobacco Type: Cigarettes Age Started Using Tobacco: 23; Age Quit Using Tobacco: 43; packs per day: 1; Second Hand Exposure: No; Do You Dip or Chew Tobacco: No; Tobacco Cessation Education Requested by Patient: No Hx Alcohol Use: Yes Alcohol type: hard liquor Alcohol Intake Frequency: Monthly or Less Hx Substance Use: No Preferred Language: Indonesian Communication Ability: Effective Visual Impairment: No Limitations Hearing Ability: Normal Radio Station Manager Required: No Beliefs That Will Affect Care: None marital status: Current Living Situation: Spouse current occupational status: retired Other Information That Helps Us Care for You: No Feels Safe at Home: Yes Safety Concerns: Feels Safe At This Time Childhood Exposure to Second-Hand Smoke: Yes Diet: regular caffeine: Yes during the past year weight has: remained stable Dental Care, Regularly: Yes Physical Activity Frequency: 3-4 Times per Week Seatbelt Use: always Sunscreen Use: No Assistive Devices: Oxygen - Continuous Review of Systems Review of Systems: The patient denies chest pain, palpitations, lower extremity swelling, sore throat, fevers, chills, sweats, nausea, vomiting, diarrhea , constipation, abdominal pain, pelvic pain, blood in urine or stool, dysuria, urinary frequency or urgency, lightheadedness, dizziness, headache, memory loss, loss of consciousness, rash, abnormal bruising or bleeding, focal weakness, numbness or tingling in arms or legs, generalized arthralgias or myalgias, back or neck pain, or night sweats. The review of systems is otherwise negative other than for that already noted above, and at least 10 systems have been reviewed. Physical Exam Physical Exam: The patient is awake, alert and oriented 3, well developed and well nourished, normocephalic and atraumatic, lying in bed and in no acute distress. HEENT--PERRL, EOMI, mucous membranes and oropharynx dry. Neck--supple. No JVD. No bruits. Thyroid normal, trachea midline, no adenopathy. Heart--normal S1 and S2. No murmurs, rubs or gallops. Lungs--coarse breath sounds at the bases bilaterally, right greater than left. No respiratory distress, no accessory muscle use. Abdomen--normal bowel sounds and soft. Nontender. Nondistended, no hernias or masses, no organomegaly. Extremities--no cyanosis or clubbing. No edema. There are good distal pulses b/l. Dermatologic--normal skin turgor, normal color, no abnormal lymph nodes, no rash. Neurologic--cranial nerves II through XII grossly intact. Rheumatologic--normal range of motion. Psychiatric--normal affect. Results & Data Results & Data Vital Signs (Past 12 Hours) Vital Signs Temp Pulse Pulse Resp BP BP Pulse Ox 01/31/25 22:00 52 L 16 164/87 H 93 10/23/25 20:40 55 L 24 174/89 H 96 01/31/25 20:29 57 L 01/31/25 20:20 58 L 20 93 01/31/25 20:20 57 L 20 156/78 H 93 01/31/25 20:20 84 L 01/31/25 20:20 01/31/25 19:59 35.8 C L 131 H 18 204/161 H 92 O2 Del Method O2 Flow Rate 01/31/25 22:00 Nasal Cannula 4 01/31/25 20:40 Nebulizer 01/31/25 20:29 01/31/25 20:20 Nasal Cannula 4 01/31/25 20:20 Room Air 01/31/25 20:20 Nasal Cannula 0 01/31/25 20:20 Nasal Cannula 4 01/31/25 19:59 Room Air Laboratory Results Laboratory Results WBC 5.93 K/ul (4.8-10.8) 01/31/25 20:15 RBC 4.53 M/uL (4.70-6.10) L 01/31/25 20:15 Hgb 13.8 g/dl (14.0-18.0) L 01/31/25 20:15 Hct 40.0 % (42.0-52.0) L 01/31/25 20:15 MCV 88.3 fL (80.0-100.0) 01/31/25 20:15 MCH 30.5 pg (25.0-34.0) 01/31/25 20:15 MCHC 34.5 g/dL (32.0-36.0) 01/31/25 20:15 RDW Std Deviation 41.1 fL (36.4-46.3) 01/31/25 20:15 RDW Coeff of Jefry 12.6 % (11.5-14.5) 01/31/25 20:15 Plt Count 311 K/uL (130-400) 01/31/25 20:15 MPV 9.4 fL (9.4-12.4) 01/31/25 20:15 Immature Gran % (Auto) 0.5 % 01/31/25 20:15 Neut % (Auto) 67.4 % 01/31/25 20:15 Lymph % (Auto) 17.2 % 01/31/25 20:15 Irion % (Auto) 10.3 % 01/31/25 20:15 Eos % (Auto) 3.9 % 01/31/25 20:15 Baso % (Auto) 0.7 % 01/31/25 20:15 Neut # (Auto) 4.00 K/uL (1.40-6.50) 01/31/25 20:15 Lymph # (Auto) 1.02 K/uL (1.20-3.40) L 01/31/25 20:15 Irion # (Auto) 0.61 K/uL (0.11-0.59) H 01/31/25 20:15 Eos # (Auto) 0.23 K/uL (0.00-0.50) 01/31/25 20:15 Baso # (Auto) 0.04 K/uL (0.00-0.20) 01/31/25 20:15 Immature Gran # (Auto) 0.03 K/uL (0.01-0.20) 01/31/25 20:15 Sodium 128 mmol/L (136-145) L 01/31/25 20:15 Potassium 4.1 mmol/L (3.5-5.1) 01/31/25 20:15 Chloride 94 mmol/L (98-107) L 01/31/25 20:15 Carbon Dioxide 26 mmol/L (21-32) 01/31/25 20:15 Anion Gap 8 (3-11) 01/31/25 20:15 BUN 13 mg/dl (6-23) 01/31/25 20:15 Creatinine 0.86 mg/dl (0.6-1.4) 01/31/25 20:15 Est Cr Clr Drug Dosing 81.8 ml/min 01/31/25 20:15 eGFR 85.91 01/31/25 20:15 BUN/Creatinine Ratio 15.1 (10-20) 01/31/25 20:15 Glucose 243 mg/dl (70-99(Fasting)) H 01/31/25 20:15 POC Glucose 284 mg/dl (70-99) H 02/01/25 01:51 Lactate 1.8 mmol/L (0.4-2.0) 01/31/25 20:29 Calcium 9.1 mg/dl (8.6-10.3) 01/31/25 20:15 Magnesium 1.8 mg/dl (1.7-2.4) 01/31/25 20:15 Total Bilirubin 0.9 mg/dl (0.2-1.0) 01/31/25 20:15 AST 49 U/L (13-39) H 01/31/25 20:15 ALT 73 U/L (7-52) H 01/31/25 20:15 Alkaline Phosphatase 98 U/L (34-104) 01/31/25 20:15 Troponin I High Sens 25.3 pg/ml (0-20) H 01/31/25 22:23 B-Natriuretic Peptide 1827 pg/ml (0-100) H 01/31/25 20:35 Total Protein 7.4 gm/dl (6.0-8.3) 01/31/25 20:15 Albumin 4.0 gm/dl (3.4-5.0) 01/31/25 20:15 Globulin 3.4 gm/dl (2.5-4.0) 01/31/25 20:15 Albumin/Globulin Ratio 1.2 (0.9-2) 01/31/25 20:15 TSH 2.260 uIu/ml (0.300-4.500) 01/31/25 20:15 Urine Color Yellow 01/31/25 23:50 Urine Appearance Clear (Clear) 01/31/25 23:50 Urine pH 6.0 (4.5-7.5) 01/31/25 23:50 Ur Specific [place] 1.015 (1.000-1.030) 01/31/25 23:50 Urine Protein 1+ (Negative) H 01/31/25 23:50 Urine Glucose (UA) 2+ (Negative) H 01/31/25 23:50 Urine Ketones Negative (Negative) 01/31/25 23:50 Urine Blood Negative (Negative) 01/31/25 23:50 Urine Nitrite Negative (Negative) 01/31/25 23:50 Urine Bilirubin Negative (Negative) 01/31/25 23:50 Urine Urobilinogen Negative (Negative) 01/31/25 23:50 Ur Leukocyte Esterase Negative (Negative) 01/31/25 23:50 Urine WBC (Auto) 0-5 /hpf (0-5) 01/31/25 23:50 Urine RBC (Auto) 0-2 /hpf (0-2) 01/31/25 23:50 U Hyaline Cast (Auto) 0-2 /lpf (0-2) 01/31/25 23:50 U Epithel Cells (Auto) 0-2 /hpf (0-2) 01/31/25 23:50 Urine Bacteria (Auto) None Seen (None Seen) 01/31/25 23:50 Urine Comment 01/31/25 23:50 Adenovirus (PCR) Not Detected (NotDetected) 01/31/25 20:15 B. pertussis DNA (PCR) Not Detected (NotDetected) 01/31/25 20:15 B.parapertussis DNA PCR Not Detected (NotDetected) 01/31/25 20:15 C. pneumoniae DNA (PCR) Not Detected (NotDetected) 01/31/25 20:15 Coronavirus OC43 (PCR) Not Detected (NotDetected) 01/31/25 20:15 Coronavirus HKU1 (PCR) Not Detected (NotDetected) 01/31/25 20:15 Coronavirus 229E (PCR) Not Detected (NotDetected) 01/31/25 20:15 SARS-CoV-2 (PCR) Not Detected (NotDetected) 01/31/25 20:15 Coronavirus NL63 (PCR) Not Detected (NotDetected) 01/31/25 20:15 Human Metapneumovir PCR Not Detected (NotDetected) 01/31/25 20:15 Influenza Type A (PCR) Not Detected (NotDetected) 01/31/25 20:15 Influenza Type B (PCR) Not Detected (NotDetected) 01/31/25 20:15 M. pneumoniae (PCR) Not Detected (NotDetected) 01/31/25 20:15 Parainfluenza 1 (PCR) Not Detected (NotDetected) 01/31/25 20:15 Parainfluenza 2 (PCR) Not Detected (NotDetected) 01/31/25 20:15 Parainfluenza 3 (PCR) Not Detected (NotDetected) 01/31/25 20:15 Parainfluenza 4 (PCR) Not Detected (NotDetected) 01/31/25 20:15 RSV (PCR) Not Detected (NotDetected) 01/31/25 20:15 Entero/Rhino (PCR) DETECTED (NotDetected) A 01/31/25 20:15 Impressions Chest X-Ray 01/31/25 20:12 Exam(s): XR CXR 1 VIEW EXAM: XR Chest, 1 View CLINICAL HISTORY: Reason for exam: weakness. TECHNIQUE: Frontal view of the chest. COMPARISON: 10/05/2021 FINDINGS: Lungs: Hazy and streaky increased densities in the perihilar regions and lung bases bilaterally, new since previous. No consolidation. Pleural space: Unremarkable. No pneumothorax. Heart: Unremarkable. No cardiomegaly. Mediastinum: Unremarkable. Normal mediastinal contour. Bones/joints: Mild osteophytosis in the lower thoracic spine. No acute fracture. Tubes, lines and devices: There is a pacing/defibrillating device on the left with the bipolar lead running through the right side of the heart. IMPRESSION: 1. Hazy and streaky increased densities in the perihilar regions and lung bases bilaterally, new since previous. Consider pulmonary edema versus pneumonia. 2. There is a pacing/defibrillating device on the left with the bipolar lead running through the right side of the heart. Electronically signed by: Heber Morales MD 01/31/25 20:50 PM Code Status & VTE Plan Code Status Full code VTE Prophylaxis Plan VTE Prophylaxis will be ordered: Yes PG Care Time/CCT Total # of Minutes Spent Total Time Spent with Patient: Total time spent is greater than 50% in coordination of care (as documented) at patient's floor/unit and/or counseling patient: Coding Level of Care Code 23485 INT INP/OBS CARE 3/75MIN Diagnoses Acute respiratory failure with hypoxia J96.01 Rhinovirus infection B34.8 Secondary bacterial pneumonia J15.9 Multifocal pneumonia J18.8
[2025-01-31] MEDS: CHOLECALCIFEROL 25 MCG (1000 UNITS) TAB PO STA (23:56)
[2025-01-31] MEDS: MIRTAZAPINE TAB 15 MG TAB PO ONE (23:57)
[2025-01-31] MEDS: VALSARTAN/SACUBITRIL 51/49 MG TAB PO STA (23:57)
[2025-02-01 00:07] LABS: Appearance Urine Clear (Clear); Bacteria Urine Automated None Seen (None Seen); Cast Urine Automated 0-2 /lpf (0-2); Epithelial Cell Urine Auto 0-2 /hpf (0-2); Glucose Urine UA 2+ (Negative); RBC Urine Automated 0-2 /hpf (0-2); WBC Urine Automated 0-5 /hpf (0-5)
[2025-02-01] MEDS: AZITHROMYCIN 500 MG/255 ML BAG IV SCH (00:35)
[2025-02-01] MEDS ORDERED: CARBOHYDRATES FOR HYPOGLYCEMIA PO PRN ×2 (01:59→09:04)
[2025-02-01] MEDS ORDERED: DEXTROSE 50% 50 ML SYRINGE IV PRN ×2 (01:59→09:04)
[2025-02-01] MEDS ORDERED: GLUCOSE 10 TAB/TUBE PO PRN ×2 (01:59→09:04)
[2025-02-01] MEDS ORDERED: GLUCAGON FOR INJ 1 MG VIAL SQ PRN ×2 (01:59→09:04)
[2025-02-01] MEDS ORDERED: GLUCOSE 40% GEL 15 GM TUBE PO PRN ×2 (01:59→09:04)
[2025-02-01] MEDS: LORazepam 1 MG TAB PO PRN (03:00)
[2025-02-01] MEDS ORDERED: PNEUMOCOCCAL VACCINE (PCV20) 20-VAL CONJ-DIP CRM/PF 0.5 ML SYR IM ONE (03:09)
[2025-02-01 06:00] LABS: Hematocrit (blood only) 36.4 % (42.0-52.0); Hemoglobin 12.8 g/dl (14.0-18.0); Mean Corpuscular Hemoglobin 30.7 pg (25.0-34.0); Mean Corpuscular Volume 87.3 fL (80.0-100.0); Platelet Count 262 K/uL (130-400); RDW Standard Deviation 39.9 fL (36.4-46.3); Red Blood Count 4.17 M/uL (4.70-6.10); White Blood Count 5.07 K/ul (4.8-10.8)
[2025-02-01 06:17] LABS: Immature Granulocytes # (auto) 0.04 K/uL (0.01-0.20); Immature Granulocytes % (auto) 0.8 %
[2025-02-01 06:20] LABS: Alanine Aminotransferase 66.0 U/L (7-52); Albumin Globulin Ratio 1.0 (0.9-2); Albumin Level 3.4 gm/dl (3.4-5.0); Alkaline Phosphatase 80.0 U/L (34-104); Anion Gap 10.0 (3-11); Bilirubin,Total 0.8 mg/dl (0.2-1.0); Blood Urea Nitrogen 13.0 mg/dl (6-23); Calcium 8.5 mg/dl (8.6-10.3); Carbon Dioxide 23.0 mmol/L (21-32); Chloride 94.0 mmol/L (98-107); Creatinine Clr Calc Pharmacy 89.0 ml/min; Globulin 3.3 gm/dl (2.5-4.0); Glucose 321.0 mg/dl (70-99(Fasting)); Magnesium 1.8 mg/dl (1.7-2.4); Potassium 4.2 mmol/L (3.5-5.1); Sodium 127.0 mmol/L (136-145); Total Protein 6.7 gm/dl (6.0-8.3)
[2025-02-01] MEDS: BUDESONIDE 0.5 MG/2 ML VIAL (PULMICORT) NEB SCH (07:11)
[2025-02-01 07:39] LABS: Hemoglobin A1C 9.0 % (4.5-5.6)
--- NOTE | 2025-02-01 08:03 | Hospitalist Progress Note ---
Date of Service February 01, 2025 Assessment & Plan (1) Acute respiratory failure with hypoxia: (2) Rhinovirus infection: (3) Secondary bacterial pneumonia: (4) Multifocal pneumonia: Plan The patient is an 84-year-old male with past medical history including mitral regurgitation, diabetic nephropathy, diabetes mellitus type 2, mild nonproliferative diabetic retinopathy, presence of AICD, dyslipidemia, GERD, lymphocytic colitis, IT band syndrome, anxiety, BPH with LUTS, esophageal dysphagia, ischemic cardiomyopathy, CKD stage II, and CAD.The patient is a 21-year-old male with a past medical history significant for alcohol abuse. Workup in the emergency department included laboratories with abnormalities of sodium 128, glucose 243, AST 49, ALT 73, and BNP 1827.. Respiratory BioFire testing was positive for enterovirus/rhinovirus. Chest x-ray suggestive infiltrates in the bilateral lower lobes, right greater than left, suggestive of multifocal pneumonia. Patient with given ceftriaxone 2 g IV, methylprednisolone 60 mg IV, and a DuoNeb treatment by the ED, and was then referred for evaluation for admission. Acute respiratory failure with hypoxia/enterovirus-rhinovirus/secondary bacterial multifocal pneumonia- Tight oxygen to goal SpO2 greater than 90%, currently requiring 6 L of oxygen Received Solu-Medrol 60 mg IV, Rocephin, nebs in the ER Continue cefepime 2 g IV every 12 hours, and azithromycin 500 mg IV every 24 hours DuoNebs as needed Pulmicort twice daily Solu-Medrol 40 mg IV twice daily, wean to daily as tolerated and as wheezing improves BioFire positive for entero-/rhinovirus, with additional suspected secondary pneumonia based on progression MRSA nare pending. If positive can switch azithromycin to doxycycline and consider vancomycin therapy while inpatient if not clinically progressing Diabetes mellitus- clarified with patient he takes at 145 units of glargine at night at home, did not take any long-acting insulin last night or this morning. He only uses around 10-15 units of mealtime insulin around twice a day Goal BSG [id number] Hyperglycemic this morning, recalculated basal bolus requirements based on total daily dose and discontinued NPH CAD/hypertension/ischemic cardiomyopathy/presence of ICD/paroxysmal ventricular tachycardia- - Continue amiodarone 400 mg daily, amlodipine 5 mg daily, aspirin 325 mg daily, carvedilol 25 mg p.o. twice daily TTE 12/31/2024: LVEF 25-30%. Moderate global hypokinesis of the left ventricle. Inferior akinesis noted Historical dry weight on review approximately 96-99 kg. More recently has been as high as 102 kg Admitting weight 102.3 kg BNP 182, mild troponin elevation, minimal transaminitis Pneumonia versus some congestion on x-ray Suspect multifactorial respiratory failure predominantly from rhino/enterovirus with superimposed bacterial pneumonia, however is also likely with volume overload at risk of additional third spacing due to his infection BP is elevated Will add Lasix 20 mg IV twice daily, titrate to around net 1 L negative per day and hold for hypotension. Creatinine is at baseline at time of Lasix initiation Hyperlipidemia- Continue atorvastatin Anxiety- Takes lorazepam 1 mg p.o. 3 times daily on a fairly regular basis Continue mirtazapine Admission and Anticipated Discharge Date Admission Date: January 31, 2025 Subjective Seen the bedside. Wheezing greatly improved although not completely resolved this morning. He does not use oxygen at home. He is currently on 6 L but is not short of breath. He thinks laying back may make him a little more short of breath. No chest pain or chest pressure. No fevers chills this morning. He does confirm that he uses 145 units of Lantus but only 10-15 units of mealtime insulin twice daily. He did not receive any long-acting insulin last night or this morning Physical Exam Physical Exam: General: A&Ox3. NAD. Cooperative. HEENT: Atraumatic, normocephalic. Vision and hearing grossly intact Pulm: Diminished, bibasilar crackles, scattered slight expiratory wheezes. symmetrical chest rise. No increased work of breathing. No respiratory distress. Cardiac: RRR, -mrg. Radial pulses intact and symmetrical. Abdominal: Nontender, nondistended, soft. BS present. Extremities: Warm, dry. 1+ ankle edema Results & Data Results & Data Vital Signs (Past 12 Hours) Vital Signs Temp Pulse Pulse Resp BP BP Pulse Ox 02/01/25 07:13 58 L 20 91 02/01/25 04:30 36.6 C 54 L 20 149/62 H 92 02/01/25 03:09 02/01/25 02:21 68 02/01/25 01:59 36.5 C 63 24 163/81 H 91 02/01/25 00:59 36.6 C 65 22 173/91 H 94 02/01/25 00:18 61 02/01/25 00:17 61 20 173/89 H 94 01/31/25 23:00 63 19 191/110 H 90 01/31/25 22:00 52 L 16 164/87 H 93 01/31/25 20:40 55 L 24 174/89 H 96 01/31/25 20:29 57 L 01/31/25 20:20 58 L 20 93 01/31/25 20:20 57 L 20 156/78 H 93 01/31/25 20:20 84 L 01/31/25 20:20 01/31/25 19:59 35.8 C L 131 H 18 204/161 H 92 O2 Del Method O2 Flow Rate 02/01/25 07:13 Oxymask 6 02/01/25 04:30 Room Air, Oxymask 5 02/01/25 03:09 Oxymask 6 02/01/25 02:21 02/01/25 01:59 Oxymask 6 02/01/25 00:59 Oxymask 4 02/01/25 00:18 02/01/25 00:17 Oxymask 4 01/31/25 23:00 Nasal Cannula 4 01/31/25 22:00 Nasal Cannula 4 01/31/25 20:40 Nebulizer 01/31/25 20:29 01/31/25 20:20 Nasal Cannula 4 01/31/25 20:20 Room Air 01/31/25 20:20 Nasal Cannula 0 01/31/25 20:20 Nasal Cannula 4 01/31/25 19:59 Room Air PG Care Time/CCT Total # of Minutes Spent Total Time Spent with Patient: Total time spent is greater than 50% in coordination of care (as documented) at patient's floor/unit and/or counseling patient: Coding Level of Care Code 57730 SUB INP/OBS CARE 3/50MIN Diagnoses Acute respiratory failure with hypoxia J96.01 Rhinovirus infection B34.8 Secondary bacterial pneumonia J15.9 Multifocal pneumonia J18.8
[2025-02-01] MEDS: CEFEPIME 2000MG 2,000 MG/20 ML SYR IV SCH (08:18)
[2025-02-01] MEDS: VALSARTAN/SACUBITRIL 51/49 MG TAB PO SCH (08:19)
[2025-02-01] MEDS: CHOLECALCIFEROL 125 MCG (5,000 UNITS) TAB PO SCH (08:19)
[2025-02-01] MEDS: ASPIRIN 325 MG ECTAB PO SCH (08:19)
[2025-02-01] MEDS: TRIAMCINOLONE ACET 0.1% OINT 15 GM TUBE TOP SCH (08:20)
[2025-02-01] MEDS: CLOTRIMAZOLE 1% CR 15 GM TUBE TOP SCH (08:20)
[2025-02-01] MEDS: AMIODARONE 200 MG TAB PO SCH (08:24)
[2025-02-01] MEDS: INSULIN ASPART PER UNIT CHARGE SC SCH ×2 (09:11→12:42)
[2025-02-01] MEDS: LANTUS PER UNIT CHARGE SQ SCH (09:18)
[2025-02-01] MEDS: FUROSEMIDE 40 MG/4 ML VIAL IV SCH (09:18)
[2025-02-01] MEDS: INSULIN ASPART PER UNIT CHARGE SC STA (09:33)
[2025-02-01 12:06] LABS: Polychromasia 1+
[2025-02-01] MEDS: INSULIN HUMAN REGULAR PER UNIT 7 UNITS in SYRINGE 6.93 ML IV STA (12:51)
[2025-02-01] MEDS: ACETAMINOPHEN 325 MG TAB PO PRN (15:14)
[2025-02-01] MEDS: ATORVASTATIN 40 MG TAB PO SCH (19:55)
[2025-02-01] MEDS: MIRTAZAPINE TAB 15 MG TAB PO SCH (19:55)
[2025-02-01] MEDS: MELATONIN 3 MG TAB PO PRN (19:56)
[2025-02-01] MEDS: CYANOCOBALAMIN (B-12) 500 MCG TABLET PO SCH (19:57)
[2025-02-01] MEDS ORDERED: INSULIN HUMAN NPH SQ SCH (21:00)
--- NOTE | 2025-02-01 21:49 | Electrocardiogram Report ---
Test Reason : Blood Pressure : */* mmHG Vent. Rate : 60 BPM Atrial Rate : 60 BPM P-R Int : 276 ms QRS Dur : 164 ms QT Int : 538 ms P-R-T Axes : 49 123 23 degrees QTcB Int : 538 ms Sinus rhythm with 1st degree A-V block Possible Left atrial enlargement Right bundle branch block Abnormal ECG When compared with ECG of 12-Mar-2024 12:45, Premature ventricular complexes are no longer Present Confirmed by Osito Michel ([id number]) on 02/01/2025 9:49:28 PM Referred By: REFERRED SELF Confirmed By: Osito Michel
[2025-02-02 06:39] LABS: Hematocrit (blood only) 35.6 % (42.0-52.0); Hemoglobin 12.2 g/dl (14.0-18.0); Mean Corpuscular Hemoglobin 29.9 pg (25.0-34.0); Mean Corpuscular Volume 87.3 fL (80.0-100.0); Platelet Count 273 K/uL (130-400); RDW Standard Deviation 39.9 fL (36.4-46.3); Red Blood Count 4.08 M/uL (4.70-6.10); White Blood Count 11.05 K/ul (4.8-10.8)
[2025-02-02 06:56] LABS: Alanine Aminotransferase 63.0 U/L (7-52); Albumin Globulin Ratio 1.0 (0.9-2); Albumin Level 3.4 gm/dl (3.4-5.0); Alkaline Phosphatase 73.0 U/L (34-104); Anion Gap 7.0 (3-11); Bilirubin,Total 0.6 mg/dl (0.2-1.0); Blood Urea Nitrogen 25.0 mg/dl (6-23); Calcium 8.8 mg/dl (8.6-10.3); Carbon Dioxide 27.0 mmol/L (21-32); Chloride 95.0 mmol/L (98-107); Creatinine Clr Calc Pharmacy 84.2 ml/min; Globulin 3.3 gm/dl (2.5-4.0); Glucose 296.0 mg/dl (70-99(Fasting)); Magnesium 2.1 mg/dl (1.7-2.4); Potassium 4.4 mmol/L (3.5-5.1); Sodium 129.0 mmol/L (136-145); Total Protein 6.7 gm/dl (6.0-8.3)
[2025-02-02] MEDS: ALBUT/IPRATROP 3MG/0.5MG NEB 3 ML VIAL NEB PRN (06:56)
[2025-02-02 07:02] LABS: Immature Granulocytes # (auto) 0.08 K/uL (0.01-0.20); Immature Granulocytes % (auto) 0.7 %; Ovalocytes 1+
[2025-02-02] MEDS ORDERED: PHARMACY GLYCEMIC MGMT CONSULT PRN (07:57)
--- NOTE | 2025-02-02 08:01 | Hospitalist Progress Note ---
Date of Service February 02, 2025 Assessment & Plan (1) Acute respiratory failure with hypoxia: (2) Rhinovirus infection: (3) Secondary bacterial pneumonia: (4) Multifocal pneumonia: Plan The patient is an 84-year-old male with past medical history including mitral regurgitation, diabetic nephropathy, diabetes mellitus type 2, mild nonproliferative diabetic retinopathy, presence of AICD, dyslipidemia, GERD, lymphocytic colitis, IT band syndrome, anxiety, BPH with LUTS, esophageal dysphagia, ischemic cardiomyopathy, CKD stage II, and CAD.The patient is a 21-year-old male with a past medical history significant for alcohol abuse. Workup in the emergency department included laboratories with abnormalities of sodium 128, glucose 243, AST 49, ALT 73, and BNP 1827.. Respiratory BioFire testing was positive for enterovirus/rhinovirus. Chest x-ray suggestive infiltrates in the bilateral lower lobes, right greater than left, suggestive of multifocal pneumonia. Patient with given ceftriaxone 2 g IV, methylprednisolone 60 mg IV, and a DuoNeb treatment by the ED, and was then referred for evaluation for admission. Acute respiratory failure with hypoxia/enterovirus-rhinovirus/secondary bacterial multifocal pneumonia- Tight oxygen to goal SpO2 greater than 90%, currently requiring 6 L of oxygen Received Solu-Medrol 60 mg IV, Rocephin, nebs in the ER Continue cefepime 2 g IV every 12 hours, and azithromycin 500 mg IV every 24 hours DuoNebs as needed Pulmicort twice daily Continues with significant diffuse wheezes 02/02. Solu-Medrol 40 mg IV twice daily continued, wean deferred due to lack of progression BioFire positive for entero-/rhinovirus, with additional suspected secondary pneumonia MRSA nare [] Diabetes mellitus- following further discussion with peds educator and patient, while he initially reported he was taking 145 units of glargine at home on clarification of volumes and review of med reconciliation he was actually taking 40 units of glargine. Had received 40 units of glargine in the a.m., this was continued as daily rather than twice daily based on updated recs. SSI was appropriate for this basal use however he has still been hyperglycemic so parameters tighten slightly and pharmacy glycemic management consulted. Remains on steroids twice daily Goal BSG 376611 Hyperglycemic this morning, recalculated basal bolus requirements based on total daily dose and discontinued NPH CAD/hypertension/ischemic cardiomyopathy/presence of ICD/paroxysmal ventricular tachycardia- - Continue amiodarone 400 mg daily, amlodipine 5 mg daily, aspirin 325 mg daily, carvedilol 25 mg p.o. twice daily TTE 12/31/2024: LVEF 25-30%. Moderate global hypokinesis of the left ventricle. Inferior akinesis noted Historical dry weight on review approximately 96-99 kg. More recently has been as high as 102 kg Admitting weight 102.3 kg BNP 1827, mild troponin elevation, minimal transaminitis Pneumonia versus some congestion on x-ray Suspect multifactorial respiratory failure predominantly from rhino/enterovirus with superimposed bacterial pneumonia, however is also likely with volume overload at risk of additional third spacing due to his infection BP is elevated 2 L output, net around -900 cc today. Continue Lasix 20 mg twice daily, daily potassium supplementation x 3 while diuresing Hyperlipidemia- Continue atorvastatin Anxiety- Takes lorazepam 1 mg p.o. 3 times daily on a fairly regular basis Continue mirtazapine Admission and Anticipated Discharge Date Admission Date: January 31, 2025 Subjective Seen at the bedside. Continues to have a cough, becoming more productive now and he is able to mobilize sputum. He still feels he is wheezing a lot maybe a little better but still much more than normal. Denies chills/fevers. No chest pain or chest pressure. Reports he has been peeing a lot and thinks his breathing is a little bit. Better than when laying down Physical Exam Physical Exam: General: A&Ox3. NAD. Cooperative. HEENT: Atraumatic, normocephalic. Vision and hearing grossly intact Pulm: Diminished, bibasilar crackles, diffuse expiratory wheezes. symmetrical chest rise. No increased work of breathing. No respiratory distress. Cardiac: RRR, -mrg. Radial pulses intact and symmetrical. Abdominal: Nontender, nondistended, soft. BS present. Extremities: Warm, dry. 1+ ankle edema Results & Data Results & Data Vital Signs (Past 12 Hours) Vital Signs Temp Pulse Pulse Pulse Resp BP Pulse Ox 02/02/25 07:32 36.4 C L 56 L 18 120/62 92 02/02/25 06:57 57 L 20 92 02/02/25 04:05 36.3 C L 53 L 20 124/75 93 02/01/25 23:16 36.4 C L 60 18 141/76 H 94 10/24/25 21:43 59 L 02/01/25 20:00 O2 Del Method O2 Flow Rate 02/02/25 07:32 Nasal Cannula 5 02/02/25 06:57 Nasal Cannula 5 02/02/25 04:05 Nasal Cannula 5 02/01/25 23:16 Nasal Cannula 5 02/01/25 21:43 02/01/25 20:00 Nasal Cannula 5 PG Care Time/CCT Total # of Minutes Spent Total Time Spent with Patient: Total time spent is greater than 50% in coordination of care (as documented) at patient's floor/unit and/or counseling patient: Coding Level of Care Code 13887 SUB INP/OBS CARE 3/50MIN Diagnoses Acute respiratory failure with hypoxia J96.01 Rhinovirus infection B34.8 Secondary bacterial pneumonia J15.9 Multifocal pneumonia J18.8
[2025-02-02] MEDS ORDERED: FUROSEMIDE 40 MG/4 ML VIAL IV SCH (09:00)
[2025-02-02] MEDS ORDERED: LANTUS PER UNIT CHARGE SQ SCH (09:00)
[2025-02-02] MEDS: LANTUS PER UNIT CHARGE SQ ONE (09:20)
[2025-02-02] MEDS: POTASSIUM CHLORIDE CRTAB 20 MEQ TABCR PO SCH (09:20)
[2025-02-02] MEDS: MAGNESIUM HYDROXIDE SUSP 30 ML UDC PO PRN (17:53)
[2025-02-02] MEDS: LANTUS PER UNIT CHARGE SQ SCH (21:00)
[2025-02-02] MEDS: INSULIN ASPART PER UNIT CHARGE SC SCH (23:38)
[2025-02-03 06:26] LABS: Hematocrit (blood only) 35.8 % (42.0-52.0); Hemoglobin 12.4 g/dl (14.0-18.0); Mean Corpuscular Hemoglobin 30.4 pg (25.0-34.0); Mean Corpuscular Volume 87.7 fL (80.0-100.0); Platelet Count 285 K/uL (130-400); RDW Standard Deviation 40.8 fL (36.4-46.3); Red Blood Count 4.08 M/uL (4.70-6.10); White Blood Count 12.35 K/ul (4.8-10.8)
[2025-02-03 06:46] LABS: Alanine Aminotransferase 66.0 U/L (7-52); Albumin Globulin Ratio 1.1 (0.9-2); Albumin Level 3.3 gm/dl (3.4-5.0); Alkaline Phosphatase 67.0 U/L (34-104); Anion Gap 6.0 (3-11); Bilirubin,Total 0.5 mg/dl (0.2-1.0); Blood Urea Nitrogen 33.0 mg/dl (6-23); Calcium 8.6 mg/dl (8.6-10.3); Carbon Dioxide 29.0 mmol/L (21-32); Chloride 97.0 mmol/L (98-107); Creatinine Clr Calc Pharmacy 89.3 ml/min; Globulin 3.1 gm/dl (2.5-4.0); Glucose 174.0 mg/dl (70-99(Fasting)); Magnesium 2.4 mg/dl (1.7-2.4); Potassium 4.8 mmol/L (3.5-5.1); Sodium 132.0 mmol/L (136-145); Total Protein 6.4 gm/dl (6.0-8.3)
[2025-02-03 06:49] LABS: Immature Granulocytes # (auto) 0.11 K/uL (0.01-0.20); Immature Granulocytes % (auto) 0.9 %
[2025-02-03] MEDS: LANTUS PER UNIT CHARGE SQ SCH (08:45)
--- NOTE | 2025-02-03 10:50 | Hospitalist Progress Note ---
Date of Service February 03, 2025 Assessment & Plan (1) Acute respiratory failure with hypoxia: (2) Rhinovirus infection: (3) Secondary bacterial pneumonia: (4) Multifocal pneumonia: Plan The patient is an 84-year-old male with past medical history including mitral regurgitation, diabetic nephropathy, diabetes mellitus type 2, mild nonproliferative diabetic retinopathy, presence of AICD, dyslipidemia, GERD, lymphocytic colitis, IT band syndrome, anxiety, BPH with LUTS, esophageal dysphagia, ischemic cardiomyopathy, CKD stage II, and CAD.The patient is a 21-year-old male with a past medical history significant for alcohol abuse. Workup in the emergency department included laboratories with abnormalities of sodium 128, glucose 243, AST 49, ALT 73, and BNP 1827.. Respiratory BioFire testing was positive for enterovirus/rhinovirus. Chest x-ray suggestive infiltrates in the bilateral lower lobes, right greater than left, suggestive of multifocal pneumonia. Patient with given ceftriaxone 2 g IV, methylprednisolone 60 mg IV, and a DuoNeb treatment by the ED, and was then referred for evaluation for admission. He is progressing w/ tx of PNA and CHF. Acute respiratory failure with hypoxia/enterovirus-rhinovirus/secondary bacterial multifocal pneumonia- Received Solu-Medrol 60 mg IV, Rocephin, nebs in the ER Continue cefepime 2 g IV every 12 hours; azithromycin 500 mg IV x3 doses completed DuoNebs as needed Pulmicort twice daily Wheezing improving 02/03 compared to 02/02, methylpred weaned to daily BioFire positive for entero-/rhinovirus, with additional suspected secondary pneumonia - Oxygen requirement downtrended, no home O2 requirement. Weaned from 5L to 2-3L morning of 02/03. Progressing, not yet at baseline. Diabetes mellitus- following further discussion with DM educator and patient, while he initially reported he was taking 145 units of glargine at home on clarification of volumes and review of med reconciliation he was actually taking 40 units of glargine. Had received 40 units of glargine in the a.m., this was continued as daily rather than twice daily based on updated recs. SSI was appropriate for this basal use however he has still been hyperglycemic so parameters tighten slightly and pharmacy glycemic management consulted. Steroids weaned 02/02. Increased to Glargine 50u, CF 15/CR4 Goal BSG [id number] CAD/hypertension/ischemic cardiomyopathy/presence of ICD/paroxysmal ventricular tachycardia- - Continue amiodarone 400 mg daily, amlodipine 5 mg daily, aspirin 325 mg daily, carvedilol 25 mg p.o. twice daily TTE 12/31/2024: LVEF 25-30%. Moderate global hypokinesis of the left ventricle. Inferior akinesis noted Historical dry weight on review approximately 96-99 kg. More recently has been as high as 102 kg Admitting weight 102.3 kg BNP 1827, mild troponin elevation, minimal transaminitis Pneumonia versus some congestion on x-ray Suspect multifactorial respiratory failure predominantly from rhino/enterovirus with superimposed bacterial pneumonia, however is also likely with volume overload at risk of additional third spacing due to his infection BP is elevated 02/03 24 hr net negative ~855cc. O2 reqs improving. Continue diuresis. Cr stable. Hyperlipidemia- Continue atorvastatin Anxiety- Takes lorazepam 1 mg p.o. 3 times daily on a fairly regular basis Continue mirtazapine Admission and Anticipated Discharge Date Admission Date: January 31, 2025 Subjective Shay reports he is doing well. He feels his breathing is much better compared to yesterday. Less short of breath and wheezing seems to have completely resolved. Does have an intermittent cough. He is still on oxygen, but much less. Does not use oxygen at home. No fevers or chills Physical Exam Physical Exam: General: A&Ox3. NAD. Cooperative. HEENT: Atraumatic, normocephalic. Vision and hearing grossly intact Pulm: Wheezing has resolved on morning assessment. No crackles/rales. no increased work of breathing. No respiratory distress. Cardiac: RRR, -mrg. Radial pulses intact and symmetrical. Abdominal: Nontender, nondistended, soft. BS present. Extremities: Warm, dry. Moves all extremities equally. Trace ankle edema Results & Data Results & Data Vital Signs (Past 12 Hours) Vital Signs Temp Pulse Pulse Resp BP Pulse Ox O2 Del Method 02/03/25 08:18 36.5 C 54 L 18 149/52 H 94 Nasal Cannula 02/03/25 08:00 Nasal Cannula 02/03/25 07:17 61 20 95 Nasal Cannula 02/03/25 07:12 51 L 02/03/25 03:09 36.5 C 50 L 18 112/62 96 Nasal Cannula O2 Flow Rate 02/03/25 08:18 4 02/03/25 08:00 4 02/03/25 07:17 5 02/03/25 07:12 02/03/25 03:09 5 PG Care Time/CCT Total # of Minutes Spent Total Time Spent with Patient: Total time spent is greater than 50% in coordination of care (as documented) at patient's floor/unit and/or counseling patient: Coding Level of Care Code 54082 SUB INP/OBS CARE 3/50MIN Diagnoses Acute respiratory failure with hypoxia J96.01 Rhinovirus infection B34.8 Secondary bacterial pneumonia J15.9 Multifocal pneumonia J18.8
[2025-02-03] MEDS: POLYETHYLENE (MIRALAX) 17 GM PACK PO PRN (12:09)
--- NOTE | 2025-02-03 16:14 | Pharmacy Report ---
Pharmacy Glycemic Short Note 2 - Date of Service February 03, 2025 - Glycemic Short BSG Results (Last 24 hours): 02/02/25 02/02/25 02/02/25 16:32 19:53 23:33 Glucose POC Glucose 209 H 251 H 184 H 02/03/25 05:54 Glucose 174 H POC Glucose OUTPATIENT ANTIDIABETIC REGIMEN: * Lantus 40 units SQ daily * Aspart 10-20 units SQ with meals * Metformin ER 500 mg PO qPM * Above regimen obtained from December DM visit note A1c = 9% ASSESSMENT: * 84 YO T2DM admitted with acute respiratory failure secondary to pneumonia. Severe hyperglycemia likely due to underlying illness and high dose IV steroids. Patient continued on home dose of Lantus 40 units daily on admission. * Jose Roberto received a total of 121 units of SQ insulin yesterday with persistent hyperglycemia, although values are trending down. * Total of 60 units of Lantus on 02/02. Will back off today given methylprednisolone IV has been decreased from BID to daily. * Similarly, will back off Novolog CF/CR starting this evening for same reason. PLAN FOR INPATIENT GLYCEMIC CONTROL: * Hold outpatient oral diabetes medications * Basal insulin * Lantus 50 units SQ daily * Bolus insulin * NovoLog per scale ACHS or Q6hrs while NPO * Goal Range: Low 120 mg/dL - High 160 mg/dL * Correction Factor: 15 mg/dL/unit * Nutritional / Prandial insulin per carb ratio of 1 unit per 3 grams CHO consumed -> loosen to 5 at HS
[2025-02-03] MEDS: INSULIN ASPART PER UNIT CHARGE SC SCH (20:22)
[2025-02-04] MEDS: INSULIN ASPART PER UNIT CHARGE SC SCH (00:04)
[2025-02-04 05:57] LABS: Hematocrit (blood only) 38.8 % (42.0-52.0); Hemoglobin 13.2 g/dl (14.0-18.0); Immature Granulocytes # (auto) 0.13 K/uL (0.01-0.20); Immature Granulocytes % (auto) 0.9 %; Mean Corpuscular Hemoglobin 30.1 pg (25.0-34.0); Mean Corpuscular Volume 88.4 fL (80.0-100.0); Platelet Count 322 K/uL (130-400); RDW Standard Deviation 42.3 fL (36.4-46.3); Red Blood Count 4.39 M/uL (4.70-6.10); White Blood Count 14.16 K/ul (4.8-10.8)
[2025-02-04 06:12] LABS: Anion Gap 6.0 (3-11); Blood Urea Nitrogen 36.0 mg/dl (6-23); Calcium 8.8 mg/dl (8.6-10.3); Carbon Dioxide 28.0 mmol/L (21-32); Chloride 97.0 mmol/L (98-107); Creatinine Clr Calc Pharmacy 74.9 ml/min; Glucose 145.0 mg/dl (70-99(Fasting)); Potassium 4.6 mmol/L (3.5-5.1); Sodium 131.0 mmol/L (136-145)
--- NOTE | 2025-02-04 10:43 | XRay Report ---
XR chest 2V PA/lateral CLINICAL HISTORY: pneumonia COMPARISON STUDY: 01/31/2025 FINDINGS: Stable pacemaker. Stable mild cardiomegaly without pulmonary vascular congestion. Stable hy perexpanded lungs. No consolidation or pleural effusion seen. No pneumothorax. IMPRESSION: No pneumonia seen. ACT 112: Negative or not required by law. Electronically signed by: Ney Cardona M.D. 02/04/2025 10:41 AM
--- NOTE | 2025-02-04 10:44 | Hospitalist Progress Note ---
Date of Service February 04, 2025 Assessment & Plan (1) Acute respiratory failure with hypoxia: (2) Rhinovirus infection: (3) Secondary bacterial pneumonia: (4) Multifocal pneumonia: Plan The patient is an 84-year-old male with past medical history including mitral regurgitation, diabetic nephropathy, diabetes mellitus type 2, mild nonproliferative diabetic retinopathy, presence of AICD, dyslipidemia, GERD, lymphocytic colitis, IT band syndrome, anxiety, BPH with LUTS, esophageal dysphagia, ischemic cardiomyopathy, CKD stage II, and CAD #Acute respiratory failure with hypoxia/enterovirus-rhinovirus/secondary bacterial multifocal pneumonia CXR 01/31: hazy/streaky increased densities in perihilar regions & lung bases b/l. pulm edema vs pneumonia. Repeat CXR 02/04: no pneumonia seen Biofire + for rhino/entero virus; BC neg at 48 hours. CBC w/ leukocytosis but suspect secondary to steroids given clinical improvement. s/p 3 doses of Azithro; Continue IV Cefepime. Solu-medrol 40mg IV once daily. Stable on room air currently. Duonebs prn Continue Pulmicort nebs BID. #CAD/hypertension/ischemic cardiomyopathy/presence of ICD/paroxysmal ventricular tachycardia BNP elevated on 01/31/2025 @ 1827 Echo 12/31/2024: LVEF 25-30%; LV/LA dilated; mild-mod MR. Dry wt. typically around 96-99kg; more recently wt has been as high as 102kg. Daily wt 02/04: 100.1kg, appears almost back to baseline. s/p Lasix 20mg IV BID17 --> transitioned to daily on 02/04. Consider home prn Lasix on discharge if pt gains > 2lbs in 1 day or >4 lbs in 1 week. I&O's, daily weights Continue amio 400mg daily, amlodipine 5mg daily, ASA 325mg daily, carvedilol 25mg BID, Entresto 51/49mg BID #Diabetes mellitus On aspart U-100, Glargine, metformin outpatient. Metformin currently on hold. Pharmacy following Lantus 50u q daily + SSI coverage. #Hyperlipidemia- Continue atorvastatin #Anxiety- Takes lorazepam 1 mg p.o. 3 times daily on a fairly regular basis Continue mirtazapine DVT prophylaxis: ASA 325mg dosing Code: Full Hopeful discharge 02/05 pending PT/OT tresa. Admission and Anticipated Discharge Date Admission Date: January 31, 2025 Supervising Physician Co-Signing Physician Notes The patient was not seen by me. The chart was reviewed. Case discussed with KEVIN Arias. Agree with assessment and plan Subjective Jose Roberto was seen & examined this morning. He states that he is feeling better today. reports he is coughing up more mucus from previous days. He denies any SOB, chest pain, or LE edema. Physical Exam Physical Exam: General: NAD, VS: BP 131/65; P50; R18; T36.7C Resp: normal respiratory effort, wheezing in upper lung pérez. diminished breath sounds at bases. CV: RRR, no murmur Extremities: warm, dry, no edema Neuro: A&O x3 Skin: intact, no lesions noted Results & Data Results & Data Vital Signs (Past 12 Hours) Vital Signs Temp Pulse Pulse Resp BP Pulse Ox O2 Del Method 02/04/25 08:23 36.7 C 52 L 18 144/77 H 93 Room Air 02/04/25 08:00 50 L 02/04/25 07:19 55 L 18 93 Room Air 02/04/25 03:13 36.4 C L 50 L 18 128/67 92 Nasal Cannula 02/03/25 23:19 36.5 C 50 L 19 112/56 L 91 Room Air O2 Flow Rate 02/04/25 08:23 02/04/25 08:00 02/04/25 07:19 02/04/25 03:13 2 02/03/25 23:19 PG Care Time/CCT Total # of Minutes Spent Total Time Spent with Patient: Total time spent is greater than 50% in coordination of care (as documented) at patient's floor/unit and/or counseling patient: Coding Level of Care Code 65738 SUB INP/OBS CARE 2/35MIN Diagnoses Acute respiratory failure with hypoxia J96.01 Rhinovirus infection B34.8 Secondary bacterial pneumonia J15.9 Multifocal pneumonia J18.8
[2025-02-05 04:42] VITALS: TEMP 97.7
[2025-02-05 06:03] LABS: Hematocrit (blood only) 37.1 % (42.0-52.0); Hemoglobin 12.8 g/dl (14.0-18.0); Immature Granulocytes # (auto) 0.16 K/uL (0.01-0.20); Immature Granulocytes % (auto) 1.5 %; Mean Corpuscular Hemoglobin 30.3 pg (25.0-34.0); Mean Corpuscular Volume 87.9 fL (80.0-100.0); Platelet Count 296 K/uL (130-400); RDW Standard Deviation 42.4 fL (36.4-46.3); Red Blood Count 4.22 M/uL (4.70-6.10); White Blood Count 10.98 K/ul (4.8-10.8)
[2025-02-05 06:23] LABS: Anion Gap 8.0 (3-11); Blood Urea Nitrogen 33.0 mg/dl (6-23); Calcium 8.6 mg/dl (8.6-10.3); Carbon Dioxide 28.0 mmol/L (21-32); Chloride 96.0 mmol/L (98-107); Creatinine Clr Calc Pharmacy 79.1 ml/min; Glucose 153.0 mg/dl (70-99(Fasting)); Potassium 4.3 mmol/L (3.5-5.1); Sodium 132.0 mmol/L (136-145)
[2025-02-05 08:28] VITALS: RESP 15; O2SAT 91
[2025-02-05] MEDS: predniSONE 20 MG TAB PO SCH (08:47)
[2025-02-05] MEDS ORDERED: FUROSEMIDE 40 MG/4 ML VIAL IV SCH (09:00)
--- NOTE | 2025-02-05 09:32 | Discharge Summary ---
Discharge Summary Date of Service February 05, 2025 Principal Dx & Hospital Course #1 = Principal Diagnosis (1) Acute respiratory failure with hypoxia: (2) Rhinovirus infection: (3) Secondary bacterial pneumonia: (4) Multifocal pneumonia: Plan The patient is an 84-year-old male with past medical history including mitral regurgitation, diabetic nephropathy, diabetes mellitus type 2, mild nonproliferative diabetic retinopathy, presence of AICD, dyslipidemia, GERD, lymphocytic colitis, IT band syndrome, anxiety, BPH with LUTS, esophageal dysphagia, ischemic cardiomyopathy, CKD stage II, and CAD #Acute respiratory failure with hypoxia/enterovirus-rhinovirus/secondary bacterial multifocal pneumonia CXR 01/31: hazy/streaky increased densities in perihilar regions & lung bases b/l. pulm edema vs pneumonia. Repeat CXR 02/04: no pneumonia seen Bio[facility] + for rhino/entero virus; BC neg at 48 hours. CBC w/ leukocytosis but suspect secondary to steroids given clinical improvement. s/p 3 doses of Azithro; s/p IV Cefepime --> transition to Augmentin BID for additional 2 days on discharge. Prednisone taper on dc. Stable on room air during day. Overnight pulse ox 02/04 -02/05 does reveal his O2 drops < 90% for ~ 1hr & 49 mins. He will require 2L of oxygen overnight on discharge; referral to sleep center sent #CAD/hypertension/ischemic cardiomyopathy/presence of ICD/paroxysmal ventricular tachycardia BNP elevated on 01/31/2025 @ 1827 Echo 12/31/2024: LVEF 25-30%; LV/LA dilated; mild-mod MR. Dry wt. typically around 96-99kg; wt day of discharge 100.1kg for reference. s/p IV Lasix; home prn Lasix on discharge if pt gains > 2lbs in 1 day or >4 lbs in 1 week. --> discussed checking weight daily @ home upon discharge. pt agreeable to plan. Continue amio 400mg daily, amlodipine 5mg daily, ASA 325mg daily, carvedilol 25mg BID, Entresto 51/49mg BID #Diabetes mellitus Resume outpatient regimen Follow up with PCP for any changes. A1c most recently 9% #Hyperlipidemia- Continue atorvastatin #Anxiety- Takes lorazepam 1 mg p.o. 3 times daily on a fairly regular basis Continue mirtazapine Discharged home 02/05 Admission HPI Per Admitting Provider The patient is an 84-year-old male with past medical history including mitral regurgitation, diabetic nephropathy, diabetes mellitus type 2, mild nonproliferative diabetic retinopathy, presence of AICD, dyslipidemia, GERD, lymphocytic colitis, IT band syndrome, anxiety, BPH with LUTS, esophageal dysphagia, ischemic cardiomyopathy, CKD stage II, and CAD. Workup in the emergency department included laboratories with abnormalities of sodium 128, glucose 243, AST 49, ALT 73, and BNP 1827.. Respiratory [facility] testing was positive for enterovirus/rhinovirus. Chest x-ray suggestive infiltrates in the bilateral lower lobes, right greater than left, suggestive of multifocal pneumonia. Patient with given ceftriaxone 2 g IV, methylprednisolone 60 mg IV, and a DuoNeb treatment by the ED, and was then referred for evaluation for admission. Discharge Exam General: NAD, VS: BP 141/72; P58; T36.5C Resp: normal respiratory effort, lungs clear to auscultation CV: RRR, no murmur Extremities: no edema Neuro: A&O x3, Skin: intact, no lesions noted Discharge Plan Discharge Items Patient Disposition: Home - Self-Care Reason For Visit: Multifocal bacterial pneumonia,rhinovirus Discharge Diagnosis: pneumonia, rhinovirus, pulmonary edema Condition on Discharge: Serious Activity: Resume your previous activity Non-emergency contact: Primary Care Provider Call non-emergency contact if: you have any medication questions, your symptoms worsen and you have a fever Follow-up/Referrals: Miguel Mares MD [Primary Care Provider] - 02/13/25 1:30 pm Diet: Carb Consistent or DM2 and Heart Healthy Addtl Attending Provider Instructions: Mr. Hess, You were recently hospitalized for shortness of breath and fatigue. You were found to be positive for a respiratory viral infection called rhinovirus. You were also found to have pneumonia and have an extra amount of fluid in your lungs. You were treated with IV antibiotics, IV steroids, and IV Lasix with improvement. Medications: Your medication list has been reviewed and reconciled upon discharge to ensure accuracy and continuity of care. An updated list of all your medications is included with your hospital discharge paperwork. Please review this list closely, and make note of any changes. Please take the prednisone taper as prescribed starting 02/06. Please take Augmentin twice daily for two days starting this evening, 10/28. Please use Lasix as needed if you gain greater than 2 pounds in 1 day OR 4 pounds in 1 week. Your weight at discharge is 220lbs for reference when weighing yourself at home. If you have to take more than 2 doses in 1 week, please reach out to your PCP. You did qualify for home oxygen overnight. Please use 2L of oxygen via nasal cannula overnight. Take your medications as instructed; do not skip a dose of your medicines. Make sure all of your doctors know every medicine you are taking (including lgzw-mwa-jqtciwn medicines, vitamins, and supplements). Call your primary care provider before taking any new medicines (including over- the-counter medicines, vitamins, and supplements), because some of these may interact with your current medications, or may make your symptoms worse. Tell your primary care provider if you cannot afford your medications. Activity: You can do normal everyday activities as your body allows. Take rest breaks if you feel tired. Do not overexert. Stop activity if you have pain, shortness of breath or feel dizzy. Follow-up appointments: Make an appointment with your primary care physician within one week of discharge. A copy of this summary will be sent to them. Every time you see your primary care physician, or any other doctor, bring your medication list, and a list of questions. A referral has been sent to the sleep center on discharge to continue to monitor your oxygen over night. Please also follow up with your space operations. CONTACT YOUR PRIMARY CARE PROVIDER if you experience any of the following: Shortness of breath or difficulty breathing Fevers or chills Feeling tired with normal activity or experiencing dizziness or fainting Difficulty following your treatment plan, or difficulty taking medications CALL 911 OR GO TO THE EMERGENCY DEPARTMENT if you experience any of the following: Severe abdominal pain or nausea/vomiting Severe chest pain, or chest pain that radiates (moves) to your jaw or arm Sudden, severe shortness of breath or difficulty breathing Thank you for allowing us to participate in your care. Pending Studies at Discharge: No Stand-Alone Forms: My QA on Request, Smoking Cessation Medications and DC Order Prescriptions: New prednisone 10 mg tablet 10 mg PO DIRECTED Qty: 16 0RF Rx Instructions: Please take 4 tablets by mouth for 1 day; followed by 3 tablets by mouth for 2 days; followed by 2 tablets by mouth for 2 days; followed by 1 tablet by mouth for 2 days amoxicillin-pot clavulanate 875-125 mg tablet 1 tab PO BID Qty: 4 0RF furosemide [Lasix] 20 mg tablet 20 mg PO DAILY PRN (Reason: edema) Qty: 30 0RF Rx Instructions: Please take if you gain greater than 2 lbs in 1 day OR 4 lbs in 1 week Continued amlodipine [Norvasc] 5 mg tablet 5 mg PO DAILY PRN (Reason: hypertension) Qty: 90 3RF Hold Instructions: Not taking because not need low BP in evening. atorvastatin 40 mg tablet 40 mg PO QPM Qty: 90 3RF ciclopirox 0.77 % cream 1 applic topical BID PRN (Reason: other) Qty: 90 3RF Rx Instructions: APPLY TO RIGHT BUTTOCK NEEDED. carvedilol [Coreg] 25 mg tablet 25 mg PO BID Qty: 180 3RF metformin 500 mg tablet extended release 24 hr 500 mg PO QPM Qty: 90 3RF mirtazapine 15 mg tablet 15 mg PO DAILY Qty: 90 1RF clotrimazole 1 % cream 1 applic topical BID Qty: 45 0RF Rx Instructions: Apply to rash of buttocks twice daily as directed. Entresto 49-51 mg tablet 1 tab PO BID Qty: 180 3RF lorazepam 1 mg tablet 1 mg PO TID PRN (Reason: anxiety) Qty: 90 0RF cholecalciferol (vitamin D3) 125 mcg (5,000 unit) capsule 125 mcg PO DAILY Qty: 90 1RF aspirin 325 mg tablet 325 mg PO DAILY insulin aspart U-100 [Novolog U-100 Insulin aspart] 100 unit/mL solution 50 unit SUBCUT .COMPLEX 90 Days Qty: 10 3RF Rx Instructions: TAKES 5 UNITS WITH BREAKFAST AND 5-10 UNITS WITH SUPPER cyanocobalamin (vitamin B-12) [Vitamin B-12] 500 mcg tablet 500 mcg PO QPM Centrum Silver Men 300-600-300 mcg tablet 1 tab PO QPM amiodarone 400 mg tablet 400 mg PO QAM insulin glargine [Lantus U-100 Insulin] 100 unit/mL Solution 40 unit SUBCUT HS Rx Instructions: *Reports taking 40-45 units at bedtime mupirocin 2 % ointment 1 applic topical TID PRN (Reason: Skin Irritation) pantoprazole 40 mg tablet,delayed release (DR/EC) 40 mg PO DAILY triamcinolone acetonide 0.1 % ointment 1 applic topical BID PRN (Reason: Skin Irritation) No Action (DME) insulin syringe-needle U-100 [BD Insulin Syringe Ultra-Fine] 0.5 mL 30 gauge x 1/2" syringe See Rx Instructions .Route Qty: 200 11RF Rx Instructions: use at breakfast, lunch, supper, and bedtime (DME) lancets [OneTouch Delica Lancets] 33 gauge misc See Rx Instructions .ROUTE .MEDSUPPLY Qty: 100 Rx Instructions: testing 2 X daily (DME) miscellaneous medical supply Liquid See Rx Instructions .MEDSUPPLY Qty: 50 6RF Rx Instructions: amiodarone 20 mg/ml, 5 ml daily (DME) Dexcom G7 Sensor Device See Rx Instructions .Route Rx Instructions: As directed (DME) OneTouch Ultra Test Strip See Rx Instructions .Route Qty: 100 11RF Rx Instructions: Test three times a day (DME) DuoDERM CGF Border Dressing 2 1/2 X 2 1/2 " bandage See Rx Instructions .Route Qty: 5 3RF Rx Instructions: As directed Discharge Orders: Discharge Order (Routine); Ordered 02/05/25 Ordered By: Dolores Peck Admission Data Admit Date/Time: 01/31/25 23:50 Attending Provider: Jose Roberto Antoine Admit Provider: Justo Mendoza Primary Care Provider: Miguel Mares Other Providers: Justo Mendoza Other Interventions: Discharge Summary Assessment (RN) Last Done: 02/05/25 12:15 Hospital Stay Data Consultations 01/31/25 20:54 ED Decision to Admit Stat Pending Results Patient Have Any Pending Studies at Discharge: No Discharge Instructions Given to Patient (Per Discharging Provider) Mr. Hess, Bryan were recently hospitalized for shortness of breath and fatigue. You were found to be positive for a respiratory viral infection called rhinovirus. You were also found to have pneumonia and have an extra amount of fluid in your lungs. You were treated with IV antibiotics, IV steroids, and IV Lasix with improvement. Medications: Your medication list has been reviewed and reconciled upon discharge to ensure accuracy and continuity of care. An updated list of all your medications is in cluded with your hospital discharge paperwork. Please review this list closely, and make note of any changes. Please take the prednisone taper as prescribed starting 02/06. Please take Augmentin twice daily for two days starting this evening, 02/05. Please use Lasix as needed if you gain greater than 2 pounds in 1 day OR 4 pounds in 1 week. Your weight at discharge is 220lbs for reference when weighing yourself at home. If you have to take more than 2 doses in 1 week, please reach out to your PCP. You did qualify for home oxygen overnight. Please use 2L of oxygen via nasal cannula overnight. Take your medications as instructed; do not skip a dose of your medicines. Make sure all of your doctors know every medicine you are taking (including cehi-low-vtcihga medicines, vitamins, and supplements). Call your primary care provider before taking any new medicines (including over- the-counter medicines, vitamins, and supplements), because some of these may interact with your current medications, or may make your symptoms worse. Tell your primary care provider if you cannot afford your medications. Activity: You can do normal everyday activities as your body allows. Take rest breaks if you feel tired. Do not overexert. Stop activity if you have pain, shortness of breath or feel dizzy. Follow-up appointments: Make an appointment with your primary care physician within one week of discharge. A copy of this summary will be sent to them. Every time you see your primary care physician, or any other doctor, bring your medication list, and a list of questions. A referral has been sent to the sleep center on discharge to continue to monitor your oxygen over night. Please also follow up with your space operations. CONTACT YOUR PRIMARY CARE PROVIDER if you experience any of the following: Shortness of breath or difficulty breathing Fevers or chills Feeling tired with normal activity or experiencing dizziness or fainting Difficulty following your treatment plan, or difficulty taking medications CALL 911 OR GO TO THE EMERGENCY DEPARTMENT if you experience any of the following: Severe abdominal pain or nausea/vomiting Severe chest pain, or chest pain that radiates (moves) to your jaw or arm Sudden, severe shortness of breath or difficulty breathing Thank you for allowing us to participate in your care. Supervising Physician Co-Signing Physician Notes The patient was not seen by me. The chart was reviewed. Case discussed with Dolroes Peck, PA. Agree with assessment and plan Total Time Total Time Spent Total Time Spent (In Minutes): 50 Total Time Includes: Examination of the Patient, Discharge Planning, Medication Reconciliation and Communication With Other Providers Coding Level of Care Code 98328 INP/OBS DISCH >30 MIN Diagnoses Acute respiratory failure with hypoxia J96.01 Rhinovirus infection B34.8 Secondary bacterial pneumonia J15.9 Multifocal pneumonia J18.8
[2025-02-05 12:16] VITALS: BP 139/72; PULSE 58
== END 2025-02-05 14:43 | disposition home or self-care (01) | DRG 189 ==
LOC: ED 19:54 → 4W 23:50 → SUATTDRO 23:50 → 4W 02-01 00:59